=== PATIENT | female | born 1970 | race Caucasian/White ===

== ENCOUNTER 2016-10-02 14:07 | Emergency (ER) | payer SELFPAY ==
[2016-10-02 14:31] VITALS: BP 133/59
[2016-10-02] MEDS ORDERED: ALBUTEROL SULFATE 0.083% NEB 2.5 MG/3 ML AMPUL NEB ONE (14:52)
--- NOTE | 2016-10-02 14:54 | ER Document Report ---
ED Medical Screen (RME) - General Stated Complaint: SORE THROAT Time seen by provider: 14:53 Mode of Arrival: Ambulatory Information source: Patient Notes: 46-year-old smoker female complaining of sore throat, body aches, congestive cough since Sunday night. She's been exposed to strep throat. She wants to be treated with antibiotics. Because of her mom. I have greeted and performed a rapid initial assessment of this patient. A comprehensive ED assessment, evaluation of the patient, analysis of test results , and completion of the medical decision making process will be conducted by additional ED providers. TRAVEL OUTSIDE OF THE [place] IN LAST 30 DAYS: No - Related Data Allergies/Adverse Reactions: No Known Allergies Allergy (Verified 10/02/16 14:52) Past Medical History - Past Medical History Cardiac Medical History: Reports: Hx Hypercholesterolemia, Hx Hypertension Psychiatric Medical History: Reports: Hx Anxiety, Hx Depression Past Surgical History: Reports: Hx Tonsillectomy - Immunizations Hx Diphtheria, Pertussis, Tetanus Vaccination: No Physical Exam - Vital signs Vitals: Temp Pulse Resp BP Pulse Ox 98.5 F 99 16 133/59 H 98 10/02/16 14:30 10/02/16 14:30 10/02/16 14:30 10/02/16 14:30 10/02/16 14:30 Course - Vital Signs Vital signs: Temp Pulse Resp BP Pulse Ox 98.5 F 99 16 133/59 H 98 10/02/16 14:30 10/02/16 14:30 10/02/16 14:30 10/02/16 14:30 10/02/16 14:30
[2016-10-02] MEDS ORDERED: DEXAMETHASONE 4 MG TABLET PO ONE (18:22)
--- NOTE | 2016-10-02 18:27 | ER Document Report ---
[id number] Mode of Arrival: Ambulatory Notes: The patient is a 46-year-old female, past medical history chronic back pain, presents with 2 days of dry cough, subjective fevers and sore throat. She is concerned that she has strep throat because her son and daughter both were diagnosed with strep last week. She denies difficulty breathing, difficulty swallowing, nausea, vomiting, adenopathy, trismus, headache, nausea or vomiting. TRAVEL OUTSIDE OF THE [place] IN LAST 30 DAYS: No - Related Data Allergies/Adverse Reactions: No Known Allergies Allergy (Verified 10/02/16 14:52) Past Medical History - General Information source: Patient - Social History Smoking Status: Current Every Day Smoker Chew tobacco use (# tins/day): Yes Family History: Reviewed & Not Pertinent Patient has suicidal ideation: No Patient has homicidal ideation: No - Past Medical History Cardiac Medical History: Reports: Hx Hypercholesterolemia, Hx Hypertension Renal/ Medical History: Denies: Hx Peritoneal Dialysis Psychiatric Medical History: Reports: Hx Anxiety, Hx Depression Past Surgical History: Reports: Hx Tonsillectomy - Immunizations Hx Diphtheria, Pertussis, Tetanus Vaccination: No Review of Systems - Review of Systems Notes: REVIEW OF SYSTEMS: CONSTITUTIONAL: +fevers, -chills EENT: -eye pain, -difficulty swallowing, -nasal congestion, +sore throat CARDIOVASCULAR:-chest pain, -syncope. RESPIRATORY: +cough, -SOB GASTROINTESTINAL: -abdominal pain, - nausea, -vomiting, -diarrhea GENITOURINARY: -dysuria, -hematuria MUSCULOSKELETAL: -back pain, -neck pain SKIN: -rash or skin lesions. HEMATOLOGIC: -easy bruising or bleeding. LYMPHATIC: -swollen, enlarged glands. NEUROLOGICAL: -altered mental status or loss of consciousness, -headache, - neurologic symptoms PSYCHIATRIC: -anxiety, -depression. ALL OTHER SYSTEMS REVIEWED AND NEGATIVE. Physical Exam - Vital signs Vitals: Temp Pulse Resp BP Pulse Ox 98.5 F 99 16 133/59 H 98 10/02/16 14:30 10/02/16 14:30 10/02/16 14:30 10/02/16 14:30 10/02/16 14:30 - Notes Notes: PHYSICAL EXAMINATION: GENERAL: Well-appearing, well-nourished and in no acute distress. HEAD: Atraumatic, normocephalic. EYES: Pupils equal round and reactive to light, extraocular movements intact, sclera anicteric, conjunctiva are normal. ENT: nares patent, oropharynx clear without exudates. Moist mucous membranes. NECK: Normal range of motion, supple without lymphadenopathy LUNGS: Breath sounds clear to auscultation bilaterally and equal. No wheezes rales or rhonchi. HEART: Regular rate and rhythm without murmurs ABDOMEN: Soft, nontender, normoactive bowel sounds. No guarding, no rebound. No masses appreciated. EXTREMITIES: Normal range of motion, no pitting or edema. No cyanosis. NEUROLOGICAL: Cranial nerves grossly intact. Normal speech, normal gait. Normal sensory, motor, and reflex exams. PSYCH: Normal mood, normal affect. SKIN: Warm, Dry, normal turgor, no rashes or lesions noted. Course - Re-evaluation Re-evalutation: Patient has 0 Centor criteria. Rapid strep sent prior to my evaluation is negative. Chest x-ray also negative. Will DC home after steroids to help with viral pharyngitis. Given symptomatic treatment and return precautions and she understands. - Vital Signs Vital signs: Temp Pulse Resp BP Pulse Ox 98.5 F 99 16 133/59 H 98 10/02/16 14:30 10/02/16 14:30 10/02/16 14:30 10/02/16 14:30 10/02/16 14:30 Discharge - Discharge Clinical Impression: Viral pharyngitis URI (upper respiratory infection) Qualifiers: URI type: unspecified viral URI Qualified Code(s): J06.9 - Acute upper respiratory infection, unspecified Condition: Good Disposition: HOME, SELF-CARE Additional Instructions: INFLUENZA: The physician feels that you have influenza -- the "flu". Influenza is an infection caused by a virus. Symptoms include generalized aching, fever, headache, dry cough, and fatigue. Some patients with the flu also have nausea, vomiting, and diarrhea. The fever and aches usually last two to four days, with the cough persisting another one to two weeks. Treatment of the flu, for the most part, is simply treatment of symptoms. Rest, drink plenty of fluids, and use acetaminophen for fever and aches. Do not take aspirin. There is an anti-viral medication, called Tamiflu, which may help in "type A" flu, but it's not helpful in every case of flu, and only works if started within the first 24 - 48 hours of the start of symptoms. The physician will determine whether this medication can help you. To prevent spread of the virus, use good handwashing. Shared toys should be cleaned with disinfectant. Clean the toilets, sinks, and counter surfaces in bathrooms. Launder clothing in hot water. What are conditions that should receive medical attention? The development of difficulty breathing. Lip color changes to blue or purple. Persistent vomiting and unable to keep liquids down with signs of dehydration such as: dizziness when standing, unable to urinate, or if child/ is crying no tears are noticed. Is less responsive than normal or becomes confused. How do I decrease the spread of flu in my home? Taking care of the sick patient at home: Keep the sick person in a room separate from the common areas of the house. Keep the "sickroom" door closed. If the person with the flu needs to leave the home, they should cover their nose/mouth when coughing or sneezing and wear a disposable (surgical) mask if available. These masks may be available at your local pharmacy, medical supply and hardware store. If the sick person is in common areas of the house, have them wear a surgical mask. If possible, have the sick person use a separate bathroom that should be cleaned daily with a household disinfectant. If you are the caregiver: Avoid being face to face with the sick adult person as much as possible. Try to stay at least 6 feet away and wear a disposable surgical mask when possible. When holding small children who are sick, place their chin on your shoulder so that they will not cough in your face. Wash your hands after you touch the sick person or handle their tissues and laundry. Wear a mask if you leave home, as you may be infected from taking care of someone and not know it yet. Watch yourself and others in the home for flu symptoms and contact your doctor if symptoms occur. NOTE: Antiviral medication used to reduce the symptoms of the flu works only if taken within 48 hours, and best within 24 hours of symptom onset. Household Cleaning, laundry and waste disposal: Tissues and other disposable items used by the sick person should be thrown away in the trash. Wash your hands after touching these used items. No special waste disposal is required. Keep surfaces (especially bedside tables, bathroom surfaces, and toys for children) clean by wiping them down with a safe household disinfectant according to the directions on the product label. Per Center for Disease Control advice, most people will not receive testing to confirm flu. Also based on the person's health history and onset of symptoms, not all patients will receive prescriptions for antiviral medications. If you have questions related to this, please ask your healthcare provider. For more information, you can call the Centers for Disease Control and Prevention ([facility]) Hotline at 4-410-ZZKDefixo This line is available in Greenlandic and Croatian, 24 hours a day, 7 days a week. Or www.Mailgun or www.cdc.gov Flu-Like Illness Home Instructions: The influenza virus infection can cause a wide rage of symptoms, including: Fever, cough, sore throat, body aches, headaches, chills, fatigue, with some patients reporting diarrhea and vomiting Like seasonal influenza A, H1N1 ("swine flu")in humans can vary in severity from mild to severe Severe illness with pneumonia, respiratory failure and even is possible Certain groups might be more likely to develop a severe illness from H1N1 infection. Sometimes bacterial infections may occur at the same time as or after infection with influenza viruses and lead to pneumonias, ear infections, or sinus infections. How Flu Spreads The main way that influenza viruses spread is through respiratory droplets of coughs and sneezes. This can happen when someone with the infection coughs or sneezes and the particles fly through the air and land on other people and surfaces. If the person covers their mouth and nose with their hand but does not wash their hands immediately, then these germs are passed onto the next object that they touch. People with Influenza A or suspected H1N1 (swine flu) who are cared for at home should: Check with their doctor about any special care that they might need if they are or have a health condition such as diabetes, heart disease, asthma or emphysema. Also, limit caregiver to one (if possible). women or those with chronic health conditions should not take care of the flu patient unless necessary. Check with their doctor about whether or not medications are needed that may lessen the symptoms of the flu. Stay at home until 24 hours fever free without the use of fever reducing medication. Get plenty of rest and avoid other healthy people in your home. Drink plenty of clear liquids to keep from getting dehydrated. Take medications like Tylenol (Acetaminophen), Advil/Motrin/Nuprin ( Ibuprofen) or Aleve (Naproxen) for fevers and aches. All children under the age of 18 years of age should not take aspirin or products containing aspirin (e.g. Pepto Bismol), as this can cause a rare serious illness called Tara Syndrome. Over the counter medications for flu and colds may help, but it is very important to follow the package directions. Remember that the medicine may help the symptoms, but it will not help prevent others from getting sick if they are around you. Cover coughs and sneezes using your bent arm. Clean hands with soap and water or an alcohol-based hand rub often, especially after using tissues to cough or sneeze. Encourage hand washing frequently for all people living in the home! The sick person should not have visitors other than caregivers. Encourage concerned loved ones to call instead of visit. Avoid close contact with others-do not go to work or school while sick. USE OF ACETAMINOPHEN (Tylenol): Acetaminophen may be taken for pain relief or fever control. It's much safer than aspirin, offering a wider range of "safe" dosages. It is safe during . Some brand names are Tylenol, Panadol, Datril, Anacin 3, Tempra, and Liquiprin. Acetaminophen can be repeated every four hours. The following are maximum recommended dosages: WEIGHT Dose Drops Elixir Chewable( 80mg) (LBS.) drprs=droppers tsp=teaspoon 6 40 mg 0.4 ml (1/2) 6-11 80 mg 0.8 ml (full) tsp 1 tab 12-16 120 mg 1 1/2 drprs 3/4 tsp 1 1/2 tabs 17-23 160 mg 2 drprs 1 tsp 2 tabs 24-30 240 mg 3 drprs 1 1/2 tsp 3 tabs 30-35 320 mg 2 tsp 4 tabs 36-41 360 mg 2 1/4 tsp 4 1/2 tabs 42-47 400 mg 2 1/2 tsp 5 tabs 48-53 480 mg 3 tsp 6 tabs 54-59 520 mg 3 1/4 tsp 6 1/2 tabs 60-64 560 mg 3 1/2 tsp 7 tabs 65-70 600 mg 3 3/4 tsp 7 1/2 tabs 71-76 640 mg 4 tsp 8 tabs 77-82 720 mg 4 1/2 tsp 9 tabs 83-88 800 mg 5 tsp 10 tabs >89 pounds or adults 650 mg to 900 mg Acetaminophen can be repeated every four hours. Maximum dose not to exceed 4000 mg a day. These maximum recommended dosages are slightly higher than the dosages written on the product container, but these dosages are very safe and below the toxic dosage for acetaminophen. ORAL NARCOTIC MEDICATION: You have been given a prescription for pain control. This medication is a narcotic. It's best taken with food, as nausea can result if taken on an empty stomach. Don't operate machinery or drive within six hours of taking this medication. Do not combine this medicine with alcohol, or with any medication which can cause sedation (such as cold tablets or sleeping pills) unless you get permission from the physician. Narcotics tend to cause constipation. If possible, drink plenty of fluids and eat a diet high in fiber and fruits. Please be aware that prescription narcotics also have the potential for abuse. People become addicted to these medications because of the general sense of wellbeing that they induce. This feeling along with a significant reduction in tension, anxiety, and aggression provides a stimulating seductive quality to these drugs. Once your pain is under control, we encourage you to discard your unused narcotics. FOLLOW-UP CARE: If you have been referred to a physician for follow-up care, call the physician s office for an appointment as you were instructed or within the next two days. If you experience worsening or a significant change in your symptoms, notify the physician immediately or return to the Emergency Department at any time for re-evaluation. Prescriptions: Benzonatate [Tessalon Perle 100 mg Capsule] 100 mg PO Q8HP PRN #20 cap PRN Reason: Forms: Return to Work
== END 2016-10-02 18:35 | disposition home or self-care (01) ==
LOC: ER 14:07
DX: J02.8 Acute pharyngitis due to other specified organisms (principal); B97.89 Other viral agents as the cause of diseases classified elsewhere; R05 Cough; Z20.818 Contact with and (suspected) exposure to other bacterial communicable diseases; F17.200 Nicotine dependence, unspecified, uncomplicated; I10 Essential (primary) hypertension
CPT/HCPCS: 71020; 87070; 87880; 94640; 99283

== ENCOUNTER 2018-04-24 17:05 | Emergency (ER) | payer SELFPAY ==
[2018-04-24 17:17] VITALS: BP 110/68
[2018-04-24] MEDS ORDERED: LIDOCAINE 5% (700 MG) TRANSDERMAL ADH..PATCH TP ONE (18:04)
--- NOTE | 2018-04-24 18:04 | ER Document Report ---
ED Medical Screen (RME) - General Chief Complaint: Chest Pain Stated Complaint: CHEST PAIN Time Seen by Provider: 04/24/18 18:00 TRAVEL OUTSIDE OF THE [place] IN LAST 30 DAYS: No - HPI Notes: 04/24/18 18:01 Patient is a 48-year-old female with a history of mental health disorders and chronic pain who presents to the ED complaining of left-sided chest pain and left arm pain that started somewhat suddenly when she was doing dishes about 1- 2 hours ago. Denies any significant cardiopulmonary medical history otherwise. Pain is worse with arm movement and pushing in that area per pt. Denies any headache, fever, URI, sore throat, palpitations, syncope, cough, shortness of breath, wheeze, dyspnea, abdominal pain, nausea/vomiting/diarrhea, urinary retention, dysuria, hematuria, back pain, or rash. Denies any prolonged immobilization, distance travel, recent surgery/trauma, personal cancer history, hormone use, or previous DVT/PE. + smoker. I have treated and performed a rapid initial assessment of this patient. A comprehensive ED assessment and evaluation of the patient, analysis of test results and completion of medical decision making process will be conducted by additional ED providers. PHYSICAL EXAMINATION: GENERAL: Well-appearing, well-nourished and in no acute distress. A&Ox4. Answers questions appropriately. Chest: + moderate tenderness to the left side. LUNGS: Breath sounds clear to auscultation bilaterally and equal. No wheezes rales or rhonchi. HEART: Regular rate and rhythm without murmurs, rubs, gallops. Extremities: No cyanosis, clubbing, or edema b/l. Keyur neg. No asymmetry. PSYCH: Normal mood, normal affect. - Related Data Allergies/Adverse Reactions: No Known Allergies Allergy (Verified 04/24/18 18:01) Past Medical History - Past Medical History Cardiac Medical History: Reports: Hx Hypercholesterolemia, Hx Hypertension Renal/ Medical History: Denies: Hx Peritoneal Dialysis Psychiatric Medical History: Reports: Hx Anxiety, Hx Depression Past Surgical History: Reports: Hx Tonsillectomy - Immunizations Hx Diphtheria, Pertussis, Tetanus Vaccination: No Physical Exam - Vital signs Vitals: Temp Pulse Resp BP Pulse Ox 98.0 F 96 18 110/68 100 04/24/18 17:15 04/24/18 17:15 04/24/18 17:15 04/24/18 17:15 04/24/18 17:15 Course - Vital Signs Vital signs: Temp Pulse Resp BP Pulse Ox 98.0 F 96 18 110/68 100 04/24/18 17:15 04/24/18 17:15 04/24/18 17:15 04/24/18 17:15 04/24/18 17:15 Doctor's Discharge - Discharge Referrals: ALYSE JOHNSON PA [Primary Care Provider] - Follow up as needed
--- NOTE | 2018-04-24 18:36 | RADIOLOGY REPORT (SQ) ---
EXAM DESCRIPTION: CHEST SINGLE VIEW COMPLETED DATE/TIME: 04/24/2018 6:20 pm REASON FOR STUDY: Lt side CP COMPARISON: 10/02/2016 EXAM PARAMETERS: NUMBER OF VIEWS: One view. TECHNIQUE: Single frontal radiographic view of the chest acquired. RADIATION DOSE: NA LIMITATIONS: None. FINDINGS: LUNGS AND PLEURA: No opacities, masses or pneumothorax. No pleural effusion. MEDIASTINUM AND HILAR STRUCTURES: No masses. Contour normal. HEART AND VASCULAR STRUCTURES: Heart normal in size. Normal vasculature. BONES: No acute findings. HARDWARE: None in the chest. OTHER: No other significant finding. IMPRESSION: NO ACUTE RADIOGRAPHIC FINDING IN THE CHEST. TECHNICAL DOCUMENTATION: JOB ID: [id number] [employer]- All Rights Reserved Reading location - IP/workstation name: [email or web address]
--- NOTE | 2018-04-24 19:45 | EKG REPORT ---
SEVERITY:- BORDERLINE ECG - SINUS RHYTHM PROBABLE LEFT ATRIAL ABNORMALITY : Confirmed by: Anders Mg MD 24-Apr-2018 19:44:43
== END 2018-04-24 19:44 | disposition home or self-care (01) ==
LOC: ER 17:05
DX: R07.9 Chest pain, unspecified (principal); M79.602 Pain in left arm; F17.200 Nicotine dependence, unspecified, uncomplicated; G89.29 Other chronic pain
CPT/HCPCS: 71045; 93005; 93010; 99285

== ENCOUNTER 2018-06-23 09:54 | Emergency (ER) | payer SELFPAY ==
--- NOTE | 2018-06-23 10:36 | ER Document Report ---
ED Extremity Problem, Lower - General Chief Complaint: Ankle Pain Stated Complaint: LEFT ANKLE INJURY Time Seen by Provider: 06/23/18 10:34 Notes: Patient is complaining of severe pain over the malleolus of the left ankle. Patient says that she tripped and turned to the ankle inward when she fell on Sunday. She is been able to walk on it and does not hurt that much to walk but when notes on the bed and not moving it hurts "so bad". Has never had an injury to that area before. Ankle did not swell a lot. No other injuries. Patient has ibuprofen as well as oxycodone for chronic pain and is not requesting any more pain medications. TRAVEL OUTSIDE OF THE [place] IN LAST 30 DAYS: No - Related Data Allergies/Adverse Reactions: No Known Allergies Allergy (Verified 04/24/18 18:01) Past Medical History - Social History Smoking Status: Unknown if Ever Smoked Family History: Reviewed & Not Pertinent - Past Medical History Cardiac Medical History: Reports: Hx Hypercholesterolemia, Hx Hypertension Renal/ Medical History: Denies: Hx Peritoneal Dialysis Psychiatric Medical History: Reports: Hx Anxiety, Hx Depression Past Surgical History: Reports: Hx Tonsillectomy - Immunizations Hx Diphtheria, Pertussis, Tetanus Vaccination: No Review of Systems - Review of Systems Notes: CONSTITUTIONAL : Denies fever. CARDIOVASCULAR: Denies chest pain. RESPIRATORY: Denies cough, chest congestion, or shortness of breath. GASTROINTESTINAL: Denies abdominal pain or nausea, vomiting, or diarrhea. GENITOURINARY: Denies difficulty or painful urinating, urinary frequency, blood in urine. Physical Exam - Vital signs Vitals: Temp Pulse Resp BP Pulse Ox 98.1 F 74 16 133/77 H 99 06/23/18 10:00 06/23/18 10:00 06/23/18 10:00 06/23/18 10:00 06/23/18 10:00 Interpretation: Normal Notes: PHYSICAL EXAMINATION: GENERAL: Well-appearing, no acute distress. HEAD: Atraumatic, normocephalic. NECK: Normal range of motion, supple. LUNGS: Breath sounds clear and equal bilaterally. HEART: Regular rate and rhythm without murmurs heard. ABDOMEN: Soft, nontender. No guarding or rebound or masses felt. Extremities: Patient has some very minimal soft tissue swelling around the lateral malleolar of the left ankle. She points to an area about 2 inches above the fibula tip as the primary location of the pain. It hurts to press in that region. She has been able to walk on it and is not to severely painful to do so. Patient is almost hysterical in her happiness to learn that there is no broken bone. She is actually in tears worried that she had broken a bone in the ankle. Course - Re-evaluation Re-evalutation: 06/23/18 19:12 Patient has an ankle brace at home so I have advised her to use that for the next few weeks to prevent further injury to her ankle. She did not request more pain medications as she says that she has oxycodone and ibuprofen at home. Patient's response to my informing her that her x-ray showed the bone was not broken was almost hysterical with relief and she hugged me and was near tears. - Vital Signs Vital signs: Temp Pulse Resp BP Pulse Ox 98.4 F 62 16 126/76 H 98 06/23/18 11:17 06/23/18 11:17 06/23/18 11:17 06/23/18 11:17 06/23/18 11:17 - Diagnostic Test Radiology results interpreted by me: 06/23/18 19:11 X-ray is normal. Discharge - Discharge Clinical Impression: Sprain of left ankle Condition: Stable Disposition: HOME, SELF-CARE Additional Instructions: Sprained Ankle Your sprained ankle results from stretching or tearing of the ligaments which support the ankle. This usually results from twisting the foot inward and under. The ligaments will require time and protection in order to heal properly. Many ankle sprains are quite disabling, and should be taken seriously. The usual treatment for an ankle sprain is cold packs; protection with tape , splints, or wraps; elevation; and staying off the ankle for at least a day. As the ankle improves, you can walk IF it's not painful to bear weight. Sports are best postponed until healing is complete. More serious sprains usually require strengthening exercises after early healing. Your physician has assessed the seriousness of the ligament injury to your ankle. However, the treatment may change, depending on how your ankle progresses. If further exams were recommended, it is important that you follow through. Call the doctor if your foot becomes numb, painful, or severely swollen. Your x-rays show no evidence of fracture. Your examination suggests a sprain of the left ankle. This injury involves stretching and even some tearing of the ligaments over the outer aspect of the ankle. However, there is no evidence of fracture of the bone. Take your own pain medications of ibuprofen and oxycodone that you have at home. Wear the ankle support that you have at home for the next month to 6 weeks. Follow-up with an orthopedic doctor if you continue to have your painful symptoms or other problems with the ankle. I have provided Dr. Neal's contact information, if you need to see an orthopedist. Referrals: DAVIDSON NEAL MD [ACTIVE STAFF] - Follow up as needed
--- NOTE | 2018-06-23 10:39 | RADIOLOGY REPORT (SQ) ---
EXAM DESCRIPTION: ANKLE LEFT COMPLETE COMPLETED DATE/TIME: 06/23/2018 10:29 am REASON FOR STUDY: left ankle pain COMPARISON: 01/19/2012. NUMBER OF VIEWS: Three views. TECHNIQUE: AP, lateral, and oblique radiographic images acquired of the left ankle. LIMITATIONS: None. FINDINGS: MINERALIZATION: Normal. BONES: No acute fracture or dislocation. No worrisome bone lesions. JOINTS: No effusions. SOFT TISSUES: No soft tissue swelling. No foreign body. OTHER: No other significant finding. IMPRESSION: NEGATIVE STUDY OF THE LEFT ANKLE. NO RADIOGRAPHIC EVIDENCE OF ACUTE INJURY. TECHNICAL DOCUMENTATION: JOB ID: [id number] [employer]- All Rights Reserved Reading location - IP/workstation name: [email or web address]
[2018-06-23 11:23] VITALS: BP 126/76
== END 2018-06-23 11:17 | disposition home or self-care (01) ==
LOC: ER 09:54
DX: S93.402A Sprain of unspecified ligament of left ankle, initial encounter (principal); W01.0XXA Fall on same level from slipping, tripping and stumbling without subsequent striking against object, initial encounter; E78.00 Pure hypercholesterolemia, unspecified; I10 Essential (primary) hypertension
CPT/HCPCS: 99283

== ENCOUNTER 2018-07-13 02:34 | Inpatient (IN) | payer SELFPAY ==
[2018-07-13] MEDS ORDERED: IPRATROPIUM/ALBUTEROL 0.5-2.5 MG/3 ML AMPUL NEB ONE ×2 (02:40→02:46)
[2018-07-13] MEDS ORDERED: METHYLPREDNISOLONE INJ 125 MG/2 ML SDV IV ONE (02:43)
[2018-07-13] MEDS ORDERED: MAGNESIUM SULFATE/D5W 1 GM/100 ML RTUPB IV ONE (02:44)
[2018-07-13] MEDS: MAGNESIUM SULFATE/D5W 1 GM/100 ML RTUPB IV SCH ×2 (02:47→02:48)
--- NOTE | 2018-07-13 03:00 | ER Document Report ---
ED General - General Chief Complaint: Shortness Of Breath Stated Complaint: DIFFICULTY BREATHING Time Seen by Provider: 07/13/18 02:46 Mode of Arrival: Ambulatory Information source: Patient TRAVEL OUTSIDE OF THE [place] IN LAST 30 DAYS: No - HPI Onset: Yesterday Notes: 48-year-old female smoker with no reported past medical history arrives to the emergency room in respiratory distress speaking in 1-2 word sentences with chief complaint of "I cannot breathe". She says the symptoms started yesterday , have not improved, and got worse this evening prompting her to seek treatment in the emergency department. After patient on BiPAP and respiratory effort improved able to elicit history. Patient endorses headache and cough since yesterday, endorses vomiting one time this evening, endorses anxiety for which she takes Xanax 3 times per day. She denies fever, chills, or any other constitutional symptoms. She endorses chronic back pain and is seen by pain management, Dr. Man, and takes oxycodone 10 mg 5 times per day per pain contract. Has not gotten flu shot this year. - Related Data Allergies/Adverse Reactions: No Known Allergies Allergy (Verified 07/13/18 10:02) Past Medical History - General Information source: Patient - Social History Smoking Status: Current Every Day Smoker Smoking Education Provided: Yes Lives with: Family Family History: Reviewed & Not Pertinent - Past Medical History Cardiac Medical History: Reports: Hx Hypercholesterolemia, Hx Hypertension Renal/ Medical History: Denies: Hx Peritoneal Dialysis Psychiatric Medical History: Reports: Hx Anxiety, Hx Depression Past Surgical History: Reports: Hx Tonsillectomy - Immunizations Hx Diphtheria, Pertussis, Tetanus Vaccination: No Review of Systems - Review of Systems Constitutional: See HPI EENT: See HPI Cardiovascular: See HPI Respiratory: See HPI Gastrointestinal: See HPI Genitourinary: See HPI Female Genitourinary: No symptoms reported Musculoskeletal: Back pain Skin: No symptoms reported Hematologic/Lymphatic: No symptoms reported Neurological/Psychological: No symptoms reported Physical Exam - Vital signs Vitals: Resp Pulse Ox 30 H 90 L 07/13/18 02:43 07/13/18 02:43 Interpretation: Tachycardic, Hypoxic, Tachypneic. No: Febrile - General General appearance: Alert, Anxious In distress: Severe - Respiratory Respiratory status: Respiratory distress - severe, Labored, Retractions, Tachypnea Chest status: Nontender Breath sounds: Wheezing - inspiratory and respiratory Chest palpation: Normal - Cardiovascular Rhythm: Regular, Tachycardia Heart sounds: Normal auscultation Murmur: No - Abdominal Inspection: Normal Distension: No distension Bowel sounds: Normal Tenderness: Nontender - Neurological Neuro grossly intact: Yes Cognition: Normal Orientation: AAOx4 Huntington Coma Scale Eye Opening: Spontaneous Yonatan Coma Scale Verbal: Oriented Yonatan Coma Scale Motor: Obeys Commands Huntington Coma Scale Total: 15 Speech: Normal - Skin Skin Temperature: Warm Skin Moisture: Dry Skin Color: Normal Course - Re-evaluation Re-evalutation: 07/13/18 02:58 Upon arrival O2 sats were 73% on room air patient was immediately placed on a nasal cannula with no improvement and immediately transition to a facemask. On the facemask patient was still satting at 88% on 8 L, respiratory therapy was called and BiPAP ordered. DuoNeb x3 ordered, Solu-Medrol 125 mg ordered, VBG, chest x-ray, CBC, CMP ordered. Patient in sinus tachycardia at 108. Initial BiPAP settings 07/25. 07/13/18 03:03 Patient reported to nursing that she takes Xanax 3 times a day and is currently feeling anxious. Ativan 0.5 mg IV 1 time ordered. Patient currently on BiPAP and O2 sats are now 92% on 07/2507/13/18 03:09 Reevaluated patient. Mild inspiratory wheezing still noted right middle lobe, and expiratory wheezing still noted all nash. Patient is tolerating BiPAP current settings BiPAP 07/25 at 40%, O2 sats are 92%, patient still sinus tachycardic at 110 bpm 07/13/18 03:29 Patient complaining of severe back pain. Completed patient look up on [facility] aware from [place] and it appears patient has a pain contract with Dr. Man. 07/13/18 03:40 Patient still in respiratory distress with bilateral expiratory wheezing. Tolerating BiPAP well, no increased O2 requirements. Chest x-ray shows impressive bilateral pneumonia. She has a leukocytosis of 14,600. Blood cultures ordered. Azithromycin 500 mg IV x1 ordered as patient is on BiPAP, Rocephin 1 g IV ordered. Rapid flu ordered. 07/13/18 03:45 07/13/18 04:[address] Grayson. Patient is admitted to the [facility] - Vital Signs Vital signs: Temp Pulse Resp BP Pulse Ox 100.5 F H 120 H 42 H 85/41 L 100 07/13/18 21:47 07/14/18 02:36 07/14/18 02:36 07/14/18 02:04 07/14/18 04:55 - Laboratory Result Diagrams: 07/14/18 03:56 07/14/18 03:56 Laboratory results interpreted by me: 07/13/18 07/13/18 07/13/18 03:00 03:00 03:00 WBC 14.6 H Seg Neutrophils % 87.5 H Lymphocytes % 6.7 L Absolute Neutrophils 12.8 H VBG pH 7.43 H Chloride 108 H Glucose 166 H Critical Care Note - Critical Care Note Total time excluding time spent on procedures (mins): 40 - Acute acute respiratory distress and hypoxia, pneumonia Comments: Please allow 40 minutes of critical care time for the diagnosis and management of acute hypoxic respiratory distress and bilateral pneumonia. Patient placed on BiPAP and given DuoNeb x3, Solu-Medrol. Blood cultures drawn and antibiotics initiated. Patient will be admitted to the IMCU. Discharge - Discharge Clinical Impression: Hypoxia, Respiratory distress Pneumonia Qualifiers: Pneumonia type: due to unspecified organism Laterality: bilateral Lung location : unspecified part of lung Qualified Code(s): J18.9 - Pneumonia, unspecified organism Condition: Fair Disposition: ADMITTED INPATIENT Admitting Provider: Hospitalist Unit Admitted: [facility]
[2018-07-13] MEDS ORDERED: LORAZEPAM INJ 2 MG/1 ML VIAL IV ONE (03:01)
[2018-07-13 03:15] LABS: ABSOLUTE BASOPHILS # (AUTO) 0.1 10^3/uL (0.0-0.2); ABSOLUTE MONOCYTES (AUTO) 0.7 10^3/uL (0.1-1.4); ABSOLUTE NEUT (AUTO) 12.8 10^3/uL (1.7-8.2); BASOPHILS % (AUTO) 0.5 % (0-2); EOSINOPHILS % (AUTO) 0.2 % (0-6); HEMATOCRIT 39.5 % (36.0-47.0); HEMOGLOBIN 13.3 g/dL (12.0-15.5); LYMPHOCYTES % (AUTO) 6.7 % (13-45); MEAN CORPUSCULAR HGB CONC 33.8 g/dL (32.0-36.0); MEAN CORPUSCULAR VOLUME 89 fl (80-97); MONOCYTES % (AUTO) 5.1 % (3-13); PLATELET COUNT 188 10^3/uL (150-450); RED BLOOD COUNT 4.45 10^6/uL (3.72-5.28); RED CELL DISTRIBUTION WIDTH 13.6 % (11.5-14.0); SEGMENTED NEUTROPHILS % (AUTO) 87.5 % (42-78); TOTAL CELLS COUNTED % (AUTO) 100 %; WHITE BLOOD COUNT 14.6 10^3/uL (4.0-10.5)
[2018-07-13 03:18] LABS: VENOUS BLOOD BASE EXCESS -0.1 mmol/L; VENOUS BLOOD PCO2 37.2 mmHg (35-63); VENOUS BLOOD PH 7.43 (7.30-7.42)
[2018-07-13] MEDS ORDERED: OXYCODONE HCL SR 10 MG TABLET PO ONE (03:30)
[2018-07-13 03:32] LABS: ANION GAP 11 (5-19); BLOOD UREA NITROGEN 8 mg/dL (7-20); CARBON DIOXIDE 23 mmol/L (22-30); CHLORIDE 108 mmol/L (98-107)
[2018-07-13 03:33] LABS: GLUCOSE 166 mg/dL (75-110); POTASSIUM 3.9 mmol/L (3.6-5.0)
[2018-07-13] MEDS ORDERED: AZITHROMYCIN INJ 500 MG VIAL IV ONE (03:33)
[2018-07-13] MEDS ORDERED: CEFTRIAXONE 1 GM/D5W RTU 1 GM/50 ML RTUPB IV ONE (03:34)
--- NOTE | 2018-07-13 03:36 | RADIOLOGY REPORT (SQ) ---
CLINICAL HISTORY: difficulty breathing COMPARISON: None. TECHNIQUE: XR CHEST 1 VIEW 07/13/2018 2:43 AM EVENT PLANNING MANAGER FINDINGS: Cardiac silhouette is normal in size. There is moderate airspace disease throughout the mid and lower lungs bilaterally. There is no pleural effusion. There is no pneumothorax. There are no acute osseous findings. IMPRESSION: Extensive bilateral pneumonia.
[2018-07-13] MEDS ORDERED: GUAIFENESIN SYRP 200 MG/10 ML UDC PO PRN (04:04)
[2018-07-13] MEDS ORDERED: IPRATROPIUM/ALBUTEROL 0.5-2.5 MG/3 ML AMPUL NEB PRN (04:04)
--- NOTE | 2018-07-13 05:07 | PDOC H&P ---
History of Present Illness Admission Date/PCP: 07/13/18 04:04 Patient complains of: Shortness of breath and cough History of Present Illness: BIANCA MCKEON is a 48 year old female with a past medical history of tobacco , opiate and benzodiazepine dependent chronic pain and anxiety. She presents with 3 days of rhinorrhea, developing nonproductive cough, fever and chills over the last 3 days. In the emergency room she is found to be in severe respiratory distress unable to speak full sentences, oxygen saturations in the 80s, chest x-ray reveals bilateral lower lobe pneumonia. She started on BiPAP empiric antibiotics and referred to the hospitalist for admission. She admits influenza vaccination, denies ill contacts. Past Medical History Cardiac Medical History: Reports: Hyperlipidema, Hypertension Psychiatric Medical History: Reports: Depression, Tobacco Dependency Past Surgical History Past Surgical History: Reports: Tonsillectomy Social History Information Source: Patient, Emergency Med Personnel Smoking Status: Current Every Day Smoker Cigarettes Packs Per Day: 1 Number of Years Smokin Frequency of Alcohol Use: None Hx Recreational Drug Use: No Hx Prescription Drug Abuse: No - Advance Directive Resuscitation Status: Full Code Family History Family History: COPD Parental Family History Reviewed: Yes Children Family History Reviewed: Yes Sibling(s) Family History Reviewed.: Yes Medication/Allergy Home Medications: Alprazolam [Xanax] 1 mg PO QID 04/24/18 Citalopram Hydrobromide [Celexa 40 mg Tablet] 1 tab PO DAILY 04/24/18 Ibuprofen 800 mg PO TID 04/24/18 Lurasidone HCl [Latuda 40 mg Tablet] 40 mg PO QAM 04/24/18 Oxycodone HCl 10 mg PO ASDIR PRN 04/24/18 Zolpidem Tartrate [Ambien] 10 mg PO QHS 04/24/18 Allergies/Adverse Reactions: No Known Allergies Allergy (Verified 04/24/18 18:01) Review of Systems ROS unobtainable: Other - Shortness of breath Physical Exam Vital Signs: Temp Pulse Resp BP Pulse Ox 98.1 F 112 H 31 H 115/53 L 91 L 07/13/18 02:45 07/13/18 02:45 07/13/18 04:01 07/13/18 04:01 07/13/18 04:01 General appearance: PRESENT: cooperative, disheveled, severe distress Head exam: PRESENT: atraumatic, normocephalic Eye exam: PRESENT: conjunctival injection, EOMI, PERRLA. ABSENT: scleral icterus Ear exam: PRESENT: normal external ear exam Mouth exam: PRESENT: moist, tongue midline Neck exam: ABSENT: carotid bruit, JVD, lymphadenopathy, thyromegaly Respiratory exam: PRESENT: accessory muscle use, crackles, prolonged expiratory phas, rales, retraction, rhonchi, symmetrical, tachypnea Cardiovascular exam: PRESENT: +S1, +S2, tachycardia Pulses: PRESENT: normal dorsalis pedis pul Vascular exam: PRESENT: normal capillary refill GI/Abdominal exam: PRESENT: normal bowel sounds, soft. ABSENT: distended, guarding, mass, organolmegaly, rebound, tenderness Rectal exam: PRESENT: deferred Extremities exam: PRESENT: full ROM. ABSENT: calf tenderness, clubbing, pedal edema Neurological exam: PRESENT: alert, awake, oriented to person, oriented to place , oriented to time, oriented to situation, CN II-XII grossly intact. ABSENT: motor sensory deficit Psychiatric exam: PRESENT: appropriate affect, normal mood. ABSENT: homicidal ideation, suicidal ideation Skin exam: PRESENT: dry, intact, warm. ABSENT: cyanosis, rash Results Impressions: Chest X-Ray 07/13/18 02:43 IMPRESSION: Extensive bilateral pneumonia. Assessment & Plan - Diagnosis (1) Pneumonia Qualifiers: Pneumonia type: due to unspecified organism Laterality: bilateral Lung location: unspecified part of lung Qualified Code(s): J18.9 - Pneumonia, unspecified organism Is this a current diagnosis for this admission?: Yes Plan: Pneumonia care set, stress dose steroids, albuterol and Atrovent, follow-up CBC and blood culture (2) Respiratory distress Is this a current diagnosis for this admission?: Yes Plan: Acute respiratory failure secondary to bilateral pneumonia, suspect underlying COPD, on BiPAP requiring 40% FiO2 follow-up ABG (3) Chronic pain Is this a current diagnosis for this admission?: Yes Plan: Requesting patient's medication bottle, concern for respiratory depression, opiates as needed avoiding withdrawal (4) Anxiety Is this a current diagnosis for this admission?: Yes Plan: Complicating respiratory failure, benzodiazepine as needed avoiding withdrawal - Time Time Spent: 50 to 70 Minutes - Inpatient Certification Medical Necessity: Need Close Monitoring Due to Risk of Patient Decompensation
[2018-07-13 05:16] LABS: A TYPE INFLUENZA AG NEGATIVE (NEGATIVE); B INFLUENZA AG NEGATIVE (NEGATIVE)
[2018-07-13 05:30] LABS: ARTERIAL BLOOD BASE EXCESS -1.2 mmol/L; ARTERIAL BLOOD H2CO3 0.98 mmol/L (1.05-1.35); ARTERIAL BLOOD O2 SATURATION 94.4 % (94-98); ARTERIAL BLOOD PCO2 32.5 mmHg (35-45); ARTERIAL BLOOD PH 7.45 (7.35-7.45); ARTERIAL BLOOD PO2 67.4 mmHg (80-100)
[2018-07-13 05:31] LABS: ARTERIAL BLOOD FIO2 40%
[2018-07-13] MEDS: HEPARIN SOD (PORCINE) 5,000 UNIT/ML 1 ML SYRINGE SUBCUT SCH ×3 (05:58→21:24)
[2018-07-13] MEDS: IPRATROPIUM/ALBUTEROL 0.5-2.5 MG/3 ML AMPUL NEB SCH ×3 (07:36→20:41)
--- NOTE | 2018-07-13 08:01 | EKG REPORT ---
SEVERITY:- OTHERWISE NORMAL ECG - SINUS TACHYCARDIA : Confirmed by: Nela Carney MD 13-Jul-2018 08:00:17
[2018-07-13] MEDS: NORMAL SALINE 1000 ML 1,000 ML IV PRN ×3 (08:13→17:51)
[2018-07-13] MEDS ORDERED: CITALOPRAM HYDROBROMIDE 20 MG TABLET PO SCH (11:00)
[2018-07-13] MEDS: OXYCODONE HCL IR 5 MG TABLET PO PRN ×2 (11:17→17:45)
[2018-07-13] MEDS: ALPRAZOLAM 0.5 MG TABLET PO SCH ×3 (13:53→21:24)
[2018-07-13] MEDS ORDERED: VANCOMYCIN HCL 0 MG in DEXTROSE 5%-WATER 250 ML IV NR (15:15)
[2018-07-13 15:23] LABS: ARTERIAL BLOOD BASE EXCESS -2.6 mmol/L; ARTERIAL BLOOD FIO2 80%; ARTERIAL BLOOD H2CO3 1.02 mmol/L (1.05-1.35); ARTERIAL BLOOD HCO3 21.2 mmol/L (20-24); ARTERIAL BLOOD O2 SATURATION 96.5 % (94-98); ARTERIAL BLOOD PCO2 33.8 mmHg (35-45); ARTERIAL BLOOD PH 7.42 (7.35-7.45); ARTERIAL BLOOD TOTAL CO2 22.3 mmol/L (21-25)
[2018-07-13] MEDS: ACETAMINOPHEN 325 MG TABLET PO PRN (16:09)
--- NOTE | 2018-07-13 17:08 | RADIOLOGY REPORT (SQ) ---
EXAM DESCRIPTION: CT CHEST WITH COMPLETED DATE/TIME: 07/13/2018 4:45 pm REASON FOR STUDY: severe PNA, hypoxia COMPARISON: Chest x-ray 07/13/2018 TECHNIQUE: CT scan of the chest performed using helical scanning technique with dynamic intravenous contrast injection. Images reviewed with lung, soft tissue and bone windows. Reconstructed coronal and sagittal MPR and MIP images reviewed. All images stored on PACS. All CT scanners at this facility use dose modulation, iterative reconstruction, and/or weight based d osing when appropriate to reduce radiation dose to as low as reasonably achievable (ALARA). [facility]: Dose Right [facility]: CareDose [facility]: Dose Right [facility]: Teradose 4D [facility]: EZBOB CONTRAST TYPE AND DOSE: 80 ml Omnipaque 350- low osmolar. RENAL FUNCTION: Creatinine 0.55 RADIATION DOSE: CT Rad equipment meets quality standard of care and radiation dose reduction techniq ues were employed. CTDIvol: 10.4 mGy. DLP: 403 mGy-cm. . LIMITATIONS: None. FINDINGS: LUNGS AND PLEURA: There are extensive bilateral airspace opacities. No pleural effusion o r pneumothorax. HILAR AND MEDIASTINAL STRUCTURES: Mildly enlarged mediastinal lymph node is measuring 11 mm in short axis. Mildly enlarged right hilar lymph node is measuring 16 mm in short axis. Mildly enlarged left hilar lymph node is measuring 16 mm in short axis. HEART AND VASCULAR STRUCTURES: No thoracic aortic aneurysm or acute dissection. No pericardial effus ion. HARDWARE: None in the chest. UPPER ABDOMEN: There is nodular thickening of the left adrenal gland measuring 13 mm. THYROID AND OTHER SOFT TISSUES: The visualized thyroid gland is unremarkable. BONES: No significant finding. IMPRESSION: 1. Extensive bilateral airspace opacities, may be secondary to multifocal pneumonia ; p ulmonary hemorrhage and pulmonary edema are also in the differential. Followup imaging recommended t o ensure resolution exclude a different etiology. 2. Mild mediastinal and hilar adenopathy. 3. 13 mm nodular thickening of the left adrenal gland, indeterminate. TECHNICAL DOCUMENTATION: JOB ID: [id number] [place]- Quality ID # 436: Final reports with documentation of one or more dose reduction techniques (e.g., Au tomated exposure control, adjustment of the mA and/or kV according to patient size, use of iterative reconstruction technique) 2010 [employer]- All Rights Reserved Reading location - IP/workstation name: [email or web address]
[2018-07-13] MEDS: VANCOMYCIN HCL 1,500 MG in DEXTROSE 5%-WATER 250 ML IV SCH (17:47)
[2018-07-13] MEDS: PIPERACILLIN SODIUM/TAZOBACTAM 3.375 GM in NORMAL SALINE 100 ML IV SCH ×2 (17:47→23:12)
[2018-07-13] MEDS ORDERED: CEFTRIAXONE 1 GM/D5W RTU 1 GM/50 ML RTUPB IV SCH (18:00)
[2018-07-13] MEDS ORDERED: CEFTRIAXONE SODIUM 1,000 MG in DEXTROSE 5%-WATER 50 ML IV SCH (18:00)
[2018-07-13] MEDS ORDERED: AZITHROMYCIN 500 MG in DEXTROSE 5%-WATER 250 ML IV SCH (22:00)
[2018-07-13] MEDS ORDERED: ZOLPIDEM TARTRATE 5 MG TABLET PO SCH (22:00)
[2018-07-14] MEDS: ACETAMINOPHEN 325 MG TABLET PO PRN (00:01)
[2018-07-14] MEDS ORDERED: PROPOFOL 1,000 MG/100 ML INFUS..BTL IV ONE (00:20)
[2018-07-14] MEDS ORDERED: MIDAZOLAM 2 MG/2 ML INJ ONE (00:31)
[2018-07-14] MEDS ORDERED: PHARMACY COMMUNICATION ORDER MC NR (00:45)
[2018-07-14] MEDS: PROPOFOL 1,000 MG/100 ML INFUS..BTL IV PRN ×9 (00:47→23:35)
[2018-07-14] MEDS ORDERED: GLUCAGON,HUMAN RECOMB 1 MG INJ SUBCUT PRN (01:07)
[2018-07-14] MEDS ORDERED: DEXTROSE 50%-WATER 25 GM/50 ML DISP.SYRIN IV PRN ×2 (01:07)
[2018-07-14] MEDS ORDERED: DEXTROSE 40% GEL 15 GM TUBE PO PRN ×2 (01:07)
[2018-07-14] MEDS: VANCOMYCIN HCL 1,500 MG in DEXTROSE 5%-WATER 250 ML IV SCH ×3 (01:10→18:32)
[2018-07-14] MEDS ORDERED: MIDAZOLAM 2 MG/2 ML INJ IV ONE (01:30)
--- NOTE | 2018-07-14 01:35 | RADIOLOGY REPORT (SQ) ---
EXAM DESCRIPTION: XR CHEST 1 VIEW COMPLETED DATE/TME: 07/14/2018 00:41 CLINICAL HISTORY: Respiratory Distress. 48 years Female, Confirm ETT/OG placement COMPARISON: One day prior. NUMBER OF VIEWS/TECHNIQUE: 1/AP FINDINGS: Severe mixed airspace and interstitial opacities bilaterally, small bibasilar opacity-effusion. Adequate appearing endotracheal tube. Likely adequate appearing enteric tube partially obscured. Normal cardiac silhouette size. No pneumothorax. Stable bony thorax. IMPRESSION: Worsening includes severe bilateral airspace opacities.
[2018-07-14 01:56] LABS: ARTERIAL BLOOD BASE EXCESS -5.4 mmol/L; ARTERIAL BLOOD H2CO3 1.31 mmol/L (1.05-1.35); ARTERIAL BLOOD HCO3 20.8 mmol/L (20-24); ARTERIAL BLOOD O2 SATURATION 86.8 % (94-98); ARTERIAL BLOOD PCO2 43.5 mmHg (35-45); ARTERIAL BLOOD PO2 57.2 mmHg (80-100); ARTERIAL BLOOD TOTAL CO2 22.2 mmol/L (21-25)
[2018-07-14 01:58] LABS: ARTERIAL BLOOD FIO2 100%
[2018-07-14] MEDS: FENTANYL CITRATE INJ/PF 100 MCG/2 ML AMPUL IV PRN (02:25)
[2018-07-14] MEDS: IPRATROPIUM/ALBUTEROL 0.5-2.5 MG/3 ML AMPUL NEB SCH ×4 (02:36→20:45)
[2018-07-14] MEDS ORDERED: NOREPINEPHRINE BITARTRATE INJ/PF 4 MG/4 ML SDV IV ONE (03:12)
[2018-07-14] MEDS: DEXTROSE 5%-WATER 250 ML with NOREPINEPHRINE BITARTRATE 4 MG IV PRN ×6 (03:18→20:36)
[2018-07-14 04:22] LABS: ANION GAP 11 (5-19); BLOOD UREA NITROGEN 13 mg/dL (7-20); CALCIUM 7.8 mg/dL (8.4-10.2); CARBON DIOXIDE 18 mmol/L (22-30); CHLORIDE 109 mmol/L (98-107); GLUCOSE 134 mg/dL (75-110); POTASSIUM 3.6 mmol/L (3.6-5.0)
[2018-07-14 04:25] LABS: HEMATOCRIT 33.6 % (36.0-47.0); MEAN CORPUSCULAR HEMOGLOBIN 30.1 pg (27.0-33.4); MEAN CORPUSCULAR HGB CONC 33.2 g/dL (32.0-36.0); MEAN CORPUSCULAR VOLUME 91 fl (80-97); PLATELET COUNT 153 10^3/uL (150-450); RED BLOOD COUNT 3.71 10^6/uL (3.72-5.28); RED CELL DISTRIBUTION WIDTH 14.1 % (11.5-14.0); WHITE BLOOD COUNT 18.1 10^3/uL (4.0-10.5)
[2018-07-14 04:42] LABS: HEMOGLOBIN 11.2 g/dL (12.0-15.5)
[2018-07-14] MEDS: HEPARIN SOD (PORCINE) 5,000 UNIT/ML 1 ML SYRINGE SUBCUT SCH ×3 (05:00→21:12)
[2018-07-14] MEDS: PIPERACILLIN SODIUM/TAZOBACTAM 3.375 GM in NORMAL SALINE 100 ML IV SCH ×4 (05:00→23:02)
[2018-07-14 06:35] LABS: ABSOLUTE LYMPHOCYTES# (MANUAL) 0.5 10^3/uL (0.5-4.7); ABSOLUTE MONOCYTES # (MANUAL) 0.2 10^3/uL (0.1-1.4); ABSOLUTE NEUTROPHILS# (MANUAL) 17.4 10^3/uL (1.7-8.2); BASOPHILS % (MANUAL) 0 % (0-2); EOSINOPHILS % (MANUAL) 0 % (0-6); LYMPHOCYTES % (MANUAL) 3 % (13-45); MONOCYTES % (MANUAL) 1 % (3-13); PLATELET COMMENT ADEQUATE; SEGMENTED NEUTROPHILS % (MAN) 96 % (42-78); TOTAL CELLS COUNTED 100
[2018-07-14] MEDS ORDERED: NORMAL SALINE INJ/PF 0.9% 10 ML SDV IV PRN (07:35)
--- NOTE | 2018-07-14 07:38 | Operative Report ---
Operative Report DATE OF SURGERY: 07/14/18 PREOPERATIVE DIAGNOSIS: Acute respiratory failure POSTOPERATIVE DIAGNOSIS: Same OPERATION: 1. Focused ultrasound of the left neck. 2. Ultrasound directed insertion of triple-lumen central venous access catheter left internal jugular vein. 3. Interpretation portable chest x-ray SURGEON: SUKHDEV RIVERA ANESTHESIA: Local TISSUE REMOVED OR ALTERED: None COMPLICATIONS: None ESTIMATED BLOOD LOSS: Scant INTRAOPERATIVE FINDINGS: See below PROCEDURE: Patient was placed in Trendelenburg position, left neck prepped and draped in sterile fashion. Surgical timeout conducted. Left neck was scanned with a variable frequency linear transducer. Findings were significant for a patent left internal jugular vein suitable for cannulation. Skin was anesthetized with 1% plain lidocaine. Nickolas made in the skin with 11 blade, and under real-time ultrasound guidance, the left internal jugular vein was cannulated without difficulty, wire threaded in position, dilator threaded over the wire, triple-lumen central venous access catheter threaded over the wire to position. Wire removed, excellent aspiration and flush through all 3 lm with saline. Catheter secured to the skin with 2-0 silk suture Biopatch and sterile dressing. Portable upright chest x-ray revealed tip of the catheter to be in the superior vena cava no evidence of pneumothorax.
--- NOTE | 2018-07-14 07:51 | RADIOLOGY REPORT (SQ) ---
EXAM DESCRIPTION: XR CHEST 1 VIEW COMPLETED DATE/TME: 07/14/2018 00:00 CLINICAL HISTORY: Respiratory Distress. 48 years Female, TLC placement COMPARISON: Same day. NUMBER OF VIEWS/TECHNIQUE: 1/AP FINDINGS: Severe mixed airspace and interstitial opacity bilaterally. Adequate appearing endotracheal tube. Likely adequate appearing enteric tube partially obscured. Adequate appearing left jugular central line. Likely normal cardiac silhouette size partially obscured. No pneumothorax. Stable bony thorax. IMPRESSION: No significant change.
[2018-07-14] MEDS ORDERED: MIDAZOLAM HCL 50 MG/100 ML RTUINJ ONE (08:00)
[2018-07-14] MEDS: MIDAZOLAM HCL 50 MG/100 ML RTUINJ IV PRN ×2 (08:05→16:04)
[2018-07-14] MEDS ORDERED: SUCCINYLCHOLINE CHLORIDE INJ 200 MG/10 ML VIAL ONE (11:03)
[2018-07-14 11:09] LABS: ARTERIAL BLOOD BASE EXCESS -2.9 mmol/L; ARTERIAL BLOOD H2CO3 1.26 mmol/L (1.05-1.35); ARTERIAL BLOOD HCO3 22.6 mmol/L (20-24); ARTERIAL BLOOD O2 SATURATION 99.3 % (94-98); ARTERIAL BLOOD PCO2 41.9 mmHg (35-45); ARTERIAL BLOOD PH 7.35 (7.35-7.45); ARTERIAL BLOOD PO2 203.7 mmHg (80-100); ARTERIAL BLOOD TOTAL CO2 23.9 mmol/L (21-25)
[2018-07-14 11:10] LABS: ARTERIAL BLOOD FIO2 100%
[2018-07-14] MEDS: LURASIDONE HCL 40 MG TABLET PO SCH (11:51)
[2018-07-14] MEDS: ALPRAZOLAM 0.5 MG TABLET NG SCH ×3 (11:52→18:31)
[2018-07-14] MEDS: AZITHROMYCIN 250 MG TABLET NG SCH (11:53)
[2018-07-14] MEDS: CITALOPRAM HYDROBROMIDE 20 MG TABLET NG SCH (11:53)
--- NOTE | 2018-07-14 12:02 | Operative Report ---
Nonrecallable Operative Report DATE OF SURGERY: 07/14/18 PREOPERATIVE DIAGNOSIS: 1. Respiratory failure. 2. Septic shock POSTOPERATIVE DIAGNOSIS: Same OPERATION: Insertion of left radial arterial line using focused ultrasound as a guide SURGEON: SUKHDEV RIVERA ANESTHESIA: Local TISSUE REMOVED OR ALTERED: See below COMPLICATIONS: None ESTIMATED BLOOD LOSS: Minimal INTRAOPERATIVE FINDINGS: See below PROCEDURE: Summary of procedure: The patient had her left arm abducted, taped to a TV stand. Previous attempts were made to establish a line monitoring device by the hospitalist service. These were unsuccessful. Using a focused ultrasound as a guide, identified the radial artery slightly proximal to the previous percutaneous attempts. Skin was prepped and draped with alcohol. Skin was anesthetized with 1% plain lidocaine. Several attempts were made to cannulate the left radial artery, however unsuccessful due to low flow in the artery. Therefore this approach was aborted The left brachial artery was then scanned with a variable frequency linear transducer. The identical procedure was performed overlying the confirmed, patent normal-appearing brachial artery. The skin was prepped with alcohol, anesthetized with 1% plain lidocaine, and a ivelisse made in the skin. Using the built-in wire, the 21-gauge catheter was threaded into the left brachial artery just distal to the antecubital fossa. The catheter was attached to the appropriate monitoring devices with satisfactory waveform. Catheter was secured to the skin at 3 sites with 4-0 Prolene suture. Biopatch sterile dressing applied. Patient tolerated the procedure well. Arcadio reddyating .
[2018-07-14] MEDS ORDERED: FUROSEMIDE INJ/PF 40 MG/4 ML SDV IV ONE (12:30)
[2018-07-14 15:30] LABS: ARTERIAL BLOOD BASE EXCESS -2.9 mmol/L; ARTERIAL BLOOD H2CO3 1.25 mmol/L (1.05-1.35); ARTERIAL BLOOD HCO3 22.6 mmol/L (20-24); ARTERIAL BLOOD O2 SATURATION 97.7 % (94-98); ARTERIAL BLOOD PCO2 41.6 mmHg (35-45); ARTERIAL BLOOD PH 7.35 (7.35-7.45); ARTERIAL BLOOD PO2 107.2 mmHg (80-100); ARTERIAL BLOOD TOTAL CO2 23.8 mmol/L (21-25)
[2018-07-14 15:33] LABS: ARTERIAL BLOOD FIO2 70%
--- NOTE | 2018-07-14 16:22 | PDOC CONSULTATION ---
Consultation Consult Date: 07/14/18 Attending physician:: FRANCISCA HIGGINBOTHAM Consult reason:: ARDS/septic shock History of Present Illness Admission Date/PCP: 07/13/18 04:04 History of Present Illness: BIANCA MCKEON is a 48 year old female, presented complaining of increasing shortness of breath and cough for approximately a week history of hemoptysis she was initially BiPAP but remained tachypneic and was subsequently intubated she is currently on mechanical ventilation pressor agents she has history of smoking Past Medical History Cardiac Medical History: Reports: Hyperlipidema, Hypertension Psychiatric Medical History: Reports: Depression, Tobacco Dependency Past Surgical History Past Surgical History: Reports: Tonsillectomy Social History Information [facility] Lives with: Family Smoking Status: Current Every Day Smoker Cigarettes Packs Per Day: 1 Number of Years Smokin Frequency of Alcohol Use: None Hx Recreational Drug Use: No Drugs: None Hx Prescription Drug Abuse: No - Advance Directive Resuscitation Status: Full Code Family History Parental Family History Reviewed: No Children Family History Reviewed: No Sibling(s) Family History Reviewed.: No Medication/Allergy Home Medications: Alprazolam [Xanax] 1 mg PO QID 04/24/18 Citalopram Hydrobromide [Celexa 40 mg Tablet] 10 mg PO DAILY 04/24/18 Ibuprofen 800 mg PO TIDP PRN 04/24/18 Lurasidone HCl [Latuda 40 mg Tablet] 40 mg PO DAILY 04/24/18 Oxycodone HCl 10 mg PO Q4HP PRN MDD MAX 5 TABS PER DAY 04/24/18 Zolpidem Tartrate [Ambien] 10 mg PO QHS 04/24/18 Lactulose [Constulose 10 gm/15 mL Oral Solution] 15 ml PO DAILYP PRN 07/13/18 Allergies/Adverse Reactions: No Known Allergies Allergy (Verified 07/13/18 10:02) Review of Systems ROS unobtainable: Due to endotracheal tube Physical Exam Vital Signs: Temp Pulse Resp BP Pulse Ox 100.0 F 93 40 H 107/62 95 07/14/18 07:57 07/14/18 09:06 07/14/18 09:06 07/14/18 07:57 07/14/18 09:06 Intake & Output 07/13/18 07/14/18 07/15/18 06:59 06:59 06:59 Intake Total 50 2931 79 Output Total 180 125 Balance 50 2751 -46 Weight 90.9 kg 92.6 kg General appearance: PRESENT: no acute distress, well-developed, well-nourished Head exam: PRESENT: atraumatic, normocephalic Eye exam: PRESENT: conjunctiva pale. ABSENT: nystagmus, periorbital swelling Mouth exam: PRESENT: dry mucosa, neck supple, tongue midline, other - Tracheal tube in place Neck exam: ABSENT: carotid bruit, JVD, lymphadenopathy, thyromegaly, tracheal deviation, tracheostomy Respiratory exam: PRESENT: decreased breath sounds, prolonged expiratory phas, rales, rhonchi, tachypnea, unlabored, wheezes. ABSENT: retraction, stridor Cardiovascular exam: PRESENT: RRR, +S1, +S2 Pulses: PRESENT: normal radial pulses GI/Abdominal exam: PRESENT: soft. ABSENT: tenderness Gentrourinary exam: PRESENT: indwelling catheter Extremities exam: ABSENT: calf tenderness, clubbing, joint swelling, pedal edema Musculoskeletal exam: ABSENT: ambulatory, deformity, dislocation Neurological exam: ABSENT: awake Skin exam: PRESENT: dry, warm Results Laboratory Results: 07/14/18 03:56 07/14/18 03:56 07/13/18 07/13/18 07/14/18 14:59 15:20 01:40 WBC RBC Hgb Hct MCV MCH MCHC RDW Plt Count Seg Neutrophils % Lymphocytes % Monocytes % Eosinophils % Basophils % Absolute Neutrophils Absolute Lymphocytes Absolute Monocytes Absolute Eosinophils Absolute Basophils Carbonic Acid 1.02 L 1.31 HCO3/H2CO3 Ratio 20:1 15:1 ABG pH 7.42 7.30 L ABG pCO2 33.8 L 43.5 ABG pO2 84.0 57.2 L ABG HCO3 21.2 20.8 ABG O2 Saturation 96.5 86.8 L ABG Base Excess -2.6 -5.4 FiO2 80% 100% Sodium Potassium Chloride Carbon Dioxide Anion Gap BUN Creatinine Est GFR ( Amer) Est GFR (Non-Af Amer) Glucose Lactic Acid 1.2 Calcium 07/14/18 07/14/18 03:56 03:56 WBC 18.1 H RBC 3.71 L Hgb 11.2 L D Hct 33.6 L MCV 91 MCH 30.1 MCHC 33.2 RDW 14.1 H Plt Count 153 Seg Neutrophils % Not Reportable Lymphocytes % Not Reportable Monocytes % Not Reportable Eosinophils % Not Reportable Basophils % Not Reportable Absolute Neutrophils Not Reportable Absolute Lymphocytes Not Reportable Absolute Monocytes Not Reportable Absolute Eosinophils Not Reportable Absolute Basophils Not Reportable Carbonic Acid HCO3/H2CO3 Ratio ABG pH ABG pCO2 ABG pO2 ABG HCO3 ABG O2 Saturation ABG Base Excess FiO2 Sodium 138.0 Potassium 3.6 Chloride 109 H Carbon Dioxide 18 L Anion Gap 11 BUN 13 Creatinine 0.81 Est GFR ( Amer) > 60 Est GFR (Non-Af Amer) > 60 Glucose 134 H Lactic Acid Calcium 7.8 L Impressions: Chest CT 07/13/18 15:07 IMPRESSION: 1. Extensive bilateral airspace opacities, may be secondary to multifocal pneumonia ; pulmonary hemorrhage and pulmonary edema are also in the differential. Followup imaging recommended to ensure resolution exclude a different etiology. 2. Mild mediastinal and hilar adenopathy. 3. 13 mm nodular thickening of the left adrenal gland, indeterminate. Chest X-Ray 07/14/18 00:41 IMPRESSION: Worsening includes severe bilateral airspace opacities. Assessment & Plan - Diagnosis (1) Septic shock Is this a current diagnosis for this admission?: Yes Plan: levophed (2) ARDS (adult respiratory distress syndrome) Is this a current diagnosis for this admission?: Yes Plan: awaiting cultures adjust Peep rr as needed - Time Total Critical Time (Minutes): 55
--- NOTE | 2018-07-14 18:35 | PDOC PROGRESS REPORT ---
Subjective Progress Note for:: 07/14/18 Subjective:: Ms. Herrera is a 48 yr old female with a PMH of hypeetension, hyperlipidemia, and on opiate and benzodiazepine at home for chronic pain and anxiety who presented with cough. She was found to have severe bilateral pneumonia upon admission and was requiring BIPAP. Yesterday, she had desaturation in the high 80s while on BIPAP on the floor and was upgraded to the ICU. She did improve and felt better after BIPAP settings were increased. She slept comfortable and was maintaining saturations in the high 90s. Around midnight, she started having desaturation again and became increasingly short of breath and had to be intubated. Patient had desaturations to the high 80s and low 90s even at 100% FiO2. This morning, PEEP and rate was increased and saturations started to improve. Case was discussed in length with technical manager chemical plant and further vent changes were made. Patient was also tachypneic on vent and this resolved after adding midazolam drip on top of propofol drip. Reason For Visit: COPD PNEUMONIA Physical Exam Vital Signs: Temp Pulse Resp BP Pulse Ox 100.8 F H 91 20 115/62 98 07/14/18 14:00 07/14/18 14:00 07/14/18 15:30 07/14/18 14:00 07/14/18 15:30 Intake & Output 07/13/18 07/14/18 07/15/18 06:59 06:59 06:59 Intake Total 50 2931 1922 Output Total 180 1515 Balance 50 2751 407 Weight 200 lb 6.403 oz 204 lb 2.369 oz General appearance: PRESENT: well-developed, well-nourished, other - tachypneic Head exam: PRESENT: atraumatic, normocephalic Eye exam: PRESENT: conjunctiva pink, EOMI, PERRLA. ABSENT: scleral icterus Ear exam: PRESENT: normal external ear exam Mouth exam: PRESENT: moist, tongue midline Neck exam: ABSENT: carotid bruit, JVD, lymphadenopathy, thyromegaly Respiratory exam: PRESENT: accessory muscle use, crackles - on both lung nash , rhonchi Cardiovascular exam: PRESENT: RRR. ABSENT: diastolic murmur, rubs, systolic murmur Pulses: PRESENT: normal dorsalis pedis pul GI/Abdominal exam: PRESENT: normal bowel sounds, soft. ABSENT: distended, guarding, mass, organolmegaly, rebound, tenderness Rectal exam: PRESENT: deferred Neurological exam: PRESENT: other - intubated and sedated Results Laboratory Results: 07/14/18 03:56 07/14/18 03:56 07/13/18 07/14/18 07/14/18 15:20 01:40 03:56 WBC 18.1 H RBC 3.71 L Hgb 11.2 L D Hct 33.6 L MCV 91 MCH 30.1 MCHC 33.2 RDW 14.1 H Plt Count 153 Seg Neutrophils % Not Reportable Lymphocytes % Not Reportable Monocytes % Not Reportable Eosinophils % Not Reportable Basophils % Not Reportable Absolute Neutrophils Not Reportable Absolute Lymphocytes Not Reportable Absolute Monocytes Not Reportable Absolute Eosinophils Not Reportable Absolute Basophils Not Reportable Carbonic Acid 1.31 HCO3/H2CO3 Ratio 15:1 ABG pH 7.30 L ABG pCO2 43.5 ABG pO2 57.2 L ABG HCO3 20.8 ABG O2 Saturation 86.8 L ABG Base Excess -5.4 FiO2 100% Sodium Potassium Chloride Carbon Dioxide Anion Gap BUN Creatinine Est GFR ( Amer) Est GFR (Non-Af Amer) Glucose Lactic Acid 1.2 Calcium 07/14/18 07/14/18 07/14/18 03:56 10:26 15:05 WBC RBC Hgb Hct MCV MCH MCHC RDW Plt Count Seg Neutrophils % Lymphocytes % Monocytes % Eosinophils % Basophils % Absolute Neutrophils Absolute Lymphocytes Absolute Monocytes Absolute Eosinophils Absolute Basophils Carbonic Acid 1.26 1.25 HCO3/H2CO3 Ratio 17:1 18:1 ABG pH 7.35 7.35 ABG pCO2 41.9 41.6 ABG pO2 203.7 H 107.2 H ABG HCO3 22.6 22.6 ABG O2 Saturation 99.3 H 97.7 ABG Base Excess -2.9 -2.9 FiO2 100% 70% Sodium 138.0 Potassium 3.6 Chloride 109 H Carbon Dioxide 18 L Anion Gap 11 BUN 13 Creatinine 0.81 Est GFR ( Amer) > 60 Est GFR (Non-Af Amer) > 60 Glucose 134 H Lactic Acid Calcium 7.8 L Impressions: Chest CT 07/13/18 15:07 IMPRESSION: 1. Extensive bilateral airspace opacities, may be secondary to multifocal pneumonia ; pulmonary hemorrhage and pulmonary edema are also in the differential. Followup imaging recommended to ensure resolution exclude a different etiology. 2. Mild mediastinal and hilar adenopathy. 3. 13 mm nodular thickening of the left adrenal gland, indeterminate. Chest X-Ray 07/14/18 00:41 IMPRESSION: Worsening includes severe bilateral airspace opacities. Assessment & Plan - Diagnosis (1) ARDS (adult respiratory distress syndrome) Is this a current diagnosis for this admission?: Yes Plan: Patient has developed ARDS likely from bilateral multifocal pneumonia. She had high Aa gradient and was desaturating initially at 100% FiO2. CT chest shows multifocal pnuemonia. Pulmonology has seen patient and has made further vent changes. Patient is now saturating at 98% at PRVC/70% FiO2/450 TV/16 RR/14 PEEP. (2) Septic shock Is this a current diagnosis for this admission?: Yes Plan: Secondary to multifocal pneumonia. Patient is currently requiring levophed. Continue broad spectrum IV antibiotics. (3) Multifocal pneumonia Is this a current diagnosis for this admission?: Yes Plan: Continue broad spectrum antibiotics. Sputum culture pending. - Time Time Spent with patient: 35 or more minutes
[2018-07-14] MEDS ORDERED: POTASSIUM CHLORIDE 20 MEQ/15 ML UDCUP PO ONE (18:45)
[2018-07-14 18:51] LABS: VANCOMYCIN,TROUGH 19.5 ug/mL (5.0-20.0)
[2018-07-14 19:37] LABS: URINE AMPHETAMINES SCREEN NEGATIVE; URINE BARBITURATES SCREEN NEGATIVE; URINE COCAINE SCREEN NEGATIVE; URINE MARIJUANA (THC) SCREEN NEGATIVE; URINE METHADONE SCREEN NEGATIVE; URINE PHENCYCLIDINE SCREEN NEGATIVE
[2018-07-14 19:42] LABS: URINE BENZODIAZEPINES SCREEN UNCONFIRMED POSITIVE
[2018-07-14] MEDS ORDERED: PANTOPRAZOLE SODIUM 40 MG VIAL IV ONE (20:00)
[2018-07-14] MEDS ORDERED: ZOLPIDEM TARTRATE 5 MG TABLET NG SCH (22:00)
[2018-07-15] MEDS: MIDAZOLAM HCL 50 MG/100 ML RTUINJ IV PRN ×3 (00:35→21:29)
[2018-07-15] MEDS: VANCOMYCIN HCL 1,500 MG in DEXTROSE 5%-WATER 250 ML IV SCH ×2 (01:01→10:29)
[2018-07-15] MEDS: FENTANYL CITRATE INJ/PF 100 MCG/2 ML AMPUL IV PRN (01:50)
[2018-07-15] MEDS: IPRATROPIUM/ALBUTEROL 0.5-2.5 MG/3 ML AMPUL NEB SCH ×4 (02:48→19:56)
[2018-07-15] MEDS: PROPOFOL 1,000 MG/100 ML INFUS..BTL IV PRN ×5 (03:03→20:22)
[2018-07-15] MEDS: HEPARIN SOD (PORCINE) 5,000 UNIT/ML 1 ML SYRINGE SUBCUT SCH ×3 (05:01→21:28)
[2018-07-15] MEDS: PIPERACILLIN SODIUM/TAZOBACTAM 3.375 GM in NORMAL SALINE 100 ML IV SCH ×3 (05:01→18:00)
[2018-07-15 05:50] LABS: ABSOLUTE EOSINOPHILS # (AUTO) 0.3 10^3/uL (0.0-0.6); ABSOLUTE LYMPHOCYTES (AUTO) 1.2 10^3/uL (0.5-4.7); ABSOLUTE MONOCYTES (AUTO) 0.5 10^3/uL (0.1-1.4); ABSOLUTE NEUT (AUTO) 8.1 10^3/uL (1.7-8.2); BASOPHILS % (AUTO) 0.4 % (0-2); EOSINOPHILS % (AUTO) 3.4 % (0-6); HEMATOCRIT 32.2 % (36.0-47.0); HEMOGLOBIN 11.1 g/dL (12.0-15.5); LYMPHOCYTES % (AUTO) 11.7 % (13-45); MEAN CORPUSCULAR HEMOGLOBIN 30.3 pg (27.0-33.4); MEAN CORPUSCULAR HGB CONC 34.4 g/dL (32.0-36.0); MEAN CORPUSCULAR VOLUME 88 fl (80-97); MONOCYTES % (AUTO) 4.7 % (3-13); PLATELET COUNT 156 10^3/uL (150-450); RED BLOOD COUNT 3.66 10^6/uL (3.72-5.28); SEGMENTED NEUTROPHILS % (AUTO) 79.8 % (42-78); TOTAL CELLS COUNTED % (AUTO) 100 %; WHITE BLOOD COUNT 10.1 10^3/uL (4.0-10.5)
[2018-07-15 05:52] LABS: ARTERIAL BLOOD BASE EXCESS 1.7 mmol/L; ARTERIAL BLOOD H2CO3 1.03 mmol/L (1.05-1.35); ARTERIAL BLOOD HCO3 24.8 mmol/L (20-24); ARTERIAL BLOOD O2 SATURATION 98.3 % (94-98); ARTERIAL BLOOD PCO2 34.2 mmHg (35-45); ARTERIAL BLOOD PH 7.48 (7.35-7.45); ARTERIAL BLOOD PO2 108.3 mmHg (80-100); ARTERIAL BLOOD TOTAL CO2 25.9 mmol/L (21-25)
[2018-07-15] MEDS: DEXTROSE 5%-WATER 250 ML with NOREPINEPHRINE BITARTRATE 4 MG IV PRN ×2 (05:52)
[2018-07-15 05:53] LABS: ARTERIAL BLOOD FIO2 40%
[2018-07-15 06:07] LABS: BLOOD UREA NITROGEN 11 mg/dL (7-20); CALCIUM 8.1 mg/dL (8.4-10.2); GLUCOSE 105 mg/dL (75-110)
[2018-07-15 06:08] LABS: ALANINE AMINOTRANSFERASE 18 U/L (9-52); ALBUMIN 2.5 g/dL (3.5-5.0); ALKALINE PHOSPHATASE 69 U/L (38-126); ANION GAP 6 (5-19); ASPARTATE AMINO TRANSFERASE 34 U/L (14-36); BILIRUBIN,DIRECT 0.8 mg/dL (0.0-0.4); BILIRUBIN,TOTAL 1.4 mg/dL (0.2-1.3); CARBON DIOXIDE 25 mmol/L (22-30); CHLORIDE 109 mmol/L (98-107); PHOSPHORUS 3.1 mg/dL (2.5-4.5); POTASSIUM 3.4 mmol/L (3.6-5.0); SODIUM 140.4 mmol/L (137-145); TOTAL PROTEIN 5.3 g/dL (6.3-8.2)
--- NOTE | 2018-07-15 06:24 | RADIOLOGY REPORT (SQ) ---
EXAM DESCRIPTION: XR CHEST 1 VIEW COMPLETED DATE/TME: 07/15/2018 06:00 CLINICAL HISTORY: Respiratory Distress. 48 years Female, ARDS/septic shock COMPARISON: One day prior. NUMBER OF VIEWS/TECHNIQUE: 1/AP FINDINGS: Mild mixed interstitial and airspace opacity. Normal cardiac silhouette size. Adequate appearing endotracheal tube. Likely adequate appearing enteric tube partially obscured. Adequate appearing left jugular central line. No pneumothorax. Stable bony thorax. IMPRESSION: Mild mixed interstitial and airspace opacity. Interval improvement.
--- NOTE | 2018-07-15 08:55 | PDOC PROGRESS REPORT ---
Subjective Progress Note for:: 07/15/18 Subjective:: intubated and sedated Reason For Visit: COPD PNEUMONIA Physical Exam Vital Signs: Temp Pulse Resp BP Pulse Ox 100.6 F H 94 20 107/53 L 84 L 07/14/18 18:00 07/15/18 04:00 07/15/18 06:04 07/15/18 06:04 07/15/18 06:04 Intake & Output 07/14/18 07/15/18 07/16/18 06:59 06:59 06:59 Intake Total 2931 3780 Output Total 180 5140 Balance 2751 -1360 Weight 92.6 kg 93 kg General appearance: PRESENT: no acute distress, well-developed, well-nourished. ABSENT: cooperative Head exam: PRESENT: atraumatic, normocephalic Eye exam: PRESENT: conjunctiva pale. ABSENT: nystagmus, periorbital swelling, scleral icterus Mouth exam: PRESENT: dry mucosa, neck supple, tongue midline, other - ET tube Neck exam: ABSENT: carotid bruit, JVD, lymphadenopathy, thyromegaly, tracheal deviation, tracheostomy Cardiovascular exam: PRESENT: RRR, +S1, +S2 Pulses: PRESENT: normal radial pulses GI/Abdominal exam: PRESENT: soft. ABSENT: tenderness Gentrourinary exam: PRESENT: indwelling catheter Extremities exam: ABSENT: calf tenderness, clubbing, joint swelling, pedal edema Musculoskeletal exam: ABSENT: deformity, dislocation Neurological exam: ABSENT: awake Skin exam: PRESENT: dry, warm Results Laboratory Results: 07/15/18 05:30 07/15/18 05:30 07/14/18 07/14/18 07/14/18 10:26 15:05 18:02 WBC RBC Hgb Hct MCV MCH MCHC RDW Plt Count Seg Neutrophils % Lymphocytes % Monocytes % Eosinophils % Basophils % Absolute Neutrophils Absolute Lymphocytes Absolute Monocytes Absolute Eosinophils Absolute Basophils Carbonic Acid 1.26 1.25 HCO3/H2CO3 Ratio 17:1 18:1 ABG pH 7.35 7.35 ABG pCO2 41.9 41.6 ABG pO2 203.7 H 107.2 H ABG HCO3 22.6 22.6 ABG O2 Saturation 99.3 H 97.7 ABG Base Excess -2.9 -2.9 FiO2 100% 70% Sodium Potassium Chloride Carbon Dioxide Anion Gap BUN Creatinine 0.81 Est GFR ( Amer) > 60 Est GFR (Non-Af Amer) > 60 Glucose Calcium Phosphorus Magnesium Total Bilirubin AST ALT Alkaline Phosphatase Total Protein Albumin 07/15/18 07/15/18 07/15/18 05:30 05:30 05:30 WBC 10.1 RBC 3.66 L Hgb 11.1 L Hct 32.2 L MCV 88 MCH 30.3 MCHC 34.4 RDW 14.0 Plt Count 156 Seg Neutrophils % 79.8 H Lymphocytes % 11.7 L Monocytes % 4.7 Eosinophils % 3.4 Basophils % 0.4 Absolute Neutrophils 8.1 Absolute Lymphocytes 1.2 Absolute Monocytes 0.5 Absolute Eosinophils 0.3 Absolute Basophils 0.0 Carbonic Acid 1.03 L HCO3/H2CO3 Ratio 24:1 ABG pH 7.48 H ABG pCO2 34.2 L ABG pO2 108.3 H ABG HCO3 24.8 H ABG O2 Saturation 98.3 H ABG Base Excess 1.7 FiO2 40% Sodium 140.4 Potassium 3.4 L Chloride 109 H Carbon Dioxide 25 Anion Gap 6 BUN 11 Creatinine 0.74 Est GFR ( Amer) > 60 Est GFR (Non-Af Amer) > 60 Glucose 105 Calcium 8.1 L Phosphorus 3.1 Magnesium 2.1 Total Bilirubin 1.4 H AST 34 ALT 18 Alkaline Phosphatase 69 Total Protein 5.3 L Albumin 2.5 L Impressions: Chest CT 07/13/18 15:07 IMPRESSION: 1. Extensive bilateral airspace opacities, may be secondary to multifocal pneumonia ; pulmonary hemorrhage and pulmonary edema are also in the differential. Followup imaging recommended to ensure resolution exclude a different etiology. 2. Mild mediastinal and hilar adenopathy. 3. 13 mm nodular thickening of the left adrenal gland, indeterminate. Chest X-Ray 07/15/18 06:00 IMPRESSION: Mild mixed interstitial and airspace opacity. Interval improvement. Assessment & Plan - Diagnosis (1) Septic shock Is this a current diagnosis for this admission?: Yes Plan: levophed (2) ARDS (adult respiratory distress syndrome) Is this a current diagnosis for this admission?: Yes Plan: awaiting cultures adjust Peep rr as needed - Time Total Critical Time (Minutes): 45
[2018-07-15] MEDS: POTASSIUM CHLORIDE 20 MEQ/15 ML UDCUP PO SCH (10:24)
[2018-07-15] MEDS: PANTOPRAZOLE SODIUM 40 MG VIAL IV SCH (10:24)
[2018-07-15] MEDS: AZITHROMYCIN 250 MG TABLET NG SCH (10:25)
[2018-07-15] MEDS: OXYCODONE HCL IR 5 MG TABLET NG PRN (10:25)
[2018-07-15] MEDS: CITALOPRAM HYDROBROMIDE 20 MG TABLET NG SCH (10:26)
[2018-07-15] MEDS: FUROSEMIDE INJ/PF 40 MG/4 ML SDV IV SCH (10:26)
[2018-07-15] MEDS: VANCOMYCIN HCL 1,250 MG in DEXTROSE 5%-WATER 250 ML IV SCH (18:01)
--- NOTE | 2018-07-15 18:23 | PDOC PROGRESS REPORT ---
Subjective Progress Note for:: 07/15/18 Subjective:: Ms. Herrera is a 48 yr old female with a PMH of hypeetension, hyperlipidemia, and on opiate and benzodiazepine at home for chronic pain and anxiety who presented with cough. She was found to have severe bilateral pneumonia upon admission and was requiring BIPAP. On 07/14, she had desaturation in the high 80s while on BIPAP on the floor and was upgraded to the ICU. She did improve and felt better after BIPAP settings were increased. She initially slept comfortably and was maintaining saturations in the high 90s. Around midnight of 07/14, she started having desaturation again and became increasingly short of breath and had to be intubated. Patient had desaturations to the high 80s and low 90s even at 100% FiO2. Vent setting changes were made and she later improved her saturations. No acute event overnight. She is able to tolerate lower FiO2 now and is currently at 50%. She remains sedated. Levophed is now at minimal dose. She had thin secretions coming from the ET. Reason For Visit: COPD PNEUMONIA Physical Exam Vital Signs: Temp Pulse Resp BP Pulse Ox 98.8 F 78 18 114/67 94 07/15/18 08:00 07/15/18 14:15 07/15/18 14:15 07/15/18 12:04 07/15/18 14:15 Intake & Output 07/14/18 07/15/18 07/16/18 06:59 06:59 06:59 Intake Total 2931 3780 370 Output Total 180 5140 1125 Balance 2751 -1360 -755 Weight 204 lb 2.369 oz 205 lb 0.478 oz 205 lb 0.478 oz General appearance: PRESENT: no acute distress, other - sedated and intubated Head exam: PRESENT: atraumatic, normocephalic Eye exam: PRESENT: conjunctiva pink, EOMI, PERRLA. ABSENT: scleral icterus Ear exam: PRESENT: normal external ear exam Mouth exam: PRESENT: moist, tongue midline Neck exam: ABSENT: carotid bruit, JVD, lymphadenopathy, thyromegaly Respiratory exam: PRESENT: crackles - crackles on the bases, improved from yesterday, rhonchi. ABSENT: rales, wheezes Cardiovascular exam: PRESENT: RRR. ABSENT: diastolic murmur, rubs, systolic murmur GI/Abdominal exam: PRESENT: normal bowel sounds, soft. ABSENT: distended, guarding, mass, organolmegaly, rebound, tenderness Rectal exam: PRESENT: deferred Neurological exam: PRESENT: other - sedated and intubated Results Laboratory Results: 07/15/18 05:30 07/15/18 05:30 07/14/18 07/14/18 07/15/18 15:05 18:02 05:30 WBC RBC Hgb Hct MCV MCH MCHC RDW Plt Count Seg Neutrophils % Lymphocytes % Monocytes % Eosinophils % Basophils % Absolute Neutrophils Absolute Lymphocytes Absolute Monocytes Absolute Eosinophils Absolute Basophils Carbonic Acid 1.25 1.03 L HCO3/H2CO3 Ratio 18:1 24:1 ABG pH 7.35 7.48 H ABG pCO2 41.6 34.2 L ABG pO2 107.2 H 108.3 H ABG HCO3 22.6 24.8 H ABG O2 Saturation 97.7 98.3 H ABG Base Excess -2.9 1.7 FiO2 70% 40% Sodium Potassium Chloride Carbon Dioxide Anion Gap BUN Creatinine 0.81 Est GFR ( Amer) > 60 Est GFR (Non-Af Amer) > 60 Glucose Calcium Phosphorus Magnesium Total Bilirubin AST ALT Alkaline Phosphatase Total Protein Albumin 07/15/18 07/15/18 05:30 05:30 WBC 10.1 RBC 3.66 L Hgb 11.1 L Hct 32.2 L MCV 88 MCH 30.3 MCHC 34.4 RDW 14.0 Plt Count 156 Seg Neutrophils % 79.8 H Lymphocytes % 11.7 L Monocytes % 4.7 Eosinophils % 3.4 Basophils % 0.4 Absolute Neutrophils 8.1 Absolute Lymphocytes 1.2 Absolute Monocytes 0.5 Absolute Eosinophils 0.3 Absolute Basophils 0.0 Carbonic Acid HCO3/H2CO3 Ratio ABG pH ABG pCO2 ABG pO2 ABG HCO3 ABG O2 Saturation ABG Base Excess FiO2 Sodium 140.4 Potassium 3.4 L Chloride 109 H Carbon Dioxide 25 Anion Gap 6 BUN 11 Creatinine 0.74 Est GFR ( Amer) > 60 Est GFR (Non-Af Amer) > 60 Glucose 105 Calcium 8.1 L Phosphorus 3.1 Magnesium 2.1 Total Bilirubin 1.4 H AST 34 ALT 18 Alkaline Phosphatase 69 Total Protein 5.3 L Albumin 2.5 L Impressions: Chest CT 07/13/18 15:07 IMPRESSION: 1. Extensive bilateral airspace opacities, may be secondary to multifocal pneumonia ; pulmonary hemorrhage and pulmonary edema are also in the differential. Followup imaging recommended to ensure resolution exclude a different etiology. 2. Mild mediastinal and hilar adenopathy. 3. 13 mm nodular thickening of the left adrenal gland, indeterminate. Chest X-Ray 07/15/18 06:00 IMPRESSION: Mild mixed interstitial and airspace opacity. Interval improvement. Assessment & Plan - Diagnosis (1) ARDS (adult respiratory distress syndrome) Is this a current diagnosis for this admission?: Yes Plan: Improving. Patient has developed ARDS likely from bilateral multifocal pneumonia. She had high Aa gradient and was desaturating initially even at 100% FiO2. CT chest shows multifocal pnuemonia. Pulmonology following. Going down on vent settings. Patient is now saturating at 98% at PRVC/50% FiO2/450 TV/20 RR/12 PEEP. Discontinue left brachial arterial line. New radial arterial line placed on right arm today. (2) Septic shock Is this a current diagnosis for this admission?: Yes Plan: Secondary to multifocal pneumonia. Weaning down on levophed. Continue broad spectrum IV antibiotics. (3) Multifocal pneumonia Is this a current diagnosis for this admission?: Yes Plan: Continue broad spectrum antibiotics. Sputum culture pending. - Time Time Spent with patient: 25-34 minutes
[2018-07-15] MEDS: ACETAMINOPHEN 325 MG TABLET NG PRN (18:24)
[2018-07-15] MEDS: NORMAL SALINE 1000 ML 1,000 ML IV PRN (19:00)
[2018-07-16] MEDS: PIPERACILLIN SODIUM/TAZOBACTAM 3.375 GM in NORMAL SALINE 100 ML IV SCH ×5 (00:20→23:14)
[2018-07-16] MEDS: PROPOFOL 1,000 MG/100 ML INFUS..BTL IV PRN ×7 (00:20→21:07)
[2018-07-16] MEDS: IPRATROPIUM/ALBUTEROL 0.5-2.5 MG/3 ML AMPUL NEB SCH ×2 (02:11→08:26)
[2018-07-16] MEDS: VANCOMYCIN HCL 1,250 MG in DEXTROSE 5%-WATER 250 ML IV SCH ×3 (02:40→17:34)
[2018-07-16 05:18] LABS: ABSOLUTE EOSINOPHILS # (AUTO) 0.5 10^3/uL (0.0-0.6); ABSOLUTE LYMPHOCYTES (AUTO) 1.4 10^3/uL (0.5-4.7); ABSOLUTE MONOCYTES (AUTO) 0.6 10^3/uL (0.1-1.4); ABSOLUTE NEUT (AUTO) 6.7 10^3/uL (1.7-8.2); BASOPHILS % (AUTO) 0.5 % (0-2); EOSINOPHILS % (AUTO) 5.2 % (0-6); HEMATOCRIT 30.7 % (36.0-47.0); HEMOGLOBIN 10.6 g/dL (12.0-15.5); LYMPHOCYTES % (AUTO) 15.3 % (13-45); MEAN CORPUSCULAR HEMOGLOBIN 30.4 pg (27.0-33.4); MEAN CORPUSCULAR HGB CONC 34.5 g/dL (32.0-36.0); MEAN CORPUSCULAR VOLUME 88 fl (80-97); PLATELET COUNT 166 10^3/uL (150-450); RED BLOOD COUNT 3.48 10^6/uL (3.72-5.28); RED CELL DISTRIBUTION WIDTH 13.8 % (11.5-14.0); TOTAL CELLS COUNTED % (AUTO) 100 %; WHITE BLOOD COUNT 9.2 10^3/uL (4.0-10.5)
[2018-07-16] MEDS: HEPARIN SOD (PORCINE) 5,000 UNIT/ML 1 ML SYRINGE SUBCUT SCH ×3 (05:28→21:06)
[2018-07-16 05:44] LABS: ANION GAP 7 (5-19); BLOOD UREA NITROGEN 10 mg/dL (7-20); CALCIUM 8.4 mg/dL (8.4-10.2); CARBON DIOXIDE 29 mmol/L (22-30); CHLORIDE 109 mmol/L (98-107); GLUCOSE 114 mg/dL (75-110); SODIUM 144.9 mmol/L (137-145)
[2018-07-16] MEDS: MIDAZOLAM HCL 50 MG/100 ML RTUINJ IV PRN ×2 (06:28→16:00)
[2018-07-16] MEDS ORDERED: POTASSIUM CHLORIDE 20 MEQ/15 ML UDCUP NG ONE (06:30)
[2018-07-16] MEDS ORDERED: POTASSI CL 20 MEQ/50 ML RIDER 40 MEQ/100 ML RTUPB IV ONE (06:43)
[2018-07-16] MEDS: POTASSIUM CHLORIDE 20 MEQ/50 ML RTU IV SCH ×2 (06:50→07:53)
[2018-07-16 09:52] LABS: ARTERIAL BLOOD BASE EXCESS -0.6 mmol/L; ARTERIAL BLOOD HCO3 23.5 mmol/L (20-24); ARTERIAL BLOOD O2 SATURATION 95.6 % (94-98); ARTERIAL BLOOD PCO2 36.5 mmHg (35-45); ARTERIAL BLOOD PH 7.43 (7.35-7.45); ARTERIAL BLOOD PO2 75.9 mmHg (80-100); ARTERIAL BLOOD TOTAL CO2 24.6 mmol/L (21-25)
[2018-07-16] MEDS: PANTOPRAZOLE SODIUM 40 MG VIAL IV SCH (09:52)
[2018-07-16] MEDS: FUROSEMIDE INJ/PF 40 MG/4 ML SDV IV SCH (09:52)
[2018-07-16 09:53] LABS: ARTERIAL BLOOD FIO2 50%
[2018-07-16] MEDS: CITALOPRAM HYDROBROMIDE 20 MG TABLET NG SCH (09:53)
[2018-07-16] MEDS: AZITHROMYCIN 250 MG TABLET NG SCH (09:53)
[2018-07-16] MEDS: POTASSIUM CHLORIDE 20 MEQ/15 ML UDCUP PO SCH (09:53)
--- NOTE | 2018-07-16 10:45 | RADIOLOGY REPORT (SQ) ---
EXAM DESCRIPTION: CHEST SINGLE VIEW COMPLETED DATE/TIME: 07/16/2018 10:23 am REASON FOR STUDY: pna, resp failure COMPARISON: None. NUMBER OF VIEWS: One view. TECHNIQUE: Single frontal radiographic image of the chest acquired. LIMITATIONS: None. FINDINGS: LUNGS AND PLEURA: Stable appearance. MEDIASTINUM AND HILAR STRUCTURES: Stable heart size and mediastinal structures. HEART AND VASCULAR STRUCTURES: Stable appearance. SUPPORT DEVICES: Appropriate location without change. BONES: No acute findings. OTHER: No other significant finding. IMPRESSION: STABLE APPEARANCE OF THE CHEST. SUPPORT DEVICES UNCHANGED. TECHNICAL DOCUMENTATION: JOB ID: [id number] [employer]- All Rights Reserved Reading location - IP/workstation name: [email or web address]
--- NOTE | 2018-07-16 11:14 | PDOC PROGRESS REPORT ---
Subjective Progress Note for:: 07/16/18 Subjective:: intubated and sedated Reason For Visit: COPD PNEUMONIA Physical Exam Vital Signs: Temp Pulse Resp BP Pulse Ox 98.2 F 82 20 104/55 L 93 07/16/18 08:00 07/16/18 10:00 07/16/18 10:00 07/16/18 10:00 07/16/18 10:00 Intake & Output 07/15/18 07/16/18 07/17/18 06:59 06:59 06:59 Intake Total 3780 1629 600 Output Total 5140 3850 275 Balance -1360 -2221 325 Weight 93 kg 90.2 kg General appearance: PRESENT: no acute distress, disheveled Head exam: PRESENT: atraumatic, normocephalic Eye exam: PRESENT: conjunctiva pale Mouth exam: PRESENT: dry mucosa, neck supple, tongue midline, other - ET tube Neck exam: ABSENT: carotid bruit, JVD, lymphadenopathy, thyromegaly, tracheostomy Respiratory exam: PRESENT: decreased breath sounds, prolonged expiratory phas, rales, rhonchi, symmetrical, unlabored Cardiovascular exam: PRESENT: RRR, +S1, +S2 Pulses: PRESENT: normal radial pulses GI/Abdominal exam: PRESENT: soft. ABSENT: tenderness Extremities exam: ABSENT: calf tenderness, clubbing, joint swelling Musculoskeletal exam: ABSENT: deformity, dislocation Neurological exam: ABSENT: awake Skin exam: PRESENT: dry, warm Results Laboratory Results: 07/16/18 05:10 07/16/18 05:10 07/16/18 07/16/18 07/16/18 05:10 05:10 05:10 WBC 9.2 RBC 3.48 L Hgb 10.6 L Hct 30.7 L MCV 88 MCH 30.4 MCHC 34.5 RDW 13.8 Plt Count 166 Seg Neutrophils % 73.0 Lymphocytes % 15.3 Monocytes % 6.0 Eosinophils % 5.2 Basophils % 0.5 Absolute Neutrophils 6.7 Absolute Lymphocytes 1.4 Absolute Monocytes 0.6 Absolute Eosinophils 0.5 Absolute Basophils 0.0 Carbonic Acid HCO3/H2CO3 Ratio ABG pH ABG pCO2 ABG pO2 ABG HCO3 ABG O2 Saturation ABG Base Excess FiO2 Sodium 144.9 Potassium 3.0 L* Chloride 109 H Carbon Dioxide 29 Anion Gap 7 BUN 10 Creatinine 0.68 Est GFR ( Amer) > 60 Est GFR (Non-Af Amer) > 60 Glucose 114 H Calcium 8.4 Magnesium 2.2 07/16/18 09:32 WBC RBC Hgb Hct MCV MCH MCHC RDW Plt Count Seg Neutrophils % Lymphocytes % Monocytes % Eosinophils % Basophils % Absolute Neutrophils Absolute Lymphocytes Absolute Monocytes Absolute Eosinophils Absolute Basophils Carbonic Acid 1.10 HCO3/H2CO3 Ratio 21:1 ABG pH 7.43 ABG pCO2 36.5 ABG pO2 75.9 L ABG HCO3 23.5 ABG O2 Saturation 95.6 ABG Base Excess -0.6 FiO2 50% Sodium Potassium Chloride Carbon Dioxide Anion Gap BUN Creatinine Est GFR ( Amer) Est GFR (Non-Af Amer) Glucose Calcium Magnesium 07/14/18 01:30 Tracheal Aspirate Gram Stain - Final 07/14/18 01:30 Tracheal Aspirate Sputum Culture - Final GREATLY REDUCED NORMAL SABAS Impressions: Chest CT 07/13/18 15:07 IMPRESSION: 1. Extensive bilateral airspace opacities, may be secondary to multifocal pneumonia ; pulmonary hemorrhage and pulmonary edema are also in the differential. Followup imaging recommended to ensure resolution exclude a different etiology. 2. Mild mediastinal and hilar adenopathy. 3. 13 mm nodular thickening of the left adrenal gland, indeterminate. Chest X-Ray 07/16/18 09:26 IMPRESSION: STABLE APPEARANCE OF THE CHEST. SUPPORT DEVICES UNCHANGED. Assessment & Plan - Diagnosis (1) Septic shock Is this a current diagnosis for this admission?: Yes Plan: min pressor (2) ARDS (adult respiratory distress syndrome) Is this a current diagnosis for this admission?: Yes Plan: improving - Time Total Critical Time (Minutes): 50
[2018-07-16] MEDS ORDERED: POTASSI CL 20 MEQ/1/2NS 1L 20 MEQ/1,000 ML RTUINJ IV PRN (12:44)
[2018-07-16] MEDS ORDERED: FUROSEMIDE INJ/PF 40 MG/4 ML SDV IV SCH (12:49)
[2018-07-16] MEDS: POTASSI CL 20 MEQ/D5-1/2NS 1L 1,000 ML IV PRN (13:38)
[2018-07-16] MEDS: DEXTROSE 5%-WATER 250 ML with NOREPINEPHRINE BITARTRATE 4 MG IV PRN ×2 (13:39)
--- NOTE | 2018-07-16 21:47 | PDOC PROGRESS REPORT ---
Subjective Progress Note for:: 07/16/18 Subjective:: BIANCA MCKEON is a 48 year old female who presented to the emergency room with a 3-day history of worsening upper respiratory symptoms of cough, fever, chills and rhinorrhea. Her cough is nonproductive but she was noted to be hypoxic in the emergency room with an O2 sat in the 80s. Her chest x-ray revealed a bilateral pneumonia and she was started on BiPAP with empiric antibiotic therapy. She was subsequently admitted and her condition gradually deteriorated such that she required intubation on the day following admission. Additionally she was hypotensive and required IV Levophed to support her blood pressure. 07/16/2018: Patient's clinical status is improved only slightly since her initial hospital course. She continues to be on mechanical ventilator respiratory support and continues to require low-dose Levophed to maintain adequate blood pressure. Dr. Dunham is writing excellent direction of the patient's pulmonary treatment and closely monitoring her pulmonary status. Her white blood count has dropped and she appears to be gradually improving and her pulmonary status at this time. Continued close observation will be maintained with further investigation and intervention as indicated Reason For Visit: COPD PNEUMONIA Physical Exam Vital Signs: Temp Pulse Resp BP Pulse Ox 99.0 F 85 21 H 106/55 L 95 07/16/18 12:00 07/16/18 16:00 07/16/18 16:00 07/16/18 16:00 07/16/18 16:00 Intake & Output 07/14/18 07/15/18 07/16/18 23:59 23:59 23:59 Intake Total 3338 4458 5459 Output Total 4826 9484 2823 Balance -528 -2113 -236 Weight 92.6 kg 93 kg 90.2 kg General appearance: PRESENT: no acute distress, other - Intubated and sedated on mechanical ventilation. Head exam: PRESENT: atraumatic, normocephalic Eye exam: PRESENT: conjunctiva pink. ABSENT: scleral icterus Ear exam: PRESENT: normal external ear exam. ABSENT: drainage Mouth exam: PRESENT: dry mucosa, neck supple, other - ET tube in excellent position Neck exam: ABSENT: JVD, tracheal deviation Respiratory exam: PRESENT: symmetrical, other - Mechanical ventilation Cardiovascular exam: PRESENT: RRR. ABSENT: clicks, gallop, rubs Vascular exam: PRESENT: normal capillary refill. ABSENT: pallor GI/Abdominal exam: PRESENT: normal bowel sounds, soft Rectal exam: PRESENT: deferred Extremities exam: ABSENT: joint swelling, pedal edema Musculoskeletal exam: ABSENT: deformity, dislocation Neurological exam: PRESENT: other - Medically sedated for mechanical ventilation Psychiatric exam: PRESENT: other - Medically sedated for mechanical ventilation Skin exam: PRESENT: dry, intact, warm. ABSENT: jaundice, rash, urticaria Results Laboratory Results: 07/16/18 05:10 07/16/18 05:10 07/16/18 07/16/18 07/16/18 05:10 05:10 05:10 WBC 9.2 RBC 3.48 L Hgb 10.6 L Hct 30.7 L MCV 88 MCH 30.4 MCHC 34.5 RDW 13.8 Plt Count 166 Seg Neutrophils % 73.0 Lymphocytes % 15.3 Monocytes % 6.0 Eosinophils % 5.2 Basophils % 0.5 Absolute Neutrophils 6.7 Absolute Lymphocytes 1.4 Absolute Monocytes 0.6 Absolute Eosinophils 0.5 Absolute Basophils 0.0 Carbonic Acid HCO3/H2CO3 Ratio ABG pH ABG pCO2 ABG pO2 ABG HCO3 ABG O2 Saturation ABG Base Excess FiO2 Sodium 144.9 Potassium 3.0 L* Chloride 109 H Carbon Dioxide 29 Anion Gap 7 BUN 10 Creatinine 0.68 Est GFR ( Amer) > 60 Est GFR (Non-Af Amer) > 60 Glucose 114 H Calcium 8.4 Magnesium 2.2 07/16/18 09:32 WBC RBC Hgb Hct MCV MCH MCHC RDW Plt Count Seg Neutrophils % Lymphocytes % Monocytes % Eosinophils % Basophils % Absolute Neutrophils Absolute Lymphocytes Absolute Monocytes Absolute Eosinophils Absolute Basophils Carbonic Acid 1.10 HCO3/H2CO3 Ratio 21:1 ABG pH 7.43 ABG pCO2 36.5 ABG pO2 75.9 L ABG HCO3 23.5 ABG O2 Saturation 95.6 ABG Base Excess -0.6 FiO2 50% Sodium Potassium Chloride Carbon Dioxide Anion Gap BUN Creatinine Est GFR ( Amer) Est GFR (Non-Af Amer) Glucose Calcium Magnesium 07/14/18 01:30 Tracheal Aspirate Gram Stain - Final 07/14/18 01:30 Tracheal Aspirate Sputum Culture - Final GREATLY REDUCED NORMAL SABAS Impressions: Chest CT 07/13/18 15:07 IMPRESSION: 1. Extensive bilateral airspace opacities, may be secondary to multifocal pneumonia ; pulmonary hemorrhage and pulmonary edema are also in the differential. Followup imaging recommended to ensure resolution exclude a different etiology. 2. Mild mediastinal and hilar adenopathy. 3. 13 mm nodular thickening of the left adrenal gland, indeterminate. Chest X-Ray 07/16/18 09:26 IMPRESSION: STABLE APPEARANCE OF THE CHEST. SUPPORT DEVICES UNCHANGED. Assessment & Plan - Diagnosis (1) ARDS (adult respiratory distress syndrome) Is this a current diagnosis for this admission?: Yes Plan: Patient will continue treatment with the guidance of Dr. Dunham utilizing IV steroids, pulmonary toilet with nebulizers and mechanical ventilatory support. Empiric antibiotic therapy is being used for the suspected underlying infectious etiology. (2) Chronic pain Is this a current diagnosis for this admission?: Yes Plan: Patient's chronic pain syndrome does contribute to some difficulty in the management of her sedation for ventilation. This problem will be observed more closely as the patient is able to be off ventilatory support. (3) Multifocal pneumonia Is this a current diagnosis for this admission?: Yes Plan: Patient's multifocal pneumonia is being treated with empiric antibiotic and intravenous steroid therapy at the direction of Dr. Dunham. (4) Septic shock Is this a current diagnosis for this admission?: Yes Plan: 07/16/2018: Patient's septic shock has required continued use of vasopressors. There is being gradually withdrawn and will hopefully be withdrawn entirely by later this evening or tomorrow. - Time Time Spent with patient: Less than 15 minutes Medications reviewed and adjusted accordingly: Yes
[2018-07-17] MEDS: PROPOFOL 1,000 MG/100 ML INFUS..BTL IV PRN ×5 (02:00→22:07)
[2018-07-17] MEDS: VANCOMYCIN HCL 1,250 MG in DEXTROSE 5%-WATER 250 ML IV SCH ×3 (03:03→19:33)
[2018-07-17] MEDS: MIDAZOLAM HCL 50 MG/100 ML RTUINJ IV PRN ×2 (03:33→17:27)
[2018-07-17 05:11] LABS: ABSOLUTE EOSINOPHILS # (AUTO) 0.5 10^3/uL (0.0-0.6); ABSOLUTE LYMPHOCYTES (AUTO) 1.4 10^3/uL (0.5-4.7); ABSOLUTE MONOCYTES (AUTO) 0.5 10^3/uL (0.1-1.4); ABSOLUTE NEUT (AUTO) 4.8 10^3/uL (1.7-8.2); BASOPHILS % (AUTO) 0.3 % (0-2); EOSINOPHILS % (AUTO) 6.4 % (0-6); HEMATOCRIT 29.8 % (36.0-47.0); HEMOGLOBIN 10.2 g/dL (12.0-15.5); LYMPHOCYTES % (AUTO) 18.9 % (13-45); MEAN CORPUSCULAR HEMOGLOBIN 30.3 pg (27.0-33.4); MEAN CORPUSCULAR HGB CONC 34.1 g/dL (32.0-36.0); MEAN CORPUSCULAR VOLUME 89 fl (80-97); MONOCYTES % (AUTO) 7.5 % (3-13); PLATELET COUNT 165 10^3/uL (150-450); RED BLOOD COUNT 3.36 10^6/uL (3.72-5.28); RED CELL DISTRIBUTION WIDTH 13.9 % (11.5-14.0); SEGMENTED NEUTROPHILS % (AUTO) 66.9 % (42-78); TOTAL CELLS COUNTED % (AUTO) 100 %; WHITE BLOOD COUNT 7.2 10^3/uL (4.0-10.5)
[2018-07-17 05:18] LABS: ARTERIAL BLOOD BASE EXCESS 2.2 mmol/L; ARTERIAL BLOOD H2CO3 1.26 mmol/L (1.05-1.35); ARTERIAL BLOOD HCO3 26.9 mmol/L (20-24); ARTERIAL BLOOD O2 SATURATION 92.9 % (94-98); ARTERIAL BLOOD PCO2 41.9 mmHg (35-45); ARTERIAL BLOOD PH 7.43 (7.35-7.45); ARTERIAL BLOOD PO2 64.1 mmHg (80-100); ARTERIAL BLOOD TOTAL CO2 28.2 mmol/L (21-25)
[2018-07-17 05:19] LABS: ARTERIAL BLOOD FIO2 50%
[2018-07-17 05:29] LABS: ALANINE AMINOTRANSFERASE 20 U/L (9-52); ALBUMIN 2.5 g/dL (3.5-5.0); ALKALINE PHOSPHATASE 74 U/L (38-126); ANION GAP 8 (5-19); ASPARTATE AMINO TRANSFERASE 22 U/L (14-36); BILIRUBIN,DIRECT 0.6 mg/dL (0.0-0.4); BILIRUBIN,TOTAL 0.9 mg/dL (0.2-1.3); BLOOD UREA NITROGEN 12 mg/dL (7-20); CALCIUM 8.6 mg/dL (8.4-10.2); CARBON DIOXIDE 27 mmol/L (22-30); CHLORIDE 109 mmol/L (98-107); GLUCOSE 105 mg/dL (75-110); POTASSIUM 3.4 mmol/L (3.6-5.0); SODIUM 143.5 mmol/L (137-145); TOTAL PROTEIN 5.5 g/dL (6.3-8.2)
--- NOTE | 2018-07-17 06:25 | RADIOLOGY REPORT (SQ) ---
EXAM DESCRIPTION: XR CHEST 1 VIEW COMPLETED DATE/TME: 07/17/2018 06:00 CLINICAL HISTORY: 48 years, Female, pna resp failure COMPARISON: 07/16/2018 chest x-ray NUMBER OF VIEWS: 1 TECHNIQUE: AP semierect chest LIMITATIONS: None. FINDINGS: Heart size is normal. Grossly stable indwelling lines and catheters. Osteopenia. No pneumothorax. Mixed interstitial and airspace opacities bilaterally. IMPRESSION: Little interval change copyright 2010 [employer]- All Rights Reserved
[2018-07-17] MEDS: HEPARIN SOD (PORCINE) 5,000 UNIT/ML 1 ML SYRINGE SUBCUT SCH ×3 (06:52→21:13)
[2018-07-17] MEDS: POTASSI CL 20 MEQ/D5-1/2NS 1L 1,000 ML IV PRN (06:52)
[2018-07-17] MEDS: PIPERACILLIN SODIUM/TAZOBACTAM 3.375 GM in NORMAL SALINE 100 ML IV SCH ×4 (06:52→23:03)
[2018-07-17] MEDS ORDERED: LEVALBUTEROL HCL NEB 1.25 MG/3 ML AMPUL NEB PRN (09:54)
[2018-07-17] MEDS: AZITHROMYCIN 250 MG TABLET NG SCH (10:23)
[2018-07-17] MEDS: CITALOPRAM HYDROBROMIDE 20 MG TABLET NG SCH (10:24)
[2018-07-17] MEDS: PANTOPRAZOLE SODIUM 40 MG VIAL IV SCH (10:25)
[2018-07-17] MEDS: IPRATROPIUM/ALBUTEROL 0.5-2.5 MG/3 ML AMPUL NEB SCH ×3 (11:01→20:06)
[2018-07-17 12:30] LABS: POTASSIUM 3.3 mmol/L (3.6-5.0)
[2018-07-17 12:54] LABS: VANCOMYCIN,TROUGH 49.1 ug/mL (5.0-20.0)
--- NOTE | 2018-07-17 13:39 | PDOC PROGRESS REPORT ---
Subjective Progress Note for:: 07/17/18 Subjective:: intubated and sedated Reason For Visit: COPD PNEUMONIA Physical Exam Vital Signs: Temp Pulse Resp BP Pulse Ox 98.6 F 86 24 H 113/54 L 96 07/17/18 11:53 07/17/18 11:53 07/17/18 11:53 07/17/18 11:53 07/17/18 11:53 Intake & Output 07/16/18 07/17/18 07/18/18 06:59 06:59 06:59 Intake Total 1629 4388 289 Output Total 3850 2860 465 Balance -2221 1528 -176 Weight 90.2 kg 90.5 kg General appearance: PRESENT: no acute distress, disheveled, well-developed, well -nourished Head exam: PRESENT: atraumatic, normocephalic Eye exam: PRESENT: conjunctiva pale. ABSENT: nystagmus, periorbital swelling, scleral icterus Mouth exam: PRESENT: dry mucosa, neck supple, tongue midline, other - ET tube in place Neck exam: ABSENT: carotid bruit, JVD, lymphadenopathy, thyromegaly, tracheal deviation, tracheostomy Respiratory exam: PRESENT: decreased breath sounds, prolonged expiratory phas, rales, rhonchi, unlabored. ABSENT: retraction, stridor, tachypnea Cardiovascular exam: PRESENT: RRR, +S1, +S2 Pulses: PRESENT: normal radial pulses GI/Abdominal exam: PRESENT: soft. ABSENT: tenderness Gentrourinary exam: PRESENT: indwelling catheter Extremities exam: PRESENT: pedal edema. ABSENT: calf tenderness, clubbing, joint swelling Musculoskeletal exam: ABSENT: deformity, dislocation Neurological exam: ABSENT: awake Skin exam: PRESENT: dry, warm Results Laboratory Results: 07/17/18 04:55 07/17/18 11:54 07/17/18 07/17/18 07/17/18 04:55 04:55 04:55 WBC 7.2 RBC 3.36 L Hgb 10.2 L Hct 29.8 L MCV 89 MCH 30.3 MCHC 34.1 RDW 13.9 Plt Count 165 Seg Neutrophils % 66.9 Lymphocytes % 18.9 Monocytes % 7.5 Eosinophils % 6.4 H Basophils % 0.3 Absolute Neutrophils 4.8 Absolute Lymphocytes 1.4 Absolute Monocytes 0.5 Absolute Eosinophils 0.5 Absolute Basophils 0.0 Carbonic Acid 1.26 HCO3/H2CO3 Ratio 21:1 ABG pH 7.43 ABG pCO2 41.9 ABG pO2 64.1 L ABG HCO3 26.9 H ABG O2 Saturation 92.9 L ABG Base Excess 2.2 FiO2 50% Sodium 143.5 Potassium 3.4 L Chloride 109 H Carbon Dioxide 27 Anion Gap 8 BUN 12 Creatinine 0.61 Est GFR ( Amer) > 60 Est GFR (Non-Af Amer) > 60 Glucose 105 Calcium 8.6 Magnesium 2.3 Total Bilirubin 0.9 AST 22 ALT 20 Alkaline Phosphatase 74 Total Protein 5.5 L Albumin 2.5 L 07/17/18 11:54 WBC RBC Hgb Hct MCV MCH MCHC RDW Plt Count Seg Neutrophils % Lymphocytes % Monocytes % Eosinophils % Basophils % Absolute Neutrophils Absolute Lymphocytes Absolute Monocytes Absolute Eosinophils Absolute Basophils Carbonic Acid HCO3/H2CO3 Ratio ABG pH ABG pCO2 ABG pO2 ABG HCO3 ABG O2 Saturation ABG Base Excess FiO2 Sodium Potassium 3.3 L Chloride Carbon Dioxide Anion Gap BUN Creatinine 0.65 Est GFR ( Amer) > 60 Est GFR (Non-Af Amer) > 60 Glucose Calcium Magnesium Total Bilirubin AST ALT Alkaline Phosphatase Total Protein Albumin 07/14/18 01:30 Tracheal Aspirate Gram Stain - Final 07/14/18 01:30 Tracheal Aspirate Sputum Culture - Final GREATLY REDUCED NORMAL SABAS Impressions: Chest CT 07/13/18 15:07 IMPRESSION: 1. Extensive bilateral airspace opacities, may be secondary to multifocal pneumonia ; pulmonary hemorrhage and pulmonary edema are also in the differential. Followup imaging recommended to ensure resolution exclude a different etiology. 2. Mild mediastinal and hilar adenopathy. 3. 13 mm nodular thickening of the left adrenal gland, indeterminate. Chest X-Ray 07/17/18 06:00 IMPRESSION: Little interval change copyright 2011 [employer]- All Rights Reserved Assessment & Plan - Diagnosis (1) Septic shock Is this a current diagnosis for this admission?: Yes Plan: Improved minimal pressors (2) ARDS (adult respiratory distress syndrome) Is this a current diagnosis for this admission?: Yes Plan: improving:Radiographically patient still requires FiO2 of 50% and PEEP of 10 - Time Total Critical Time (Minutes): 45
[2018-07-17] MEDS: POTASSIUM CHLORIDE 20 MEQ/50 ML RTU IV SCH ×2 (15:13→16:36)
[2018-07-17 18:12] LABS: VANCOMYCIN,TROUGH 27.3 ug/mL (5.0-20.0)
--- NOTE | 2018-07-17 18:16 | PDOC PROGRESS REPORT ---
Subjective Progress Note for:: 07/17/18 Subjective:: BIANCA MCKEON is a 48 year old female who presented to the emergency room with a 3-day history of worsening upper respiratory symptoms of cough, fever, chills and rhinorrhea. Her cough is nonproductive but she was noted to be hypoxic in the emergency room with an O2 sat in the 80s. Her chest x-ray revealed a bilateral pneumonia and she was started on BiPAP with empiric antibiotic therapy. She was subsequently admitted and her condition gradually deteriorated such that she required intubation on the day following admission. Additionally she was hypotensive and required IV Levophed to support her blood pressure. 07/16/2018: Patient's clinical status is improved only slightly since her initial hospital course. She continues to be on mechanical ventilator respiratory support and continues to require low-dose Levophed to maintain adequate blood pressure. Dr. Dunham is providing excellent direction of the patient's pulmonary treatment and closely monitoring her pulmonary status. Her white blood count has dropped and she appears to be gradually improving and her pulmonary status at this time. Continued close observation will be maintained with further investigation and intervention as indicated 07/17/2018: Patient continues to require mechanical ventilation however she has been weaned off of Levophed and there is no longer requiring pharmaceutical blood pressure support. She continues to be under Dr. Dunham's management for her ARDS. Overall it seems the patient is moving air somewhat better today however she continues to have a prolonged expiratory course and is having wheezing at the end of expiration despite being on a mechanical ventilator with positive end- expiratory pressure. Coarse rhonchi and rales are noted on auscultation throughout all nash. Patient may benefit from use of Mucomyst and her nebulizer regiment. Reason For Visit: COPD PNEUMONIA Physical Exam Vital Signs: Temp Pulse Resp BP Pulse Ox 100.4 F 96 22 H 124/66 96 07/17/18 15:37 07/17/18 17:37 07/17/18 17:37 07/17/18 17:37 07/17/18 17:37 Intake & Output 07/15/18 07/16/18 07/17/18 23:59 23:59 23:59 Intake Total 2247 7445 1857 Output Total 4360 3360 945 Balance -2113 875 912 Weight 93 kg 90.2 kg 90.5 kg General appearance: PRESENT: no acute distress, other - On mechanical ventilation with sedation however she can be aroused to eyes open and will follow a simple command. Head exam: PRESENT: atraumatic, normocephalic Eye exam: PRESENT: conjunctiva pink, EOMI Ear exam: PRESENT: normal external ear exam. ABSENT: bleeding Mouth exam: PRESENT: neck supple, other - Endotracheal tube in good position Neck exam: ABSENT: JVD, thyromegaly, tracheal deviation Respiratory exam: PRESENT: decreased breath sounds - Mildly decreased breath sounds throughout all nash, prolonged expiratory phas - Moderate to severely prolonged expiratory phase in all nash, rales - Coarse rales throughout all nash, rhonchi - Noisy rhonchi noted in all nash, symmetrical, wheezes - End expiratory wheezes in all nash, other - Mechanical ventilation noted. Cardiovascular exam: PRESENT: RRR. ABSENT: clicks, gallop, rubs Vascular exam: PRESENT: normal capillary refill. ABSENT: pallor GI/Abdominal exam: PRESENT: normal bowel sounds, tenderness Rectal exam: PRESENT: deferred Extremities exam: ABSENT: joint swelling, pedal edema Musculoskeletal exam: ABSENT: deformity, dislocation Neurological exam: PRESENT: other - Mildly sedated for mechanical ventilation. Psychiatric exam: PRESENT: other - Mildly sedated for mechanical ventilation. Skin exam: PRESENT: dry, intact, warm Results Laboratory Results: 07/17/18 04:55 07/17/18 11:54 07/17/18 07/17/18 07/17/18 04:55 04:55 04:55 WBC 7.2 RBC 3.36 L Hgb 10.2 L Hct 29.8 L MCV 89 MCH 30.3 MCHC 34.1 RDW 13.9 Plt Count 165 Seg Neutrophils % 66.9 Lymphocytes % 18.9 Monocytes % 7.5 Eosinophils % 6.4 H Basophils % 0.3 Absolute Neutrophils 4.8 Absolute Lymphocytes 1.4 Absolute Monocytes 0.5 Absolute Eosinophils 0.5 Absolute Basophils 0.0 Carbonic Acid 1.26 HCO3/H2CO3 Ratio 21:1 ABG pH 7.43 ABG pCO2 41.9 ABG pO2 64.1 L ABG HCO3 26.9 H ABG O2 Saturation 92.9 L ABG Base Excess 2.2 FiO2 50% Sodium 143.5 Potassium 3.4 L Chloride 109 H Carbon Dioxide 27 Anion Gap 8 BUN 12 Creatinine 0.61 Est GFR ( Amer) > 60 Est GFR (Non-Af Amer) > 60 Glucose 105 Calcium 8.6 Magnesium 2.3 Total Bilirubin 0.9 AST 22 ALT 20 Alkaline Phosphatase 74 Total Protein 5.5 L Albumin 2.5 L 07/17/18 11:54 WBC RBC Hgb Hct MCV MCH MCHC RDW Plt Count Seg Neutrophils % Lymphocytes % Monocytes % Eosinophils % Basophils % Absolute Neutrophils Absolute Lymphocytes Absolute Monocytes Absolute Eosinophils Absolute Basophils Carbonic Acid HCO3/H2CO3 Ratio ABG pH ABG pCO2 ABG pO2 ABG HCO3 ABG O2 Saturation ABG Base Excess FiO2 Sodium Potassium 3.3 L Chloride Carbon Dioxide Anion Gap BUN Creatinine 0.65 Est GFR ( Amer) > 60 Est GFR (Non-Af Amer) > 60 Glucose Calcium Magnesium Total Bilirubin AST ALT Alkaline Phosphatase Total Protein Albumin Impressions: Chest CT 07/13/18 15:07 IMPRESSION: 1. Extensive bilateral airspace opacities, may be secondary to multifocal pneumonia ; pulmonary hemorrhage and pulmonary edema are also in the differential. Followup imaging recommended to ensure resolution exclude a different etiology. 2. Mild mediastinal and hilar adenopathy. 3. 13 mm nodular thickening of the left adrenal gland, indeterminate. Chest X-Ray 07/17/18 06:00 IMPRESSION: Little interval change copyright 2011 [employer]- All Rights Reserved Assessment & Plan - Diagnosis (1) ARDS (adult respiratory distress syndrome) Is this a current diagnosis for this admission?: Yes Plan: Patient will continue treatment with the guidance of Dr. Dunham utilizing IV steroids, pulmonary toilet with nebulizers and mechanical ventilatory support. Empiric antibiotic therapy is being used for the suspected underlying infectious etiology. 07/17/2018: I will add Mucomyst to the patient's nebulizer treatments as this may help to mobilize some of the secretions that are heard on auscultation. If these can be made less viscous and more mobile there may be more easily coughed or suctioned out of the patient's airway. (2) Chronic pain Qualifiers: Chronic pain type: chronic pain syndrome Qualified Code(s): G89.4 - Chronic pain syndrome Is this a current diagnosis for this admission?: Yes Plan: Patient's chronic pain syndrome does contribute to some difficulty in the management of her sedation for ventilation. This problem will be observed more closely as the patient is able to be off ventilatory support. (3) Multifocal pneumonia Is this a current diagnosis for this admission?: Yes Plan: Patient's multifocal pneumonia is being treated with empiric antibiotic and intravenous steroid therapy at the direction of Dr. Dunham. (4) Septic shock Is this a current diagnosis for this admission?: Yes Plan: 07/16/2018: Patient's septic shock has required continued use of vasopressors. There is being gradually withdrawn and will hopefully be withdrawn entirely by later this evening or tomorrow. 07/17/2018: Patient's blood pressure no longer requires support of vasopressors. She remains in a normal sinus rhythm with a blood pressure in the 110's over 70's. - Time Time Spent with patient: Less than 15 minutes Medications reviewed and adjusted accordingly: Yes Anticipated discharge: Home
[2018-07-17] MEDS: BUDESONIDE NEB 0.5 MG/2 ML AMPUL NEB SCH (20:06)
[2018-07-17] MEDS: ACETYLCYSTEINE 20% SOLN 800 MG/4 ML VIAL.NEB NEB SCH (20:34)
[2018-07-18] MEDS: PROPOFOL 1,000 MG/100 ML INFUS..BTL IV PRN ×5 (01:41→20:53)
[2018-07-18] MEDS: IPRATROPIUM/ALBUTEROL 0.5-2.5 MG/3 ML AMPUL NEB SCH ×4 (02:15→19:47)
[2018-07-18] MEDS: MIDAZOLAM HCL 50 MG/100 ML RTUINJ IV PRN ×2 (04:11→16:52)
[2018-07-18] MEDS: POTASSI CL 20 MEQ/D5-1/2NS 1L 1,000 ML IV PRN (05:01)
[2018-07-18] MEDS: HEPARIN SOD (PORCINE) 5,000 UNIT/ML 1 ML SYRINGE SUBCUT SCH ×3 (05:07→21:19)
[2018-07-18] MEDS: PIPERACILLIN SODIUM/TAZOBACTAM 3.375 GM in NORMAL SALINE 100 ML IV SCH (05:07)
[2018-07-18 05:59] LABS: ABSOLUTE BASOPHILS # (AUTO) 0.1 10^3/uL (0.0-0.2); ABSOLUTE EOSINOPHILS # (AUTO) 0.4 10^3/uL (0.0-0.6); ABSOLUTE LYMPHOCYTES (AUTO) 1.3 10^3/uL (0.5-4.7); ABSOLUTE MONOCYTES (AUTO) 0.8 10^3/uL (0.1-1.4); ABSOLUTE NEUT (AUTO) 5.6 10^3/uL (1.7-8.2); ARTERIAL BLOOD BASE EXCESS 1.1 mmol/L; ARTERIAL BLOOD H2CO3 1.15 mmol/L (1.05-1.35); ARTERIAL BLOOD HCO3 25.2 mmol/L (20-24); ARTERIAL BLOOD O2 SATURATION 96.6 % (94-98); ARTERIAL BLOOD PCO2 38.3 mmHg (35-45); ARTERIAL BLOOD PH 7.44 (7.35-7.45); ARTERIAL BLOOD PO2 84.1 mmHg (80-100); ARTERIAL BLOOD TOTAL CO2 26.4 mmol/L (21-25); BASOPHILS % (AUTO) 1.4 % (0-2); EOSINOPHILS % (AUTO) 4.4 % (0-6); HEMATOCRIT 30.5 % (36.0-47.0); HEMOGLOBIN 10.4 g/dL (12.0-15.5); LYMPHOCYTES % (AUTO) 16.4 % (13-45); MEAN CORPUSCULAR HEMOGLOBIN 30.1 pg (27.0-33.4); MEAN CORPUSCULAR VOLUME 89 fl (80-97); MONOCYTES % (AUTO) 9.2 % (3-13); PLATELET COUNT 192 10^3/uL (150-450); RED BLOOD COUNT 3.44 10^6/uL (3.72-5.28); RED CELL DISTRIBUTION WIDTH 14.1 % (11.5-14.0); SEGMENTED NEUTROPHILS % (AUTO) 68.6 % (42-78); TOTAL CELLS COUNTED % (AUTO) 100 %; WHITE BLOOD COUNT 8.2 10^3/uL (4.0-10.5)
[2018-07-18 06:05] LABS: ARTERIAL BLOOD FIO2 50%
[2018-07-18 06:23] LABS: ALANINE AMINOTRANSFERASE 23 U/L (9-52); ALBUMIN 2.6 g/dL (3.5-5.0); ALKALINE PHOSPHATASE 96 U/L (38-126); ANION GAP 9 (5-19); ASPARTATE AMINO TRANSFERASE 27 U/L (14-36); BILIRUBIN,DIRECT 0.5 mg/dL (0.0-0.4); BILIRUBIN,TOTAL 0.7 mg/dL (0.2-1.3); BLOOD UREA NITROGEN 12 mg/dL (7-20); CALCIUM 8.6 mg/dL (8.4-10.2); CARBON DIOXIDE 24 mmol/L (22-30); CHLORIDE 113 mmol/L (98-107); GLUCOSE 108 mg/dL (75-110); PHOSPHORUS 4.2 mg/dL (2.5-4.5); POTASSIUM 3.9 mmol/L (3.6-5.0); SODIUM 145.6 mmol/L (137-145); TOTAL PROTEIN 5.6 g/dL (6.3-8.2)
[2018-07-18] MEDS: ACETYLCYSTEINE 20% SOLN 800 MG/4 ML VIAL.NEB NEB SCH ×2 (08:07→19:47)
[2018-07-18] MEDS: BUDESONIDE NEB 0.5 MG/2 ML AMPUL NEB SCH ×2 (08:07→19:47)
--- NOTE | 2018-07-18 08:12 | RADIOLOGY REPORT (SQ) ---
EXAM DESCRIPTION: CHEST SINGLE VIEW COMPLETED DATE/TIME: 07/18/2018 7:03 am REASON FOR STUDY: resp failure COMPARISON: 07/17/2018. EXAM PARAMETERS: NUMBER OF VIEWS: One view. TECHNIQUE: Single frontal radiographic view of the chest acquired. RADIATION DOSE: NA LIMITATIONS: None. FINDINGS: LUNGS AND PLEURA: Mild interstitial prominence and patchy airspace disease, particularly i n the retrocardiac left lower lobe, unchanged. MEDIASTINUM AND HILAR STRUCTURES: No masses. Contour normal. HEART AND VASCULAR STRUCTURES: Heart normal in size. Normal vasculature. BONES: No acute findings. HARDWARE: Stable endotracheal tube, nasogastric tube, and central line. OTHER: No other significant finding. IMPRESSION: NO SIGNIFICANT INTERVAL CHANGE. TECHNICAL DOCUMENTATION: JOB ID: [id number] [employer]- All Rights Reserved Reading location - IP/workstation name: [email or web address]
[2018-07-18] MEDS: LEVOFLOXACIN 750 MG/D5W RTU 750 MG/150 ML RTUPB IV SCH (09:18)
[2018-07-18] MEDS: CITALOPRAM HYDROBROMIDE 20 MG TABLET NG SCH (09:18)
[2018-07-18] MEDS ORDERED: VANCOMYCIN HCL 1,250 MG in DEXTROSE 5%-WATER 250 ML IV SCH (10:00)
[2018-07-18] MEDS: PANTOPRAZOLE SODIUM 40 MG VIAL IV SCH (15:09)
--- NOTE | 2018-07-18 15:48 | PDOC PROGRESS REPORT ---
Subjective Progress Note for:: 07/18/18 Subjective:: BIANCA MCKEON is a 48 year old female who presented to the emergency room with a 3-day history of worsening upper respiratory symptoms of cough, fever, chills and rhinorrhea. Her cough is nonproductive but she was noted to be hypoxic in the emergency room with an O2 sat in the 80s. Her chest x-ray revealed a bilateral pneumonia and she was started on BiPAP with empiric antibiotic therapy. She was subsequently admitted and her condition gradually deteriorated such that she required intubation on the day following admission. Additionally she was hypotensive and required IV Levophed to support her blood pressure. 07/16/2018: Patient's clinical status is improved only slightly since her initial hospital course. She continues to be on mechanical ventilator respiratory support and continues to require low-dose Levophed to maintain adequate blood pressure. Dr. Dunham is providing excellent direction of the patient's pulmonary treatment and closely monitoring her pulmonary status. Her white blood count has dropped and she appears to be gradually improving and her pulmonary status at this time. Continued close observation will be maintained with further investigation and intervention as indicated 07/17/2018: Patient continues to require mechanical ventilation however she has been weaned off of Levophed and there is no longer requiring pharmaceutical blood pressure support. She continues to be under Dr. Dunham's management for her ARDS. Overall it seems the patient is moving air somewhat better today however she continues to have a prolonged expiratory course and is having wheezing at the end of expiration despite being on a mechanical ventilator with positive end- expiratory pressure. Coarse rhonchi and rales are noted on auscultation throughout all nash. Patient may benefit from use of Mucomyst and her nebulizer regiment. 07/18/2018: Patient continues to show some modest improvement but was unable to be weaned off the ventilator today. She continues to have coarse rhonchi and rales on her pulmonary exam. Mucomyst was ordered yesterday but evidently the order did not get processed well as she is not been receiving it at this point. Additionally she has substantial oral secretions and for this a scopolamine transdermal patch may provide significant reduction in her oral and postnasal secretions. Reason For Visit: COPD PNEUMONIA Physical Exam Vital Signs: Temp Pulse Resp BP Pulse Ox 99.0 F 85 21 H 116/62 96 07/18/18 07:30 07/18/18 14:24 07/18/18 15:00 07/18/18 14:48 07/18/18 15:00 Intake & Output 07/16/18 07/17/18 07/18/18 23:59 23:59 23:59 Intake Total 4235 2707 1060 Output Total 3360 1270 1460 Balance 875 1437 -400 Weight 90.2 kg 90.5 kg 95.5 kg General appearance: PRESENT: no acute distress, other - Mildly sedated on a mechanical ventilator Head exam: PRESENT: atraumatic, normocephalic Eye exam: PRESENT: conjunctiva pink. ABSENT: scleral icterus Ear exam: PRESENT: normal external ear exam. ABSENT: bleeding Mouth exam: PRESENT: dry mucosa, neck supple, other - Endotracheal tube in good position, a large amount of viscous posterior oral and postnasal secretions are noted on limited exam. Neck exam: ABSENT: JVD, tracheal deviation Respiratory exam: PRESENT: decreased breath sounds, prolonged expiratory phas, rales, rhonchi, symmetrical, wheezes Cardiovascular exam: PRESENT: RRR. ABSENT: bradycardia, clicks, gallop, rubs, tachycardia Vascular exam: PRESENT: normal capillary refill. ABSENT: pallor GI/Abdominal exam: PRESENT: normal bowel sounds, soft Rectal exam: PRESENT: deferred Extremities exam: PRESENT: tenderness. ABSENT: joint swelling, pedal edema Musculoskeletal exam: ABSENT: deformity, dislocation Neurological exam: PRESENT: other - Mild to moderate sedation for mechanical ventilation. Psychiatric exam: PRESENT: other - Mild to moderate sedation for mechanical ventilation. Skin exam: PRESENT: dry, intact, warm Results Laboratory Results: 07/18/18 05:45 07/18/18 05:45 07/18/18 07/18/18 07/18/18 05:45 05:45 05:45 WBC 8.2 RBC 3.44 L Hgb 10.4 L Hct 30.5 L MCV 89 MCH 30.1 MCHC 34.0 RDW 14.1 H Plt Count 192 Seg Neutrophils % 68.6 Lymphocytes % 16.4 Monocytes % 9.2 Eosinophils % 4.4 Basophils % 1.4 Absolute Neutrophils 5.6 Absolute Lymphocytes 1.3 Absolute Monocytes 0.8 Absolute Eosinophils 0.4 Absolute Basophils 0.1 Carbonic Acid 1.15 HCO3/H2CO3 Ratio 21:1 ABG pH 7.44 ABG pCO2 38.3 ABG pO2 84.1 ABG HCO3 25.2 H ABG O2 Saturation 96.6 ABG Base Excess 1.1 FiO2 50% Sodium 145.6 H Potassium 3.9 Chloride 113 H Carbon Dioxide 24 Anion Gap 9 BUN 12 Creatinine 0.73 Est GFR ( Amer) > 60 Est GFR (Non-Af Amer) > 60 Glucose 108 Calcium 8.6 Phosphorus 4.2 Magnesium 2.5 H Total Bilirubin 0.7 AST 27 ALT 23 Alkaline Phosphatase 96 Total Protein 5.6 L Albumin 2.6 L 07/13/18 05:00 Blood Blood Culture - Final NO GROWTH IN 5 DAYS Impressions: Chest CT 07/13/18 15:07 IMPRESSION: 1. Extensive bilateral airspace opacities, may be secondary to multifocal pneumonia ; pulmonary hemorrhage and pulmonary edema are also in the differential. Followup imaging recommended to ensure resolution exclude a different etiology. 2. Mild mediastinal and hilar adenopathy. 3. 13 mm nodular thickening of the left adrenal gland, indeterminate. Chest X-Ray 07/18/18 06:00 IMPRESSION: NO SIGNIFICANT INTERVAL CHANGE. Assessment & Plan - Diagnosis (1) ARDS (adult respiratory distress syndrome) Is this a current diagnosis for this admission?: Yes Plan: Patient will continue treatment with the guidance of Dr. Dunham utilizing IV steroids, pulmonary toilet with nebulizers and mechanical ventilatory support. Empiric antibiotic therapy is being used for the suspected underlying infectious etiology. 07/17/2018: I will add Mucomyst to the patient's nebulizer treatments as this may help to mobilize some of the secretions that are heard on auscultation. If these can be made less viscous and more mobile there may be more easily coughed or suctioned out of the patient's airway. 07/18/2018: I will make sure that the patient's Mucomyst order has been correctly transcribed and will start her on Transderm scopolamine patches every 72 hours to help control her oral secretions. (2) Chronic pain Qualifiers: Chronic pain type: chronic pain syndrome Qualified Code(s): G89.4 - Chronic pain syndrome Is this a current diagnosis for this admission?: Yes Plan: Patient's chronic pain syndrome does contribute to some difficulty in the management of her sedation for ventilation. This problem will be observed more closely as the patient is able to be off ventilatory support. (3) Multifocal pneumonia Is this a current diagnosis for this admission?: Yes Plan: Patient's multifocal pneumonia is being treated with empiric antibiotic and intravenous steroid therapy at the direction of Dr. Dunham. (4) Septic shock Is this a current diagnosis for this admission?: Yes Plan: 07/16/2018: Patient's septic shock has required continued use of vasopressors. There is being gradually withdrawn and will hopefully be withdrawn entirely by later this evening or tomorrow. 07/17/2018: Patient's blood pressure no longer requires support of vasopressors. She remains in a normal sinus rhythm with a blood pressure in the 110's over 70's. 07/18/2018: The patient's vital signs have remained stable off of all chemical support agents for more than 36 hours. - Time Time Spent with patient: Less than 15 minutes Medications reviewed and adjusted accordingly: Yes Anticipated discharge: Home
[2018-07-18] MEDS: SCOPOLAMINE HYDROBROMIDE 1.5 MG PATCH.TD72 TD SCH (16:51)
[2018-07-19] MEDS: FENTANYL CITRATE INJ/PF 100 MCG/2 ML AMPUL IV PRN (00:13)
[2018-07-19] MEDS: PROPOFOL 1,000 MG/100 ML INFUS..BTL IV PRN ×7 (00:59→22:46)
[2018-07-19] MEDS: IPRATROPIUM/ALBUTEROL 0.5-2.5 MG/3 ML AMPUL NEB SCH ×4 (02:12→19:48)
[2018-07-19 05:11] LABS: ARTERIAL BLOOD BASE EXCESS 1.9 mmol/L; ARTERIAL BLOOD H2CO3 1.28 mmol/L (1.05-1.35); ARTERIAL BLOOD HCO3 26.6 mmol/L (20-24); ARTERIAL BLOOD O2 SATURATION 97.8 % (94-98); ARTERIAL BLOOD PCO2 42.4 mmHg (35-45); ARTERIAL BLOOD PH 7.42 (7.35-7.45); ARTERIAL BLOOD PO2 102.8 mmHg (80-100); ARTERIAL BLOOD TOTAL CO2 27.9 mmol/L (21-25)
[2018-07-19 05:17] LABS: ABSOLUTE BASOPHILS # (AUTO) 0.1 10^3/uL (0.0-0.2); ABSOLUTE EOSINOPHILS # (AUTO) 0.4 10^3/uL (0.0-0.6); ABSOLUTE LYMPHOCYTES (AUTO) 1.3 10^3/uL (0.5-4.7); ABSOLUTE MONOCYTES (AUTO) 0.7 10^3/uL (0.1-1.4); ABSOLUTE NEUT (AUTO) 5.8 10^3/uL (1.7-8.2); BASOPHILS % (AUTO) 0.7 % (0-2); HEMATOCRIT 29.6 % (36.0-47.0); LYMPHOCYTES % (AUTO) 15.9 % (13-45); MEAN CORPUSCULAR HEMOGLOBIN 30.3 pg (27.0-33.4); MEAN CORPUSCULAR HGB CONC 33.8 g/dL (32.0-36.0); MEAN CORPUSCULAR VOLUME 90 fl (80-97); PLATELET COUNT 195 10^3/uL (150-450); RED BLOOD COUNT 3.31 10^6/uL (3.72-5.28); RED CELL DISTRIBUTION WIDTH 14.1 % (11.5-14.0); SEGMENTED NEUTROPHILS % (AUTO) 70.4 % (42-78); TOTAL CELLS COUNTED % (AUTO) 100 %; WHITE BLOOD COUNT 8.2 10^3/uL (4.0-10.5)
[2018-07-19 05:26] LABS: ARTERIAL BLOOD FIO2 60%
[2018-07-19 05:30] LABS: ALANINE AMINOTRANSFERASE 32 U/L (9-52); ALBUMIN 2.7 g/dL (3.5-5.0); ALKALINE PHOSPHATASE 95 U/L (38-126); ANION GAP 7 (5-19); ASPARTATE AMINO TRANSFERASE 34 U/L (14-36); BILIRUBIN,DIRECT 0.4 mg/dL (0.0-0.4); BILIRUBIN,TOTAL 0.4 mg/dL (0.2-1.3); BLOOD UREA NITROGEN 11 mg/dL (7-20); CALCIUM 8.9 mg/dL (8.4-10.2); CARBON DIOXIDE 27 mmol/L (22-30); CHLORIDE 111 mmol/L (98-107); GLUCOSE 106 mg/dL (75-110); POTASSIUM 3.9 mmol/L (3.6-5.0); SODIUM 145.4 mmol/L (137-145); TOTAL PROTEIN 5.5 g/dL (6.3-8.2)
[2018-07-19] MEDS: HEPARIN SOD (PORCINE) 5,000 UNIT/ML 1 ML SYRINGE SUBCUT SCH ×3 (05:40→22:45)
[2018-07-19] MEDS: MIDAZOLAM HCL 50 MG/100 ML RTUINJ IV PRN ×2 (05:40→17:52)
[2018-07-19] MEDS: ACETYLCYSTEINE 20% SOLN 800 MG/4 ML VIAL.NEB NEB SCH ×3 (07:43→19:48)
[2018-07-19] MEDS: BUDESONIDE NEB 0.5 MG/2 ML AMPUL NEB SCH ×2 (07:52→19:48)
--- NOTE | 2018-07-19 08:24 | RADIOLOGY REPORT (SQ) ---
EXAM DESCRIPTION: CHEST SINGLE VIEW COMPLETED DATE/TIME: 07/19/2018 6:44 am REASON FOR STUDY: pna COMPARISON: 07/18/2018 EXAM PARAMETERS: NUMBER OF VIEWS: One view. TECHNIQUE: Single frontal radiographic view of the chest acquired. RADIATION DOSE: NA LIMITATIONS: None. FINDINGS: LUNGS AND PLEURA: Bibasilar airspace consolidation is again identified which could represe nt atelectatic changes or basilar infiltrates. I cannot exclude a tiny associated left pleural effus ion. No pneumothorax is seen. MEDIASTINUM AND HILAR STRUCTURES: No masses. Contour normal. HEART AND VASCULAR STRUCTURES: The configuration of the heart mediastinal structures is unchanged BONES: No acute findings. HARDWARE: Endotracheal tube and central line are unchanged in position. NG tube is seen in course to the abdomen. OTHER: No other significant finding. IMPRESSION: Bibasilar densities as noted above TECHNICAL DOCUMENTATION: JOB ID: [id number] [employer]- All Rights Reserved Reading location - IP/workstation name: [email or web address]
[2018-07-19] MEDS: LEVOFLOXACIN 750 MG/D5W RTU 750 MG/150 ML RTUPB IV SCH (10:05)
[2018-07-19] MEDS: CITALOPRAM HYDROBROMIDE 20 MG TABLET NG SCH (10:05)
[2018-07-19] MEDS: PANTOPRAZOLE SODIUM 40 MG VIAL IV SCH (10:06)
[2018-07-19] MEDS: GUAIFENESIN SYRP 200 MG/10 ML UDC NG PRN ×2 (10:07→22:45)
--- NOTE | 2018-07-19 14:52 | PDOC PROGRESS REPORT ---
Subjective Progress Note for:: 07/19/18 Subjective:: BIANCA MCKEON is a 48 year old female who presented to the emergency room with a 3-day history of worsening upper respiratory symptoms of cough, fever, chills and rhinorrhea. Her cough is nonproductive but she was noted to be hypoxic in the emergency room with an O2 sat in the 80s. Her chest x-ray revealed a bilateral pneumonia and she was started on BiPAP with empiric antibiotic therapy. She was subsequently admitted and her condition gradually deteriorated such that she required intubation on the day following admission. Additionally she was hypotensive and required IV Levophed to support her blood pressure. 07/16/2018: Patient's clinical status is improved only slightly since her initial hospital course. She continues to be on mechanical ventilator respiratory support and continues to require low-dose Levophed to maintain adequate blood pressure. Dr. Dunham is providing excellent direction of the patient's pulmonary treatment and closely monitoring her pulmonary status. Her white blood count has dropped and she appears to be gradually improving and her pulmonary status at this time. Continued close observation will be maintained with further investigation and intervention as indicated 07/17/2018: Patient continues to require mechanical ventilation however she has been weaned off of Levophed and there is no longer requiring pharmaceutical blood pressure support. She continues to be under Dr. Dunham's management for her ARDS. Overall it seems the patient is moving air somewhat better today however she continues to have a prolonged expiratory course and is having wheezing at the end of expiration despite being on a mechanical ventilator with positive end- expiratory pressure. Coarse rhonchi and rales are noted on auscultation throughout all nash. Patient may benefit from use of Mucomyst and her nebulizer regiment. 07/18/2018: Patient continues to show some modest improvement but was unable to be weaned off the ventilator today. She continues to have coarse rhonchi and rales on her pulmonary exam. Mucomyst was ordered yesterday but evidently the order did not get processed well as she is not been receiving it at this point. Additionally she has substantial oral secretions and for this a scopolamine transdermal patch may provide significant reduction in her oral and postnasal secretions. 07/19/2018: Patient is doing reasonably well on her respiratory trial today. She is tolerating being on the CPAP mode of the ventilator quite well and if she continues to do so she may be extubated in the very near future. Pulmonary exam shows continued rhonchi and rales scattered throughout all nash and she also continues to have wheezes and a prolonged expiratory phase. Increasing the frequency of Mucomyst will be used to try to help clear her pulmonary secretions. Reason For Visit: COPD PNEUMONIA Physical Exam Vital Signs: Temp Pulse Resp BP Pulse Ox 99.1 F 81 21 H 110/57 L 94 07/18/18 23:44 07/19/18 08:00 07/19/18 10:19 07/19/18 10:19 07/19/18 11:14 Intake & Output 07/17/18 07/18/18 07/19/18 23:59 23:59 23:59 Intake Total 2707 1415 2254 Output Total 1270 2635 1375 Balance 1437 -1220 879 Weight 90.5 kg 95.5 kg 90.8 kg General appearance: PRESENT: no acute distress, other - Sedated for maintenance of endotracheal tube while doing a non-ventilator respiratory trial using the CPAP mode of her ventilator. Head exam: PRESENT: atraumatic, normocephalic Eye exam: PRESENT: conjunctiva pink. ABSENT: scleral icterus Ear exam: PRESENT: normal external ear exam. ABSENT: drainage Mouth exam: PRESENT: dry mucosa, neck supple, other - Endotracheal tube in good position Neck exam: ABSENT: JVD, tracheal deviation Respiratory exam: PRESENT: decreased breath sounds - Breath sounds are moderately decreased throughout all nash consistent with moderate to severe COPD., prolonged expiratory phas - Moderately prolonged expiratory phase noted in all nash., rales - Coarse rales scattered throughout all nash., rhonchi - Coarse sounds through the entirety of the pulmonary exam bilaterally., symmetrical, wheezes - Expiratory wheezes noted in all nash, other - CPAP mode of mechanical ventilator Cardiovascular exam: PRESENT: RRR. ABSENT: clicks, gallop, rubs Vascular exam: PRESENT: normal capillary refill. ABSENT: pallor GI/Abdominal exam: PRESENT: normal bowel sounds, soft Rectal exam: PRESENT: deferred Extremities exam: ABSENT: joint swelling, pedal edema Musculoskeletal exam: ABSENT: deformity, dislocation Neurological exam: PRESENT: other - Sedated for mechanical ventilation Psychiatric exam: PRESENT: other - Sedated for mechanical ventilation Skin exam: PRESENT: dry, intact, warm. ABSENT: jaundice, rash, urticaria Results Laboratory Results: 07/19/18 04:55 07/19/18 04:55 07/19/18 07/19/18 07/19/18 04:55 04:55 04:55 WBC 8.2 RBC 3.31 L Hgb 10.0 L Hct 29.6 L MCV 90 MCH 30.3 MCHC 33.8 RDW 14.1 H Plt Count 195 Seg Neutrophils % 70.4 Lymphocytes % 15.9 Monocytes % 8.0 Eosinophils % 5.0 Basophils % 0.7 Absolute Neutrophils 5.8 Absolute Lymphocytes 1.3 Absolute Monocytes 0.7 Absolute Eosinophils 0.4 Absolute Basophils 0.1 Carbonic Acid 1.28 HCO3/H2CO3 Ratio 20:1 ABG pH 7.42 ABG pCO2 42.4 ABG pO2 102.8 H ABG HCO3 26.6 H ABG O2 Saturation 97.8 ABG Base Excess 1.9 FiO2 60% Sodium 145.4 H Potassium 3.9 Chloride 111 H Carbon Dioxide 27 Anion Gap 7 BUN 11 Creatinine 0.68 Est GFR ( Amer) > 60 Est GFR (Non-Af Amer) > 60 Glucose 106 Calcium 8.9 Magnesium 2.4 H Total Bilirubin 0.4 AST 34 ALT 32 Alkaline Phosphatase 95 Total Protein 5.5 L Albumin 2.7 L Impressions: Chest CT 07/13/18 15:07 IMPRESSION: 1. Extensive bilateral airspace opacities, may be secondary to multifocal pneumonia ; pulmonary hemorrhage and pulmonary edema are also in the differential. Followup imaging recommended to ensure resolution exclude a different etiology. 2. Mild mediastinal and hilar adenopathy. 3. 13 mm nodular thickening of the left adrenal gland, indeterminate. Chest X-Ray 07/19/18 06:00 IMPRESSION: Bibasilar densities as noted above Assessment & Plan - Diagnosis (1) ARDS (adult respiratory distress syndrome) Is this a current diagnosis for this admission?: Yes Plan: Patient will continue treatment with the guidance of Dr. Dunham utilizing IV steroids, pulmonary toilet with nebulizers and mechanical ventilatory support. Empiric antibiotic therapy is being used for the suspected underlying infectious etiology. 07/17/2018: I will add Mucomyst to the patient's nebulizer treatments as this may help to mobilize some of the secretions that are heard on auscultation. If these can be made less viscous and more mobile there may be more easily coughed or suctioned out of the patient's airway. 07/18/2018: I will make sure that the patient's Mucomyst order has been correctly transcribed and will start her on Transderm scopolamine patches every 72 hours to help control her oral secretions. 07/19/2018: Patient's Mucomyst will be increased to 4 times daily and she will be continued on her ventilator discontinuation trial per Dr. Dunham's instructions. Gradual steroid taper will be initiated. (2) Multifocal pneumonia Is this a current diagnosis for this admission?: Yes Plan: Patient's multifocal pneumonia is being treated with empiric antibiotic and intravenous steroid therapy at the direction of Dr. Dunham. 07/19/2018: The patient's intravenous antibiotics were changed from the multiple antibiotic broad-spectrum regiment of Zosyn and vancomycin to Levaquin 750 mg IV daily. This regiment will be continued through a minimum 10-day therapy course though she may be converted to oral therapy at an appropriate time. Gradual reduction of the patient's intravenous steroid therapy will be begin after she has been successfully extubated. (3) Chronic pain Qualifiers: Chronic pain type: chronic pain syndrome Qualified Code(s): G89.4 - Chronic pain syndrome Is this a current diagnosis for this admission?: Yes Plan: Patient's chronic pain syndrome does contribute to some difficulty in the management of her sedation for ventilation. This problem will be observed more closely as the patient is able to be off ventilatory support. (4) Septic shock Is this a current diagnosis for this admission?: Yes Plan: 07/16/2018: Patient's septic shock has required continued use of vasopressors. There is being gradually withdrawn and will hopefully be withdrawn entirely by later this evening or tomorrow. 07/17/2018: Patient's blood pressure no longer requires support of vasopressors. She remains in a normal sinus rhythm with a blood pressure in the 110's over 70's. 07/18/2018: The patient's vital signs have remained stable off of all chemical support agents for more than 36 hours. 07/19/2018: Septic shock has been resolved. - Time Time Spent with patient: Less than 15 minutes Medications reviewed and adjusted accordingly: Yes Anticipated discharge: Home
[2018-07-19] MEDS: POTASSI CL 20 MEQ/D5-1/2NS 1L 1,000 ML IV PRN ×2 (18:32)
[2018-07-20] MEDS: PROPOFOL 1,000 MG/100 ML INFUS..BTL IV PRN ×6 (01:53→22:48)
[2018-07-20] MEDS: IPRATROPIUM/ALBUTEROL 0.5-2.5 MG/3 ML AMPUL NEB SCH ×4 (02:14→20:31)
[2018-07-20] MEDS: FENTANYL CITRATE INJ/PF 100 MCG/2 ML AMPUL IV PRN (04:32)
[2018-07-20] MEDS: GUAIFENESIN SYRP 200 MG/10 ML UDC NG PRN ×4 (04:33→22:47)
[2018-07-20 04:48] LABS: ABSOLUTE BASOPHILS # (AUTO) 0.1 10^3/uL (0.0-0.2); ABSOLUTE EOSINOPHILS # (AUTO) 0.4 10^3/uL (0.0-0.6); ABSOLUTE LYMPHOCYTES (AUTO) 1.2 10^3/uL (0.5-4.7); ABSOLUTE MONOCYTES (AUTO) 0.7 10^3/uL (0.1-1.4); ABSOLUTE NEUT (AUTO) 6.5 10^3/uL (1.7-8.2); BASOPHILS % (AUTO) 0.9 % (0-2); EOSINOPHILS % (AUTO) 4.7 % (0-6); HEMATOCRIT 31.1 % (36.0-47.0); HEMOGLOBIN 10.6 g/dL (12.0-15.5); LYMPHOCYTES % (AUTO) 13.8 % (13-45); MEAN CORPUSCULAR HEMOGLOBIN 30.1 pg (27.0-33.4); MEAN CORPUSCULAR HGB CONC 34.2 g/dL (32.0-36.0); MEAN CORPUSCULAR VOLUME 88 fl (80-97); MONOCYTES % (AUTO) 7.5 % (3-13); PLATELET COUNT 222 10^3/uL (150-450); RED BLOOD COUNT 3.54 10^6/uL (3.72-5.28); RED CELL DISTRIBUTION WIDTH 14.1 % (11.5-14.0); SEGMENTED NEUTROPHILS % (AUTO) 73.1 % (42-78); TOTAL CELLS COUNTED % (AUTO) 100 %; WHITE BLOOD COUNT 8.9 10^3/uL (4.0-10.5)
[2018-07-20 05:00] LABS: ARTERIAL BLOOD H2CO3 1.07 mmol/L (1.05-1.35); ARTERIAL BLOOD HCO3 25.4 mmol/L (20-24); ARTERIAL BLOOD O2 SATURATION 96.6 % (94-98); ARTERIAL BLOOD PCO2 35.6 mmHg (35-45); ARTERIAL BLOOD PH 7.47 (7.35-7.45); ARTERIAL BLOOD PO2 81.1 mmHg (80-100); ARTERIAL BLOOD TOTAL CO2 26.5 mmol/L (21-25)
[2018-07-20 05:02] LABS: ARTERIAL BLOOD FIO2 40%
[2018-07-20 05:07] LABS: ANION GAP 10 (5-19); BLOOD UREA NITROGEN 11 mg/dL (7-20); CALCIUM 9.1 mg/dL (8.4-10.2); CARBON DIOXIDE 26 mmol/L (22-30); CHLORIDE 108 mmol/L (98-107); GLUCOSE 103 mg/dL (75-110); POTASSIUM 3.7 mmol/L (3.6-5.0); SODIUM 144.4 mmol/L (137-145)
[2018-07-20] MEDS: HEPARIN SOD (PORCINE) 5,000 UNIT/ML 1 ML SYRINGE SUBCUT SCH ×3 (06:11→22:47)
--- NOTE | 2018-07-20 06:24 | RADIOLOGY REPORT (SQ) ---
EXAM DESCRIPTION: XR CHEST 1 VIEW, XR ABDOMEN 1 VIEW (KUB) COMPLETED DATE/TME: 07/20/2018 06:00 (accession [id number]), 07/20/2018 00:00 (accession [id number]) CLINICAL HISTORY: 48 years, Female, resp failure NG tube placement. COMPARISON: None. FINDINGS: Single view of the chest. Endotracheal tube with tip 3 cm above the nelli. Left IJ central venous catheter with tip in the right atrium. Cardiomediastinal silhouette is not enlarged. Low lung volumes. Patchy bibasilar opacities. Possible small right pleural effusion. No pneumothorax. No acute osseous abnormalities. Single view of the abdomen demonstrates NG tube with side-port in stomach. No dilated loops of bowel. No free intraperitoneal air. No definite organomegaly. IMPRESSION: 1. NG tube with tip and side-port in the stomach. Endotracheal tube in appropriate position. copyright 2010 [employer]- All Rights Reserved
--- NOTE | 2018-07-20 06:24 | RADIOLOGY REPORT (SQ) ---
EXAM DESCRIPTION: XR CHEST 1 VIEW, XR ABDOMEN 1 VIEW (KUB) COMPLETED DATE/TME: 07/20/2018 06:00 (accession [id number]), 07/20/2018 00:00 (accession [id number]) CLINICAL HISTORY: 48 years, Female, resp failure NG tube placement. COMPARISON: None. FINDINGS: Single view of the chest. Endotracheal tube with tip 3 cm above the nelli. Left IJ central venous catheter with tip in the right atrium. Cardiomediastinal silhouette is not enlarged. Low lung volumes. Patchy bibasilar opacities. Possible small right pleural effusion. No pneumothorax. No acute osseous abnormalities. Single view of the abdomen demonstrates NG tube with side-port in stomach. No dilated loops of bowel. No free intraperitoneal air. No definite organomegaly. IMPRESSION: 1. NG tube with tip and side-port in the stomach. Endotracheal tube in appropriate position. copyright 2010 [employer]- All Rights Reserved
[2018-07-20] MEDS: ACETYLCYSTEINE 20% SOLN 800 MG/4 ML VIAL.NEB NEB SCH ×2 (08:35→20:31)
[2018-07-20] MEDS: BUDESONIDE NEB 0.5 MG/2 ML AMPUL NEB SCH ×2 (08:35→20:31)
[2018-07-20] MEDS: OXYCODONE HCL IR 5 MG TABLET NG PRN (09:00)
[2018-07-20] MEDS: CITALOPRAM HYDROBROMIDE 20 MG TABLET NG SCH (09:01)
[2018-07-20] MEDS: PANTOPRAZOLE SODIUM 40 MG VIAL IV SCH (09:01)
[2018-07-20] MEDS: LEVOFLOXACIN 750 MG/D5W RTU 750 MG/150 ML RTUPB IV SCH (09:01)
--- NOTE | 2018-07-20 14:19 | PDOC PROGRESS REPORT ---
Subjective Progress Note for:: 07/20/18 Subjective:: BIANCA MCKEON is a 48 year old female who presented to the emergency room with a 3-day history of worsening upper respiratory symptoms of cough, fever, chills and rhinorrhea. Her cough is nonproductive but she was noted to be hypoxic in the emergency room with an O2 sat in the 80s. Her chest x-ray revealed a bilateral pneumonia and she was started on BiPAP with empiric antibiotic therapy. She was subsequently admitted and her condition gradually deteriorated such that she required intubation on the day following admission. Additionally she was hypotensive and required IV Levophed to support her blood pressure. 07/16/2018: Patient's clinical status is improved only slightly since her initial hospital course. She continues to be on mechanical ventilator respiratory support and continues to require low-dose Levophed to maintain adequate blood pressure. Dr. Dunham is providing excellent direction of the patient's pulmonary treatment and closely monitoring her pulmonary status. Her white blood count has dropped and she appears to be gradually improving and her pulmonary status at this time. Continued close observation will be maintained with further investigation and intervention as indicated 07/17/2018: Patient continues to require mechanical ventilation however she has been weaned off of Levophed and there is no longer requiring pharmaceutical blood pressure support. She continues to be under Dr. Dunham's management for her ARDS. Overall it seems the patient is moving air somewhat better today however she continues to have a prolonged expiratory course and is having wheezing at the end of expiration despite being on a mechanical ventilator with positive end- expiratory pressure. Coarse rhonchi and rales are noted on auscultation throughout all nash. Patient may benefit from use of Mucomyst and her nebulizer regiment. 07/18/2018: Patient continues to show some modest improvement but was unable to be weaned off the ventilator today. She continues to have coarse rhonchi and rales on her pulmonary exam. Mucomyst was ordered yesterday but evidently the order did not get processed well as she is not been receiving it at this point. Additionally she has substantial oral secretions and for this a scopolamine transdermal patch may provide significant reduction in her oral and postnasal secretions. 07/19/2018: Patient is doing reasonably well on her respiratory trial today. She is tolerating being on the CPAP mode of the ventilator quite well and if she continues to do so she may be extubated in the very near future. Pulmonary exam shows continued rhonchi and rales scattered throughout all nash and she also continues to have wheezes and a prolonged expiratory phase. Increasing the frequency of Mucomyst will be used to try to help clear her pulmonary secretions. 07/20/2018: Patient continues to do well on the CPAP mode of her ventilator. She continues to be extubated as Dr. Dunham does not feel she is quite ready to have the tube out yet. Pulmonary exam shows persistence in scattered rhonchi although they are much less noisy today and the coarse rales have essentially cleared. She continues to have mild wheezing and a minimally prolonged expiratory phase but this is also significantly improved since yesterday's exam. Mucomyst frequency will be reduced back to twice daily per Dr. Dunham's preference. Patient's ABGs are significantly improved again today. Reason For Visit: COPD PNEUMONIA Physical Exam Vital Signs: Temp Pulse Resp BP Pulse Ox 99.0 F 85 19 99/47 L 95 07/20/18 12:00 07/20/18 12:00 07/20/18 12:00 07/20/18 12:00 07/20/18 12:00 Intake & Output 07/18/18 07/19/18 07/20/18 23:59 23:59 23:59 Intake Total 1415 3737 1981 Output Total 2635 3225 2210 Balance -1220 512 -229 Weight 95.5 kg 90.8 kg 91.2 kg General appearance: PRESENT: cooperative, other - Appears to be in moderate distress with a severe grimace and crying at the time of my exam. Patient is unable to identify an area of her body that is causing her pain as I have touched and named several areas such as chest, back, tummy, arms and legs and she has indicated no by shaking her head from side to side. I am uncertain as to where her pain is but feel that it is probably important to at least try to address that until such time as she is extubated and can speak to indicate her discomfort. Head exam: PRESENT: atraumatic, normocephalic Eye exam: PRESENT: conjunctiva pink, EOMI Ear exam: PRESENT: normal external ear exam. ABSENT: bleeding Mouth exam: PRESENT: neck supple, other - Endotracheal tube in good position Neck exam: ABSENT: JVD, thyromegaly, tracheal deviation Respiratory exam: PRESENT: prolonged expiratory phas, rhonchi, symmetrical, wheezes. ABSENT: rales Cardiovascular exam: PRESENT: RRR. ABSENT: clicks, gallop, rubs Vascular exam: PRESENT: normal capillary refill. ABSENT: pallor GI/Abdominal exam: PRESENT: normal bowel sounds, soft Rectal exam: PRESENT: deferred Extremities exam: ABSENT: joint swelling, pedal edema Musculoskeletal exam: ABSENT: deformity, dislocation Neurological exam: PRESENT: alert, other - Remains intubated and is unable to communicate for further evaluation Psychiatric exam: PRESENT: agitated, other - Remains intubated and unable to communicate for further evaluation Skin exam: PRESENT: dry, intact, warm. ABSENT: jaundice, rash, urticaria Results Laboratory Results: 07/20/18 04:35 07/20/18 04:35 07/20/18 07/20/18 07/20/18 04:35 04:35 04:35 WBC 8.9 RBC 3.54 L Hgb 10.6 L Hct 31.1 L MCV 88 MCH 30.1 MCHC 34.2 RDW 14.1 H Plt Count 222 Seg Neutrophils % 73.1 Lymphocytes % 13.8 Monocytes % 7.5 Eosinophils % 4.7 Basophils % 0.9 Absolute Neutrophils 6.5 Absolute Lymphocytes 1.2 Absolute Monocytes 0.7 Absolute Eosinophils 0.4 Absolute Basophils 0.1 Carbonic Acid 1.07 HCO3/H2CO3 Ratio 23:1 ABG pH 7.47 H ABG pCO2 35.6 ABG pO2 81.1 ABG HCO3 25.4 H ABG O2 Saturation 96.6 ABG Base Excess 2.0 FiO2 40% Sodium 144.4 Potassium 3.7 Chloride 108 H Carbon Dioxide 26 Anion Gap 10 BUN 11 Creatinine 0.66 Est GFR ( Amer) > 60 Est GFR (Non-Af Amer) > 60 Glucose 103 Calcium 9.1 Magnesium 2.1 Impressions: Chest CT 07/13/18 15:07 IMPRESSION: 1. Extensive bilateral airspace opacities, may be secondary to multifocal pneumonia ; pulmonary hemorrhage and pulmonary edema are also in the differential. Followup imaging recommended to ensure resolution exclude a different etiology. 2. Mild mediastinal and hilar adenopathy. 3. 13 mm nodular thickening of the left adrenal gland, indeterminate. KUB X-Ray 07/20/18 00:00 IMPRESSION: 1. NG tube with tip and side-port in the stomach. Endotracheal tube in appropriate position. copyright 2010 [employer]- All Rights Reserved Chest X-Ray 07/20/18 06:00 IMPRESSION: 1. NG tube with tip and side-port in the stomach. Endotracheal tube in appropriate position. copyright 2010 [employer]- All Rights Reserved Assessment & Plan - Diagnosis (1) ARDS (adult respiratory distress syndrome) Is this a current diagnosis for this admission?: Yes Plan: Patient will continue treatment with the guidance of Dr. Dunham utilizing IV steroids, pulmonary toilet with nebulizers and mechanical ventilatory support. Empiric antibiotic therapy is being used for the suspected underlying infectious etiology. 07/17/2018: I will add Mucomyst to the patient's nebulizer treatments as this may help to mobilize some of the secretions that are heard on auscultation. If these can be made less viscous and more mobile there may be more easily coughed or suctioned out of the patient's airway. 07/18/2018: I will make sure that the patient's Mucomyst order has been correctly transcribed and will start her on Transderm scopolamine patches every 72 hours to help control her oral secretions. 07/19/2018: Patient's Mucomyst will be increased to 4 times daily and she will be continued on her ventilator discontinuation trial per Dr. Dunham's instructions. Gradual steroid taper will be initiated. 07/20/2018: Decubitus is decreased to twice daily per Dr. Dunham's preference. Gradual steroid taper will be continued. (2) Multifocal pneumonia Is this a current diagnosis for this admission?: Yes Plan: Patient's multifocal pneumonia is being treated with empiric antibiotic and intravenous steroid therapy at the direction of Dr. Dunham. 07/19/2018: The patient's intravenous antibiotics were changed from the multiple antibiotic broad-spectrum regiment of Zosyn and vancomycin to Levaquin 750 mg IV daily. This regiment will be continued through a minimum 10-day therapy course though she may be converted to oral therapy at an appropriate time. Gradual reduction of the patient's intravenous steroid therapy will be begin after she has been successfully extubated. 07/20/2018: Patient be continued on daily IV Levaquin until her antibiotic therapy can be converted to p.o. when she is able to tolerate oral medications. (3) Chronic pain Qualifiers: Chronic pain type: chronic pain syndrome Qualified Code(s): G89.4 - Chronic pain syndrome Is this a current diagnosis for this admission?: Yes Plan: Patient's chronic pain syndrome does contribute to some difficulty in the management of her sedation for ventilation. This problem will be observed more closely as the patient is able to be off ventilatory support. 07/20/2018: Patient appears to be in a significant amount of pain at the time my evaluation. She is grimacing and has tearing and seems to be trying to indicate discomfort however it was not possible to localize her discomfort. Patient was obviously frustrated in her inability to communicate what was hurting but she was successful at being able to indicate that no specific area of her body was that which was painful. I will adjust the patient's pain control regiment by discontinuing her current fentanyl and oxycodone orders and starting her on a intravenous morphine sulfate sliding scale regiment utilizing 2-4 mg of morphine IV q. one hour as needed for pain. (4) Septic shock Is this a current diagnosis for this admission?: Yes Plan: 07/16/2018: Patient's septic shock has required continued use of vasopressors. There is being gradually withdrawn and will hopefully be withdrawn entirely by later this evening or tomorrow. 07/17/2018: Patient's blood pressure no longer requires support of vasopressors. She remains in a normal sinus rhythm with a blood pressure in the 110's over 70's. 07/18/2018: The patient's vital signs have remained stable off of all chemical support agents for more than 36 hours. 07/19/2018: Septic shock has been resolved. - Time Time Spent with patient: Less than 15 minutes Medications reviewed and adjusted accordingly: Yes
[2018-07-20] MEDS ORDERED: MORPHINE SULFATE 10 MG/ML INJ IV PRN (14:24)
[2018-07-20] MEDS: POTASSI CL 20 MEQ/D5-1/2NS 1L 1,000 ML IV PRN (17:07)
[2018-07-20] MEDS: MIDAZOLAM HCL 50 MG/100 ML RTUINJ IV PRN (17:09)
[2018-07-20] MEDS ORDERED: MIDAZOLAM HCL 50 MG/100 ML RTUINJ IV PRN (19:03)
[2018-07-21] MEDS: IPRATROPIUM/ALBUTEROL 0.5-2.5 MG/3 ML AMPUL NEB SCH ×4 (01:32→21:10)
[2018-07-21] MEDS: PROPOFOL 1,000 MG/100 ML INFUS..BTL IV PRN ×2 (02:38→06:21)
[2018-07-21 05:27] LABS: ABSOLUTE BASOPHILS # (AUTO) 0.1 10^3/uL (0.0-0.2); ABSOLUTE EOSINOPHILS # (AUTO) 0.3 10^3/uL (0.0-0.6); ABSOLUTE MONOCYTES (AUTO) 0.6 10^3/uL (0.1-1.4); BASOPHILS % (AUTO) 0.7 % (0-2); EOSINOPHILS % (AUTO) 3.3 % (0-6); HEMATOCRIT 30.5 % (36.0-47.0); HEMOGLOBIN 10.3 g/dL (12.0-15.5); LYMPHOCYTES % (AUTO) 13.1 % (13-45); MEAN CORPUSCULAR HEMOGLOBIN 30.2 pg (27.0-33.4); MEAN CORPUSCULAR HGB CONC 33.9 g/dL (32.0-36.0); MEAN CORPUSCULAR VOLUME 89 fl (80-97); MONOCYTES % (AUTO) 7.9 % (3-13); PLATELET COUNT 230 10^3/uL (150-450); RED BLOOD COUNT 3.42 10^6/uL (3.72-5.28); RED CELL DISTRIBUTION WIDTH 14.3 % (11.5-14.0); TOTAL CELLS COUNTED % (AUTO) 100 %; WHITE BLOOD COUNT 7.9 10^3/uL (4.0-10.5)
[2018-07-21 05:42] LABS: ANION GAP 10 (5-19); BLOOD UREA NITROGEN 14 mg/dL (7-20); CARBON DIOXIDE 26 mmol/L (22-30); CHLORIDE 109 mmol/L (98-107); GLUCOSE 103 mg/dL (75-110); POTASSIUM 4.1 mmol/L (3.6-5.0); SODIUM 144.8 mmol/L (137-145)
[2018-07-21] MEDS: HEPARIN SOD (PORCINE) 5,000 UNIT/ML 1 ML SYRINGE SUBCUT SCH ×3 (06:12→21:08)
--- NOTE | 2018-07-21 06:59 | RADIOLOGY REPORT (SQ) ---
EXAM DESCRIPTION: XR CHEST 1 VIEW COMPLETED DATE/TME: 07/21/2018 06:00 CLINICAL HISTORY: 48 years, Female, resp fail COMPARISON: 07/20/2018 chest x-ray NUMBER OF VIEWS: 1. TECHNIQUE: Portable chest LIMITATIONS: None. FINDINGS: The heart size is normal. Endotracheal, enteric tube in place. Central venous catheter in place. No pneumothorax. Left basilar airspace opacity IMPRESSION: Lines and catheters in place. Left basilar airspace opacity copyright 2010 [employer] All Rights Reserved
[2018-07-21 07:31] LABS: ARTERIAL BLOOD BASE EXCESS 0.8 mmol/L; ARTERIAL BLOOD HCO3 24.7 mmol/L (20-24); ARTERIAL BLOOD O2 SATURATION 94.9 % (94-98); ARTERIAL BLOOD PCO2 36.5 mmHg (35-45); ARTERIAL BLOOD PH 7.45 (7.35-7.45); ARTERIAL BLOOD PO2 70.5 mmHg (80-100); ARTERIAL BLOOD TOTAL CO2 25.8 mmol/L (21-25)
[2018-07-21 07:33] LABS: ARTERIAL BLOOD FIO2 40%
[2018-07-21] MEDS: BUDESONIDE NEB 0.5 MG/2 ML AMPUL NEB SCH ×2 (08:28→21:10)
[2018-07-21] MEDS: ACETYLCYSTEINE 20% SOLN 800 MG/4 ML VIAL.NEB NEB SCH ×2 (08:29→21:10)
[2018-07-21] MEDS: GUAIFENESIN SYRP 200 MG/10 ML UDC NG PRN (09:22)
[2018-07-21] MEDS: SCOPOLAMINE HYDROBROMIDE 1.5 MG PATCH.TD72 TD SCH (09:22)
[2018-07-21] MEDS: CITALOPRAM HYDROBROMIDE 20 MG TABLET NG SCH (09:22)
[2018-07-21] MEDS: LEVOFLOXACIN 750 MG/D5W RTU 750 MG/150 ML RTUPB IV SCH (09:23)
[2018-07-21] MEDS: PANTOPRAZOLE SODIUM 40 MG VIAL IV SCH (09:23)
--- NOTE | 2018-07-21 10:28 | PDOC PROGRESS REPORT ---
Subjective Progress Note for:: 07/21/18 Subjective:: SUNITHA MCKEON is a 48 year old female who presented to the emergency room with a 3-day history of worsening upper respiratory symptoms of cough, fever, chills and rhinorrhea. Her cough is nonproductive but she was noted to be hypoxic in the emergency room with an O2 sat in the 80s. Her chest x-ray revealed a bilateral pneumonia and she was started on BiPAP with empiric antibiotic therapy. She was subsequently admitted and her condition gradually deteriorated such that she required intubation on the day following admission. Additionally she was hypotensive and required IV Levophed to support her blood pressure. 07/16/2018: Patient's clinical status is improved only slightly since her initial hospital course. She continues to be on mechanical ventilator respiratory support and continues to require low-dose Levophed to maintain adequate blood pressure. Dr. Dunham is providing excellent direction of the patient's pulmonary treatment and closely monitoring her pulmonary status. Her white blood count has dropped and she appears to be gradually improving and her pulmonary status at this time. Continued close observation will be maintained with further investigation and intervention as indicated 07/17/2018: Patient continues to require mechanical ventilation however she has been weaned off of Levophed and there is no longer requiring pharmaceutical blood pressure support. She continues to be under Dr. Dunham's management for her ARDS. Overall it seems the patient is moving air somewhat better today however she continues to have a prolonged expiratory course and is having wheezing at the end of expiration despite being on a mechanical ventilator with positive end- expiratory pressure. Coarse rhonchi and rales are noted on auscultation throughout all nash. Patient may benefit from use of Mucomyst and her nebulizer regiment. 07/18/2018: Patient continues to show some modest improvement but was unable to be weaned off the ventilator today. She continues to have coarse rhonchi and rales on her pulmonary exam. Mucomyst was ordered yesterday but evidently the order did not get processed well as she is not been receiving it at this point. Additionally she has substantial oral secretions and for this a scopolamine transdermal patch may provide significant reduction in her oral and postnasal secretions. 07/19/2018: Patient is doing reasonably well on her respiratory trial today. She is tolerating being on the CPAP mode of the ventilator quite well and if she continues to do so she may be extubated in the very near future. Pulmonary exam shows continued rhonchi and rales scattered throughout all nash and she also continues to have wheezes and a prolonged expiratory phase. Increasing the frequency of Mucomyst will be used to try to help clear her pulmonary secretions. 07/20/2018: Patient continues to do well on the CPAP mode of her ventilator. She continues to be extubated as Dr. Dunham does not feel she is quite ready to have the tube out yet. Pulmonary exam shows persistence in scattered rhonchi although they are much less noisy today and the coarse rales have essentially cleared. She continues to have mild wheezing and a minimally prolonged expiratory phase but this is also significantly improved since yesterday's exam. Mucomyst frequency will be reduced back to twice daily per Dr. Dunham's preference. Patient's ABGs are significantly improved again today. 07/21/2018: Sunitha continues to improve using the ventilator function at night and CPAP mode during the day. She is improving significantly with good clearing of her respiratory secretions and steadily improving pulmonary function. She is alert and able to shake her head yes and no to answer simple questions and she denies pain. She indicates yes that the pain medication she was given yesterday did help her. On exam today her wheezes have significantly decreased again and her expiratory phase is nearly normalized. Patient's treatment will continue per Dr. Dunham's direction. Reason For Visit: COPD PNEUMONIA Physical Exam Vital Signs: Temp Pulse Resp BP Pulse Ox 98.6 F 76 18 100/46 L 96 07/21/18 08:00 07/21/18 08:00 07/21/18 08:00 07/21/18 08:00 07/21/18 08:00 Intake & Output 07/19/18 07/20/18 07/21/18 23:59 23:59 23:59 Intake Total 6743 2775 734 Output Total 8175 3165 775 Balance 512 -390 -41 Weight 90.8 kg 91.2 kg 91.2 kg General appearance: PRESENT: no acute distress, cooperative, other - Intubated and mildly sedated but alert at the time of my evaluation and able to answer questions yes and no by shaking and nodding her head Head exam: PRESENT: atraumatic, normocephalic Eye exam: PRESENT: conjunctiva pink, EOMI Ear exam: PRESENT: normal external ear exam. ABSENT: drainage Mouth exam: PRESENT: dry mucosa, neck supple, other - Endotracheal tube in good position Neck exam: ABSENT: JVD, tracheal deviation Respiratory exam: PRESENT: decreased breath sounds - Moderately decreased breath sounds throughout all nash consistent with moderate to severe COPD, prolonged expiratory phas - Very minimally prolonged expiratory phase, symmetrical, unlabored, wheezes - Minimal end expiratory wheezes Cardiovascular exam: ABSENT: bradycardia, clicks, diastolic murmur, gallop, RRR , rubs, systolic murmur, tachycardia Vascular exam: PRESENT: normal capillary refill. ABSENT: pallor GI/Abdominal exam: PRESENT: normal bowel sounds, soft Rectal exam: PRESENT: deferred Extremities exam: ABSENT: joint swelling, pedal edema Musculoskeletal exam: ABSENT: deformity, dislocation Neurological exam: PRESENT: alert, oriented to person, oriented to place, oriented to time, other - Intubated and mildly sedated but alert and able to nod yes or shake her head no to answer simple questions. Psychiatric exam: PRESENT: appropriate affect, normal mood Skin exam: ABSENT: jaundice, rash Results Laboratory Results: 07/21/18 05:02 07/21/18 05:02 07/21/18 07/21/18 07/21/18 05:02 05:02 05:02 WBC 7.9 RBC 3.42 L Hgb 10.3 L Hct 30.5 L MCV 89 MCH 30.2 MCHC 33.9 RDW 14.3 H Plt Count 230 Seg Neutrophils % 75.0 Lymphocytes % 13.1 Monocytes % 7.9 Eosinophils % 3.3 Basophils % 0.7 Absolute Neutrophils 6.0 Absolute Lymphocytes 1.0 Absolute Monocytes 0.6 Absolute Eosinophils 0.3 Absolute Basophils 0.1 Carbonic Acid Cancelled HCO3/H2CO3 Ratio Cancelled ABG pH Cancelled ABG pCO2 Cancelled ABG pO2 Cancelled ABG HCO3 Cancelled ABG O2 Saturation Cancelled ABG Base Excess Cancelled FiO2 Cancelled Sodium 144.8 Potassium 4.1 Chloride 109 H Carbon Dioxide 26 Anion Gap 10 BUN 14 Creatinine 0.66 Est GFR ( Amer) > 60 Est GFR (Non-Af Amer) > 60 Glucose 103 Calcium 9.0 Phosphorus 5.0 H Magnesium 2.2 07/21/18 07:20 WBC RBC Hgb Hct MCV MCH MCHC RDW Plt Count Seg Neutrophils % Lymphocytes % Monocytes % Eosinophils % Basophils % Absolute Neutrophils Absolute Lymphocytes Absolute Monocytes Absolute Eosinophils Absolute Basophils Carbonic Acid 1.10 HCO3/H2CO3 Ratio 22:1 ABG pH 7.45 ABG pCO2 36.5 ABG pO2 70.5 L ABG HCO3 24.7 H ABG O2 Saturation 94.9 ABG Base Excess 0.8 FiO2 40% Sodium Potassium Chloride Carbon Dioxide Anion Gap BUN Creatinine Est GFR ( Amer) Est GFR (Non-Af Amer) Glucose Calcium Phosphorus Magnesium Impressions: Chest CT 07/13/18 15:07 IMPRESSION: 1. Extensive bilateral airspace opacities, may be secondary to multifocal pneumonia ; pulmonary hemorrhage and pulmonary edema are also in the differential. Followup imaging recommended to ensure resolution exclude a different etiology. 2. Mild mediastinal and hilar adenopathy. 3. 13 mm nodular thickening of the left adrenal gland, indeterminate. KUB X-Ray 07/20/18 00:00 IMPRESSION: 1. NG tube with tip and side-port in the stomach. Endotracheal tube in appropriate position. copyright 2010 [employer]- All Rights Reserved Chest X-Ray 07/21/18 06:00 IMPRESSION: Lines and catheters in place. Left basilar airspace opacity copyright 2010 [employer]- All Rights Reserved Assessment & Plan - Diagnosis (1) ARDS (adult respiratory distress syndrome) Is this a current diagnosis for this admission?: Yes Plan: Patient will continue treatment with the guidance of Dr. Dunham utilizing IV steroids, pulmonary toilet with nebulizers and mechanical ventilatory support. Empiric antibiotic therapy is being used for the suspected underlying infectious etiology. 07/17/2018: I will add Mucomyst to the patient's nebulizer treatments as this may help to mobilize some of the secretions that are heard on auscultation. If these can be made less viscous and more mobile there may be more easily coughed or suctioned out of the patient's airway. 07/18/2018: I will make sure that the patient's Mucomyst order has been correctly transcribed and will start her on Transderm scopolamine patches every 72 hours to help control her oral secretions. 07/19/2018: Patient's Mucomyst will be increased to 4 times daily and she will be continued on her ventilator discontinuation trial per Dr. Dunham's instructions. 07/20/2018: Mucomyst is decreased to twice daily per Dr. Dunham's preference. 07/21/2018: Patient is responding very well and will most likely be extubated tomorrow after Dr. Dunham has evaluated her morning ABGs. (2) Multifocal pneumonia Is this a current diagnosis for this admission?: Yes Plan: Patient's multifocal pneumonia is being treated with empiric antibiotic and intravenous steroid therapy at the direction of Dr. Dunham. 07/19/2018: The patient's intravenous antibiotics were changed from the multiple antibiotic broad-spectrum regiment of Zosyn and vancomycin to Levaquin 750 mg IV daily. This regiment will be continued through a minimum 10-day therapy course though she may be converted to oral therapy at an appropriate time. Gradual reduction of the patient's intravenous steroid therapy will be begin after she has been successfully extubated. 07/20/2018: Patient be continued on daily IV Levaquin until her antibiotic therapy can be converted to p.o. when she is able to tolerate oral medications. (3) Chronic pain Qualifiers: Chronic pain type: chronic pain syndrome Qualified Code(s): G89.4 - Chronic pain syndrome Is this a current diagnosis for this admission?: Yes Plan: Patient's chronic pain syndrome does contribute to some difficulty in the management of her sedation for ventilation. This problem will be observed more closely as the patient is able to be off ventilatory support. 07/20/2018: Patient appears to be in a significant amount of pain at the time my evaluation. She is grimacing and has tearing and seems to be trying to indicate discomfort however it was not possible to localize her discomfort. Patient was obviously frustrated in her inability to communicate what was hurting but she was successful at being able to indicate that no specific area of her body was that which was painful. I will adjust the patient's pain control regiment by discontinuing her current fentanyl and oxycodone orders and starting her on a intravenous morphine sulfate sliding scale regiment utilizing 2-4 mg of morphine IV q. one hour as needed for pain. 07/21/2018: Patient appears to be much more comfortable today and she is alert enough to respond yes to question as to whether or not her pain yesterday was helped by the medication given for it. She indicated that the pain was indeed relieved and when asked if she would like more of a pain medication if the pain comes back she again responds yes. Therefore the patient will be continued with sliding scale intravenous morphine 2-4 mg every 1 hours as needed. (4) Septic shock Is this a current diagnosis for this admission?: Yes Plan: 07/16/2018: Patient's septic shock has required continued use of vasopressors. There is being gradually withdrawn and will hopefully be withdrawn entirely by later this evening or tomorrow. 07/17/2018: Patient's blood pressure no longer requires support of vasopressors. She remains in a normal sinus rhythm with a blood pressure in the 110's over 70's. 07/18/2018: The patient's vital signs have remained stable off of all chemical support agents for more than 36 hours. 07/19/2018: Septic shock has been resolved. - Time Time Spent with patient: Less than 15 minutes Medications reviewed and adjusted accordingly: No Anticipated discharge: Home
[2018-07-21] MEDS ORDERED: DEXAMETHASONE SOD PHOSPHATE INJ 4 MG/1 ML VIAL ONE (11:39)
[2018-07-21] MEDS: LURASIDONE HCL 40 MG TABLET PO SCH (13:28)
[2018-07-21] MEDS: MORPHINE SULFATE 10 MG/ML INJ IV PRN ×2 (16:50→21:07)
[2018-07-21] MEDS ORDERED: ALPRAZOLAM 0.5 MG TABLET PO ONE (21:15)
[2018-07-22] MEDS: IPRATROPIUM/ALBUTEROL 0.5-2.5 MG/3 ML AMPUL NEB SCH ×3 (02:27→14:08)
[2018-07-22] MEDS: MORPHINE SULFATE 10 MG/ML INJ IV PRN ×6 (02:43→23:27)
[2018-07-22] MEDS: HEPARIN SOD (PORCINE) 5,000 UNIT/ML 1 ML SYRINGE SUBCUT SCH ×3 (05:38→23:27)
[2018-07-22 06:31] LABS: ANION GAP 10 (5-19); BLOOD UREA NITROGEN 15 mg/dL (7-20); CALCIUM 9.2 mg/dL (8.4-10.2); CARBON DIOXIDE 28 mmol/L (22-30); CHLORIDE 108 mmol/L (98-107); GLUCOSE 95 mg/dL (75-110); POTASSIUM 3.3 mmol/L (3.6-5.0); SODIUM 145.9 mmol/L (137-145)
[2018-07-22] MEDS: ACETYLCYSTEINE 20% SOLN 800 MG/4 ML VIAL.NEB NEB SCH ×2 (08:18→19:43)
[2018-07-22] MEDS: BUDESONIDE NEB 0.5 MG/2 ML AMPUL NEB SCH ×2 (08:19→19:43)
[2018-07-22] MEDS: LEVOFLOXACIN 750 MG/D5W RTU 750 MG/150 ML RTUPB IV SCH (10:23)
[2018-07-22] MEDS: PANTOPRAZOLE SODIUM 40 MG VIAL IV SCH (10:23)
[2018-07-22] MEDS: POTASSIUM CHLORIDE 10 MEQ CAPSULE.ER PO SCH ×2 (10:24→12:55)
[2018-07-22] MEDS: CITALOPRAM HYDROBROMIDE 20 MG TABLET NG SCH (10:24)
[2018-07-22] MEDS: LURASIDONE HCL 40 MG TABLET PO SCH (10:24)
[2018-07-22] MEDS ORDERED: FLUCONAZOLE 100 MG TABLET PO ONE (11:00)
--- NOTE | 2018-07-22 11:41 | PDOC PROGRESS REPORT ---
Subjective Progress Note for:: 07/18/18 Subjective:: intubated and sedated Reason For Visit: COPD PNEUMONIA Physical Exam Vital Signs: Temp Pulse Resp BP Pulse Ox 99.0 F 83 19 109/55 L 95 07/18/18 07:30 07/18/18 04:00 07/18/18 06:18 07/18/18 06:18 07/18/18 06:18 Intake & Output 07/17/18 07/18/18 07/19/18 06:59 06:59 06:59 Intake Total 4388 2585 138 Output Total 2860 1355 100 Balance 1528 1230 38 Weight 90.5 kg 95.5 kg General appearance: PRESENT: no acute distress, disheveled, well-developed, well -nourished Head exam: PRESENT: atraumatic, normocephalic Eye exam: PRESENT: conjunctiva pale. ABSENT: nystagmus, periorbital swelling Mouth exam: PRESENT: dry mucosa, neck supple, tongue midline, other - ET tube Neck exam: ABSENT: carotid bruit, JVD, lymphadenopathy, thyromegaly, tracheal deviation, tracheostomy Respiratory exam: PRESENT: decreased breath sounds, prolonged expiratory phas, rhonchi, unlabored, wheezes. ABSENT: retraction, stridor, symmetrical Cardiovascular exam: PRESENT: RRR, +S1, +S2 Pulses: PRESENT: normal radial pulses GI/Abdominal exam: PRESENT: soft. ABSENT: tenderness Extremities exam: ABSENT: calf tenderness, clubbing, joint swelling, pedal edema , tenderness Musculoskeletal exam: ABSENT: deformity, dislocation Neurological exam: ABSENT: awake Skin exam: PRESENT: dry, warm Results Laboratory Results: 07/18/18 05:45 07/18/18 05:45 07/17/18 07/18/18 07/18/18 11:54 05:45 05:45 WBC 8.2 RBC 3.44 L Hgb 10.4 L Hct 30.5 L MCV 89 MCH 30.1 MCHC 34.0 RDW 14.1 H Plt Count 192 Seg Neutrophils % 68.6 Lymphocytes % 16.4 Monocytes % 9.2 Eosinophils % 4.4 Basophils % 1.4 Absolute Neutrophils 5.6 Absolute Lymphocytes 1.3 Absolute Monocytes 0.8 Absolute Eosinophils 0.4 Absolute Basophils 0.1 Carbonic Acid 1.15 HCO3/H2CO3 Ratio 21:1 ABG pH 7.44 ABG pCO2 38.3 ABG pO2 84.1 ABG HCO3 25.2 H ABG O2 Saturation 96.6 ABG Base Excess 1.1 FiO2 50% Sodium Potassium 3.3 L Chloride Carbon Dioxide Anion Gap BUN Creatinine 0.65 Est GFR ( Amer) > 60 Est GFR (Non-Af Amer) > 60 Glucose Calcium Phosphorus Magnesium Total Bilirubin AST ALT Alkaline Phosphatase Total Protein Albumin 07/18/18 05:45 WBC RBC Hgb Hct MCV MCH MCHC RDW Plt Count Seg Neutrophils % Lymphocytes % Monocytes % Eosinophils % Basophils % Absolute Neutrophils Absolute Lymphocytes Absolute Monocytes Absolute Eosinophils Absolute Basophils Carbonic Acid HCO3/H2CO3 Ratio ABG pH ABG pCO2 ABG pO2 ABG HCO3 ABG O2 Saturation ABG Base Excess FiO2 Sodium 145.6 H Potassium 3.9 Chloride 113 H Carbon Dioxide 24 Anion Gap 9 BUN 12 Creatinine 0.73 Est GFR ( Amer) > 60 Est GFR (Non-Af Amer) > 60 Glucose 108 Calcium 8.6 Phosphorus 4.2 Magnesium 2.5 H Total Bilirubin 0.7 AST 27 ALT 23 Alkaline Phosphatase 96 Total Protein 5.6 L Albumin 2.6 L 07/13/18 05:00 Blood Blood Culture - Final NO GROWTH IN 5 DAYS Impressions: Chest CT 07/13/18 15:07 IMPRESSION: 1. Extensive bilateral airspace opacities, may be secondary to multifocal pneumonia ; pulmonary hemorrhage and pulmonary edema are also in the differential. Followup imaging recommended to ensure resolution exclude a different etiology. 2. Mild mediastinal and hilar adenopathy. 3. 13 mm nodular thickening of the left adrenal gland, indeterminate. Chest X-Ray 07/18/18 06:00 IMPRESSION: NO SIGNIFICANT INTERVAL CHANGE. Assessment & Plan - Diagnosis (1) Septic shock Is this a current diagnosis for this admission?: Yes Plan: Improved minimal pressors (2) ARDS (adult respiratory distress syndrome) Is this a current diagnosis for this admission?: Yes Plan: improving:Radiographically patient still requires FiO2 of 50% and PEEP of 10 - Time Total Critical Time (Minutes): 45
--- NOTE | 2018-07-22 11:43 | PDOC PROGRESS REPORT ---
Subjective Progress Note for:: 07/19/18 Subjective:: intubated and sedated Reason For Visit: COPD PNEUMONIA Physical Exam Vital Signs: Temp Pulse Resp BP Pulse Ox 99.1 F 81 21 H 129/66 H 93 07/18/18 23:44 07/19/18 08:00 07/19/18 08:19 07/19/18 08:19 07/19/18 08:19 Intake & Output 07/18/18 07/19/18 07/20/18 06:59 06:59 06:59 Intake Total 2585 2698 151 Output Total 1355 2850 225 Balance 1230 -152 -74 Weight 95.5 kg 90.8 kg General appearance: PRESENT: no acute distress, well-developed, well-nourished. ABSENT: cooperative, disheveled Head exam: PRESENT: atraumatic, normocephalic Eye exam: PRESENT: conjunctiva pale, EOMI. ABSENT: nystagmus, periorbital swelling, scleral icterus Mouth exam: PRESENT: dry mucosa, neck supple, tongue midline, other - ET tube Neck exam: ABSENT: carotid bruit, JVD, lymphadenopathy, thyromegaly, tracheal deviation, tracheostomy Respiratory exam: PRESENT: decreased breath sounds, prolonged expiratory phas, rales, rhonchi, unlabored, wheezes. ABSENT: stridor Cardiovascular exam: PRESENT: RRR, +S1, +S2 Pulses: PRESENT: normal radial pulses GI/Abdominal exam: PRESENT: soft. ABSENT: tenderness Gentrourinary exam: PRESENT: indwelling catheter Extremities exam: ABSENT: calf tenderness, clubbing, joint swelling, pedal edema Musculoskeletal exam: ABSENT: deformity, dislocation Neurological exam: ABSENT: awake Skin exam: PRESENT: dry, warm Results Laboratory Results: 07/19/18 04:55 07/19/18 04:55 07/19/18 07/19/18 07/19/18 04:55 04:55 04:55 WBC 8.2 RBC 3.31 L Hgb 10.0 L Hct 29.6 L MCV 90 MCH 30.3 MCHC 33.8 RDW 14.1 H Plt Count 195 Seg Neutrophils % 70.4 Lymphocytes % 15.9 Monocytes % 8.0 Eosinophils % 5.0 Basophils % 0.7 Absolute Neutrophils 5.8 Absolute Lymphocytes 1.3 Absolute Monocytes 0.7 Absolute Eosinophils 0.4 Absolute Basophils 0.1 Carbonic Acid 1.28 HCO3/H2CO3 Ratio 20:1 ABG pH 7.42 ABG pCO2 42.4 ABG pO2 102.8 H ABG HCO3 26.6 H ABG O2 Saturation 97.8 ABG Base Excess 1.9 FiO2 60% Sodium 145.4 H Potassium 3.9 Chloride 111 H Carbon Dioxide 27 Anion Gap 7 BUN 11 Creatinine 0.68 Est GFR ( Amer) > 60 Est GFR (Non-Af Amer) > 60 Glucose 106 Calcium 8.9 Magnesium 2.4 H Total Bilirubin 0.4 AST 34 ALT 32 Alkaline Phosphatase 95 Total Protein 5.5 L Albumin 2.7 L 07/13/18 05:00 Blood Blood Culture - Final NO GROWTH IN 5 DAYS Impressions: Chest CT 07/13/18 15:07 IMPRESSION: 1. Extensive bilateral airspace opacities, may be secondary to multifocal pneumonia ; pulmonary hemorrhage and pulmonary edema are also in the differential. Followup imaging recommended to ensure resolution exclude a different etiology. 2. Mild mediastinal and hilar adenopathy. 3. 13 mm nodular thickening of the left adrenal gland, indeterminate. Chest X-Ray 07/19/18 06:00 IMPRESSION: Bibasilar densities as noted above Assessment & Plan - Diagnosis (1) Septic shock Is this a current diagnosis for this admission?: Yes Plan: Improved minimal pressors (2) ARDS (adult respiratory distress syndrome) Is this a current diagnosis for this admission?: Yes Plan: improving:Radiographically patient still requires FiO2 of 50% and PEEP of 10 - Time Total Critical Time (Minutes): 45
--- NOTE | 2018-07-22 11:45 | PDOC PROGRESS REPORT ---
Subjective Progress Note for:: 07/20/18 Subjective:: intubated and sedated Reason For Visit: COPD PNEUMONIA Physical Exam Vital Signs: Temp Pulse Resp BP Pulse Ox 98.6 F 95 18 103/57 L 95 07/20/18 08:00 07/20/18 08:00 07/20/18 08:00 07/20/18 08:00 07/20/18 08:00 Intake & Output 07/19/18 07/20/18 07/21/18 06:59 06:59 06:59 Intake Total 2698 2213 459 Output Total 2850 3350 225 Balance -152 -1137 234 Weight 90.8 kg 91.2 kg General appearance: PRESENT: no acute distress, disheveled Head exam: PRESENT: atraumatic, normocephalic Eye exam: PRESENT: conjunctiva pale. ABSENT: nystagmus, periorbital swelling Mouth exam: PRESENT: dry mucosa, neck supple, tongue midline, other - ET tube Neck exam: ABSENT: carotid bruit, JVD, lymphadenopathy, thyromegaly, tracheal deviation, tracheostomy Respiratory exam: PRESENT: decreased breath sounds, prolonged expiratory phas, rales, rhonchi, unlabored, wheezes. ABSENT: retraction, stridor Cardiovascular exam: PRESENT: RRR, +S1, +S2 Pulses: PRESENT: normal radial pulses GI/Abdominal exam: PRESENT: soft. ABSENT: tenderness - [id number] Gentrourinary exam: PRESENT: indwelling catheter Extremities exam: ABSENT: calf tenderness, clubbing, joint swelling, pedal edema Musculoskeletal exam: ABSENT: deformity, dislocation Neurological exam: ABSENT: awake Skin exam: PRESENT: dry, warm Results Laboratory Results: 07/20/18 04:35 07/20/18 04:35 07/20/18 07/20/18 07/20/18 04:35 04:35 04:35 WBC 8.9 RBC 3.54 L Hgb 10.6 L Hct 31.1 L MCV 88 MCH 30.1 MCHC 34.2 RDW 14.1 H Plt Count 222 Seg Neutrophils % 73.1 Lymphocytes % 13.8 Monocytes % 7.5 Eosinophils % 4.7 Basophils % 0.9 Absolute Neutrophils 6.5 Absolute Lymphocytes 1.2 Absolute Monocytes 0.7 Absolute Eosinophils 0.4 Absolute Basophils 0.1 Carbonic Acid 1.07 HCO3/H2CO3 Ratio 23:1 ABG pH 7.47 H ABG pCO2 35.6 ABG pO2 81.1 ABG HCO3 25.4 H ABG O2 Saturation 96.6 ABG Base Excess 2.0 FiO2 40% Sodium 144.4 Potassium 3.7 Chloride 108 H Carbon Dioxide 26 Anion Gap 10 BUN 11 Creatinine 0.66 Est GFR ( Amer) > 60 Est GFR (Non-Af Amer) > 60 Glucose 103 Calcium 9.1 Magnesium 2.1 Impressions: Chest CT 07/13/18 15:07 IMPRESSION: 1. Extensive bilateral airspace opacities, may be secondary to multifocal pneumonia ; pulmonary hemorrhage and pulmonary edema are also in the differential. Followup imaging recommended to ensure resolution exclude a different etiology. 2. Mild mediastinal and hilar adenopathy. 3. 13 mm nodular thickening of the left adrenal gland, indeterminate. KUB X-Ray 07/20/18 00:00 IMPRESSION: 1. NG tube with tip and side-port in the stomach. Endotracheal tube in appropriate position. copyright 2011 [employer]- All Rights Reserved Chest X-Ray 07/20/18 06:00 IMPRESSION: 1. NG tube with tip and side-port in the stomach. Endotracheal tube in appropriate position. copyright 2011 [employer]- All Rights Reserved Assessment & Plan - Diagnosis (1) Septic shock Is this a current diagnosis for this admission?: Yes Plan: Improved minimal pressors (2) ARDS (adult respiratory distress syndrome) Is this a current diagnosis for this admission?: Yes Plan: improving:Radiographically patient still requires FiO2 of 50% and PEEP of 10 - Time Total Critical Time (Minutes): 40
--- NOTE | 2018-07-22 11:47 | PDOC PROGRESS REPORT ---
Subjective Progress Note for:: 07/21/18 Subjective:: intubated and sedated:awake Reason For Visit: COPD PNEUMONIA Physical Exam Vital Signs: Temp Pulse Resp BP Pulse Ox 98.6 F 85 19 108/68 87 L 07/22/18 08:00 07/22/18 08:20 07/22/18 09:46 07/22/18 08:34 07/22/18 09:46 Intake & Output 07/21/18 07/22/18 07/23/18 06:59 06:59 06:59 Intake Total 3359 1986 240 Output Total 2812 2790 Balance 544 -804 240 Weight 91.2 kg 91.8 kg General appearance: PRESENT: no acute distress, cooperative, disheveled, well- developed, well-nourished Head exam: PRESENT: atraumatic, normocephalic Eye exam: PRESENT: conjunctiva pale, EOMI. ABSENT: nystagmus, periorbital swelling, scleral icterus Mouth exam: PRESENT: dry mucosa, neck supple, tongue midline, other - ET Neck exam: ABSENT: carotid bruit, JVD, lymphadenopathy, thyromegaly, tracheal deviation, tracheostomy Respiratory exam: PRESENT: decreased breath sounds, prolonged expiratory phas, rhonchi, unlabored, wheezes. ABSENT: retraction, stridor, tachypnea Cardiovascular exam: PRESENT: RRR, +S1, +S2 Pulses: PRESENT: normal radial pulses GI/Abdominal exam: PRESENT: soft. ABSENT: tenderness - [id number] Gentrourinary exam: PRESENT: indwelling catheter Extremities exam: ABSENT: calf tenderness, clubbing, joint swelling, pedal edema Musculoskeletal exam: ABSENT: deformity, dislocation - [id number] Neurological exam: PRESENT: alert, awake Psychiatric exam: PRESENT: appropriate affect Skin exam: PRESENT: dry, warm Results Laboratory Results: 07/21/18 05:02 07/22/18 05:40 07/22/18 05:40 Sodium 145.9 H Potassium 3.3 L Chloride 108 H Carbon Dioxide 28 Anion Gap 10 BUN 15 Creatinine 0.74 Est GFR ( Amer) > 60 Est GFR (Non-Af Amer) > 60 Glucose 95 Calcium 9.2 Magnesium 2.1 Impressions: Chest CT 07/13/18 15:07 IMPRESSION: 1. Extensive bilateral airspace opacities, may be secondary to multifocal pneumonia ; pulmonary hemorrhage and pulmonary edema are also in the differential. Followup imaging recommended to ensure resolution exclude a different etiology. 2. Mild mediastinal and hilar adenopathy. 3. 13 mm nodular thickening of the left adrenal gland, indeterminate. KUB X-Ray 07/20/18 00:00 IMPRESSION: 1. NG tube with tip and side-port in the stomach. Endotracheal tube in appropriate position. copyright 2011 [employer]- All Rights Reserved Chest X-Ray 07/21/18 06:00 IMPRESSION: Lines and catheters in place. Left basilar airspace opacity copyright 2011 [employer]- All Rights Reserved Assessment & Plan - Diagnosis (1) Septic shock Is this a current diagnosis for this admission?: Yes Plan: Improved minimal pressors (2) ARDS (adult respiratory distress syndrome) Is this a current diagnosis for this admission?: Yes Plan: extubate to bi pap - Time Total Critical Time (Minutes): 55
--- NOTE | 2018-07-22 11:49 | PDOC PROGRESS REPORT ---
Subjective Progress Note for:: 07/22/18 Subjective:: 24hrs s/p extubation wake Reason For Visit: COPD PNEUMONIA Physical Exam Vital Signs: Temp Pulse Resp BP Pulse Ox 98.6 F 85 14 109/57 L 98 07/22/18 08:00 07/22/18 08:20 07/22/18 08:20 07/22/18 08:00 07/22/18 08:20 Intake & Output 07/21/18 07/22/18 07/23/18 06:59 06:59 06:59 Intake Total 3359 1986 240 Output Total 2815 2790 Balance 544 -804 240 Weight 91.2 kg 91.8 kg General appearance: PRESENT: no acute distress, cooperative, disheveled Head exam: PRESENT: atraumatic, normocephalic Eye exam: PRESENT: conjunctiva pale, EOMI. ABSENT: nystagmus, periorbital swelling Mouth exam: PRESENT: dry mucosa, neck supple, tongue midline Respiratory exam: PRESENT: decreased breath sounds, prolonged expiratory phas, rhonchi, unlabored Cardiovascular exam: PRESENT: RRR, +S1, +S2 Pulses: PRESENT: normal radial pulses - [id number] GI/Abdominal exam: PRESENT: soft. ABSENT: tenderness - [id number] Gentrourinary exam: PRESENT: indwelling catheter - [id number] Extremities exam: ABSENT: calf tenderness, clubbing, joint swelling, pedal edema Musculoskeletal exam: ABSENT: deformity, dislocation Neurological exam: PRESENT: alert, awake Psychiatric exam: PRESENT: appropriate affect Skin exam: PRESENT: dry, warm - [id number] Results Laboratory Results: 07/21/18 05:02 07/22/18 05:40 07/22/18 05:40 Sodium 145.9 H Potassium 3.3 L Chloride 108 H Carbon Dioxide 28 Anion Gap 10 BUN 15 Creatinine 0.74 Est GFR ( Amer) > 60 Est GFR (Non-Af Amer) > 60 Glucose 95 Calcium 9.2 Magnesium 2.1 Impressions: Chest CT 07/13/18 15:07 IMPRESSION: 1. Extensive bilateral airspace opacities, may be secondary to multifocal pneumonia ; pulmonary hemorrhage and pulmonary edema are also in the differential. Followup imaging recommended to ensure resolution exclude a different etiology. 2. Mild mediastinal and hilar adenopathy. 3. 13 mm nodular thickening of the left adrenal gland, indeterminate. KUB X-Ray 07/20/18 00:00 IMPRESSION: 1. NG tube with tip and side-port in the stomach. Endotracheal tube in appropriate position. copyright 2010 [employer]- All Rights Reserved Chest X-Ray 07/21/18 06:00 IMPRESSION: Lines and catheters in place. Left basilar airspace opacity copyright 2010 [employer]- All Rights Reserved Assessment & Plan - Diagnosis (1) Septic shock Is this a current diagnosis for this admission?: No (2) ARDS (adult respiratory distress syndrome) Is this a current diagnosis for this admission?: Yes Plan: extubate to bi pap - Time Total Critical Time (Minutes): 40
[2018-07-22] MEDS ORDERED: ALBUTEROL SULFATE 0.083% NEB 2.5 MG/3 ML AMPUL NEB PRN (17:20)
--- NOTE | 2018-07-22 17:33 | PDOC PROGRESS REPORT ---
Subjective Progress Note for:: 07/22/18 Subjective:: SUNITHA MCKEON is a 48 year old female who presented to the emergency room with a 3-day history of worsening upper respiratory symptoms of cough, fever, chills and rhinorrhea. Her cough is nonproductive but she was noted to be hypoxic in the emergency room with an O2 sat in the 80s. Her chest x-ray revealed a bilateral pneumonia and she was started on BiPAP with empiric antibiotic therapy. She was subsequently admitted and her condition gradually deteriorated such that she required intubation on the day following admission. Additionally she was hypotensive and required IV Levophed to support her blood pressure. 07/16/2018: Patient's clinical status is improved only slightly since her initial hospital course. She continues to be on mechanical ventilator respiratory support and continues to require low-dose Levophed to maintain adequate blood pressure. Dr. Dunham is providing excellent direction of the patient's pulmonary treatment and closely monitoring her pulmonary status. Her white blood count has dropped and she appears to be gradually improving and her pulmonary status at this time. Continued close observation will be maintained with further investigation and intervention as indicated 07/17/2018: Patient continues to require mechanical ventilation however she has been weaned off of Levophed and there is no longer requiring pharmaceutical blood pressure support. She continues to be under Dr. Dunham's management for her ARDS. Overall it seems the patient is moving air somewhat better today however she continues to have a prolonged expiratory course and is having wheezing at the end of expiration despite being on a mechanical ventilator with positive end- expiratory pressure. Coarse rhonchi and rales are noted on auscultation throughout all nash. Patient may benefit from use of Mucomyst and her nebulizer regiment. 07/18/2018: Patient continues to show some modest improvement but was unable to be weaned off the ventilator today. She continues to have coarse rhonchi and rales on her pulmonary exam. Mucomyst was ordered yesterday but evidently the order did not get processed well as she is not been receiving it at this point. Additionally she has substantial oral secretions and for this a scopolamine transdermal patch may provide significant reduction in her oral and postnasal secretions. 07/19/2018: Patient is doing reasonably well on her respiratory trial today. She is tolerating being on the CPAP mode of the ventilator quite well and if she continues to do so she may be extubated in the very near future. Pulmonary exam shows continued rhonchi and rales scattered throughout all nash and she also continues to have wheezes and a prolonged expiratory phase. Increasing the frequency of Mucomyst will be used to try to help clear her pulmonary secretions. 07/20/2018: Patient continues to do well on the CPAP mode of her ventilator. She continues to be extubated as Dr. Dunham does not feel she is quite ready to have the tube out yet. Pulmonary exam shows persistence in scattered rhonchi although they are much less noisy today and the coarse rales have essentially cleared. She continues to have mild wheezing and a minimally prolonged expiratory phase but this is also significantly improved since yesterday's exam. Mucomyst frequency will be reduced back to twice daily per Dr. Dunham's preference. Patient's ABGs are significantly improved again today. 07/21/2018: Sunitha continues to improve using the ventilator function at night and CPAP mode during the day. She is improving significantly with good clearing of her respiratory secretions and steadily improving pulmonary function. She is alert and able to shake her head yes and no to answer simple questions and she denies pain. She indicates yes that the pain medication she was given yesterday did help her. On exam today her wheezes have significantly decreased again and her expiratory phase is nearly normalized. Patient's treatment will continue per Dr. Dunham's direction. 07/22/2018: Patient is doing very very well today she is up and about in the room and walking around in the ICU. She is tolerating activity very well and is not complaining of dyspnea even with exertion. She is awake and alert and very happy about having been extubated yesterday. She has been eating well and taking oral fluids in good amounts. She is having no difficulty with her eliminations. Because of her excellent response she is being converted to a medical floor patient. If she continues to do well she may be discharged as early as 07/23/2018. Reason For Visit: COPD PNEUMONIA Physical Exam Vital Signs: Temp Pulse Resp BP Pulse Ox 98.3 F 80 18 111/67 95 07/22/18 12:00 07/22/18 14:08 07/22/18 15:00 07/22/18 14:34 07/22/18 15:26 Intake & Output 07/20/18 07/21/18 07/22/18 23:59 23:59 23:59 Intake Total 2779 8070 480 Output Total 6353 7625 1730 Balance -390 5 -1250 Weight 91.2 kg 91.2 kg 91.8 kg General appearance: PRESENT: no acute distress, cooperative Head exam: PRESENT: atraumatic, normocephalic Eye exam: PRESENT: conjunctiva pink, EOMI Ear exam: PRESENT: normal external ear exam. ABSENT: drainage Mouth exam: PRESENT: neck supple, other - Oral mucosa moist and intact Neck exam: ABSENT: JVD, tracheal deviation Respiratory exam: PRESENT: clear to auscultation [place], decreased breath sounds - Mildly decreased breath sounds throughout all nash, symmetrical, unlabored. ABSENT: prolonged expiratory phas, wheezes Cardiovascular exam: PRESENT: RRR. ABSENT: clicks, gallop, rubs Vascular exam: PRESENT: normal capillary refill. ABSENT: pallor GI/Abdominal exam: PRESENT: normal bowel sounds, soft Rectal exam: PRESENT: deferred Extremities exam: ABSENT: joint swelling, pedal edema Musculoskeletal exam: PRESENT: full ROM, normal inspection Neurological exam: PRESENT: alert, oriented to person, oriented to place, oriented to time, oriented to situation, CN II-XII grossly intact. ABSENT: motor sensory deficit Psychiatric exam: PRESENT: appropriate affect, normal mood Skin exam: PRESENT: dry, intact, warm Results Laboratory Results: 07/21/18 05:02 07/22/18 15:30 07/22/18 07/22/18 05:40 15:30 Sodium 145.9 H Potassium 3.3 L 3.7 Chloride 108 H Carbon Dioxide 28 Anion Gap 10 BUN 15 Creatinine 0.74 Est GFR ( Amer) > 60 Est GFR (Non-Af Amer) > 60 Glucose 95 Calcium 9.2 Magnesium 2.1 Impressions: Chest CT 07/13/18 15:07 IMPRESSION: 1. Extensive bilateral airspace opacities, may be secondary to multifocal pneumonia ; pulmonary hemorrhage and pulmonary edema are also in the differential. Followup imaging recommended to ensure resolution exclude a different etiology. 2. Mild mediastinal and hilar adenopathy. 3. 13 mm nodular thickening of the left adrenal gland, indeterminate. KUB X-Ray 07/20/18 00:00 IMPRESSION: 1. NG tube with tip and side-port in the stomach. Endotracheal tube in appropriate position. copyright 2011 [email or web address]- All Rights Reserved Chest X-Ray 07/21/18 06:00 IMPRESSION: Lines and catheters in place. Left basilar airspace opacity copyright 2010 [email or web address]- All Rights Reserved Assessment & Plan - Diagnosis (1) ARDS (adult respiratory distress syndrome) Is this a current diagnosis for this admission?: Yes Plan: Patient will continue treatment with the guidance of Dr. Dunham utilizing IV steroids, pulmonary toilet with nebulizers and mechanical ventilatory support. Empiric antibiotic therapy is being used for the suspected underlying infectious etiology. 07/17/2018: I will add Mucomyst to the patient's nebulizer treatments as this may help to mobilize some of the secretions that are heard on auscultation. If these can be made less viscous and more mobile there may be more easily coughed or suctioned out of the patient's airway. 07/18/2018: I will make sure that the patient's Mucomyst order has been correctly transcribed and will start her on Transderm scopolamine patches every 72 hours to help control her oral secretions. 07/19/2018: Patient's Mucomyst will be increased to 4 times daily and she will be continued on her ventilator discontinuation trial per Dr. Dunham's instructions. 07/20/2018: Mucomyst is decreased to twice daily per Dr. Dunham's preference. 07/21/2018: Patient is responding very well and will most likely be extubated tomorrow after Dr. Dunham has evaluated her morning ABGs. 07/22/2018: Patient was extubated yesterday afternoon. She has been doing very well since with no difficulty maintaining oxygenation even with mild exertion. She has been eating and drinking well and subsequently has been downgraded to a medical floor patient status. She may be discharged as early as 07/23/2018. (2) Multifocal pneumonia Is this a current diagnosis for this admission?: Yes Plan: Patient's multifocal pneumonia is being treated with empiric antibiotic and intravenous steroid therapy at the direction of Dr. Dunham. 07/19/2018: The patient's intravenous antibiotics were changed from the multiple antibiotic broad-spectrum regiment of Zosyn and vancomycin to Levaquin 750 mg IV daily. This regiment will be continued through a minimum 10-day therapy course though she may be converted to oral therapy at an appropriate time. Gradual reduction of the patient's intravenous steroid therapy will be begin after she has been successfully extubated. 07/20/2018: Patient be continued on daily IV Levaquin until her antibiotic therapy can be converted to p.o. when she is able to tolerate oral medications. 07/22/2018: Patient is essentially completed a complete course of Levaquin for a lower respiratory infection. As such she will not be treated with any further antibiotic therapy at this time and should be weaned from her steroids fairly rapidly, her next dose is 20 mg tomorrow morning and this could be continued for perhaps 1 or 2 days longer and then steroids should be discontinued. (3) Chronic pain Qualifiers: Chronic pain type: chronic pain syndrome Qualified Code(s): G89.4 - Chronic pain syndrome Is this a current diagnosis for this admission?: Yes Plan: Patient's chronic pain syndrome does contribute to some difficulty in the management of her sedation for ventilation. This problem will be observed more closely as the patient is able to be off ventilatory support. 07/20/2018: Patient appears to be in a significant amount of pain at the time my evaluation. She is grimacing and has tearing and seems to be trying to indicate discomfort however it was not possible to localize her discomfort. Patient was obviously frustrated in her inability to communicate what was hurting but she was successful at being able to indicate that no specific area of her body was that which was painful. I will adjust the patient's pain control regiment by discontinuing her current fentanyl and oxycodone orders and starting her on a intravenous morphine sulfate sliding scale regiment utilizing 2-4 mg of morphine IV q. one hour as needed for pain. 07/21/2018: Patient appears to be much more comfortable today and she is alert enough to respond yes to question as to whether or not her pain yesterday was helped by the medication given for it. She indicated that the pain was indeed relieved and when asked if she would like more of a pain medication if the pain comes back she again responds yes. Therefore the patient will be continued with sliding scale intravenous morphine 2-4 mg every 1 hours as needed. 07/22/2018: Patient is awake and alert at this point and has been extubated. She continues to have some chronic pain and other than place her back on her narcotic chronic pain medications I have elected to continue using a sliding scale IV morphine analgesic regimen. The patient can be reevaluated for resumption of her chronic opioid therapy at the time of her discharge. (4) Septic shock Is this a current diagnosis for this admission?: Yes Plan: 07/16/2018: Patient's septic shock has required continued use of vasopressors. There is being gradually withdrawn and will hopefully be withdrawn entirely by later this evening or tomorrow. 07/17/2018: Patient's blood pressure no longer requires support of vasopressors. She remains in a normal sinus rhythm with a blood pressure in the 110's over 70's. 07/18/2018: The patient's vital signs have remained stable off of all chemical support agents for more than 36 hours. 07/19/2018: Septic shock has been resolved. - Time Time Spent with patient: 15-24 minutes Medications reviewed and adjusted accordingly: Yes Anticipated discharge: Home Within: within 24 hours
[2018-07-22] MEDS: ONDANSETRON HCL INJ/PF 4 MG/2 ML SDV IV PRN (20:37)
[2018-07-22] MEDS: ACETAMINOPHEN 325 MG TABLET NG PRN (23:26)
[2018-07-22] MEDS: FAMOTIDINE 20 MG TABLET PO SCH (23:27)
[2018-07-23] MEDS: LEVALBUTEROL HCL NEB 1.25 MG/3 ML AMPUL NEB SCH ×2 (00:02→08:30)
[2018-07-23] MEDS: IPRATROPIUM BROMIDE 0.02% NEB 0.5 MG/2.5 ML AMPUL NEB SCH ×2 (00:02→08:29)
[2018-07-23] MEDS: HEPARIN SOD (PORCINE) 5,000 UNIT/ML 1 ML SYRINGE SUBCUT SCH ×2 (05:20→15:07)
[2018-07-23] MEDS: MORPHINE SULFATE 10 MG/ML INJ IV PRN ×4 (05:20→15:20)
[2018-07-23 07:00] LABS: ABSOLUTE BASOPHILS # (AUTO) 0.1 10^3/uL (0.0-0.2); ABSOLUTE EOSINOPHILS # (AUTO) 0.3 10^3/uL (0.0-0.6); ABSOLUTE LYMPHOCYTES (AUTO) 1.5 10^3/uL (0.5-4.7); ABSOLUTE MONOCYTES (AUTO) 0.8 10^3/uL (0.1-1.4); ABSOLUTE NEUT (AUTO) 6.9 10^3/uL (1.7-8.2); BASOPHILS % (AUTO) 0.8 % (0-2); EOSINOPHILS % (AUTO) 3.4 % (0-6); HEMATOCRIT 29.5 % (36.0-47.0); HEMOGLOBIN 10.1 g/dL (12.0-15.5); MEAN CORPUSCULAR HEMOGLOBIN 30.3 pg (27.0-33.4); MEAN CORPUSCULAR HGB CONC 34.3 g/dL (32.0-36.0); MEAN CORPUSCULAR VOLUME 88 fl (80-97); MONOCYTES % (AUTO) 8.1 % (3-13); PLATELET COUNT 241 10^3/uL (150-450); RED BLOOD COUNT 3.34 10^6/uL (3.72-5.28); RED CELL DISTRIBUTION WIDTH 13.9 % (11.5-14.0); SEGMENTED NEUTROPHILS % (AUTO) 71.7 % (42-78); TOTAL CELLS COUNTED % (AUTO) 100 %; WHITE BLOOD COUNT 9.6 10^3/uL (4.0-10.5)
[2018-07-23 07:16] LABS: ALANINE AMINOTRANSFERASE 27 U/L (9-52); ALBUMIN 3.1 g/dL (3.5-5.0); ALKALINE PHOSPHATASE 91 U/L (38-126); ANION GAP 10 (5-19); ASPARTATE AMINO TRANSFERASE 23 U/L (14-36); BILIRUBIN,DIRECT 0.2 mg/dL (0.0-0.4); BILIRUBIN,TOTAL 0.5 mg/dL (0.2-1.3); BLOOD UREA NITROGEN 14 mg/dL (7-20); CALCIUM 9.2 mg/dL (8.4-10.2); CARBON DIOXIDE 29 mmol/L (22-30); CHLORIDE 104 mmol/L (98-107); GLUCOSE 96 mg/dL (75-110); POTASSIUM 3.9 mmol/L (3.6-5.0); SODIUM 142.7 mmol/L (137-145); TOTAL PROTEIN 6.3 g/dL (6.3-8.2)
[2018-07-23 07:46] VITALS: BP 124/75
[2018-07-23] MEDS: ACETYLCYSTEINE 20% SOLN 800 MG/4 ML VIAL.NEB NEB SCH (08:30)
[2018-07-23] MEDS: BUDESONIDE NEB 0.5 MG/2 ML AMPUL NEB SCH (08:30)
[2018-07-23] MEDS: ONDANSETRON HCL INJ/PF 4 MG/2 ML SDV IV PRN (09:05)
[2018-07-23] MEDS: ACETAMINOPHEN 325 MG TABLET NG PRN (09:09)
[2018-07-23] MEDS ORDERED: PREDNISONE 20 MG TABLET PO SCH ×2 (10:00)
[2018-07-23] MEDS: CITALOPRAM HYDROBROMIDE 20 MG TABLET NG SCH (10:23)
[2018-07-23] MEDS: FAMOTIDINE 20 MG TABLET PO SCH (10:23)
[2018-07-23] MEDS: LURASIDONE HCL 40 MG TABLET PO SCH (10:23)
--- NOTE | 2018-07-23 14:52 | PDOC PROGRESS REPORT ---
Subjective Progress Note for:: 07/23/18 Subjective:: Stable doing well Reason For Visit: COPD PNEUMONIA Physical Exam Vital Signs: Temp Pulse Resp BP Pulse Ox 98.4 F 91 18 124/75 95 07/23/18 07:44 07/23/18 07:44 07/23/18 07:44 07/23/18 07:44 07/23/18 07:44 Intake & Output 07/22/18 07/23/18 07/24/18 06:59 06:59 06:59 Intake Total 1986 1440 Output Total 2790 900 Balance -804 540 Weight 91.8 kg 91.5 kg General appearance: PRESENT: no acute distress, cooperative, disheveled, well- developed, well-nourished Head exam: PRESENT: atraumatic, normocephalic Eye exam: PRESENT: conjunctiva pale, EOMI. ABSENT: nystagmus, periorbital swelling Mouth exam: PRESENT: dry mucosa, neck supple, tongue midline Neck exam: ABSENT: carotid bruit, JVD, lymphadenopathy, thyromegaly, tracheal deviation, tracheostomy Respiratory exam: PRESENT: decreased breath sounds, prolonged expiratory phas, rales, rhonchi, unlabored. ABSENT: retraction, stridor Cardiovascular exam: PRESENT: RRR, +S1, +S2 Pulses: PRESENT: normal radial pulses GI/Abdominal exam: PRESENT: soft. ABSENT: tenderness Extremities exam: PRESENT: pedal edema. ABSENT: calf tenderness, clubbing, joint swelling Neurological exam: PRESENT: alert, awake Psychiatric exam: PRESENT: appropriate affect Skin exam: PRESENT: dry, warm Results Laboratory Results: 07/23/18 06:45 07/23/18 06:45 07/22/18 07/23/18 07/23/18 15:30 06:45 06:45 WBC 9.6 RBC 3.34 L Hgb 10.1 L Hct 29.5 L MCV 88 MCH 30.3 MCHC 34.3 RDW 13.9 Plt Count 241 Seg Neutrophils % 71.7 Lymphocytes % 16.0 Monocytes % 8.1 Eosinophils % 3.4 Basophils % 0.8 Absolute Neutrophils 6.9 Absolute Lymphocytes 1.5 Absolute Monocytes 0.8 Absolute Eosinophils 0.3 Absolute Basophils 0.1 Sodium 142.7 Potassium 3.7 3.9 Chloride 104 Carbon Dioxide 29 Anion Gap 10 BUN 14 Creatinine 0.74 Est GFR ( Amer) > 60 Est GFR (Non-Af Amer) > 60 Glucose 96 Calcium 9.2 Total Bilirubin 0.5 AST 23 ALT 27 Alkaline Phosphatase 91 Total Protein 6.3 Albumin 3.1 L Impressions: Chest CT 07/13/18 15:07 IMPRESSION: 1. Extensive bilateral airspace opacities, may be secondary to multifocal pneumonia ; pulmonary hemorrhage and pulmonary edema are also in the differential. Followup imaging recommended to ensure resolution exclude a different etiology. 2. Mild mediastinal and hilar adenopathy. 3. 13 mm nodular thickening of the left adrenal gland, indeterminate. KUB X-Ray 07/20/18 00:00 IMPRESSION: 1. NG tube with tip and side-port in the stomach. Endotracheal tube in appropriate position. copyright 2010 [employer]- All Rights Reserved Chest X-Ray 07/21/18 06:00 IMPRESSION: Lines and catheters in place. Left basilar airspace opacity copyright 2010 [employer]- All Rights Reserved Assessment & Plan - Diagnosis (1) Septic shock Is this a current diagnosis for this admission?: No (2) ARDS (adult respiratory distress syndrome) Is this a current diagnosis for this admission?: Yes Plan: stable after 48 hours extubation - Time Total Critical Time (Minutes): 40
--- NOTE | 2018-07-23 20:55 | PDOC DISCHARGE SUMMARY ---
General - Admit/Disc Date/PCP Admission Date/Primary Care Provider: 07/13/18 04:04 Discharge Date: 07/24/18 - Discharge Diagnosis (1) Acute hypoxemic respiratory failure Is this a current diagnosis for this admission?: Yes (2) ARDS (adult respiratory distress syndrome) Is this a current diagnosis for this admission?: Yes (3) Septic shock Is this a current diagnosis for this admission?: No (4) Multifocal pneumonia Is this a current diagnosis for this admission?: Yes - Additional Information Resuscitation Status: Full Code Discharge Diet: Regular Discharge Activity: Activity As Tolerated Home Medications: Alprazolam [Xanax] 1 mg PO QID 04/24/18 Citalopram Hydrobromide [Celexa 40 mg Tablet] 10 mg PO DAILY 04/24/18 Lurasidone HCl [Latuda 40 mg Tablet] 40 mg PO DAILY 04/24/18 Oxycodone HCl 10 mg PO Q4HP PRN MDD MAX 5 TABS PER DAY 04/24/18 Zolpidem Tartrate [Ambien] 10 mg PO QHS 04/24/18 Lactulose [Constulose 10 gm/15 mL Oral Solution] 15 ml PO DAILYP PRN 07/13/18 History of Present Illness History of Present Illness: Admitting hospitalist's H&P: BIANCA MCKEON is a 48 year old female with a past medical history of tobacco , opiate and benzodiazepine dependent chronic pain and anxiety. She presents with 3 days of rhinorrhea, developing nonproductive cough, fever and chills over the last 3 days. In the emergency room she is found to be in severe respiratory distress unable to speak full sentences, oxygen saturations in the 80s, chest x-ray reveals bilateral lower lobe pneumonia. She started on BiPAP empiric antibiotics and referred to the hospitalist for admission. She admits influenza vaccination, denies ill contacts. Hospital Course Hospital Course: Ms. Mckeon is a 48 yr old female with a PMH of hypeetension, hyperlipidemia, and on opiate and benzodiazepine at home for chronic pain and anxiety who presented with cough. She was found to have severe bilateral pneumonia upon admission and was requiring BIPAP. She was started on broad-spectrum IV antibiotics. On 07/14, she had desaturation in the high 80s while on BIPAP on the floor and was upgraded to the ICU. She did improve and felt better after BIPAP settings were increased. She initially slept comfortably and was maintaining saturations in the high 90s. Around midnight of 07/14, she started having desaturation again and became increasingly short of breath and had to be intubated. Patient had desaturations to the high 80s and low 90s even at 100% FiO2. She had high Aa gradient and was deemed to have developed ARDS from multifocal pneumonia. Appropriate vent setting changes for ARDS were made and she later improved her saturations. Pulmonology was also co-managing patient. Patient also required low-dose Levophed and was managed as a septic shock. Broad-spectrum IV antibiotics were continued. Her ICU stay was prolonged because she required ventilation for several days. The vent settings were eventually weaned off. Patient's chest x-ray did show gradual improvement of bilateral infiltrates. Patient was eventually and successfully extubated on 07/21/18. She completed 7 days of broad-spectrum IV antibiotics. Will obtain sputum cultures came back negative. She continued to improve clinically and was eventually was back to her baseline and was saturating fine on room air. She started ambulating well without any difficulty or SOB. She will be discharged home and did not require extended antibiotics or any other new medication. Physical Exam Vital Signs: Temp Pulse Resp BP Pulse Ox 98.4 F 75 20 124/75 96 07/23/18 15:02 07/23/18 15:02 07/23/18 15:02 07/23/18 15:02 07/23/18 15:02 Intake & Output 07/22/18 07/23/18 07/24/18 06:59 06:59 06:59 Intake Total 1986 1440 Output Total 2790 900 300 Balance -804 540 -300 Weight 202 lb 6.15 oz 201 lb 11.567 oz General appearance: PRESENT: no acute distress, well-developed, well-nourished Head exam: PRESENT: atraumatic, normocephalic Eye exam: PRESENT: conjunctiva pink, EOMI, PERRLA. ABSENT: scleral icterus Ear exam: PRESENT: normal external ear exam Mouth exam: PRESENT: moist, tongue midline Neck exam: ABSENT: carotid bruit, JVD, lymphadenopathy, thyromegaly Respiratory exam: PRESENT: clear to auscultation [place]. ABSENT: rales, rhonchi, wheezes Cardiovascular exam: PRESENT: RRR. ABSENT: diastolic murmur, rubs, systolic murmur Pulses: PRESENT: normal dorsalis pedis pul GI/Abdominal exam: PRESENT: normal bowel sounds, soft. ABSENT: distended, guarding, mass, organolmegaly, rebound, tenderness Rectal exam: PRESENT: deferred Neurological exam: PRESENT: alert, awake, oriented to person, oriented to place , oriented to time, oriented to situation, CN II-XII grossly intact. ABSENT: motor sensory deficit Results Laboratory Results: 07/23/18 06:45 07/23/18 06:45 07/23/18 07/23/18 06:45 06:45 WBC 9.6 RBC 3.34 L Hgb 10.1 L Hct 29.5 L MCV 88 MCH 30.3 MCHC 34.3 RDW 13.9 Plt Count 241 Seg Neutrophils % 71.7 Lymphocytes % 16.0 Monocytes % 8.1 Eosinophils % 3.4 Basophils % 0.8 Absolute Neutrophils 6.9 Absolute Lymphocytes 1.5 Absolute Monocytes 0.8 Absolute Eosinophils 0.3 Absolute Basophils 0.1 Sodium 142.7 Potassium 3.9 Chloride 104 Carbon Dioxide 29 Anion Gap 10 BUN 14 Creatinine 0.74 Est GFR ( Amer) > 60 Est GFR (Non-Af Amer) > 60 Glucose 96 Calcium 9.2 Total Bilirubin 0.5 AST 23 ALT 27 Alkaline Phosphatase 91 Total Protein 6.3 Albumin 3.1 L 07/14/18 15:05 Tracheal Aspirate Viral Culture - Final Impressions: Chest CT 07/13/18 15:07 IMPRESSION: 1. Extensive bilateral airspace opacities, may be secondary to multifocal pneumonia ; pulmonary hemorrhage and pulmonary edema are also in the differential. Followup imaging recommended to ensure resolution exclude a different etiology. 2. Mild mediastinal and hilar adenopathy. 3. 13 mm nodular thickening of the left adrenal gland, indeterminate. KUB X-Ray 07/20/18 00:00 IMPRESSION: 1. NG tube with tip and side-port in the stomach. Endotracheal tube in appropriate position. copyright 2011 [employer]- All Rights Reserved Chest X-Ray 07/21/18 06:00 IMPRESSION: Lines and catheters in place. Left basilar airspace opacity copyright 2010 [employer]- All Rights Reserved Qualifiers - * PATIENT BEING DISCHARGED WITH ANY OF THE FOLLOWING DIAGNOSIS: No
== END 2018-07-23 15:46 | disposition home or self-care (01) | DRG 870 ==
LOC: ER 02:34 → EH 04:04 → 3W 05:43 → ICU 14:33
PROVIDERS: ADMIT Internal Medicine; ATTEND Internal Medicine
PROC: 3E0F73Z Introduction of Anti-inflammatory into Respiratory Tract, Via Natural or Artificial Opening (ICD-10-PCS; 2018-07-13)
PROC: 5A09457 Assistance with Respiratory Ventilation, 24-96 Consecutive Hours, Continuous Positive Airway Pressure (ICD-10-PCS; 2018-07-13)
PROC: 5A1955Z Respiratory Ventilation, Greater than 96 Consecutive Hours (ICD-10-PCS; principal; 2018-07-14)
PROC: 0BH17EZ Insertion of Endotracheal Airway into Trachea, Via Natural or Artificial Opening (ICD-10-PCS; 2018-07-14)
PROC: 03HY32Z Insertion of Monitoring Device into Upper Artery, Percutaneous Approach (ICD-10-PCS; 2018-07-14)
PROC: 4A133B1 Monitoring of Arterial Pressure, Peripheral, Percutaneous Approach (ICD-10-PCS; 2018-07-14)
PROC: 4A133J1 Monitoring of Arterial Pulse, Peripheral, Percutaneous Approach (ICD-10-PCS; 2018-07-14)
PROC: 02HV33Z Insertion of Infusion Device into Superior Vena Cava, Percutaneous Approach (ICD-10-PCS; 2018-07-14)
PROC: B548ZZA Ultrasonography of Superior Vena Cava, Guidance (ICD-10-PCS; 2018-07-14)
PROC: 5A09457 Assistance with Respiratory Ventilation, 24-96 Consecutive Hours, Continuous Positive Airway Pressure (ICD-10-PCS; 2018-07-21)
PROC: 3E02340 Introduction of Influenza Vaccine into Muscle, Percutaneous Approach (ICD-10-PCS; 2018-07-23)
DX: A41.9 Sepsis, unspecified organism (principal); J18.9 Pneumonia, unspecified organism; R65.21 Severe sepsis with septic shock; J80 Acute respiratory distress syndrome; J44.0 Chronic obstructive pulmonary disease with (acute) lower respiratory infection; F11.20 Opioid dependence, uncomplicated; F13.20 Sedative, hypnotic or anxiolytic dependence, uncomplicated; I10 Essential (primary) hypertension; E78.00 Pure hypercholesterolemia, unspecified; F32.9 Major depressive disorder, single episode, unspecified; F17.210 Nicotine dependence, cigarettes, uncomplicated; F41.9 Anxiety disorder, unspecified; G89.4 Chronic pain syndrome; Z78.1 Physical restraint status; Z23 Encounter for immunization; Z79.899 Other long term (current) drug therapy; Z83.6 Family history of other diseases of the respiratory system
CPT/HCPCS: 31500; 36415; 36600; 71045; 71260; 74018; 80048; 80053; 80202; 80307; 82565; 82803; 83605; 83735; 84100; 84132; 85025; 86603; 86701; 87040; 87070; 87205; 87252; 87804; 90471; 90686; 93005; 93010; 94002; 94003; 94660; 94799; C1751; G0008; J0330; J0456; J0696; J1100; J1642; J1644; J1940; J1956; J2060; J2250; J2270; J2405; J2543; J2704; J2930; J3010; J3370; J3475; J3480; J3490; J7030; J7060; J7512; J7620; S0164

== ENCOUNTER → 2018-08-08 | Outpatient (CLI) | payer OTHER ==
--- NOTE | 2018-08-08 14:06 | RADIOLOGY REPORT (SQ) ---
EXAM DESCRIPTION: CHEST PA/LATERAL COMPLETED DATE/TIME: 08/08/2018 1:21 pm REASON FOR STUDY: PNEUMONIA, UNSPECIFIED ORGANISM COMPARISON: 07/21/2018 and 07/13/2018. EXAM PARAMETERS: NUMBER OF VIEWS: two views TECHNIQUE: Digital Frontal and Lateral radiographic views of the chest acquired. RADIATION DOSE: NA LIMITATIONS: none FINDINGS: LUNGS AND PLEURA: No opacities, masses or pneumothorax. No pleural effusion. MEDIASTINUM AND HILAR STRUCTURES: No masses or contour abnormalities. HEART AND VASCULAR STRUCTURES: Heart normal size. No evidence for failure. BONES: No acute findings. HARDWARE: None in the chest. OTHER: No other significant finding. IMPRESSION: NO SIGNIFICANT RADIOGRAPHIC FINDING IN THE CHEST. TECHNICAL DOCUMENTATION: JOB ID: [id number] [employer]- All Rights Reserved Reading location - IP/workstation name: [email or web address]
== END ==
LOC: CCC 13:06
DX: J18.9 Pneumonia, unspecified organism (principal)
CPT/HCPCS: 71046

== ENCOUNTER 2018-08-29 09:18 | Emergency (ER) | payer SELFPAY ==
[2018-08-29] MEDS ORDERED: IPRATROPIUM/ALBUTEROL 0.5-2.5 MG/3 ML AMPUL NEB ONE (10:27)
--- NOTE | 2018-08-29 10:29 | ER Document Report ---
ED Respiratory Problem - General Chief Complaint: Shortness Of Breath Stated Complaint: SHORTNESS OF BREATH Time Seen by Provider: 08/29/18 10:24 Mode of Arrival: Ambulatory Information source: Patient Notes: History of Present Illness Chief Complaint: [cough] Cough quality= [dry], [without] sputum [No] hemoptysis [ 48 years old female with a history of pneumonia diagnosed 2 months ago, former smoker that he is quit smoking 2 months ago, presents today with cough productive sputum and shortness of breath. Sputum is green in color at times. Denies any fever but chills. Denies any nausea vomiting abdominal pain or other constitutional symptoms.] History obtained from [patient] Symptoms began: [past few days] Onset: [gradual] Timing: [constant, lasts hours, persists] Intensity: [moderate] Location: [respiratory tract] Radiation: [none] Migration: [none] Aggravating factors: [none] Relieving factors: [none] Review of Systems : All other systems negative as reviewed. CONSTITUTIONAL No Fever. EYES No eye pain. ENT No sore throat CARDIOVASCULAR No chest pain. RESPIRATORY No SOB, No wheezing, No orthopnea, No pedal edema. GI No abdominal pain, no vomiting, no diarrhea. GENITOURINARY No dysuria. SKIN No rash. NEUROLOGIC No headache. MUSCULOSKELETAL No back pain, No calf pain, No calf swelling Physical Exam CONSTITUTIONAL Vital signs reviewed, Patient has normal respiratory rate, Well appearing, Patient appears comfortable, normal stature. HEAD Atraumatic, Normocephalic. EYES Eyes are normal to inspection. ENT Ears normal to inspection, Nose examination normal. NECK No jugular venous distention. RESPIRATORY CHEST Breath sounds [normal], No respiratory distress. CARDIOVASCULAR RRR, No murmurs, Normal S1 S2, No rub, No gallop. ABDOMEN Abdomen is nontender, No masses, Bowel sounds normal, No distension, No peritoneal signs. BACK Normal inspection. UPPER EXTREMITY Inspection normal. LOWER EXTREMITY Inspection normal. NEURO No facial droop, normal speech. SKIN Skin is warm, Skin is dry, Skin is normal color. PSYCHIATRIC Normal affect. TRAVEL OUTSIDE OF THE [place] IN LAST 30 DAYS: No - HPI Notes: Dictated - Related Data Allergies/Adverse Reactions: No Known Allergies Allergy (Verified 08/29/18 09:20) Past Medical History - Social History Smoking Status: Former Smoker Frequency of alcohol use: None Drug Abuse: None Lives with: Family Family History: Reviewed & Not Pertinent Patient has suicidal ideation: No Patient has homicidal ideation: No - Past Medical History Cardiac Medical History: Reports: Hx Hypercholesterolemia, Hx Hypertension Pulmonary Medical History: Reports: Hx Pneumonia Renal/ Medical History: Denies: Hx Peritoneal Dialysis Psychiatric Medical History: Reports: Hx Anxiety, Hx Depression Past Surgical History: Reports: Hx Tonsillectomy - Immunizations Hx Diphtheria, Pertussis, Tetanus Vaccination: No Review of Systems - Review of Systems Notes: Dictated Physical Exam - Vital signs Vitals: Temp Pulse Resp BP Pulse Ox 98.8 F 91 20 131/73 H 100 08/29/18 09:45 08/29/18 09:45 08/29/18 09:45 08/29/18 09:45 08/29/18 09:45 - Notes Notes: Dictated Course - Vital Signs Vital signs: Temp Pulse Resp BP Pulse Ox 98.8 F 91 20 131/73 H 100 08/29/18 09:45 08/29/18 09:45 08/29/18 09:45 08/29/18 09:45 08/29/18 09:45 - Laboratory Result Diagrams: 08/29/18 11:00 08/29/18 11:00 - Diagnostic Test Radiology reviewed: Reports reviewed - Chest x-ray reported by radiologist as unremarkable Discharge - Discharge Clinical Impression: Bronchitis Condition: Fair Disposition: HOME, SELF-CARE Instructions: Bronchitis ([facility]), Bronchitis With Bronchospasm (Wheezing) ([facility]) Prescriptions: Albuterol Sulfate [Proair HFA Inhalation Aerosol 8.5 gm MDI] 2 puff IH Q4H PRN #1 mdi PRN Reason: Fluticasone Propionate [Flovent HFA 220 mcg MDI] 1 puff IH BID #1 mdi Prednisone [Deltasone 20 mg Tablet] 3 tab PO DAILY 5 Days tablet Referrals: [facility] [Primary Care Provider] - Follow up as needed
--- NOTE | 2018-08-29 10:53 | RADIOLOGY REPORT (SQ) ---
EXAM DESCRIPTION: CHEST 2 VIEWS COMPLETED DATE/TIME: 08/29/2018 10:40 am REASON FOR STUDY: Cough/pneumonia COMPARISON: None. EXAM PARAMETERS: NUMBER OF VIEWS: two views TECHNIQUE: Digital Frontal and Lateral radiographic views of the chest acquired. RADIATION DOSE: NA LIMITATIONS: none FINDINGS: LUNGS AND PLEURA: No opacities, masses or pneumothorax. No pleural effusion. MEDIASTINUM AND HILAR STRUCTURES: No masses or contour abnormalities. HEART AND VASCULAR STRUCTURES: Heart normal size. No evidence for failure. BONES: No acute findings. HARDWARE: None in the chest. OTHER: No other significant finding. IMPRESSION: NO ACUTE RADIOGRAPHIC FINDING IN THE CHEST. TECHNICAL DOCUMENTATION: JOB ID: [id number] [employer]- All Rights Reserved Reading location - IP/workstation name: [email or web address]
[2018-08-29 11:31] LABS: ABSOLUTE EOSINOPHILS # (AUTO) 0.1 10^3/uL (0.0-0.6); ABSOLUTE LYMPHOCYTES (AUTO) 1.9 10^3/uL (0.5-4.7); ABSOLUTE MONOCYTES (AUTO) 0.5 10^3/uL (0.1-1.4); ABSOLUTE NEUT (AUTO) 4.1 10^3/uL (1.7-8.2); BASOPHILS % (AUTO) 0.7 % (0-2); EOSINOPHILS % (AUTO) 1.9 % (0-6); HEMATOCRIT 39.5 % (36.0-47.0); HEMOGLOBIN 13.5 g/dL (12.0-15.5); LYMPHOCYTES % (AUTO) 28.1 % (13-45); MEAN CORPUSCULAR HEMOGLOBIN 29.6 pg (27.0-33.4); MEAN CORPUSCULAR HGB CONC 34.2 g/dL (32.0-36.0); MEAN CORPUSCULAR VOLUME 87 fl (80-97); MONOCYTES % (AUTO) 7.6 % (3-13); PLATELET COUNT 212 10^3/uL (150-450); RED BLOOD COUNT 4.56 10^6/uL (3.72-5.28); SEGMENTED NEUTROPHILS % (AUTO) 61.7 % (42-78); TOTAL CELLS COUNTED % (AUTO) 100 %; WHITE BLOOD COUNT 6.6 10^3/uL (4.0-10.5)
[2018-08-29 11:52] LABS: ALANINE AMINOTRANSFERASE 16 U/L (9-52); ALBUMIN 4.6 g/dL (3.5-5.0); ALKALINE PHOSPHATASE 66 U/L (38-126); ANION GAP 6 (5-19); ASPARTATE AMINO TRANSFERASE 17 U/L (14-36); BILIRUBIN,DIRECT 0.3 mg/dL (0.0-0.4); BILIRUBIN,TOTAL 1.3 mg/dL (0.2-1.3); BLOOD UREA NITROGEN 9 mg/dL (7-20); CALCIUM 9.9 mg/dL (8.4-10.2); CARBON DIOXIDE 28 mmol/L (22-30); CHLORIDE 106 mmol/L (98-107); GLUCOSE 101 mg/dL (75-110); POTASSIUM 4.8 mmol/L (3.6-5.0); TOTAL PROTEIN 7.8 g/dL (6.3-8.2)
[2018-08-29 12:01] VITALS: BP 132/74
== END 2018-08-29 12:02 | disposition home or self-care (01) ==
LOC: ER 09:18
DX: J40 Bronchitis, not specified as acute or chronic (principal); E78.00 Pure hypercholesterolemia, unspecified; I10 Essential (primary) hypertension
CPT/HCPCS: 94640; 99285; 36415; 85025; 80053; 71046; J7620

== ENCOUNTER 2018-09-24 14:16 | Emergency (ER) | payer SELFPAY ==
[2018-09-24] MEDS ORDERED: ASPIRIN 81 MG TABLET, CHEWABLE PO ONE (16:20)
--- NOTE | 2018-09-24 16:21 | ER Document Report ---
ED Medical Screen (RME) - General Chief Complaint: Chest Pain > 30 Stated Complaint: CHEST PAIN Time Seen by Provider: 09/24/18 16:07 Notes: 48-year-old female patient emergency department chief complaint of chest pain. Patient states it came on suddenly. Has never had this happen before. Has some some mild nausea but no vomiting. Mother of a heart attack. Patient smoked for 30 years but stopped in July after she was diagnosed with a pneumonia. Denies any shortness of breath at this time. I have greeted and performed a rapid initial assessment of this patient. A comprehensive ED assessment and evaluation of the patient, analysis of test results and completion of the medical decision making process will be conducted by additional ED providers. TRAVEL OUTSIDE OF THE [place] IN LAST 30 DAYS: No - Related Data Allergies/Adverse Reactions: No Known Allergies Allergy (Verified 09/24/18 14:16) Past Medical History - Social History Frequency of alcohol use: None Drug Abuse: None - Past Medical History Cardiac Medical History: Reports: Hx Hypercholesterolemia, Hx Hypertension Pulmonary Medical History: Reports: Hx Pneumonia - walking pneumonia Renal/ Medical History: Denies: Hx Peritoneal Dialysis Psychiatric Medical History: Reports: Hx Anxiety, Hx Depression Past Surgical History: Reports: Hx Tonsillectomy - Immunizations Hx Diphtheria, Pertussis, Tetanus Vaccination: No Physical Exam - Vital signs Vitals: Temp Pulse Resp BP Pulse Ox 98.7 F 108 H 18 151/78 H 98 09/24/18 14:32 09/24/18 14:32 09/24/18 14:32 09/24/18 14:32 09/24/18 14:32 Course - Vital Signs Vital signs: Temp Pulse Resp BP Pulse Ox 98.7 F 108 H 18 151/78 H 98 09/24/18 14:32 09/24/18 14:32 09/24/18 14:32 09/24/18 14:32 09/24/18 14:32
[2018-09-24] MEDS ORDERED: OXYCODONE-ACETAMINOPHEN 5-325 MG TABLET PO ONE (16:30)
--- NOTE | 2018-09-24 16:54 | RADIOLOGY REPORT (SQ) ---
EXAM DESCRIPTION: CHEST 2 VIEWS COMPLETED DATE/TIME: 09/24/2018 4:46 pm REASON FOR STUDY: cp COMPARISON: None. EXAM PARAMETERS: NUMBER OF VIEWS: two views TECHNIQUE: Digital Frontal and Lateral radiographic views of the chest acquired. RADIATION DOSE: NA LIMITATIONS: none FINDINGS: LUNGS AND PLEURA: No opacities, masses or pneumothorax. No pleural effusion. MEDIASTINUM AND HILAR STRUCTURES: No masses or contour abnormalities. HEART AND VASCULAR STRUCTURES: Heart normal size. No evidence for failure. BONES: No acute findings. HARDWARE: None in the chest. OTHER: No other significant finding. IMPRESSION: NO ACUTE RADIOGRAPHIC FINDING IN THE CHEST. TECHNICAL DOCUMENTATION: JOB ID: [id number] [employer]- All Rights Reserved Reading location - IP/workstation name: [email or web address]
[2018-09-24 17:09] LABS: ABSOLUTE BASOPHILS # (AUTO) 0.1 10^3/uL (0.0-0.2); ABSOLUTE EOSINOPHILS # (AUTO) 0.3 10^3/uL (0.0-0.6); ABSOLUTE LYMPHOCYTES (AUTO) 2.4 10^3/uL (0.5-4.7); ABSOLUTE MONOCYTES (AUTO) 0.6 10^3/uL (0.1-1.4); ABSOLUTE NEUT (AUTO) 6.6 10^3/uL (1.7-8.2); BASOPHILS % (AUTO) 1.1 % (0-2); EOSINOPHILS % (AUTO) 2.8 % (0-6); HEMOGLOBIN 13.6 g/dL (12.0-15.5); LYMPHOCYTES % (AUTO) 24.2 % (13-45); MEAN CORPUSCULAR HEMOGLOBIN 29.5 pg (27.0-33.4); MEAN CORPUSCULAR HGB CONC 34.1 g/dL (32.0-36.0); MEAN CORPUSCULAR VOLUME 87 fl (80-97); MONOCYTES % (AUTO) 6.1 % (3-13); PLATELET COUNT 267 10^3/uL (150-450); RED BLOOD COUNT 4.63 10^6/uL (3.72-5.28); RED CELL DISTRIBUTION WIDTH 13.7 % (11.5-14.0); SEGMENTED NEUTROPHILS % (AUTO) 65.8 % (42-78); TOTAL CELLS COUNTED % (AUTO) 100 %
[2018-09-24 17:35] LABS: ALANINE AMINOTRANSFERASE 15 U/L (9-52); ALBUMIN 4.6 g/dL (3.5-5.0); ALKALINE PHOSPHATASE 77 U/L (38-126); ANION GAP 11 (5-19); ASPARTATE AMINO TRANSFERASE 23 U/L (14-36); BILIRUBIN,DIRECT 0.3 mg/dL (0.0-0.4); BILIRUBIN,TOTAL 0.6 mg/dL (0.2-1.3); BLOOD UREA NITROGEN 12 mg/dL (7-20); CALCIUM 9.7 mg/dL (8.4-10.2); CARBON DIOXIDE 28 mmol/L (22-30); CHLORIDE 103 mmol/L (98-107); CREATINE KINASE 23 U/L (30-135); GLUCOSE 96 mg/dL (75-110); POTASSIUM 4.5 mmol/L (3.6-5.0); SODIUM 141.8 mmol/L (137-145); TOTAL PROTEIN 7.9 g/dL (6.3-8.2)
[2018-09-24 17:47] LABS: CREATINE KINASE MB < 0.22 ng/mL (<4.55); TROPONIN I < 0.012 ng/mL
[2018-09-24] MEDS ORDERED: ONDANSETRON HCL INJ/PF 4 MG/2 ML SDV IV ONE (19:26)
[2018-09-24] MEDS ORDERED: MORPHINE SULFATE 10 MG/ML INJ IV ONE (19:26)
--- NOTE | 2018-09-24 20:30 | ER Document Report ---
ED General - General Chief Complaint: Chest Pain > 30 Stated Complaint: CHEST PAIN Time Seen by Provider: 09/24/18 16:07 Primary Care Provider: [facility] [NO LOCAL MD] - Follow up in 3-5 days Mode of Arrival: Ambulatory Information source: Patient Notes: 48-year-old female with hypertension, hyperlipidemia, depression, anxiety presents with complaint of chest pain that started 5 hours prior to arrival while at rest. Patient describes the pain as stabbing, constant with radiation to her left arm. Patient admits to prior similar symptoms approximately 1 month ago but states she left without being seen because she needed her pain medication. Patient takes chronic pain medications for neck and back pain. She is currently in pain management. She denies previous history of MS, stress test. Patient recently stopped smoking after being diagnosed with pneumonia 2 months ago. Patient denies any associated diaphoresis, shortness of breath, nausea. TRAVEL OUTSIDE OF THE [place] IN LAST 30 DAYS: No - HPI Onset: This afternoon Onset/Duration: Sudden Quality of pain: Stabbing Severity: Moderate Associated symptoms: Chest pain. denies: Nonproductive cough, Productive cough, Fever, Nausea, Vomiting, Shortness of breath Exacerbated by: Movement Relieved by: Denies Similar symptoms previously: Yes Recently seen / treated by doctor: Yes - Related Data Allergies/Adverse Reactions: No Known Allergies Allergy (Verified 09/24/18 14:16) Past Medical History - General Information source: Patient - Social History Smoking Status: Former Smoker Frequency of alcohol use: None Drug Abuse: None Lives with: Family Family History: Reviewed & Not Pertinent Patient has suicidal ideation: No Patient has homicidal ideation: No - Past Medical History Cardiac Medical History: Reports: Hx Hypercholesterolemia, Hx Hypertension Pulmonary Medical History: Reports: Hx Pneumonia - walking pneumonia Renal/ Medical History: Denies: Hx Peritoneal Dialysis Psychiatric Medical History: Reports: Hx Anxiety, Hx Depression Past Surgical History: Reports: Hx Tonsillectomy - Immunizations Hx Diphtheria, Pertussis, Tetanus Vaccination: No Review of Systems - Review of Systems Notes: REVIEW OF SYSTEMS: CONSTITUTIONAL : Denies fever, chills, or sweats. Denies recent illness. Denies weight loss, recent hospitalizations. EENT: Denies visual changes, eye pain. Denies sore throat, oral lesions, difficulty swallowing. CARDIOVASCULAR: Denies palpitations. Denies lower extremity edema. RESPIRATORY: Denies cough. Denies shortness of breath, wheezing. GASTROINTESTINAL: Denies abdominal pain or distention. Denies nausea, vomiting, or diarrhea. Denies blood in vomitus, stools, or per rectum. Denies black, tarry stools. Denies constipation. GENITOURINARY: Denies difficulty urinating, painful urination, frequency, blood in urine, or vaginal discharge. MUSCULOSKELETAL: Denies back or neck pain or stiffness. Denies joint pain or swelling. SKIN: Denies rash, lesions or sores. HEMATOLOGIC : Denies easy bruising or bleeding. LYMPHATIC: Denies swollen glands. NEUROLOGICAL: Denies confusion or altered mental status. Denies loss of consciousness. Denies dizziness or lightheadedness. Denies headache. Denies weakness or paralysis. Denies problems difficulty with ambulation, slurred speech. Denies sensory loss, numbness, or tingling. Denies seizures. PSYCHIATRIC: Denies anxiety or stress. Denies depression, suicidal ideation, or homicidal ideation. Denies visual or auditory hallucinations. Physical Exam - Vital signs Vitals: Temp Pulse Resp BP Pulse Ox 98.7 F 108 H 18 151/78 H 98 09/24/18 14:32 09/24/18 14:32 09/24/18 14:32 09/24/18 14:32 09/24/18 14:32 - Notes Notes: PHYSICAL EXAMINATION: GENERAL: Well-appearing, well-nourished and in no acute distress. HEAD: Atraumatic, normocephalic. EYES: Pupils equal round and reactive to light, extraocular movements intact, conjunctiva are normal. ENT: Nares patent, oropharynx clear without exudates. Moist mucous membranes. NECK: Normal range of motion, supple without lymphadenopathy LUNGS: Breath sounds clear to auscultation bilaterally and equal. No wheezes rales or rhonchi. HEART: Regular rate and rhythm without murmurs ABDOMEN: Soft, nontender, nondistended abdomen. No guarding, no rebound. No masses appreciated. Female : deferred Musculoskeletal: Normal range of motion, no pitting or edema. No cyanosis. NEUROLOGICAL: Cranial nerves grossly intact. Normal speech, normal gait. Normal sensory, motor exams PSYCH: Normal mood, normal affect. SKIN: Warm, Dry, normal turgor, no rashes or lesions noted. Course - Re-evaluation Re-evalutation: 09/25/18 00:59 Laboratory 09/24/18 09/24/18 09/24/18 16:44 16:44 16:44 WBC 10.0 RBC 4.63 Hgb 13.6 Hct 40.0 MCV 87 MCH 29.5 MCHC 34.1 RDW 13.7 Plt Count 267 Seg Neutrophils % 65.8 Lymphocytes % 24.2 Monocytes % 6.1 Eosinophils % 2.8 Basophils % 1.1 Absolute Neutrophils 6.6 Absolute Lymphocytes 2.4 Absolute Monocytes 0.6 Absolute Eosinophils 0.3 Absolute Basophils 0.1 D-Dimer Sodium 141.8 Potassium 4.5 Chloride 103 Carbon Dioxide 28 Anion Gap 11 BUN 12 Creatinine 0.82 Est GFR ( Amer) > 60 Est GFR (Non-Af Amer) > 60 Glucose 96 Calcium 9.7 Total Bilirubin 0.6 Direct Bilirubin 0.3 Neonat Total Bilirubin Not Reportable Neonat Direct Bilirubin Not Reportable Neonat Indirect Bili Not Reportable AST 23 ALT 15 Alkaline Phosphatase 77 Creatine Kinase 23 L CK-MB (CK-2) < 0.22 Troponin I < 0.012 Total Protein 7.9 Albumin 4.6 09/24/18 09/24/18 16:44 20:09 WBC RBC Hgb Hct MCV MCH MCHC RDW Plt Count Seg Neutrophils % Lymphocytes % Monocytes % Eosinophils % Basophils % Absolute Neutrophils Absolute Lymphocytes Absolute Monocytes Absolute Eosinophils Absolute Basophils D-Dimer 0.36 Sodium Potassium Chloride Carbon Dioxide Anion Gap BUN Creatinine Est GFR ( Amer) Est GFR (Non-Af Amer) Glucose Calcium Total Bilirubin Direct Bilirubin Neonat Total Bilirubin Neonat Direct Bilirubin Neonat Indirect Bili AST ALT Alkaline Phosphatase Creatine Kinase CK-MB (CK-2) Troponin I < 0.012 Total Protein Albumin Chest X-Ray 09/24/18 16:20 IMPRESSION: NO ACUTE RADIOGRAPHIC FINDING IN THE CHEST. Temp Pulse Resp BP Pulse Ox 97.8 F 92 22 H 110/73 97 09/24/18 21:33 09/24/18 21:22 09/24/18 21:22 09/24/18 21:22 09/24/18 21:22 48-year-old female presents with complaints of left-sided chest pain that started this afternoon and has been constant since that time. Upon arrival patient was placed on octave board assembler and EKG was obtained which showed the patient to be in normal sinus rhythm. Previous medical records and nursing notes reviewed. CBC, CMP, cardiac enzymes including delta troponin are within normal limits. Patient's [place] narcotics report was reviewed and very concerning as patient receives oxycodone, alprazolam and Ambien and large quantities monthly. Patient does report that she is enrolled in pain management for chronic neck and back pain. Immediately upon my entrance into the room patient states that she needs 8 mg of morphine. Patient's behavior is co ncerning for drug-seeking. She was advised that she will not receive any more narcotic medications after reviewing her narcotics report. HEART Score: History-0 ECG-0 Age-1 Risk Factors-1 Troponin Total: 3 If HEART score is = 3 AND both troponin measurements are normal, the 30 day risk of a major adverse cardiac event (all-cause mortality, myocardial infarction or need for coronary revascularization) is < 1% (Sensitivity 100%, NPV 100%). Chest pain in a patient without evidence of cardiac or other serious etiology on workup today. I discussed with patient that, based on their age, risk factors and emergency department testing today, the likelihood that their symptoms are related to a heart attack is very low (estimated risk of heart attack or over the next 30 days of less than 1%). The patient demonstrates decision making capacity and has verbalized an understanding of these risks to me. Based on this, the patient has chosen to follow-up as an outpatient. Usual chest pain return precautions reviewed. The patient states understanding and agreement with this plan. 09/25/18 01:02 Prior to discharge home patient states that she had purulent drainage from her gum. She had not mentioned this before or during her ED course. Patient does have lower dentures and 1 removed gum looks white, macerated but without associated dental abscess, necrotizing gingivitis. Patient did receive penicillin VK in the emergency department and was discharged home with the same prescription. - Vital Signs Vital signs: Temp Pulse Resp BP Pulse Ox 97.8 F 92 22 H 110/73 97 09/24/18 21:33 09/24/18 21:22 09/24/18 21:22 09/24/18 21:22 09/24/18 21:22 - Laboratory Result Diagrams: 09/24/18 16:44 09/24/18 16:44 Laboratory results interpreted by me: 09/24/18 16:44 Creatine Kinase 23 L - Diagnostic Test Radiology reviewed: Image reviewed, Reports reviewed - EKG Interpretation by Me EKG shows normal: Sinus rhythm Rate: Tachycardia Rhythm: NSR When compared to previous EKG there are: No significant change - Repeat EKG performed at 2012 shows patient to be in normal sinus rhythm at a rate of 84. No evidence of ST elevation. Discharge - Discharge Clinical Impression: Pain, dental Chest pain Qualifiers: Chest pain type: unspecified Qualified Code(s): R07.9 - Chest pain, unspecified Chronic pain Qualifiers: Chronic pain type: other chronic pain Qualified Code(s): G89.29 - Other chronic pain Condition: Good Disposition: HOME, SELF-CARE Instructions: Chest Wall Pain ([facility]), Chest Pain of Unclear Cause ([facility]), Penicillin V K ([facility]), Toothache ([facility]) Additional Instructions: You were seen today for chest pain. The exact cause of your pain is unclear. However, based on your cardiac enzyme testing, chest x-ray, and EKG it does not appear that it is from an immediately life-threatening cause at this time. Although your testing here is normal is critical that you follow-up with your primary care physician for continued evaluation of this chest pain and possible stress testing. I recommended you see your physician within the next 24-48 hours to be evaluated for consideration of a stress test. Please return to emergency department immediately if you have worsening of your chest pain, shortness of breath, vomiting, become unable to exert yourself due to pain or difficulty breathing, you pass out, or have any pain that radiates into your a foreign, jaw, or back. Please also return if you have any additional symptoms that are concerning to you. Prescriptions: Penicillin V Potassium [Penicillin Vk 500 mg Tablet] 500 mg PO BID #20 tablet Forms: Smoking Cessation Education Referrals: [facility] [NO LOCAL MD] - Follow up in 3-5 days
[2018-09-24] MEDS ORDERED: PENICILLIN V POTASSIUM 500 MG TABLET PO ONE (21:13)
[2018-09-24 21:22] VITALS: BP 110/73
--- NOTE | 2018-09-24 21:23 | EKG REPORT ---
SEVERITY:- BORDERLINE ECG - SINUS TACHYCARDIA PROBABLE LEFT ATRIAL ABNORMALITY : Confirmed by: Ashely Fields 24-Sep-2018 21:23:09
--- NOTE | 2018-09-24 21:23 | EKG REPORT ---
SEVERITY:- BORDERLINE ECG - SINUS RHYTHM BORDERLINE INFERIOR Q WAVES : Confirmed by: Ashely Fields 24-Sep-2018 21:22:57
== END 2018-09-24 21:35 | disposition home or self-care (01) ==
LOC: ER 14:16
DX: R07.9 Chest pain, unspecified (principal); K08.89 Other specified disorders of teeth and supporting structures; M54.2 Cervicalgia; M54.9 Dorsalgia, unspecified; G89.29 Other chronic pain; Z79.891 Long term (current) use of opiate analgesic; F41.9 Anxiety disorder, unspecified; Z79.899 Other long term (current) drug therapy; I10 Essential (primary) hypertension; Z97.2 Presence of dental prosthetic device (complete) (partial); Z87.01 Personal history of pneumonia (recurrent); Z87.891 Personal history of nicotine dependence
CPT/HCPCS: 93005; 99285; 96374; 96375; 36415; 82553; 82550; 85025; 80053; 84484; 85379; 71046; 93010; J2270; J2405

== ENCOUNTER 2018-11-27 14:08 | Emergency (ER) | payer SELFPAY ==
[2018-11-27] MEDS ORDERED: ASPIRIN 81 MG TABLET, CHEWABLE PO ONE (14:56)
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
[2018-11-27 15:23] LABS: ABSOLUTE BASOPHILS # (AUTO) 0.1 10^3/uL (0.0-0.2); ABSOLUTE EOSINOPHILS # (AUTO) 0.1 10^3/uL (0.0-0.6); ABSOLUTE LYMPHOCYTES (AUTO) 2.4 10^3/uL (0.5-4.7); ABSOLUTE MONOCYTES (AUTO) 0.6 10^3/uL (0.1-1.4); ABSOLUTE NEUT (AUTO) 5.2 10^3/uL (1.7-8.2); BASOPHILS % (AUTO) 0.7 % (0-2); EOSINOPHILS % (AUTO) 1.3 % (0-6); HEMATOCRIT 40.8 % (36.0-47.0); HEMOGLOBIN 14.1 g/dL (12.0-15.5); LYMPHOCYTES % (AUTO) 28.6 % (13-45); MEAN CORPUSCULAR HEMOGLOBIN 29.9 pg (27.0-33.4); MEAN CORPUSCULAR HGB CONC 34.5 g/dL (32.0-36.0); MEAN CORPUSCULAR VOLUME 87 fl (80-97); MONOCYTES % (AUTO) 6.7 % (3-13); PLATELET COUNT 226 10^3/uL (150-450); RED BLOOD COUNT 4.71 10^6/uL (3.72-5.28); RED CELL DISTRIBUTION WIDTH 13.5 % (11.5-14.0); SEGMENTED NEUTROPHILS % (AUTO) 62.7 % (42-78); TOTAL CELLS COUNTED % (AUTO) 100 %; WHITE BLOOD COUNT 8.3 10^3/uL (4.0-10.5)
--- NOTE | 2018-11-27 15:26 | RADIOLOGY REPORT (SQ) ---
EXAM DESCRIPTION: CHEST 2 VIEWS COMPLETED DATE/TIME: 11/27/2018 3:18 pm REASON FOR STUDY: cp COMPARISON: 09/24/2018. EXAM PARAMETERS: NUMBER OF VIEWS: two views TECHNIQUE: Digital Frontal and Lateral radiographic views of the chest acquired. RADIATION DOSE: NA LIMITATIONS: none FINDINGS: LUNGS AND PLEURA: No opacities, masses or pneumothorax. No pleural effusion. MEDIASTINUM AND HILAR STRUCTURES: No masses or contour abnormalities. HEART AND VASCULAR STRUCTURES: Heart normal size. No evidence for failure. BONES: No acute findings. HARDWARE: None in the chest. OTHER: No other significant finding. IMPRESSION: NO ACUTE RADIOGRAPHIC FINDING IN THE CHEST. TECHNICAL DOCUMENTATION: JOB ID: [id number] [employer]- All Rights Reserved Reading location - IP/workstation name: [email or web address]
[2018-11-27 15:42] LABS: ALANINE AMINOTRANSFERASE 27 U/L (9-52); ALBUMIN 4.3 g/dL (3.5-5.0); ALKALINE PHOSPHATASE 74 U/L (38-126); ANION GAP 10 (5-19); ASPARTATE AMINO TRANSFERASE 24 U/L (14-36); BILIRUBIN,DIRECT 0.2 mg/dL (0.0-0.4); BLOOD UREA NITROGEN 11 mg/dL (7-20); CALCIUM 10.1 mg/dL (8.4-10.2); CARBON DIOXIDE 23 mmol/L (22-30); CHLORIDE 107 mmol/L (98-107); CREATINE KINASE 25 U/L (30-135); GLUCOSE 102 mg/dL (75-110); SODIUM 140.2 mmol/L (137-145); TOTAL PROTEIN 7.9 g/dL (6.3-8.2)
[2018-11-27 15:59] LABS: CREATINE KINASE MB < 0.22 ng/mL (<4.55); TROPONIN I < 0.012 ng/mL
[2018-11-27 18:28] LABS: APPEARANCE,URINE TURBID; BILIRUBIN,URINE NEGATIVE (NEGATIVE); CALCIUM OXALATE CRYSTALS,URINE FEW /HPF; COLOR,URINE YELLOW; GLUCOSE, URINE NEGATIVE (NEGATIVE); KETONES,URINE TRACE mg/dL (NEGATIVE); LEUKOCYTE ESTERASE,URINE NEGATIVE (NEGATIVE); NITRITE,URINE NEGATIVE (NEGATIVE); PROTEIN,URINE NEGATIVE (NEGATIVE); URINE SPECIFIC GRAVITY 1.025
[2018-11-27] MEDS ORDERED: HYDROMORPHONE HCL INJ/PF 2 MG/ML AMPULE IV ONE (20:02)
[2018-11-27] MEDS ORDERED: ONDANSETRON HCL INJ/PF 4 MG/2 ML SDV IV ONE (20:02)
[2018-11-27] MEDS ORDERED: DIAZEPAM 5 MG TABLET PO ONE (21:33)
--- NOTE | 2018-11-27 21:34 | ER Document Report ---
ED General - General Chief Complaint: Chest Pain Stated Complaint: CHEST PAIN,LOW BACK PAIN Time Seen by Provider: 11/27/18 14:53 Mode of Arrival: Wheelchair Information source: Patient, [facility] Records Notes: 48-year-old female with hypertension, hyperlipidemia, depression, anxiety, chronic neck and back pain presents with complaint of left upper chest pain and left arm pain that started this morning. Patient describes the pain as throbbing, aching and worse with movement. Patient has had prior similar symptoms and was seen for a similar episode 2 months ago. Patient denies any associated nausea, diaphoresis, dizziness, shortness of breath. Patient did follow-up with her primary care physician after her last visit for the same symptoms and states that no additional testing was performed. Patient does state that she ran out of her pain medications recently. TRAVEL OUTSIDE OF THE [place] IN LAST 30 DAYS: No - HPI Onset: This morning Onset/Duration: Sudden, Constant Quality of pain: Achy, Throbbing Severity: Moderate Associated symptoms: Body/muscle aches, Chest pain, Other - Left arm pain. denies: Headache, Nausea, Vomiting, Shortness of breath Exacerbated by: Movement Relieved by: Denies Similar symptoms previously: Yes Recently seen / treated by doctor: Yes - Related Data Allergies/Adverse Reactions: No Known Allergies Allergy (Verified 11/27/18 14:55) Past Medical History - General Information source: Patient - Social History Smoking Status: Current Every Day Smoker Cigarette use (# per day): Yes - 10 Chew tobacco use (# tins/day): No Smoking Education Provided: Yes - Smoking cessation counseling was provided for 4 minutes at the bedside Frequency of alcohol use: None Drug Abuse: None Lives with: Spouse/Significant other Family History: Reviewed & Not Pertinent Patient has suicidal ideation: No Patient has homicidal ideation: No - Past Medical History Cardiac Medical History: Reports: Hx Hypercholesterolemia, Hx Hypertension Pulmonary Medical History: Reports: Hx Pneumonia - walking pneumonia Renal/ Medical History: Denies: Hx Peritoneal Dialysis Psychiatric Medical History: Reports: Hx Anxiety, Hx Depression Past Surgical History: Reports: Hx Tonsillectomy - Immunizations Hx Diphtheria, Pertussis, Tetanus Vaccination: No Review of Systems - Review of Systems Notes: REVIEW OF SYSTEMS: CONSTITUTIONAL : Denies fever, chills, or sweats. Denies recent illness. Denies weight loss, recent hospitalizations. EENT: Denies visual changes, eye pain. Denies sore throat, oral lesions, difficulty swallowing. CARDIOVASCULAR: Denies chest pain. Denies palpitations. Denies lower extremity edema. RESPIRATORY: Denies cough. Denies shortness of breath, wheezing. GASTROINTESTINAL: Denies abdominal pain or distention. Denies nausea, vomiting, or diarrhea. Denies blood in vomitus, stools, or per rectum. Denies black, tarry stools. Denies constipation. GENITOURINARY: Denies difficulty urinating, painful urination, frequency, blood in urine, or vaginal discharge. MUSCULOSKELETAL: + back , neck pain or stiffness. Denies joint swelling. SKIN: Denies rash, lesions or sores. HEMATOLOGIC : Denies easy bruising or bleeding. LYMPHATIC: Denies swollen glands. NEUROLOGICAL: Denies confusion or altered mental status. Denies loss of consciousness. Denies dizziness or lightheadedness. Denies headache. Denies weakness or paralysis. Denies problems difficulty with ambulation, slurred speech. Denies sensory loss, numbness, or tingling. Denies seizures. PSYCHIATRIC: Denies anxiety or stress. Denies depression, suicidal ideation, or homicidal ideation. Denies visual or auditory hallucinations. Physical Exam - Vital signs Vitals: Temp Pulse Resp BP Pulse Ox 97.9 F 115 H 20 119/53 L 98 11/27/18 14:22 11/27/18 14:22 11/27/18 14:22 11/27/18 14:22 11/27/18 14:22 - Notes Notes: PHYSICAL EXAMINATION: GENERAL: Well-appearing, well-nourished and in no acute distress. HEAD: Atraumatic, normocephalic. EYES: Pupils equal round and reactive to light, extraocular movements intact, conjunctiva are normal. ENT: Nares patent, oropharynx clear without exudates. Moist mucous membranes. NECK: Normal range of motion, supple without lymphadenopathy LUNGS: Breath sounds clear to auscultation bilaterally and equal. No wheezes rales or rhonchi. Reproducible chest wall tenderness with palpation to the left anterior chest, left upper extremity. No rash. HEART: Regular rate and rhythm without murmurs ABDOMEN: Soft, nontender, nondistended abdomen. No guarding, no rebound. No masses appreciated. Female : deferred Musculoskeletal: Normal range of motion, no pitting or edema. No cyanosis. NEUROLOGICAL: Cranial nerves grossly intact. Normal speech, normal gait. Normal sensory, motor exams PSYCH: Normal mood, normal affect. SKIN: Warm, Dry, normal turgor, no rashes or lesions noted. Course - Re-evaluation Re-evalutation: 11/28/18 13:52 Microbiology 11/27/18 15:11 Urine Culture - Preliminary Clean Catch Midstream NO GROWTH IN 1 DAY Laboratory 11/27/18 11/27/18 11/27/18 15:08 15:08 15:08 WBC 8.3 RBC 4.71 Hgb 14.1 Hct 40.8 MCV 87 MCH 29.9 MCHC 34.5 RDW 13.5 Plt Count 226 Seg Neutrophils % 62.7 Lymphocytes % 28.6 Monocytes % 6.7 Eosinophils % 1.3 Basophils % 0.7 Absolute Neutrophils 5.2 Absolute Lymphocytes 2.4 Absolute Monocytes 0.6 Absolute Eosinophils 0.1 Absolute Basophils 0.1 Sodium 140.2 Potassium 4.0 Chloride 107 Carbon Dioxide 23 Anion Gap 10 BUN 11 Creatinine 0.77 Est GFR ( Amer) > 60 Est GFR (Non-Af Amer) > 60 Glucose 102 Calcium 10.1 Total Bilirubin 1.0 Direct Bilirubin 0.2 Neonat Total Bilirubin Not Reportable Neonat Direct Bilirubin Not Reportable Neonat Indirect Bili Not Reportable AST 24 ALT 27 Alkaline Phosphatase 74 Creatine Kinase 25 L CK-MB (CK-2) < 0.22 Troponin I < 0.012 Total Protein 7.9 Albumin 4.3 Urine Color Urine Appearance Urine pH Ur Specific [place] Urine Protein Urine Glucose (UA) Urine Ketones Urine Blood Urine Nitrite Urine Bilirubin Urine Urobilinogen Ur Leukocyte Esterase Urine WBC (Auto) Urine RBC (Auto) Urine Bacteria (Auto) Squamous Epi Cells Auto Calcium Oxalate Cr Auto Urine Mucus (Auto) Urine Ascorbic Acid Urine Opiates Screen Urine Methadone Screen Ur Barbiturates Screen Ur Phencyclidine Scrn Ur Amphetamines Screen U Benzodiazepines Scrn Urine Cocaine Screen U Marijuana (THC) Screen 11/27/18 11/27/18 11/27/18 15:11 15:11 20:20 WBC RBC Hgb Hct MCV MCH MCHC RDW Plt Count Seg Neutrophils % Lymphocytes % Monocytes % Eosinophils % Basophils % Absolute Neutrophils Absolute Lymphocytes Absolute Monocytes Absolute Eosinophils Absolute Basophils Sodium Potassium Chloride Carbon Dioxide Anion Gap BUN Creatinine Est GFR ( Amer) Est GFR (Non-Af Amer) Glucose Calcium Total Bilirubin Direct Bilirubin Neonat Total Bilirubin Neonat Direct Bilirubin Neonat Indirect Bili AST ALT Alkaline Phosphatase Creatine Kinase CK-MB (CK-2) Troponin I < 0.012 Total Protein Albumin Urine Color YELLOW Urine Appearance TURBID Urine pH 5.0 Ur Specific [place] 1.025 Urine Protein NEGATIVE Urine Glucose (UA) NEGATIVE Urine Ketones TRACE H Urine Blood NEGATIVE Urine Nitrite NEGATIVE Urine Bilirubin NEGATIVE Urine Urobilinogen 2.0 H Ur Leukocyte Esterase NEGATIVE Urine WBC (Auto) 2 Urine RBC (Auto) 5 Urine Bacteria (Auto) 2+ Squamous Epi Cells Auto 13 Calcium Oxalate Cr Auto FEW Urine Mucus (Auto) MANY Urine Ascorbic Acid NEGATIVE Urine Opiates Screen NEGATIVE Urine Methadone Screen NEGATIVE Ur Barbiturates Screen NEGATIVE Ur Phencyclidine Scrn NEGATIVE Ur Amphetamines Screen NEGATIVE U Benzodiazepines Scrn UNCONFIRMED POSITIVE Urine Cocaine Screen NEGATIVE U Marijuana (THC) Screen NEGATIVE Chest X-Ray 11/27/18 14:54 IMPRESSION: NO ACUTE RADIOGRAPHIC FINDING IN THE CHEST. Temp Pulse Resp BP Pulse Ox 97.0 F 99 14 121/92 H 98 11/27/18 19:32 11/27/18 18:58 11/27/18 21:37 11/27/18 21:38 11/27/18 21:38 48-year-old female presents with left upper extremity pain and left sided chest pain that started this morning. Patient does have chronic neck and back pain and states that she is currently out of her oxycodone. Patient denies injury. Vital signs reviewed and within normal limits. Patient is afebrile, normote nsive and not hypoxic or tachycardic. EKG was obtained which showed the patient to be in normal sinus rhythm. Patient was placed on plastic maker and aspirin was given. Patient is very tearful upon my exam. Chest pain is reproducible with palpation. Previous medical records and nursing notes reviewed on this patient who was seen 2 months prior for similar symptoms. Patient has had follow-up with her primary care physician. CBC, CMP, cardiac enzymes including delta troponin were within normal limits. Chest x-ray unremarkable. HEART Score: History-0 ECG-0 Age-1 Risk Factors-2 Troponin Total: 3 If HEART score is = 3 AND both troponin measurements are normal, the 30 day ri sk of a major adverse cardiac event (all-cause mortality, myocardial infarction or need for coronary revascularization) is < 1% (Sensitivity 100%, NPV 100%). Chest pain in a patient without evidence of cardiac or other serious etiology on workup today. I discussed with patient that, based on their age, risk factors and emergency department testing today, the likelihood that their symptoms are related to a heart attack is very low (estimated risk of heart attack or over the next 30 days of less than 1%). The patient demonstrates decision making capacity and has verbalized an understanding of these risks to me. Based on this, the patient has chosen to follow-up as an outpatient. Usual chest pain return precautions reviewed. The patient states understanding and agreement with this plan. - Vital Signs Vital signs: Temp Pulse Resp BP Pulse Ox 97.0 F 99 14 121/92 H 98 11/27/18 19:32 11/27/18 18:58 11/27/18 21:37 11/27/18 21:38 11/27/18 21:38 - Laboratory Result Diagrams: 11/27/18 15:08 11/27/18 15:08 Laboratory results interpreted by me: 11/27/18 11/27/18 15:08 15:11 Creatine Kinase 25 L Urine Ketones TRACE H Urine Urobilinogen 2.0 H - Diagnostic Test Radiology reviewed: Image reviewed, Reports reviewed Discharge - Discharge Clinical Impression: Chest pain Qualifiers: Chest pain type: unspecified Qualified Code(s): R07.9 - Chest pain, unspecified Low back pain Qualifiers: Chronicity: acute Back pain laterality: unspecified Sciatica presence: unspecified whether sciatica present Qualified Code(s): M54.5 - Low back pain Condition: Stable Disposition: HOME, SELF-CARE Instructions: Chest Pain of Unclear Cause ([facility]), Low Back Pain ([facility]) Additional Instructions: You were seen today for chest pain. The exact cause of your pain is unclear. However, based on your cardiac enzyme testing, chest x-ray, and EKG it does not appear that it is from an immediately life-threatening cause at this time. Although your testing here is normal is critical that you follow-up with your primary care physician for continued evaluation of this chest pain and possible stress testing. I recommended you see your physician within the next 24-48 hours to be evaluated for consideration of a stress test. Please return to emergency department immediately if you have worsening of your chest pain, shortness of breath, vomiting, become unable to exert yourself due to pain or difficulty breathing, you pass out, or have any pain that radiates into your arms, jaw, or back. Please also return if you have any additional symptoms that are concerning to you. Prescriptions: RX: Oxycodone HCl [Oxycodone HCl 10 MG Tablet] 1 tab PO Q6H PRN #12 tablet PRN Reason: PAIN Forms: Elevated Blood Pressure
[2018-11-27 21:42] VITALS: BP 121/92
[2018-11-27 22:14] LABS: URINE AMPHETAMINES SCREEN NEGATIVE; URINE BARBITURATES SCREEN NEGATIVE; URINE BENZODIAZEPINES SCREEN UNCONFIRMED POSITIVE; URINE COCAINE SCREEN NEGATIVE; URINE MARIJUANA (THC) SCREEN NEGATIVE; URINE METHADONE SCREEN NEGATIVE; URINE PHENCYCLIDINE SCREEN NEGATIVE
--- NOTE | 2018-11-28 10:22 | EKG REPORT ---
SEVERITY:- BORDERLINE ECG - SINUS TACHYCARDIA BORDERLINE INFERIOR Q WAVES : Confirmed by: Ashely iFelds 28-Nov-2018 10:22:11
== END 2018-11-27 21:42 | disposition home or self-care (01) ==
LOC: ER 14:08
DX: R07.9 Chest pain, unspecified (principal); M79.602 Pain in left arm; M54.5 Low back pain; M54.2 Cervicalgia; G89.29 Other chronic pain; T40.2X6A Underdosing of other opioids, initial encounter; Z91.128 Patient's intentional underdosing of medication regimen for other reason; Z91.14 Patient's other noncompliance with medication regimen; I10 Essential (primary) hypertension; F17.210 Nicotine dependence, cigarettes, uncomplicated; Z71.6 Tobacco abuse counseling; Z87.01 Personal history of pneumonia (recurrent)
CPT/HCPCS: 93005; 99406; 99284; 96374; 96375; 36415; 87086; 82553; 82550; 85025; 80053; 81001; 84484; 80307; 71046; 93010; J1170; J2405

== ENCOUNTER 2018-12-03 16:43 | Emergency (ER) | payer SELFPAY ==
[2018-12-03] MEDS ORDERED: ASPIRIN 81 MG TABLET, CHEWABLE PO ONE (18:25)
--- NOTE | 2018-12-03 18:28 | ER Document Report ---
ED Medical Screen (RME) - General Chief Complaint: Chest Pain Stated Complaint: CHEST PAIN Time Seen by Provider: 12/03/18 18:21 Mode of Arrival: Ambulatory Information source: Patient TRAVEL OUTSIDE OF THE [place] IN LAST 30 DAYS: No - HPI Patient complains to provider of: thor Notes: 12/03/18 18:27 Patient is here with complaints of left arm pain and left chest pain. She was seen for similar symptoms a week ago had a negative workup at that time and was discharged home. Pain started up again and she came in for reevaluation. Exam No distress, nontoxic appearing. Lungs clear and equal throughout. Heart sounds normal. Plan CBC, CMP, troponin, CPKs, CK-MB, chest x-ray, EKG. an initial examination was made on the patient as part of the triage process, and it was determined a more comprehensive evaluation was necessary. Initial labs were ordered and patient was transferred to another provider in the ED who assumed care and finished evaluation and plan. - Related Data Allergies/Adverse Reactions: No Known Allergies Allergy (Verified 12/03/18 16:44) Past Medical History - Social History Chew tobacco use (# tins/day): No Frequency of alcohol use: None Drug Abuse: None - Past Medical History Cardiac Medical History: Reports: Hx Hypercholesterolemia, Hx Hypertension Pulmonary Medical History: Reports: Hx Pneumonia - walking pneumonia Renal/ Medical History: Denies: Hx Peritoneal Dialysis Psychiatric Medical History: Reports: Hx Anxiety, Hx Depression Past Surgical History: Reports: Hx Tonsillectomy - Immunizations Hx Diphtheria, Pertussis, Tetanus Vaccination: No Physical Exam - Vital signs Vitals: Temp Pulse Resp BP Pulse Ox 97.9 F 95 18 107/68 97 12/03/18 17:41 12/03/18 17:41 12/03/18 17:41 12/03/18 17:41 12/03/18 17:41 Course - Vital Signs Vital signs: Temp Pulse Resp BP Pulse Ox 97.9 F 95 18 107/68 97 12/03/18 17:41 12/03/18 17:41 12/03/18 17:41 12/03/18 17:41 12/03/18 17:41
--- NOTE | 2018-12-03 18:53 | RADIOLOGY REPORT (SQ) ---
EXAM DESCRIPTION: CHEST SINGLE VIEW COMPLETED DATE/TIME: 12/03/2018 6:35 pm REASON FOR STUDY: chest COMPARISON: 11/27/2018 EXAM PARAMETERS: NUMBER OF VIEWS: One view. TECHNIQUE: Single frontal radiographic view of the chest acquired. RADIATION DOSE: NA LIMITATIONS: None. FINDINGS: LUNGS AND PLEURA: No opacities, masses or pneumothorax. No pleural effusion. MEDIASTINUM AND HILAR STRUCTURES: No masses. Contour normal. HEART AND VASCULAR STRUCTURES: Heart normal in size. Normal vasculature. BONES: No acute findings. HARDWARE: None in the chest. OTHER: No other significant finding. IMPRESSION: NO ACUTE RADIOGRAPHIC FINDING IN THE CHEST. TECHNICAL DOCUMENTATION: JOB ID: [id number] [email or web address]- All Rights Reserved Reading location - IP/workstation name: [email or web address]
[2018-12-03 19:04] LABS: ABSOLUTE BASOPHILS # (AUTO) 0.1 10^3/uL (0.0-0.2); ABSOLUTE EOSINOPHILS # (AUTO) 0.1 10^3/uL (0.0-0.6); ABSOLUTE LYMPHOCYTES (AUTO) 2.7 10^3/uL (0.5-4.7); ABSOLUTE MONOCYTES (AUTO) 0.5 10^3/uL (0.1-1.4); ABSOLUTE NEUT (AUTO) 5.7 10^3/uL (1.7-8.2); BASOPHILS % (AUTO) 0.7 % (0-2); EOSINOPHILS % (AUTO) 1.5 % (0-6); HEMATOCRIT 41.3 % (36.0-47.0); HEMOGLOBIN 14.4 g/dL (12.0-15.5); LYMPHOCYTES % (AUTO) 29.1 % (13-45); MEAN CORPUSCULAR HEMOGLOBIN 30.4 pg (27.0-33.4); MEAN CORPUSCULAR HGB CONC 34.8 g/dL (32.0-36.0); MEAN CORPUSCULAR VOLUME 87 fl (80-97); MONOCYTES % (AUTO) 5.7 % (3-13); PLATELET COUNT 251 10^3/uL (150-450); RED BLOOD COUNT 4.73 10^6/uL (3.72-5.28); RED CELL DISTRIBUTION WIDTH 13.5 % (11.5-14.0); TOTAL CELLS COUNTED % (AUTO) 100 %; WHITE BLOOD COUNT 9.1 10^3/uL (4.0-10.5)
[2018-12-03] MEDS ORDERED: ONDANSETRON HCL INJ/PF 4 MG/2 ML SDV IV ONE (19:21)
[2018-12-03] MEDS ORDERED: OXYCODONE HCL IR 5 MG TABLET PO ONE (19:21)
[2018-12-03 19:26] LABS: ALANINE AMINOTRANSFERASE 19 U/L (9-52); ALBUMIN 4.4 g/dL (3.5-5.0); ALKALINE PHOSPHATASE 74 U/L (38-126); ANION GAP 9 (5-19); ASPARTATE AMINO TRANSFERASE 22 U/L (14-36); BILIRUBIN,DIRECT 0.3 mg/dL (0.0-0.4); BILIRUBIN,TOTAL 0.8 mg/dL (0.2-1.3); BLOOD UREA NITROGEN 10 mg/dL (7-20); CALCIUM 10.1 mg/dL (8.4-10.2); CARBON DIOXIDE 24 mmol/L (22-30); CHLORIDE 107 mmol/L (98-107); CREATINE KINASE 26 U/L (30-135); GLUCOSE 90 mg/dL (75-110); POTASSIUM 4.3 mmol/L (3.6-5.0); SODIUM 139.6 mmol/L (137-145); TOTAL PROTEIN 8.2 g/dL (6.3-8.2)
[2018-12-03 19:35] LABS: CREATINE KINASE MB < 0.22 ng/mL (<4.55); TROPONIN I < 0.012 ng/mL
--- NOTE | 2018-12-03 19:47 | EKG REPORT ---
SEVERITY:- NORMAL ECG - SINUS RHYTHM : Confirmed by: Nela Carney MD 03-Dec-2018 19:47:20
--- NOTE | 2018-12-03 20:45 | ER Document Report ---
ED Cardiac - General Chief Complaint: Chest Pain Stated Complaint: CHEST PAIN Time Seen by Provider: 12/03/18 18:21 Primary Care Provider: LUIS CALLAHAN MD [ACTIVE STAFF] - Follow up as needed Mode of Arrival: Ambulatory Information source: Patient TRAVEL OUTSIDE OF THE [place] IN LAST 30 DAYS: No - HPI Patient complains to provider of: Chest pain Notes: Patient is here with complaints of pain in the left shoulder going down her arm. And occasionally some pain in the left chest. No significant shortness of breath. Patient does have a history of some chronic neck pain. Patient was seen for similar symptoms about a week ago and had a negative workup at that time. Patient denies any new injuries. She denies any recent long trips or surgeries, leg pain or leg swelling, hormone, cancer, history of DVT or PE. Pain is constant, nothing seems to make it better or worse. She is on oxycodone for chronic neck and back pain. She denies any fever or cough. No syncope. No abdominal pain. No nausea, vomiting, diarrhea. No other specific complaints. - Related Data Allergies/Adverse Reactions: No Known Allergies Allergy (Verified 12/03/18 16:44) Past Medical History - General Information source: Patient - Social History Smoking Status: Current Every Day Smoker Chew tobacco use (# tins/day): No Frequency of alcohol use: None Drug Abuse: None Family History: Reviewed & Not Pertinent Patient has suicidal ideation: No Patient has homicidal ideation: No - Past Medical History Cardiac Medical History: Reports: Hx Hypercholesterolemia, Hx Hypertension Pulmonary Medical History: Reports: Hx Pneumonia - walking pneumonia Renal/ Medical History: Denies: Hx Peritoneal Dialysis Psychiatric Medical History: Reports: Hx Anxiety, Hx Depression Past Surgical History: Reports: Hx Tonsillectomy - Immunizations Hx Diphtheria, Pertussis, Tetanus Vaccination: No Review of Systems - Review of Systems -: Yes All other systems reviewed and negative Physical Exam - Vital signs Vitals: Temp Pulse Resp BP Pulse Ox 97.9 F 95 18 107/68 97 12/03/18 17:41 12/03/18 17:41 12/03/18 17:41 12/03/18 17:41 12/03/18 17:41 - Notes Notes: GENERAL: alert, cooperative, nontoxic, no distress. HEAD: normocephalic, atraumatic EYES: conjunctiva pink without discharge, no external redness or swelling. EARS: no external swelling, no external redness NOSE: atraumatic, no external swelling MOUTH/THROAT: mucous membranes moist and pink, posterior pharynx without erythema, swelling, exudate. No trismus or drooling. NECK: soft, supple, full range of motion, no meningismus. CHEST: no distress, lungs clear and equal throughout. No wheezing, rales, rhonchi. CARDIAC: regular rate and rhythm, no murmur, normal capillary refill, normal pulses. No peripheral edema noted. ABDOMEN: Soft, nontender. BACK: full range of motion, no CVA tenderness. EXTREMITIES: full range of motion of all extremities. No redness, no swelling. Tenderness to the left lateral neck, left shoulder. Normal strength. Normal pulse and sensation d distally NEURO: alert and oriented x 3, no focal deficits, full range of motion of all extremities. PYSCH: appropriate mood, affect. Patient is cooperative. SKIN: pink, warm, dry, no rash. Course - Re-evaluation Re-evalutation: 12/03/18 20:51 Patient is nontoxic-appearing with stable vitals. Patient here with complaints of left shoulder/neck and arm pain with some chest pain. No shortness of breath. EKG is normal. Troponin is negative. Chest x-ray is negative. Patient heart score is 3. Patient was seen for similar symptoms about a week ago and was discharged home. This point everything looks normal. The patient states that she would like to go home at this time. She has had negative troponin and negative workup thus far, therefore I do believe that she is fine to go home as long she follows up with her primary care doctor tomorrow. I did instruct her that I cannot completely rule everything out with the test that I done here, she verbalized understanding states that she would still like to go home. She states she will follow-up with her primary care doctor tomorrow. She was instructed to return the emergency department if she develops any worsening pain, high fever, numbness, tingling, weakness, difficulty breathing, syncope, or any further concerns. Patient does have a history of some chronic neck is sues, it is very possible that the left arm neck pain is secondary to some cervical radiculopathy from her chronic pain. The patient's emergency department workup and current diagnosis were explained to the patient and or family. Follow-up instructions were provided. Medications if prescribed were discussed. Instructions for when to return to the emergency department including specific worrisome symptoms were discussed with the patient and/or family. - Vital Signs Vital signs: Temp Pulse Resp BP Pulse Ox 97.9 F 95 18 107/68 97 12/03/18 17:41 12/03/18 17:41 12/03/18 17:41 12/03/18 17:41 12/03/18 17:41 - Laboratory Result Diagrams: 12/03/18 18:40 12/03/18 18:40 Laboratory results interpreted by me: 12/03/18 18:40 Creatine Kinase 26 L - Diagnostic Test Radiology reviewed: Image reviewed, Reports reviewed - Negative chest x-ray - EKG Interpretation by [place] EKG shows normal: Sinus rhythm, [place], Intervals, QRS Complexes, ST-T Waves Rate: Normal When compared to previous EKG there are: Other - No ST elevation or depression, no T wave abnormalities, no STEMI. Discharge - Discharge Clinical Impression: Cervical radiculopathy Chest pain Qualifiers: Chest pain type: unspecified Qualified Code(s): R07.9 - Chest pain, unspecified Condition: Stable Disposition: HOME, SELF-CARE Instructions: Chest Pain of Unclear Cause ([facility]), Radiculopathy ([facility]) Additional Instructions: Take your normal pain medications as prescribed. Follow-up with your family doctor tomorrow for reevaluation. Follow-up sooner, return the emergency department for worsening pain, significant trouble breathing, persistent vomiting, weakness, or for any further concerns. Forms: Smoking Cessation Education Referrals: LUIS CALLAHAN MD [ACTIVE STAFF] - Follow up as needed
[2018-12-03 20:59] VITALS: BP 117/68
== END 2018-12-03 21:00 | disposition home or self-care (01) ==
LOC: ER 16:43
DX: M54.12 Radiculopathy, cervical region (principal); R07.9 Chest pain, unspecified; M25.512 Pain in left shoulder; F17.200 Nicotine dependence, unspecified, uncomplicated; I10 Essential (primary) hypertension; M54.2 Cervicalgia; M54.9 Dorsalgia, unspecified; G89.29 Other chronic pain; Z79.891 Long term (current) use of opiate analgesic
CPT/HCPCS: 93005; 99284; 96374; 36415; 82553; 82550; 85025; 80053; 84484; 71045; 93010; J2405

== ENCOUNTER 2019-04-18 14:34 | Emergency (ER) | payer SELFPAY ==
--- NOTE | 2019-04-18 16:15 | RADIOLOGY REPORT (SQ) ---
EXAM DESCRIPTION: FOOT LEFT COMPLETE COMPLETED DATE/TIME: 04/18/2019 4:06 pm REASON FOR STUDY: kicked bed frame, L 5th toe/MT pain COMPARISON: None. NUMBER OF VIEWS: Three views. TECHNIQUE: AP, lateral and oblique radiographic images acquired of the left foot. LIMITATIONS: None. FINDINGS: MINERALIZATION: Normal. BONES: There is a chip fracture of the base of the 5th proximal phalanx medially. JOINTS: No effusions. SOFT TISSUES: No soft tissue swelling. No foreign body. OTHER: No other significant finding. IMPRESSION: Fracture of the 5th proximal phalanx. TECHNICAL DOCUMENTATION: JOB ID: [id number] [employer]- All Rights Reserved Reading location - IP/workstation name: [email or web address]
--- NOTE | 2019-04-18 16:37 | ER Document Report ---
HPI - HPI Patient complains to provider of: hip pain Time Seen by Provider: 04/18/19 15:18 Onset: Yesterday Onset/Duration: Gradual Quality of pain: Achy Pain Level: 4 Context: Patient states that she kicked the bed frame 4 days ago injuring her left fifth toe. Patient states that because of the toe injury she has been altering her gait causing right lateral hip pain. Patient denies any injury to the hip. Patient states that she was at work and her employer sent her home due to her pain symptoms. Patient does take oxycodone 10 mg every 6 hours for chronic joesph n. Patient states her last dose of medication was 3 hours ago. Associated Symptoms: Other - r hip pain Exacerbated by: Standing, Movement, Walking Relieved by: Denies Similar symptoms previously: No Recently seen / treated by doctor: No - ROS ROS below otherwise negative: Yes Systems Reviewed and Negative: Yes All other systems reviewed and negative - CONSTITUTIONAL Constitutional: DENIES: Fever - REPRODUCTIVE Reproductive: DENIES: : - MUSCULOSKELETAL Musculoskeletal: REPORTS: Extremity pain - right hip, Swelling - left toe - DERM Skin Color: Ecchymosis Skin Problems: None Past Medical History - General Information source: Patient - Social History Smoking Status: Current Every Day Smoker Chew tobacco use (# tins/day): No Smoking Education Provided: Yes Drug Abuse: None Occupation: retail Family History: Reviewed & Not Pertinent Patient has suicidal ideation: No Patient has homicidal ideation: No - Past Medical History Cardiac Medical History: Reports: Hx Hypercholesterolemia, Hx Hypertension Pulmonary Medical History: Reports: Hx Pneumonia - walking pneumonia Renal/ Medical History: Denies: Hx Peritoneal Dialysis Psychiatric Medical History: Reports: Hx Anxiety, Hx Depression Past Surgical History: Reports: Hx Tonsillectomy - Immunizations Hx Diphtheria, Pertussis, Tetanus Vaccination: No Vertical Provider Document - CONSTITUTIONAL Agree With Documented VS: Yes Exam Limitations: No Limitations General Appearance: WD/WN, No Apparent Distress - INFECTION CONTROL TRAVEL OUTSIDE OF THE [place] IN LAST 30 DAYS: No - HEENT HEENT: Atraumatic, Normocephalic - NECK Neck: Normal Inspection - RESPIRATORY Respiratory: Breath Sounds Normal, No Respiratory Distress - CARDIOVASCULAR Cardiovascular: Regular Rate, Regular Rhythm Pulses: Normal: Dorsalis pedis - BACK Back: Normal Inspection - MUSCULOSKELETAL/EXTREMETIES Musculoskeletal/Extremeties: MAEW, Tender - Tenderness over lateral aspect of right hip joint, no deformity. Normal skin color and temperature. Left fifth toe tenderness with ecchymosis and 1+ edema, Edema, Eccymosis - Left fifth toe - NEURO Level of Consciousness: Awake, Alert, Appropriate Motor/Sensory: No Motor Deficit - DERM Integumentary: Warm, Dry Course - Vital Signs Vital signs: Temp Pulse Resp BP Pulse Ox 98.3 F 98 18 112/57 L 98 04/18/19 14:44 04/18/19 14:44 04/18/19 14:44 04/18/19 14:44 04/18/19 14:44 - Diagnostic Test Radiology reviewed: Image reviewed, Reports reviewed Procedures - Immobilization Left Toe 5th digit Pre-Proc Neuro Vasc Exam: Normal Immobilizer type: Post-op shoe Post-Proc Neuro Vasc Exam: Normal Alignment checked and good: Yes Discharge - Discharge Clinical Impression: Toe fracture, left Qualifiers: Encounter type: initial encounter Toe: lesser toe Fracture type: closed Phalanx: proximal Fracture alignment: nondisplaced Qualified Code(s): S92.515A - Nondisplaced fracture of proximal phalanx of left lesser toe(s), initial encounter for closed fracture Strain of hip Qualifiers: Encounter type: initial encounter Laterality: right Qualified Code(s): S76.011A - Strain of muscle, fascia and tendon of right hip, initial encounter Condition: Stable Disposition: HOME, SELF-CARE Instructions: Tommy Taping (toes) ([facility]), Muscle Strain ([facility]), Post-Op Shoe ([facility]), Fractured Toe ([facility]) Additional Instructions: Return immediately for any new or worsening symptoms Followup with your primary care provider, call tomorrow to make a followup appointment Weightbearing as tolerated take your pain medications that you have at home as prescribed Do not drive when you are taking narcotics Follow-up with orthopedics for further evaluation of toe fracture Forms: Smoking Cessation Education, Return to Work Referrals: [facility] [Primary Care Provider] - Follow up as needed [facility] [Provider Group] - Follow up in 3-5 days
[2019-04-18 16:45] VITALS: BP 114/53
== END 2019-04-18 16:45 | disposition home or self-care (01) ==
LOC: ER 14:34
DX: S76.011A Strain of muscle, fascia and tendon of right hip, initial encounter (principal); S92.515A Nondisplaced fracture of proximal phalanx of left lesser toe(s), initial encounter for closed fracture; W22.03XA Walked into furniture, initial encounter; Y92.003 Bedroom of unspecified non-institutional (private) residence as the place of occurrence of the external cause; F17.200 Nicotine dependence, unspecified, uncomplicated; E78.00 Pure hypercholesterolemia, unspecified; I10 Essential (primary) hypertension
CPT/HCPCS: 99283

== ENCOUNTER 2019-07-31 00:03 | Emergency (ER) | payer SELFPAY ==
[2019-07-31 02:26] LABS: ABSOLUTE BASOPHILS # (AUTO) 0.1 10^3/uL (0.0-0.2); ABSOLUTE EOSINOPHILS # (AUTO) 0.2 10^3/uL (0.0-0.6); ABSOLUTE LYMPHOCYTES (AUTO) 2.6 10^3/uL (0.5-4.7); ABSOLUTE MONOCYTES (AUTO) 0.7 10^3/uL (0.1-1.4); BASOPHILS % (AUTO) 0.8 % (0-2); EOSINOPHILS % (AUTO) 2.1 % (0-6); HEMOGLOBIN 13.7 g/dL (12.0-15.5); LYMPHOCYTES % (AUTO) 22.4 % (13-45); MEAN CORPUSCULAR HEMOGLOBIN 29.7 pg (27.0-33.4); MEAN CORPUSCULAR HGB CONC 34.2 g/dL (32.0-36.0); MEAN CORPUSCULAR VOLUME 87 fl (80-97); MONOCYTES % (AUTO) 5.6 % (3-13); PLATELET COUNT 222 10^3/uL (150-450); RED BLOOD COUNT 4.61 10^6/uL (3.72-5.28); RED CELL DISTRIBUTION WIDTH 13.2 % (11.5-14.0); SEGMENTED NEUTROPHILS % (AUTO) 69.1 % (42-78); TOTAL CELLS COUNTED % (AUTO) 100 %; WHITE BLOOD COUNT 11.5 10^3/uL (4.0-10.5)
[2019-07-31 02:38] LABS: APPEARANCE,URINE SLIGHTLY-CLOUDY; BILIRUBIN,URINE NEGATIVE (NEGATIVE); COLOR,URINE YELLOW; GLUCOSE, URINE NEGATIVE (NEGATIVE); KETONES,URINE TRACE mg/dL (NEGATIVE); LEUKOCYTE ESTERASE,URINE NEGATIVE (NEGATIVE); NITRITE,URINE NEGATIVE (NEGATIVE); PROTEIN,URINE NEGATIVE (NEGATIVE); URINE SPECIFIC GRAVITY 1.018
[2019-07-31 02:39] LABS: ALBUMIN 4.1 g/dL (3.5-5.0); ALKALINE PHOSPHATASE 70 U/L (38-126); ANION GAP 10 (5-19); ASPARTATE AMINO TRANSFERASE 20 U/L (14-36); BILIRUBIN,DIRECT 0.1 mg/dL (0.0-0.4); BILIRUBIN,TOTAL 0.6 mg/dL (0.2-1.3); BLOOD UREA NITROGEN 9 mg/dL (7-20); CALCIUM 9.4 mg/dL (8.4-10.2); CARBON DIOXIDE 25 mmol/L (22-30); CHLORIDE 105 mmol/L (98-107); CREATINE KINASE 23 U/L (30-135); GLUCOSE 105 mg/dL (75-110); POTASSIUM 3.8 mmol/L (3.6-5.0); TOTAL PROTEIN 7.7 g/dL (6.3-8.2)
[2019-07-31 03:19] LABS: CREATINE KINASE MB < 0.22 ng/mL (<4.55); TROPONIN I < 0.012 ng/mL
[2019-07-31] MEDS ORDERED: OXYCODONE HCL IR 5 MG TABLET PO ONE (05:34)
[2019-07-31] MEDS ORDERED: NORMAL SALINE 1000 ML 1,000 ML IV ONE (05:34)
--- NOTE | 2019-07-31 05:34 | ER Document Report ---
ED General - General Chief Complaint: Passed Out Prior to Arrival Stated Complaint: FAINTING,LIGHT HEADED Time Seen by Provider: 07/31/19 05:24 Primary Care Provider: [facility] [Primary Care Provider] - Follow up as needed Notes: 49-year-old female presents emergency department complaining of progressively worsening dizziness for the past month. Patient states that every time she stands up she feels dizzy and she has now passed out twice. Most recently she passed out this evening when she stood up to go to the bathroom. Her when she woke up was standing over top of her. She thinks she was only out for a few seconds. Patient denies any nausea or vomiting, states that this dizziness is just simply been getting progressively worse for the past month. Has not been seen for this by anybody else. Patient admits changing from Ambien to trazodone, has not had any change in her oxycodone which she takes for chronic pain and this is managed through [place] [facility]. States she stopped taking all of her psychiatric medications that were prescribed through [facility] as she did not have insurance and did not want to be seen for these problems anymore. Patient is also concerned because she has not gotten her chronic oxycodone 10 mg that she takes every 4 hours since arriving to the emergency department. Last dose was at 9:32 PM last evening. Patient additionally mentions intermittent left-sided chest pain that is sharp and stabbing and radiates to her left arm. States that it is completely unchanged from prior episodes, this is been investigated previously and is not a ny different with this dizziness. TRAVEL OUTSIDE OF THE [place] IN LAST 30 DAYS: No - Related Data Allergies/Adverse Reactions: No Known Allergies Allergy (Verified 12/03/18 16:44) Home Medications: oxycodone 10mg. Trazadone Past Medical History - General Information source: Patient - Social History Smoking Status: Current Every Day Smoker Chew tobacco use (# tins/day): No Frequency of alcohol use: None Drug Abuse: None Family History: Reviewed & Not Pertinent Patient has suicidal ideation: No Patient has homicidal ideation: No - Past Medical History Cardiac Medical History: Reports: Hx Hypercholesterolemia, Hx Hypertension Pulmonary Medical History: Reports: Hx Pneumonia - walking pneumonia Renal/ Medical History: Denies: Hx Peritoneal Dialysis Psychiatric Medical History: Reports: Hx Anxiety, Hx Depression Past Surgical History: Reports: Hx Tonsillectomy - Immunizations Hx Diphtheria, Pertussis, Tetanus Vaccination: No Review of Systems - Review of Systems Constitutional: See HPI, Weakness. denies: Chills, Diaphoresis, Malaise EENT: No symptoms reported Cardiovascular: See HPI, Syncope, Dizziness Respiratory: No symptoms reported -: Yes All other systems reviewed and negative Physical Exam - Vital signs Vitals: Temp Pulse Resp BP Pulse Ox 97.8 F 101 H 18 130/63 H 99 07/31/19 00:18 07/31/19 00:18 07/31/19 00:18 07/31/19 00:18 07/31/19 00:18 Interpretation: Tachycardic - Notes Notes: GENERAL: Alert, interacts well. No acute distress. HEAD: Normocephalic, atraumatic EYES: Pupils equal, round and reactive to light, extraocular movements intact. ENT: Oral mucosa moist, tongue midline. NECK: Full range of motion, supple, trachea midline. LUNGS: Clear to auscultation bilaterally, no wheezes, rales or rhonchi, no respiratory distress. HEART: Tachycardic rate and rhythm, no murmurs, gallops, rubs. ABDOMEN: Soft, nontender, nondistended, bowel sounds present in all 4 quadrants. EXTREMITIES: Moves all 4 extremities spontaneously, no edema, radial and dorsalis pedis pulses 2/4 bilaterally. No cyanosis. NEUROLOGICAL: Alert and oriented x3, normal speech, cranial nerves II through XII grossly intact, biceps and patellar DTRs 2+ bilaterally. PSYCH: Normal mood, normal affect. SKIN: Warm, Dry, normal turgor, no rashes or lesions noted. Course - Re-evaluation Re-evalutation: 07/31/19 05:40 CBC shows slight leukocytosis 11.5, CMP unremarkable, cardiac enzymes negative, urinalysis shows trace ketones but is otherwise unremarkable, EKG is no nischemic. Patient will be hydrated with a liter of normal saline and given her usual morning dose of oxycodone which she states is 15 mg in the morning. Discussed that she is on high doses of narcotics and trazodone both of which can lead to increasing dizziness. Both of which can decrease blood pressure. Discussed with patient that she needs to discuss her symptoms with her pain management physicians. She should be drinking at least eight 8 ounce glasses of water a day and eating a salty snack in the afternoon. Discussed with patient the need to slowly transition from sitting to standing and standing to walking. Also discussed with patient the need to follow-up with her primary care physician as an outpatient. Patient is referred to [facility]. - Vital Signs Vital signs: Temp Pulse Resp BP Pulse Ox 98.0 F 88 20 101/56 L 98 07/31/19 03:14 07/31/19 03:14 07/31/19 03:14 07/31/19 03:14 07/31/19 03:14 - Laboratory Result Diagrams: 07/31/19 02:10 07/31/19 02:10 Laboratory results interpreted by me: 07/31/19 07/31/19 07/31/19 02:10 02:10 02:20 WBC 11.5 H Creatine Kinase 23 L Urine Ketones TRACE H Urine Urobilinogen 2.0 H - EKG Interpretation by Me Additional EKG results interpreted by me: 07/31/19 05:34 EKG shows sinus tachycardia at a rate of 102, normal axis, normal intervals, no ST segment elevations or depressions, no T wave inversions per my interp retation. Discharge - Discharge Clinical Impression: Orthostatic hypotension, Orthostatic syncope Chronic pain Qualifiers: Chronic pain type: other chronic pain Qualified Code(s): G89.29 - Other chronic pain Condition: Stable Disposition: HOME, SELF-CARE Additional Instructions: Orthostatic Hypotension You have orthostatic hypotension. Your blood pressure goes down when you stand up. Symptoms can include dizziness, transient loss of vision, ringing in the ears, nausea, and fainting. At this time, there's no evidence of a serious problem requiring hospitalization. Orthostatic hypotension can be caused by dehydration, poor nutrition, over- exercise, or medication. For some people, orthostatic hypotension is an ongoing problem, and no cause can be found. We usually treat orthostatic hypotension with fluids. We look for a treatable cause. If no cause was found, you should get enough rest, exercise moderately, and get plenty of fluids. When you feel the first symptoms suggesting you might faint, sit or squat down as quickly as you can. If symptoms don't go away quickly, lie down. Drink at least eight 8 ounce glasses of water a day. Eat a salty snack in the afternoon. Please check your blood pressure in the morning and the evening and write it down. The trazodone and the oxycodone can both cause low blood pressure. Please discuss your symptoms with the doctors who are prescribing these medications. Call the doctor or return if you are worsening or if new symptoms develop. Referrals: [facility] [Primary Care Provider] - Follow up as needed
--- NOTE | 2019-07-31 06:43 | EKG REPORT ---
SEVERITY:- BORDERLINE ECG - SINUS TACHYCARDIA BORDERLINE INFERIOR Q WAVES : Confirmed by: Anders Mg MD 31-Jul-2019 06:43:05
[2019-07-31 07:21] VITALS: BP 118/60
== END 2019-07-31 07:21 | disposition home or self-care (01) ==
LOC: ER 00:03
DX: I95.1 Orthostatic hypotension (principal); G89.29 Other chronic pain; Z79.891 Long term (current) use of opiate analgesic; R53.1 Weakness; R42 Dizziness and giddiness; R07.9 Chest pain, unspecified; F17.200 Nicotine dependence, unspecified, uncomplicated; I10 Essential (primary) hypertension
CPT/HCPCS: 93005; 36415; 82553; 82550; 85025; 80053; 81001; 84484; 93010; J7030; 96360; 99284

== ENCOUNTER 2019-09-09 19:33 | Emergency (ER) | payer SELFPAY ==
--- NOTE | 2019-09-09 19:56 | ER Document Report ---
ED Medical Screen (RME) - General Chief Complaint: Chest Pain Stated Complaint: CHEST PAIN Time Seen by Provider: 09/09/19 19:50 Primary Care Provider: [facility] [Primary Care Provider] - Follow up as needed Mode of Arrival: Ambulatory Information source: Patient Notes: 49-year-old female with history of walking pneumonia COPD presents to the emergency department with complaints of chest pain since this weekend that radiates down her left arm. She describes the pain as a sharp stabbing pain that comes and goes. Also reports she has been having episodes of syncope. She reports she will be in the bathroom and then she will wake up and her will be standing over her. She denies fever vomiting diarrhea. Reports a little bit of cough. Reports she did receive the flu vaccine. Patient reports she just does not feel good. I have greeted and performed a rapid initial assessment of this patient. A comprehensive ED assessment and evaluation of the patient, analysis of test results and completion of the medical decision making process will be conducted by additional ED providers. TRAVEL OUTSIDE OF THE [place] IN LAST 30 DAYS: No - Related Data Allergies/Adverse Reactions: No Known Allergies Allergy (Verified 12/03/18 16:44) Past Medical History - Past Medical History Cardiac Medical History: Reports: Hx Hypercholesterolemia, Hx Hypertension Pulmonary Medical History: Reports: Hx Pneumonia - walking pneumonia Renal/ Medical History: Denies: Hx Peritoneal Dialysis Psychiatric Medical History: Reports: Hx Anxiety, Hx Depression Past Surgical History: Reports: Hx Tonsillectomy - Immunizations Hx Diphtheria, Pertussis, Tetanus Vaccination: No Doctor's Discharge - Discharge Referrals: [facility] [Primary Care Provider] - Follow up as needed
[2019-09-09] MEDS ORDERED: NORMAL SALINE 1000 ML 1,000 ML IV ONE (20:32)
[2019-09-09] MEDS ORDERED: ONDANSETRON HCL INJ/PF 4 MG/2 ML SDV IV ONE (20:32)
[2019-09-09] MEDS ORDERED: OXYCODONE HCL IR 5 MG TABLET PO ONE (20:32)
--- NOTE | 2019-09-09 20:36 | ER Document Report ---
ED General - General Chief Complaint: Chest Pain Stated Complaint: CHEST PAIN Time Seen by Provider: 09/09/19 19:50 Primary Care Provider: [facility] [Primary Care Provider] - Follow up as needed Mode of Arrival: Ambulatory Notes: Patient is a 49-year-old female that comes emergency department for chief complaint of feeling weak, feeling nauseated, having left upper abdominal pain into her left breast and then into her chest and armpit. She states that she started feeling poorly with intermittent nausea about 3 days ago. She states she feels intermittently lightheaded as well. She denies vomiting, fever, diarrhea, difficulty breathing. She has a mild cough but reportedly this is her baseline. She states she also feels dehydrated. Past medical history of COPD, continues to smoke, chronic back pain on oxycodone, anxiety/depression. She denies any other medical history. She denies alcohol or recreational drugs. TRAVEL OUTSIDE OF THE [place] IN LAST 30 DAYS: No - Related Data Allergies/Adverse Reactions: No Known Allergies Allergy (Verified 12/03/18 16:44) Home Medications: Trazone 150mg at night. Oxycodone 10 q4 hours. Ibuprofen 800mg PRN Past Medical History - General Information source: Patient - Social History Smoking Status: Current Every Day Smoker Frequency of alcohol use: None Drug Abuse: None Lives with: Family Family History: Reviewed & Not Pertinent Patient has suicidal ideation: No Patient has homicidal ideation: No - Past Medical History Cardiac Medical History: Reports: Hx Hypercholesterolemia, Hx Hypertension Pulmonary Medical History: Reports: Hx Pneumonia - walking pneumonia Renal/ Medical History: Denies: Hx Peritoneal Dialysis Psychiatric Medical History: Reports: Hx Anxiety, Hx Depression Past Surgical History: Reports: Hx Tonsillectomy - Immunizations Hx Diphtheria, Pertussis, Tetanus Vaccination: No Review of Systems - Review of Systems Constitutional: See HPI EENT: No symptoms reported Cardiovascular: See HPI Respiratory: No symptoms reported Gastrointestinal: See HPI Genitourinary: No symptoms reported Female Genitourinary: No symptoms reported Musculoskeletal: No symptoms reported Skin: No symptoms reported Hematologic/Lymphatic: No symptoms reported Neurological/Psychological: No symptoms reported Physical Exam - Vital signs Vitals: Temp Pulse Resp BP Pulse Ox 97.8 F 83 18 110/52 L 97 09/09/19 19:50 09/09/19 19:50 09/09/19 19:50 09/09/19 19:50 09/09/19 19:50 - Notes Notes: GENERAL: Alert, interacts well. HEAD: Normocephalic, atraumatic. EYES: Pupils equal, round, and reactive to light. Extraocular movements intact. ENT: Oral mucosa dry, tongue midline. Oropharynx unremarkable. Airway patent. NECK: Full range of motion. Supple. Trachea midline. LUNGS: Clear to auscultation bilaterally, no wheezes, rales, or rhonchi. No r espiratory distress. HEART: Regular rate and rhythm. No murmur ABDOMEN: There is some left upper quadrant tenderness on evaluation, remaining abdomen completely benign. No guarding, rigidity, rebound tenderness. Bowel sounds present throughout. GENITOURINARY: Deferred EXTREMITIES: Moves all 4 extremities spontaneously. No edema, normal radial and dorsalis pedis pulses bilaterally. No cyanosis. BACK: no cervical, thoracic, lumbar midline tenderness. No saddle anesthesia, normal distal neurovascular exam. Moves all extremities in full range of motion. NEUROLOGICAL: Alert and oriented x3. Normal speech. Cranial nerves II through XII grossly intact. PSYCH: Speaks rapidly, voice often breaking, slightly restless, generally nervous SKIN: Warm, dry, normal turgor. No rashes or lesions noted. Course - Re-evaluation Re-evalutation: Patient alert, cooperative, appears anxious but is nondistressed. She does have left upper quadrant and epigastric pain on exam, clear lungs, physical examination is otherwise unremarkable. CBC, chemistry, lipase unremarkable. Troponin negative. Chest x-ray unremarkable. Urinalysis showing elevated specific gravity but otherwise unremarkable. EKG without significant change from prior. Vital signs unremarkable. Clinical picture is most suggestive of gastritis, patient does not have any severe abdominal pain, after medications symptoms resolved and she is only complaining of her chronic back pain. Patient was given Carafate as well and she tolerated this without difficulty. Patient advised against smoking, advised to stop drinking somewhat coffee and caffeinated sodas, patient had to be recommended to not drink one even in the room. Based on her work-up, mainly abdominal symptoms with clinical picture consistent with gastritis and a very low suspicion of ACS. Delta troponin negative. I discussed close primary care follow-up, treatment, and return precautions with patient and at length. They state appreciation and agreement. Stable time of discharge. - Vital Signs Vital signs: Temp Pulse Resp BP Pulse Ox 97.9 F 83 13 113/74 100 09/09/19 23:47 09/09/19 19:50 09/09/19 23:47 09/09/19 23:47 09/09/19 23:47 - Laboratory Result Diagrams: 09/09/19 20:24 09/09/19 20:24 Laboratory results interpreted by me: 09/09/19 09/09/19 20:00 20:24 Creatine Kinase 26 L Urine Ketones TRACE H Urine Urobilinogen 2.0 H - EKG Interpretation by Me Additional EKG results interpreted by me: EKG shows sinus rhythm at a rate of 82, QTC of 416, normal axis, no T wave inversions or ST segment changes in consecutive leads. Borderline Q waves in lead III and aVF. No change from prior. Discharge - Discharge Clinical Impression: Left upper quadrant pain Chest pain Qualifiers: Chest pain type: unspecified Qualified Code(s): R07.9 - Chest pain, unspecified Chronic pain Qualifiers: Chronic pain type: other chronic pain Qualified Code(s): G89.29 - Other chronic pain Condition: Stable Disposition: HOME, SELF-CARE Additional Instructions: Your symptoms are most suggestive of gastritis, inflammation of the upper gastrointestinal tract. Your work-up is reassuring at this time. Take Phenergan for nausea, take Carafate and famotidine as prescribed to help treat this, you can take additional Rolaids, Tums, Maalox, etc. if needed. You can continue your current pain medication. Avoid NSAIDs, alcohol, smoking, caffeine, spicy food. Start with clear fluids, progress to bland diet. Follow-up with primary care for additional evaluation and treatment including possible H. pylori testing or even endoscopy. Return if you worsen including uncontrolled vomiting, vomiting blood, black stools, severe pain, fever of 100.4 or greater, or any other concerning or worsening symptoms. Prescriptions: Sucralfate [Carafate 1 gm Tablet] 1 gm PO QID #20 tablet Famotidine [Pepcid 20 mg Tablet] 20 mg PO BID #14 tablet Promethazine HCl [Phenergan 25 mg Tablet] 25 mg PO Q6H PRN #15 tablet PRN Reason: Referrals: [facility] [Primary Care Provider] - Follow up as needed
[2019-09-09 20:42] LABS: ABSOLUTE BASOPHILS # (AUTO) 0.1 10^3/uL (0.0-0.2); ABSOLUTE EOSINOPHILS # (AUTO) 0.2 10^3/uL (0.0-0.6); ABSOLUTE LYMPHOCYTES (AUTO) 2.8 10^3/uL (0.5-4.7); ABSOLUTE MONOCYTES (AUTO) 0.7 10^3/uL (0.1-1.4); ABSOLUTE NEUT (AUTO) 5.3 10^3/uL (1.7-8.2); BASOPHILS % (AUTO) 0.7 % (0-2); EOSINOPHILS % (AUTO) 2.4 % (0-6); HEMATOCRIT 40.9 % (36.0-47.0); HEMOGLOBIN 14.3 g/dL (12.0-15.5); LYMPHOCYTES % (AUTO) 31.2 % (13-45); MEAN CORPUSCULAR HEMOGLOBIN 30.6 pg (27.0-33.4); MEAN CORPUSCULAR HGB CONC 34.9 g/dL (32.0-36.0); MEAN CORPUSCULAR VOLUME 87 fl (80-97); MONOCYTES % (AUTO) 7.2 % (3-13); PLATELET COUNT 228 10^3/uL (150-450); RED BLOOD COUNT 4.67 10^6/uL (3.72-5.28); RED CELL DISTRIBUTION WIDTH 13.8 % (11.5-14.0); SEGMENTED NEUTROPHILS % (AUTO) 58.5 % (42-78); TOTAL CELLS COUNTED % (AUTO) 100 %; WHITE BLOOD COUNT 9.1 10^3/uL (4.0-10.5)
[2019-09-09 20:48] LABS: APPEARANCE,URINE SLIGHTLY-CLOUDY; BILIRUBIN,URINE NEGATIVE (NEGATIVE); COLOR,URINE YELLOW; GLUCOSE, URINE NEGATIVE (NEGATIVE); KETONES,URINE TRACE mg/dL (NEGATIVE); LEUKOCYTE ESTERASE,URINE NEGATIVE (NEGATIVE); NITRITE,URINE NEGATIVE (NEGATIVE); PROTEIN,URINE NEGATIVE (NEGATIVE); URINE SPECIFIC GRAVITY 1.026
[2019-09-09 20:54] LABS: ALBUMIN 4.1 g/dL (3.5-5.0); ALKALINE PHOSPHATASE 73 U/L (38-126); ANION GAP 9 (5-19); ASPARTATE AMINO TRANSFERASE 17 U/L (14-36); BILIRUBIN,TOTAL 0.4 mg/dL (0.2-1.3); BLOOD UREA NITROGEN 10 mg/dL (7-20); CALCIUM 9.5 mg/dL (8.4-10.2); CARBON DIOXIDE 28 mmol/L (22-30); CHLORIDE 101 mmol/L (98-107); CREATINE KINASE 26 U/L (30-135); GLUCOSE 88 mg/dL (75-110); POTASSIUM 4.5 mmol/L (3.6-5.0); TOTAL PROTEIN 7.6 g/dL (6.3-8.2)
--- NOTE | 2019-09-09 21:09 | RADIOLOGY REPORT (SQ) ---
XR CHEST 2 VIEWS CLINICAL STATEMENT: cp COMPARISON: None FINDINGS: Cardiomediastinal silhouette is within normal limits. There is no focal lung consolidation or pleural effusion. No evidence of pulmonary edema or pneumothorax. IMPRESSION: No acute cardiopulmonary disease.
[2019-09-09] MEDS ORDERED: FAMOTIDINE 20 MG TABLET PO ONE (21:29)
[2019-09-09] MEDS ORDERED: SUCRALFATE 1 GM TABLET PO ONE (21:29)
[2019-09-09] MEDS ORDERED: MORPHINE SULFATE 10 MG/ML INJ IV ONE ×2 (21:30→23:51)
[2019-09-10 00:06] VITALS: BP 113/74
--- NOTE | 2019-09-10 07:20 | EKG REPORT ---
SEVERITY:- BORDERLINE ECG - SINUS RHYTHM BORDERLINE INFERIOR Q WAVES : Confirmed by: Anders Mg MD 10-Sep-2019 07:19:23
== END 2019-09-10 00:06 | disposition home or self-care (01) ==
LOC: ER 19:33
DX: R07.9 Chest pain, unspecified (principal); R10.12 Left upper quadrant pain; G89.29 Other chronic pain; R53.1 Weakness; R11.0 Nausea; R10.13 Epigastric pain; R05 Cough; F41.9 Anxiety disorder, unspecified; M54.9 Dorsalgia, unspecified; Z79.899 Other long term (current) drug therapy; F17.200 Nicotine dependence, unspecified, uncomplicated; J44.9 Chronic obstructive pulmonary disease, unspecified; I10 Essential (primary) hypertension
CPT/HCPCS: 93005; 96376; 99285; 96361; 96374; 96375; 36415; 82550; 83690; 85025; 80053; 81001; 84484; 71046; 93010; J2270; J2405; J7030

== ENCOUNTER 2019-09-20 10:43 | Emergency (ER) | payer MEDICAID ==
[2019-09-20] MEDS ORDERED: ONDANSETRON 4 MG TAB.RAPDIS PO ONE ×2 (11:38→14:00)
[2019-09-20] MEDS ORDERED: HYDROXYZINE HCL 10 MG TABLET PO ONE ×2 (11:38→14:00)
--- NOTE | 2019-09-20 11:41 | ER Document Report ---
ED Medical Screen (RME) - General Chief Complaint: Shortness Of Breath Stated Complaint: DIFFICULTY BREATHING Time Seen by Provider: 09/20/19 11:33 Mode of Arrival: Ambulatory Information source: Patient Notes: This 49-year-old female presents emergency department with complaints of body aches and pains chills vomited once diarrhea once short of breath. Denies chest pain denies abdominal pain denies pain with void. Reports she took 1 of her 10 mg oxycodone last night. Reports she has been on oxycodone for the past 5 years she takes it 6 times a day. Recently ran out of her prescription. Patient reports she started feeling short of breath with chills denies fever vomited once had diarrhea once since last night. She complains of back pain. I have greeted and performed a rapid initial assessment of this patient. A comprehensive ED assessment and evaluation of the patient, analysis of test results and completion of the medical decision making process will be conducted by additional ED providers. TRAVEL OUTSIDE OF THE [place] IN LAST 30 DAYS: No - Related Data Allergies/Adverse Reactions: No Known Allergies Allergy (Verified 12/03/18 16:44) Past Medical History - Social History Frequency of alcohol use: None Drug Abuse: None - Past Medical History Cardiac Medical History: Reports: Hx Hypercholesterolemia, Hx Hypertension Pulmonary Medical History: Reports: Hx Pneumonia - walking pneumonia Renal/ Medical History: Denies: Hx Peritoneal Dialysis Psychiatric Medical History: Reports: Hx Anxiety, Hx Depression Past Surgical History: Reports: Hx Tonsillectomy - Immunizations Hx Diphtheria, Pertussis, Tetanus Vaccination: No Physical Exam - Vital signs Vitals: Temp Pulse Resp BP Pulse Ox 98.0 F 107 H 18 119/61 100 09/20/19 10:46 09/20/19 10:46 09/20/19 10:46 09/20/19 10:46 09/20/19 10:46 Course - Vital Signs Vital signs: Temp Pulse Resp BP Pulse Ox 98.0 F 107 H 18 119/61 100 09/20/19 10:46 09/20/19 10:46 09/20/19 10:46 09/20/19 10:46 09/20/19 10:46
--- NOTE | 2019-09-20 12:08 | RADIOLOGY REPORT (SQ) ---
EXAM DESCRIPTION: CHEST 2 VIEWS COMPLETED DATE/TIME: 09/20/2019 11:58 am REASON FOR STUDY: sob COMPARISON: 09/09/2019. EXAM PARAMETERS: NUMBER OF VIEWS: two views TECHNIQUE: Digital Frontal and Lateral radiographic views of the chest acquired. RADIATION DOSE: NA LIMITATIONS: none FINDINGS: LUNGS AND PLEURA: No opacities, masses or pneumothorax. No pleural effusion. MEDIASTINUM AND HILAR STRUCTURES: No masses or contour abnormalities. HEART AND VASCULAR STRUCTURES: Heart normal size. No evidence for failure. BONES: No acute findings. HARDWARE: None in the chest. OTHER: No other significant finding. IMPRESSION: NO ACUTE RADIOGRAPHIC FINDING IN THE CHEST. TECHNICAL DOCUMENTATION: JOB ID: [id number] [employer]- All Rights Reserved Reading location - IP/workstation name: [email or web address]
[2019-09-20 12:17] LABS: ABSOLUTE BASOPHILS # (AUTO) 0.1 10^3/uL (0.0-0.2); ABSOLUTE EOSINOPHILS # (AUTO) 0.1 10^3/uL (0.0-0.6); ABSOLUTE MONOCYTES (AUTO) 0.7 10^3/uL (0.1-1.4); ABSOLUTE NEUT (AUTO) 10.6 10^3/uL (1.7-8.2); BASOPHILS % (AUTO) 0.7 % (0-2); EOSINOPHILS % (AUTO) 0.6 % (0-6); HEMATOCRIT 43.4 % (36.0-47.0); HEMOGLOBIN 14.9 g/dL (12.0-15.5); LYMPHOCYTES % (AUTO) 14.9 % (13-45); MEAN CORPUSCULAR HEMOGLOBIN 29.9 pg (27.0-33.4); MEAN CORPUSCULAR HGB CONC 34.4 g/dL (32.0-36.0); MEAN CORPUSCULAR VOLUME 87 fl (80-97); MONOCYTES % (AUTO) 5.3 % (3-13); PLATELET COUNT 253 10^3/uL (150-450); RED BLOOD COUNT 4.98 10^6/uL (3.72-5.28); SEGMENTED NEUTROPHILS % (AUTO) 78.5 % (42-78); TOTAL CELLS COUNTED % (AUTO) 100 %; WHITE BLOOD COUNT 13.4 10^3/uL (4.0-10.5)
[2019-09-20 12:38] LABS: ALBUMIN 4.2 g/dL (3.5-5.0); ALKALINE PHOSPHATASE 85 U/L (38-126); ANION GAP 10 (5-19); ASPARTATE AMINO TRANSFERASE 19 U/L (14-36); BILIRUBIN,TOTAL 0.9 mg/dL (0.2-1.3); BLOOD UREA NITROGEN 5 mg/dL (7-20); CARBON DIOXIDE 22 mmol/L (22-30); CHLORIDE 107 mmol/L (98-107); GLUCOSE 87 mg/dL (75-110); POTASSIUM 4.5 mmol/L (3.6-5.0); TOTAL PROTEIN 7.7 g/dL (6.3-8.2)
--- NOTE | 2019-09-20 14:46 | ER Document Report ---
ED General - General Chief Complaint: Shortness Of Breath Stated Complaint: DIFFICULTY BREATHING Time Seen by Provider: 09/20/19 11:33 Primary Care Provider: ALYSSA PIÑA MD [Primary Care Provider] - Follow up as needed Mode of Arrival: Ambulatory Information source: Patient Notes: [age]-year-old female arrives by POV with chief complaint of fever chills diarrhea severe anxiety and back arthralgias. Patient reports she has been out of her oxycodone and Xanax for 4 days. She reports she has been unable to see her private physician or her heel painter because she has no money. Patient denies sore throat. She reports she had pneumonia last June but denies any sore throat hemoptysis nausea vomiting shortness of breath chest pain abdominal pain myalgia exposure to sick people or travel to foreign countries like [place] TRAVEL OUTSIDE OF THE [place] IN LAST 30 DAYS: No - HPI Onset: This morning Onset/Duration: Persistent Quality of pain: Sharp Associated symptoms: Body/muscle aches, Chills, Diarrhea, Fever Exacerbated by: Movement, Deep breathing Relieved by: Denies Similar symptoms previously: Yes Recently seen / treated by doctor: No - Patient reports she is scheduled to see her PMD and pain management doctor - Related Data Allergies/Adverse Reactions: No Known Allergies Allergy (Verified 12/03/18 16:44) Past Medical History - General Information source: Patient - Social History Smoking Status: Current Every Day Smoker Cigarette use (# per day): Yes Chew tobacco use (# tins/day): No Smoking Education Provided: Yes Frequency of alcohol use: None Drug Abuse: None Lives with: Alone Family History: Reviewed & Not Pertinent Patient has suicidal ideation: No Patient has homicidal ideation: No - Past Medical History Cardiac Medical History: Reports: Hx Hypercholesterolemia, Hx Hypertension Pulmonary Medical History: Reports: Hx Pneumonia - walking pneumonia Renal/ Medical History: Denies: Hx Peritoneal Dialysis Psychiatric Medical History: Reports: Hx Anxiety, Hx Depression Past Surgical History: Reports: Hx Tonsillectomy - Immunizations Hx Diphtheria, Pertussis, Tetanus Vaccination: No Review of Systems - Review of Systems Constitutional: See HPI, Malaise, Weakness EENT: No symptoms reported Cardiovascular: No symptoms reported Respiratory: No symptoms reported Gastrointestinal: Diarrhea Genitourinary: No symptoms reported Female Genitourinary: No symptoms reported Musculoskeletal: No symptoms reported Skin: No symptoms reported Hematologic/Lymphatic: No symptoms reported Neurological/Psychological: No symptoms reported Physical Exam - Vital signs Vitals: Temp Pulse Resp BP Pulse Ox 98.0 F 107 H 18 119/61 100 09/20/19 10:46 09/20/19 10:46 09/20/19 10:46 09/20/19 10:46 09/20/19 10:46 Interpretation: Normal - General General appearance: Appears well In distress: Mild - HEENT Head: Normocephalic Eyes: Normal Cornea: Normal Extraocular movements intact: Yes Eyelashes: Normal Pupils: PERRL Ears: Normal External canal: Normal Sinus: Normal Mouth/Lips: Other - Tongue and oral mucous membranes dry Mucous membranes: Dry Pharynx: Normal Neck: Normal - Respiratory Respiratory status: No respiratory distress Chest status: Nontender Breath sounds: Normal Chest palpation: Normal - Cardiovascular Rhythm: Tachycardia Heart sounds: Normal auscultation Murmur: No Friction rub: No Loni's crunch: No - Abdominal Inspection: Normal Distension: No distension Bowel sounds: Hyperactive Tenderness: Nontender Organomegaly: No organomegaly - Back Back: Normal - Extremities General upper extremity: Normal inspection General lower extremity: Normal inspection - Neurological Neuro grossly intact: Yes Cognition: Normal Orientation: AAOx4 Yonatan Coma Scale Eye Opening: Spontaneous Yonatan Coma Scale Verbal: Oriented Yonatan Coma Scale Motor: Obeys Commands Yonatan Coma Scale Total: 15 Speech: Normal Cranial nerves: Normal Cerebellar coordination: Normal - Psychological Associated symptoms: Anxious - Skin Skin Temperature: Warm Skin Moisture: Moist Course - Vital Signs Vital signs: Temp Pulse Resp BP Pulse Ox 98.0 F 107 H 19 132/80 H 99 09/20/19 10:46 09/20/19 10:46 09/20/19 18:01 09/20/19 18:01 09/20/19 18:01 - Laboratory Result Diagrams: 09/20/19 11:48 09/20/19 11:48 Laboratory results interpreted by me: 09/20/19 09/20/19 11:48 11:48 WBC 13.4 H Absolute Neuts (auto) 10.6 H Seg Neutrophils % 78.5 H BUN 5 L - Diagnostic Test Radiology reviewed: Reports reviewed Critical Care Note - Critical Care Note Total time excluding time spent on procedures (mins): 90 Comments: I advised patient of lab and chest x-ray findings and advised that she probably has Xanax withdrawal and narcotic withdrawal symptoms and I will write for 10 tablets each of Xanax and oxycodone Discharge - Discharge Clinical Impression: Anxiety, Withdrawal from opioids Chronic pain Qualifiers: Chronic pain type: chronic pain syndrome Qualified Code(s): G89.4 - Chronic pain syndrome Withdrawal from benzodiazepine Qualifiers: Complication of substance-induced condition: with unspecified complication Qualified Code(s): F13.239 - Sedative, hypnotic or anxiolytic dependence with withdrawal, unspecified Condition: Good Disposition: HOME, SELF-CARE Additional Instructions: follow up with personal doctor this week return to ER as needed take medicines as directed and encourage fluids and also avoid being without your pain medicine and your benzodiazepine as these can cause withdrawal symptoms. Prescriptions: Oxycodone HCl [Oxycontin Sr 10 mg Tablet] 10 mg PO BID PRN 5 Days #10 tab.sr.12h PRN Reason: For Pain Alprazolam [Xanax] 1 mg PO BID #10 tablet Referrals: ALYSSA PIÑA MD [Primary Care Provider] - Follow up as needed
[2019-09-20] MEDS ORDERED: NORMAL SALINE 1000 ML 1,000 ML IV PRN (14:52)
[2019-09-20] MEDS ORDERED: HYDROMORPHONE HCL INJ/PF 2 MG/ML AMPULE IV ONE (14:53)
[2019-09-20] MEDS ORDERED: LORAZEPAM INJ 2 MG/1 ML VIAL IV ONE (14:53)
[2019-09-20 15:04] LABS: APPEARANCE,URINE SLIGHTLY-CLOUDY; BILIRUBIN,URINE NEGATIVE (NEGATIVE); COLOR,URINE YELLOW; GLUCOSE, URINE NEGATIVE (NEGATIVE); KETONES,URINE NEGATIVE (NEGATIVE); LEUKOCYTE ESTERASE,URINE NEGATIVE (NEGATIVE); NITRITE,URINE NEGATIVE (NEGATIVE); PROTEIN,URINE NEGATIVE (NEGATIVE); URINE SPECIFIC GRAVITY 1.019; UROBILINOGEN,URINE NEGATIVE mg/dL (<2.0)
[2019-09-20 16:53] LABS: URINE AMPHETAMINES SCREEN NEGATIVE; URINE BARBITURATES SCREEN NEGATIVE; URINE BENZODIAZEPINES SCREEN NEGATIVE; URINE COCAINE SCREEN NEGATIVE; URINE MARIJUANA (THC) SCREEN NEGATIVE; URINE METHADONE SCREEN NEGATIVE; URINE PHENCYCLIDINE SCREEN NEGATIVE
[2019-09-20 19:44] VITALS: BP 125/72
--- NOTE | 2019-09-20 23:22 | EKG REPORT ---
SEVERITY:- BORDERLINE ECG - SINUS RHYTHM BORDERLINE INFERIOR Q WAVES : Confirmed by: Ashely Fields 20-Sep-2019 23:20:48
== END 2019-09-20 19:44 | disposition home or self-care (01) ==
LOC: ER 10:43
DX: F11.23 Opioid dependence with withdrawal (principal); F13.239 Sedative, hypnotic or anxiolytic dependence with withdrawal, unspecified; F41.9 Anxiety disorder, unspecified; R19.7 Diarrhea, unspecified; R50.9 Fever, unspecified; R53.81 Other malaise; R53.1 Weakness; G89.29 Other chronic pain; M54.9 Dorsalgia, unspecified; M79.10 Myalgia, unspecified site; F17.210 Nicotine dependence, cigarettes, uncomplicated; I10 Essential (primary) hypertension
CPT/HCPCS: 93005; 99285; 96361; 96374; 96375; 36415; 85025; 80053; 81001; 84484; 80307; 71046; 93010; S0119; J3490; J1170; J2060; J7030

== ENCOUNTER 2019-10-04 07:08 | Observation (INO) | payer MEDICAID ==
[2019-10-04] MEDS ORDERED: NORMAL SALINE 1000 ML 1,000 ML IV ONE (07:42)
[2019-10-04] MEDS ORDERED: MORPHINE SULFATE 10 MG/ML INJ IV ONE (07:43)
--- NOTE | 2019-10-04 07:45 | ER Document Report ---
ED GI/ - General Chief Complaint: Abdominal Pain Stated Complaint: ABDOMINAL PAIN Time Seen by Provider: 10/04/19 07:40 Primary Care Provider: ALYSSA PIÑA MD [NO LOCAL MD] - Follow up as needed Notes: 49-year-old woman presents to the emergency department with a history of right lower quadrant pain for the past 2 days. She denies fever, nausea vomiting, she does have decreased appetite and pain became more severe this morning. She has a past medical history of back pain and denies any allergies to medications. No prior history of similar episodes. TRAVEL OUTSIDE OF THE [place] IN LAST 30 DAYS: No - Related Data Allergies/Adverse Reactions: No Known Allergies Allergy (Verified 10/04/19 07:15) Past Medical History - Social History Smoking Status: Current Every Day Smoker Chew tobacco use (# tins/day): No Frequency of alcohol use: None Drug Abuse: None Family History: Reviewed & Not Pertinent Patient has suicidal ideation: No Patient has homicidal ideation: No - Past Medical History Cardiac Medical History: Reports: Hx Hypercholesterolemia, Hx Hypertension Pulmonary Medical History: Reports: Hx Pneumonia - walking pneumonia Renal/ Medical History: Denies: Hx Peritoneal Dialysis Psychiatric Medical History: Reports: Hx Anxiety, Hx Depression Past Surgical History: Reports: Hx Tonsillectomy - Immunizations Hx Diphtheria, Pertussis, Tetanus Vaccination: No Review of Systems - Review of Systems Notes: Constitutional: Negative for fever. HENT: Negative for sore throat. Eyes: Negative for visual changes. Cardiovascular: Negative for chest pain. Respiratory: Negative for shortness of breath. Gastrointestinal: + Abdominal pain, no vomiting no diarrhea. Genitourinary: Negative for dysuria. Musculoskeletal: Negative for back pain. Skin: Negative for rash. Neurological: Negative for headaches, weakness or numbness. 10 point ROS negative except as marked above and in HPI. Physical Exam - Vital signs Vitals: Temp Pulse Resp BP Pulse Ox 97.6 F 90 18 122/55 L 100 10/04/19 07:13 10/04/19 07:13 10/04/19 07:13 10/04/19 07:13 10/04/19 07:13 - Notes Notes: PHYSICAL EXAMINATION: Physical Exam: General: Well-nourished well-developed 49-year-old woman in moderate distress secondary to abdominal pain HEENT: NC/AT, pupils equal round and reactive to light, MM moist,nares clear, oropharynx clear Neck: supple, no adenopathy, no masses. Lungs: clear, no wheezing, no rales no rhonchi CVS: Regular rate and rhythm no murmur gallop or rub Abdomen: Soft, active, tenderness in the right lower quadrant with guarding, + rebound , no masses, no hepatosplenomegaly Ext: No edema clubbing or cyanosis. Neuro: Alert and responsive, moving all 4 extremities on command, cranial nerves intact. Skin: Intact no open lesions, no rash PSYCH: Normal mood, normal affect. Course - Re-evaluation Re-evalutation: 10/04/19 12:31 CT scan of the abdomen and pelvis was performed and review of the CT scan revealed area of thickening and fatty change/around the cecal region of the large bowel, appendix appears normal question of colitis patient is in marked pain.. Antibiotics ceftriaxone and Flagyl were begun along with a dose of Solu- Medrol. - Vital Signs Vital signs: Temp Pulse Resp BP Pulse Ox 97.6 F 90 18 122/55 L 100 10/04/19 07:13 10/04/19 07:13 10/04/19 07:13 10/04/19 07:13 10/04/19 07:13 - Laboratory Result Diagrams: 10/04/19 07:36 10/04/19 07:36 Laboratory results interpreted by me: 10/04/19 07:36 Glucose 112 H Total Protein 8.5 H Discharge - Discharge Clinical Impression: Right lower quadrant abdominal pain, Colitis Condition: Stable Disposition: ADMITTED OBSERVATION Admitting Provider: Ana (Hospitalist) Unit Admitted: Medical Floor Referrals: ALYSSA PIÑA MD [NO LOCAL MD] - Follow up as needed
[2019-10-04 07:56] LABS: ABSOLUTE EOSINOPHILS # (AUTO) 0.2 10^3/uL (0.0-0.6); ABSOLUTE LYMPHOCYTES (AUTO) 1.5 10^3/uL (0.5-4.7); ABSOLUTE MONOCYTES (AUTO) 0.4 10^3/uL (0.1-1.4); BASOPHILS % (AUTO) 0.6 % (0-2); EOSINOPHILS % (AUTO) 2.4 % (0-6); HEMOGLOBIN 15.1 g/dL (12.0-15.5); LYMPHOCYTES % (AUTO) 18.6 % (13-45); MEAN CORPUSCULAR HEMOGLOBIN 30.2 pg (27.0-33.4); MEAN CORPUSCULAR HGB CONC 34.3 g/dL (32.0-36.0); MEAN CORPUSCULAR VOLUME 88 fl (80-97); MONOCYTES % (AUTO) 4.6 % (3-13); PLATELET COUNT 202 10^3/uL (150-450); RED CELL DISTRIBUTION WIDTH 13.8 % (11.5-14.0); SEGMENTED NEUTROPHILS % (AUTO) 73.8 % (42-78); TOTAL CELLS COUNTED % (AUTO) 100 %; WHITE BLOOD COUNT 8.1 10^3/uL (4.0-10.5)
[2019-10-04 08:13] LABS: ALBUMIN 4.4 g/dL (3.5-5.0); ALKALINE PHOSPHATASE 91 U/L (38-126); ANION GAP 12 (5-19); ASPARTATE AMINO TRANSFERASE 19 U/L (14-36); BILIRUBIN,DIRECT 0.2 mg/dL (0.0-0.4); BILIRUBIN,TOTAL 0.8 mg/dL (0.2-1.3); BLOOD UREA NITROGEN 7 mg/dL (7-20); CALCIUM 9.6 mg/dL (8.4-10.2); CARBON DIOXIDE 23 mmol/L (22-30); CHLORIDE 107 mmol/L (98-107); GLUCOSE 112 mg/dL (75-110); POTASSIUM 4.2 mmol/L (3.6-5.0); TOTAL PROTEIN 8.5 g/dL (6.3-8.2)
[2019-10-04 08:21] LABS: APPEARANCE,URINE CLEAR; BILIRUBIN,URINE NEGATIVE (NEGATIVE); COLOR,URINE YELLOW; GLUCOSE, URINE NEGATIVE (NEGATIVE); KETONES,URINE NEGATIVE (NEGATIVE); LEUKOCYTE ESTERASE,URINE NEGATIVE (NEGATIVE); NITRITE,URINE NEGATIVE (NEGATIVE); PROTEIN,URINE NEGATIVE (NEGATIVE); URINE SPECIFIC GRAVITY 1.003; UROBILINOGEN,URINE NEGATIVE mg/dL (<2.0)
--- NOTE | 2019-10-04 09:39 | RADIOLOGY REPORT (SQ) ---
EXAM DESCRIPTION: CT ABD/PELVIS WITH IV ONLY COMPLETED DATE/TIME: 10/04/2019 9:16 am REASON FOR STUDY: Right lower quadrant abdominal pain COMPARISON: None. TECHNIQUE: CT scan of the abdomen and pelvis performed using helical scanning technique with dynamic intravenous contrast injection. No oral contrast. Images reviewed with lung, soft tissue, and bone windows. Reconstructed coronal and sagittal MPR images reviewed. Delayed images for evaluation of the urinary system also acquired. All images stored on PACS. All CT scanners at this facility use dose modulation, iterative reconstruction, and/or weight based d osing when appropriate to reduce radiation dose to as low as reasonably achievable (ALARA). [facility]: Dose Right [facility]: CareDose [facility]: Dose Right [facility]: Teradose 4D [facility]: Sensdata CONTRAST TYPE AND DOSE: contrast/concentration: Isovue 350.00 mg/ml; Total Contrast Delivered: 97.0 ml; Total Saline Delivered: 72.0 ml RENAL FUNCTION: GFR > 60. RADIATION DOSE: CT Rad equipment meets quality standard of care and radiation dose reduction techniq ues were employed. CTDIvol: 8.4 - 11.9 mGy. DLP: 1042 mGy-cm.. LIMITATIONS: None. FINDINGS: LOWER CHEST: Mild subsegmental atelectasis/ scar in the right lower lobe. LIVER: Normal size. No masses. No dilated ducts. SPLEEN: Normal size. No focal lesions. PANCREAS: No masses. No significant calcifications. No adjacent inflammation or peripancreatic fluid collections. Pancreatic duct not dilated. GALLBLADDER: Potential minimal nephrolithiasis. Slight distension without CT evidence of acute shree cystitis. ADRENAL GLANDS: No significant masses or asymmetry. RIGHT KIDNEY AND URETER: No solid masses. No significant calcification. No hydronephrosis or hydroure ter. LEFT KIDNEY AND URETER: No solid masses. No significant calcification. No hydronephrosis or hydrouret er. AORTA AND VESSELS: Atherosclerotic aorta without aneurysm or dissection. Major arterial structures g enerally look patent. Significant plaque is suggests that the origin of the right renal artery. The re is plaque in the iliac arteries. No venous clot. RETROPERITONEUM: No retroperitoneal adenopathy, hemorrhage or masses. BOWEL AND PERITONEAL CAVITY: No evidence of mechanical bowel obstruction. There is mild fluid disten tion in the cecum with conspicuous submucosal fat. Prominent fatty change in the ileocecal valve. D istal ileum looks relatively normal. No regional inflammatory changes. APPENDIX: Normal. PELVIS: No mass. No free fluid. Normal bladder. ABDOMINAL WALL: No masses. No hernias. BONES: Lumbar spondylosis. Bilateral L5 pars defects without malalignment. OTHER: No other significant finding. IMPRESSION: 1. Proximal large bowel findings as above. This could reflect colitis. Differential includes inflam matory bowel disease (Crohn's). Otherwise nonspecific. 2. Atherosclerosis. Proximal mesenteric arteries look widely patent. 3. Other findings as above. TECHNICAL DOCUMENTATION: JOB ID: [id number] Quality ID # [id number]: Final reports with documentation of one or more dose reduction techniques (e.g., Au tomated exposure control, adjustment of the mA and/or kV according to patient size, use of iterative reconstruction technique) 2010 [employer]- All Rights Reserved Reading location - IP/workstation name: [email or web address]
[2019-10-04] MEDS ORDERED: METHYLPREDNISOLONE INJ 125 MG/2 ML SDV IV ONE (10:08)
[2019-10-04] MEDS ORDERED: KETOROLAC TROMETHAMINE INJ/PF 30 MG/1 ML SDV IV ONE (10:08)
[2019-10-04] MEDS ORDERED: METRONIDAZOLE 500 MG/NS RTU 500 MG/100 ML RTUPB IV ONE (10:09)
[2019-10-04] MEDS ORDERED: CEFTRIAXONE INJ 1000 MG VIAL IV ONE (10:10)
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
--- NOTE | 2019-10-04 15:51 | RADIOLOGY REPORT (SQ) ---
EXAM DESCRIPTION: U/S NON OB PEL TV W/DOPPLER COMPLETED DATE/TIME: 10/04/2019 3:26 pm REASON FOR STUDY: severe rlq pain. hx of ovarian cyst COMPARISON: None. TECHNIQUE: Dynamic and static grayscale images acquired of the pelvis via transvaginal approach and recorded on PACS. Additional selected color Doppler and spectral images recorded. LIMITATIONS: None. FINDINGS: UTERUS: Possible 9 mm fibroid in the lower uterine segment. ENDOMETRIAL STRIPE: No focal or generalized thickening. No masses. CERVIX: No nabothian cysts. RIGHT OVARY AND DOPPLER: Ovary not visualized. LEFT OVARY AND DOPPLER: Normal size. 1.5 cm cyst. No worrisome masses. Normal arterial vascular bereket w without evidence for torsion. FREE FLUID: None noted. OTHER: No other significant finding. MEASUREMENTS: UTERUS: 3.8 x 5.1 x 6.5 cm. ENDOMETRIAL STRIPE: 8 mm. RIGHT OVARY: Not visualized. LEFT OVARY: 1.9 x 2.2 x 4.1 cm. IMPRESSION: UNABLE TO VISUALIZE THE RIGHT OVARY. SMALL CYST IN THE LEFT OVARY. POSSIBLE SMALL UTER INE FIBROID. TECHNICAL DOCUMENTATION: JOB ID: [id number] [employer]- All Rights Reserved Rev-01/04 Reading location - IP/workstation name: [email or web address]
--- NOTE | 2019-10-04 15:55 | RADIOLOGY REPORT (SQ) ---
EXAM DESCRIPTION: U/S RETROPERITON (RENAL/AORTA) COMPLETED DATE/TIME: 10/04/2019 3:26 pm REASON FOR STUDY: Limited US for nephrolithiasis on right side COMPARISON: CT scan 10/04/2019 at 0900 hours. TECHNIQUE: Dynamic and static grayscale images acquired of the kidneys and bladder and recorded on P ACS. Additional selected color Doppler and spectral images recorded. LIMITATIONS: None. FINDINGS: RIGHT KIDNEY: Normal size. Normal echogenicity. No solid or suspicious masses. No hydronep hrosis. No calcifications. LEFT KIDNEY: Normal size. Normal echogenicity. No solid or suspicious masses. No hydronephrosis. No calcifications. BLADDER: Empty and not visualized. OTHER FINDINGS: No other significant finding. IMPRESSION: NORMAL RENAL ULTRASOUND. THE PATIENT HAD A CT SCAN OF THE ABDOMEN AND PELVIS A FEW HOUR S AGO. NO CALCULI OR HYDRONEPHROSIS WERE PRESENT ON THE PREVIOUS CT SCAN. TECHNICAL DOCUMENTATION: JOB ID: [id number] 2010 [employer]- All Rights Reserved Reading location - IP/workstation name: [email or web address]
[2019-10-04] MEDS: OXYCODONE HCL IR 5 MG TABLET PO PRN (16:22)
[2019-10-04] MEDS: HYDROMORPHONE HCL INJ/PF 2 MG/ML AMPULE IV PRN ×2 (17:15→21:42)
[2019-10-04] MEDS: METRONIDAZOLE 500 MG/NS RTU 500 MG/100 ML RTUPB IV SCH ×2 (18:16→23:21)
[2019-10-04] MEDS: KETOROLAC TROMETHAMINE INJ/PF 30 MG/1 ML SDV IV PRN (19:34)
[2019-10-04] MEDS: ONDANSETRON HCL INJ/PF 4 MG/2 ML SDV IV PRN (21:42)
[2019-10-04] MEDS: ZOLPIDEM TARTRATE 5 MG TABLET PO PRN (21:43)
[2019-10-04] MEDS: ALPRAZOLAM 0.5 MG TABLET PO PRN (21:43)
[2019-10-04] MEDS: NORMAL SALINE 1000 ML 1,000 ML IV PRN (21:43)
[2019-10-04] MEDS: IPRATROPIUM/ALBUTEROL 0.5-2.5 MG/3 ML AMPUL NEB PRN (22:14)
[2019-10-05] MEDS: HYDROMORPHONE HCL INJ/PF 2 MG/ML AMPULE IV PRN ×5 (02:05→23:15)
[2019-10-05] MEDS: OXYCODONE HCL IR 5 MG TABLET PO PRN ×5 (03:52→23:55)
[2019-10-05] MEDS: KETOROLAC TROMETHAMINE INJ/PF 30 MG/1 ML SDV IV PRN ×3 (03:53→18:54)
[2019-10-05 06:06] LABS: HEMATOCRIT 35.3 % (36.0-47.0); MEAN CORPUSCULAR HEMOGLOBIN 29.8 pg (27.0-33.4); MEAN CORPUSCULAR VOLUME 87 fl (80-97); PLATELET COUNT 197 10^3/uL (150-450); RED BLOOD COUNT 4.03 10^6/uL (3.72-5.28); RED CELL DISTRIBUTION WIDTH 13.8 % (11.5-14.0); WHITE BLOOD COUNT 11.8 10^3/uL (4.0-10.5)
[2019-10-05] MEDS: METRONIDAZOLE 500 MG/NS RTU 500 MG/100 ML RTUPB IV SCH ×4 (06:15→23:15)
[2019-10-05] MEDS: NORMAL SALINE 1000 ML 1,000 ML IV PRN (09:06)
[2019-10-05] MEDS: ENOXAPARIN SODIUM INJ 40 MG/0.4 ML DISP.SYRIN SUBCUT SCH (09:07)
[2019-10-05] MEDS: LURASIDONE HCL 40 MG TABLET PO SCH (09:08)
[2019-10-05] MEDS: CEFTRIAXONE 1 GM/D5W RTU 1 GM/50 ML RTUPB IV SCH (10:15)
[2019-10-05] MEDS: FLUTICASONE/VILANTEROL 100-25 MCG/DOSE IH SCH (10:15)
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
[2019-10-05 11:34] LABS: EPITHELIALS (WET MOUNT) 4+ EPITHELIALS SEEN; RBCS (WET MOUNT) RARE RBCS SEEN; T.VAGINALIS (WET MOUNT) NO TRICHOMONAS SEEN; WBCS (WET MOUNT) 1+ WBCS SEEN; YEAST (WET MOUNT) YEAST SEEN
--- NOTE | 2019-10-05 11:34 | PDOC CONSULTATION ---
Consultation Consult Date: 10/05/19 Attending physician:: MILTON ADORNO Provider Consulted: JASEN NEVILLE Consult reason:: history of ovarian cysts, RLQ pain History of Present Illness Admission Date/PCP: 10/04/19 13:13 JAYCE KEATING DO Patient complains of: Right middle and lower quadrant pain. History of Present Illness: BIANCA MCKEON is a 49 year old female with reported LMP several months ago. Likely perimenopausal by history. She reports long history of right ovarian cysts and feels that this pain is like her prior cysts. She declines being sexually active. Her RLQ pain began approx 2 days ago. Past Medical History LMP: 3-4months ago Menses: perimenopausal Gynecological Infection: No Cardiac Medical History: Reports: Hyperlipidema, Hypertension Pulmonary Medical History: Reports: Pneumonia - walking pneumonia Psychiatric Medical History: Reports: Depression Social History Information Source: Patient Lives with: Family Smoking Status: Current Every Day Smoker Cigarettes Packs Per Day: 0.5 Electronic Cigarette use?: No Number of Years Smokin Frequency of Alcohol Use: None Hx Recreational Drug Use: No Drugs: None Hx Prescription Drug Abuse: No - Advance Directive Resuscitation Status: Full Code Family History Family History: None, Other - States her mom had a hysterectomy but uncertain as to why. She has some issue with her ovaries Parental Family History Reviewed: No Children Family History Reviewed: NA Sibling(s) Family History Reviewed.: NA Medication/Allergy Home Medications: Lurasidone HCl [Latuda 40 mg Tablet] 40 mg PO DAILY 04/24/18 Zolpidem Tartrate [Ambien] 20 mg PO QHS 04/24/18 Albuterol Sulfate [Ventolin 0.083% Neb 2.5 mg/3 ml Ampul] 1 vial NEB [id number] PRN 10/04/19 Alprazolam [Xanax 0.5 mg Tablet] 0.5 mg PO Q12HP PRN 10/04/19 Ibuprofen [Motrin 800 mg Tablet] 800 mg PO Q12HP PRN 10/04/19 Oxycodone HCl [Oxy-Ir 5 mg Tablet] 10 mg PO Q4HP PRN 10/04/19 Tiotropium [place] [Spiriva Handihaler 5 Cap/Kit (18 Mcg/Cap)] 1 inh IH DAILY 10/04/19 Budesonide/Formoterol Fumarate [Symbicort Hfa 160-4.5 Mcg Inhaler 6 gm] 2 puff IH Q12 10/05/19 Vilazodone HCl [Viibryd] 10 mg PO DAILY MDD SAMPLES FROM 10/05/19 Allergies/Adverse Reactions: No Known Allergies Allergy (Verified 10/04/19 07:15) Review of Systems Constitutional: ABSENT: chills, fever(s), headache(s), weight gain, weight loss Cardiovascular: ABSENT: chest pain, dyspnea on exertion, edema, orthropnea, palpitations Genitourinary: ABSENT: dysuria, hematuria Musculoskeletal: ABSENT: joint swelling Neurological: ABSENT: abnormal gait, abnormal speech, confusion, dizziness, focal weakness, syncope Psychiatric: ABSENT: anxiety, depression, homidical ideation, suicidal ideation Physical Exam - Physical Exam Vital Signs: Temp Pulse Resp BP Pulse Ox 98.4 F 64 16 100/51 L 98 10/05/19 10:54 10/05/19 10:54 10/05/19 10:54 10/05/19 10:54 10/05/19 10:54 Intake & Output 10/04/19 10/05/19 10/06/19 06:59 06:59 06:59 Intake Total 2936 Balance 2936 Weight 73.2 kg General appearance: PRESENT: no acute distress, well-developed, well-nourished Head exam: PRESENT: atraumatic, normocephalic Respiratory exam: PRESENT: symmetrical, unlabored, wheezes Cardiovascular exam: PRESENT: RRR. ABSENT: diastolic murmur, rubs, systolic murmur Pulses: PRESENT: normal dorsalis pedis pul, +2 pedal pulses bilateral GI/Abdominal exam: PRESENT: guarding - on right, normal bowel sounds, soft, tenderness - right middle and right lower quadrant ttp. ABSENT: ascites, rebound Rectal exam: PRESENT: deferred Extremities exam: PRESENT: full ROM. ABSENT: calf tenderness, clubbing, pedal edema Neurological exam: PRESENT: alert, awake, oriented to person, oriented to place, oriented to time, oriented to situation, CN II-XII grossly intact. ABSENT: motor sensory deficit - Gynecological Exam Labia: normal Introitus: discharge Perineum: normal, discharge Vagina: discharge Cervix: normal Cervix: tender, discharge, other - discharge with mild CMT when cervix moved Uterus: normal Adhexa: tender - no masses palpable, discharge Rectal: not examined Rectovaginal: not examined Result Laboratory Results: 10/05/19 05:19 10/04/19 07:36 10/05/19 05:19 WBC 11.8 H RBC 4.03 Hgb 12.0 D Hct 35.3 L MCV 87 MCH 29.8 MCHC 34.0 RDW 13.8 Plt Count 197 Impressions: Renal Ultrasound 10/04/19 00:00 IMPRESSION: NORMAL RENAL ULTRASOUND. THE PATIENT HAD A CT SCAN OF THE ABDOMEN AND PELVIS A FEW HOURS AGO. NO CALCULI OR HYDRONEPHROSIS WERE PRESENT ON THE PREVIOUS CT SCAN. Transvaginal US 10/04/19 00:00 IMPRESSION: UNABLE TO VISUALIZE THE RIGHT OVARY. SMALL CYST IN THE LEFT OVARY. POSSIBLE SMALL UTERINE FIBROID. Abdomen/Pelvis CT 10/04/19 07:44 IMPRESSION: 1. Proximal large bowel findings as above. This could reflect colitis. Differential includes inflammatory bowel disease (Crohn's). Otherwise nonspecific. 2. Atherosclerosis. Proximal mesenteric arteries look widely patent. 3. Other findings as above. Status: Imported from PACS Assessment & Plan - Diagnosis (1) Right lower quadrant abdominal pain Is this a current diagnosis for this admission?: Yes Plan: Patient right middle and right lower quadrant pain and guarding. Mild CMT and discharge. Will treat empirically for PID. Already on ceftriaxone and Flagyl - add doxy (order written). GC/CT and wet prep done by myself and given to RN. Urinalysis is negative with no evidence of hematuria. Renal ultrasound negative for nephrolithiasis. CT abdomen and pelvis with IV contrast shows mild bowel changes with possible questionable colitis, normal appendix and no other significant findings - alsono right ovarian cyst noted on CT scan. Pelvic US unremarkable with very small fibroid 9mm and small physiologic left ovarian cyst. However bowel gas obscurring the right ovary. If patient had a cyst at the time of US it will not usuall be obscurred by bowel gas. Torsion would not be present in the absence of inciting cyst or mass. Spoke with Radiologist regarding repeat US today to see if able to get clearer picture of right adnexa. Reviewed other etiologies of patient possible RLQ pain - hydrosalpinx, PID etc. Low suspicion at this time for torsion. Repeat US confirms normal appearing RIght ovary with no e/o torsion. Would recommend empirically treating for PID as no other identified source of pain at this time. Will follow for pending GC/CT cultures. (2) Yeast infection of the vagina Is this a current diagnosis for this admission?: Yes Plan: pt c/o itching of vulva. Wet prep done and yeast infection. Diflcuan x 1 now then will need to repeat when she has completed antibiotics. - Time Time Spent: 30 to 50 Minutes Critical Time spent with patient: Less than 15 minutes Smoking Cessation Education: 3 to 10 minutes Medications reviewed and adjusted accordingly: Yes Anticipated discharge: Home Within: within 24 hours - Inpatient Certification Based on my medical assessment, after consideration of the patient's comorbid ities, presenting symptoms, or acuity I expect that the services needed warrant INPATIENT care.: Yes I certify that my determination is in accordance with my understanding of Medicare's requirements for reasonable and necessary INPATIENT services [42 CFR 412.3e].: Yes Medical Necessity: Need for Pain Control, Need for IV Antibiotics
--- NOTE | 2019-10-05 12:12 | RADIOLOGY REPORT (SQ) ---
EXAM DESCRIPTION: U/S NON OB PEL W/DOPPLER COMPLETED DATE/TIME: 10/05/2019 12:00 pm REASON FOR STUDY: right lower quadrant pain, r/o cyst COMPARISON: 10/04/2019. CT abdomen pelvis 10/04/2019. TECHNIQUE: Dynamic and static grayscale images acquired of the pelvis via transvaginal approach and recorded on PACS. Additional selected color Doppler and spectral images recorded. LIMITATIONS: None. FINDINGS: UTERUS: Lower uterine segment fibroid suggested measuring just under 1 cm. ENDOMETRIAL STRIPE: No focal or generalized thickening. No masses. CERVIX: No nabothian cysts. RIGHT OVARY AND DOPPLER: Normal size. No worrisome masses. Normal arterial vascular flow without evid ence for torsion. LEFT OVARY AND DOPPLER: Normal size. Hypoechoic 1.8 cm ovoid lesion is probably mildly complicated c yst or dominant follicle. Normal arterial vascular flow without evidence for torsion. FREE FLUID: Trace cul-de-sac. OTHER: No other significant finding. IMPRESSION: 1. Right ovary has a sonographically normal appearance on ultrasound. 2. Left ovary with a small suspected cyst or dominant follicle without overtly suspicious features. TECHNICAL DOCUMENTATION: JOB ID: [id number] 2010 [employer]- All Rights Reserved Rev-01/04 Reading location - IP/workstation name: [email or web address]
[2019-10-05] MEDS ORDERED: FLUCONAZOLE 100 MG TABLET PO ONE (13:00)
[2019-10-05 13:05] LABS: CHLAM PCR NOT DETECTED (NOT DETECT)
[2019-10-05] MEDS: DOXYCYCLINE HYCLATE 100 MG TABLET PO SCH ×2 (13:28→21:06)
[2019-10-05] MEDS: ONDANSETRON HCL INJ/PF 4 MG/2 ML SDV IV PRN (17:00)
[2019-10-05] MEDS: ZOLPIDEM TARTRATE 5 MG TABLET PO PRN (22:26)
[2019-10-05] MEDS: ALPRAZOLAM 0.5 MG TABLET PO PRN (22:30)
[2019-10-05] MEDS: IPRATROPIUM/ALBUTEROL 0.5-2.5 MG/3 ML AMPUL NEB PRN (23:58)
[2019-10-06] MEDS: ONDANSETRON HCL INJ/PF 4 MG/2 ML SDV IV PRN (01:03)
[2019-10-06] MEDS: KETOROLAC TROMETHAMINE INJ/PF 30 MG/1 ML SDV IV PRN ×2 (01:03→08:25)
[2019-10-06] MEDS: HYDROMORPHONE HCL INJ/PF 2 MG/ML AMPULE IV PRN ×2 (03:16→07:26)
[2019-10-06] MEDS: OXYCODONE HCL IR 5 MG TABLET PO PRN ×2 (04:17→10:43)
[2019-10-06] MEDS: METRONIDAZOLE 500 MG/NS RTU 500 MG/100 ML RTUPB IV SCH (05:02)
[2019-10-06 10:00] LABS: ABSOLUTE EOSINOPHILS # (AUTO) 0.1 10^3/uL (0.0-0.6); ABSOLUTE LYMPHOCYTES (AUTO) 0.9 10^3/uL (0.5-4.7); ABSOLUTE MONOCYTES (AUTO) 0.3 10^3/uL (0.1-1.4); ABSOLUTE NEUT (AUTO) 3.1 10^3/uL (1.7-8.2); BASOPHILS % (AUTO) 0.9 % (0-2); HEMATOCRIT 34.4 % (36.0-47.0); HEMOGLOBIN 11.7 g/dL (12.0-15.5); MEAN CORPUSCULAR VOLUME 88 fl (80-97); MONOCYTES % (AUTO) 7.1 % (3-13); PLATELET COUNT 153 10^3/uL (150-450); RED BLOOD COUNT 3.91 10^6/uL (3.72-5.28); RED CELL DISTRIBUTION WIDTH 13.7 % (11.5-14.0); TOTAL CELLS COUNTED % (AUTO) 100 %; WHITE BLOOD COUNT 4.5 10^3/uL (4.0-10.5)
[2019-10-06] MEDS ORDERED: VILAZODONE 10 MG PO SCH (10:00)
[2019-10-06] MEDS ORDERED: ONDANSETRON HCL INJ/PF 4 MG/2 ML SDV IV PRN (10:00)
[2019-10-06] MEDS: ENOXAPARIN SODIUM INJ 40 MG/0.4 ML DISP.SYRIN SUBCUT SCH (10:16)
[2019-10-06 10:25] LABS: ANION GAP 7 (5-19); BLOOD UREA NITROGEN 10 mg/dL (7-20); CALCIUM 8.5 mg/dL (8.4-10.2); CARBON DIOXIDE 23 mmol/L (22-30); CHLORIDE 108 mmol/L (98-107); GLUCOSE 93 mg/dL (75-110); POTASSIUM 4.3 mmol/L (3.6-5.0)
[2019-10-06] MEDS: LURASIDONE HCL 40 MG TABLET PO SCH (10:33)
[2019-10-06] MEDS: DOXYCYCLINE HYCLATE 100 MG TABLET PO SCH (10:33)
[2019-10-06] MEDS: CEFTRIAXONE 1 GM/D5W RTU 1 GM/50 ML RTUPB IV SCH (10:34)
[2019-10-06] MEDS: FLUTICASONE/VILANTEROL 100-25 MCG/DOSE IH SCH (10:35)
--- NOTE | 2019-10-06 10:37 | PDOC DISCHARGE SUMMARY ---
Impression - Admit/DC Date/PCP Admission Date/Primary Care Provider: 10/04/19 13:13 JAYCE KEATING DO Discharge Date: 10/06/19 - Discharge Diagnosis (1) Acute colitis Is this a current diagnosis for this admission?: Yes (2) Right lower quadrant abdominal pain Is this a current diagnosis for this admission?: Yes (3) Leukocytosis Is this a current diagnosis for this admission?: Yes (4) Anxiety and depression Is this a current diagnosis for this admission?: Yes (5) COPD (chronic obstructive pulmonary disease) Is this a current diagnosis for this admission?: Yes (6) Chronic pain Is this a current diagnosis for this admission?: Yes (7) Yeast infection of the vagina Is this a current diagnosis for this admission?: Yes - Assessment Summary: Patient was admitted for evaluation of significant right lower quadrant abdominal pain. Patient was hemodynamically stable. Blood work revealed no evidence of leukocytosis on presentation. Patient did receive a dose of steroids in the ER. CT scan showed some findings suggestive of infectious colitis versus inflammatory colitis involving her ileocecal region but normal appendix. Urine hCG test was negative patient was started on IV antibiotics with ceftriaxone and Flagyl. Given the degree of her abdominal pain, further diagnostic studies was sought with pelvic and transvaginal ultrasound to rule out ovarian torsion. No ovarian torsion was noted on the studies. Only a small fibroid was noted. Patient did complain of some vaginal itching. Patient was evaluated by gynecology who did a wet prep revealing yeast infection and give a dose of Diflucan for treatment. Gonorrhea chlamydia testing was also performed which were negative. No examination of PID on production control specialist examination. Patient did have 1 bottle out of 4 blood culture bottles that was positive for gram-positive leland and gram-negative leland. All other cultures are negative so far. It is possible that this is a contaminant or secondary to translocation of bacteria from colitis. Either way, as patient is not septic and her blood work is unimpressive with normal vital signs, patient is receiving Levaquin and Flagyl for the next 7 days for treatment of her colitis. Patient is also being discharged with some pain medications as well as stool softeners. Patient is going to follow-up with her primary care provider for further care. - Additional Information Resuscitation Status: Full Code Discharge Diet: As Tolerated Discharge Activity: Activity As Tolerated Referrals: JAYCE KEATING DO [Primary Care Provider] - 10/31/19 9:30 am Prescriptions: Metronidazole [Flagyl 500 mg Tablet] 500 mg PO TID #21 tablet Levofloxacin [Levaquin 750 mg Tablet] 750 mg PO DAILY #7 tablet RX: Oxycodone HCl [Oxy-Ir 5 mg Tablet] 1 - 2 tab PO Q4HP PRN #14 tablet PRN Reason: Sennosides/Docusate Sodium [Senna Plus 8.6-50 mg Tablet] 2 each PO DAILY 15 Days tablet Home Medications: RX: Lurasidone HCl [Latuda 40 mg Tablet] 40 mg PO DAILY 04/24/18 RX: Zolpidem Tartrate [Ambien] 20 mg PO QHS 04/24/18 RX: Albuterol Sulfate [Ventolin 0.083% Neb 2.5 mg/3 mL Ampul] 1 vial NEB [id number] PRN 10/04/19 RX: Alprazolam [Xanax 0.5 mg Tablet] 0.5 mg PO Q12HP PRN 10/04/19 RX: Ibuprofen [Motrin 800 mg Tablet] 800 mg PO Q12HP PRN 10/04/19 RX: Oxycodone HCl [Oxy-Ir 5 mg Tablet] 10 mg PO Q4HP PRN 10/04/19 RX: Tiotropium [place] [Spiriva Handihaler 5 Cap/Kit (18 Mcg/Cap)] 1 inh IH DAILY 10/04/19 RX: Budesonide/Formoterol Fumarate [Symbicort HFA 160-4.5 mcg Inhaler 6 gm] 2 puff IH Q12 10/05/19 RX: Vilazodone HCl [Viibryd] 10 mg PO DAILY MDD SAMPLES FROM 10/05/19 Levofloxacin [Levaquin 750 mg Tablet] 750 mg PO DAILY #7 tablet 10/06/19 Metronidazole [Flagyl 500 mg Tablet] 500 mg PO TID #21 tablet 10/06/19 RX: Oxycodone HCl [Oxy-Ir 5 mg Tablet] 1 - 2 tab PO Q4HP PRN #14 tablet 10/06/19 Sennosides/Docusate Sodium [Senna Plus 8.6-50 mg Tablet] 2 each PO DAILY 15 Days tablet 10/06/19 History of Present Illiness History of Present Illness: BIANCA MCKEON is a 49 year old female with a history of COPD, depression, cervical spinal disease, lumbar disc herniation, ovarian cyst, who presents to the hospital with complaints of right lower quadrant pain for the past 2 days. Pain had sudden onset but progressive and now rates it a 5/5 on the pain scale. Denies any radiation. Denies aggravation or alleviation with food. Only alleviating factor is positional. Denies any dysuria. Denies polyuria but does have longstanding history of bladder incontinence. Denies hematuria. Patient denies any prior similar episodes to this. Last period was 3 months ago. Patient does not use any control pills and has not had sexual intercourse in several months. Denies any vaginal discharge. CT scan of the abdomen and pelvis shows some findings suggestive of colitis but normal appendix. Referred to hospitalist service for admission given difficulty with pain control. Start ed on antibiotics in the ER. Physical Exam Vital Signs: Temp Pulse Resp BP Pulse Ox 98.4 F 63 16 107/48 L 99 10/06/19 07:18 10/06/19 07:18 10/06/19 07:18 10/06/19 07:18 10/06/19 07:18 Intake & Output 10/05/19 10/06/19 10/07/19 06:59 06:59 06:59 Intake Total 2936 3216 Balance 2936 3216 Weight 73.2 kg 80.1 kg General appearance: PRESENT: no acute distress, cooperative Neurological exam: PRESENT: alert, awake, oriented to person, oriented to place, oriented to time Results Laboratory Results: WBC 4.5 10^3/uL (4.0-10.5) 10/06/19 09:16 RBC 3.91 10^6/uL (3.72-5.28) 10/06/19 09:16 Hgb 11.7 g/dL (12.0-15.5) L 10/06/19 09:16 Hct 34.4 % (36.0-47.0) L 10/06/19 09:16 MCV 88 fl (80-97) 10/06/19 09:16 MCH 30.0 pg (27.0-33.4) 10/06/19 09:16 MCHC 34.0 g/dL (32.0-36.0) 10/06/19 09:16 RDW 13.7 % (11.5-14.0) 10/06/19 09:16 Plt Count 153 10^3/uL (150-450) 10/06/19 09:16 Lymph % (Auto) 20.0 % (13-45) 10/06/19 09:16 [place] % (Auto) 7.1 % (3-13) 10/06/19 09:16 Eos % (Auto) 3.0 % (0-6) 10/06/19 09:16 Baso % (Auto) 0.9 % (0-2) 10/06/19 09:16 Absolute Neuts (auto) 3.1 10^3/uL (1.7-8.2) 10/06/19 09:16 Absolute Lymphs (auto) 0.9 10^3/uL (0.5-4.7) 10/06/19 09:16 Absolute Monos (auto) 0.3 10^3/uL (0.1-1.4) 10/06/19 09:16 Absolute Eos (auto) 0.1 10^3/uL (0.0-0.6) 10/06/19 09:16 Absolute Basos (auto) 0.0 10^3/uL (0.0-0.2) 10/06/19 09:16 Seg Neutrophils % 69.0 % (42-78) 10/06/19 09:16 Sodium 138.1 mmol/L (137-145) 10/06/19 09:16 Potassium 4.3 mmol/L (3.6-5.0) 10/06/19 09:16 Chloride 108 mmol/L (98-107) H 10/06/19 09:16 Carbon Dioxide 23 mmol/L (22-30) 10/06/19 09:16 Anion Gap 7 (5-19) 10/06/19 09:16 BUN 10 mg/dL (7-20) 10/06/19 09:16 Creatinine 0.72 mg/dL (0.52-1.25) 10/06/19 09:16 Est GFR ( Amer) > 60 (>60) 10/06/19 09:16 Est GFR (MDRD) Non-Af > 60 (>60) 10/06/19 09:16 Glucose 93 mg/dL (75-110) 10/06/19 09:16 Calcium 8.5 mg/dL (8.4-10.2) 10/06/19 09:16 Total Bilirubin 0.8 mg/dL (0.2-1.3) 10/04/19 07:36 Direct Bilirubin 0.2 mg/dL (0.0-0.4) 10/04/19 07:36 Neonat Total Bilirubin Not Reportable 10/04/19 07:36 Neonat Direct Bilirubin Not Reportable 10/04/19 07:36 Neonat Indirect Bili Not Reportable 10/04/19 07:36 AST 19 U/L (14-36) 10/04/19 07:36 ALT 13 U/L (<35) 10/04/19 07:36 Alkaline Phosphatase 91 U/L (38-126) 10/04/19 07:36 Total Protein 8.5 g/dL (6.3-8.2) H 10/04/19 07:36 Albumin 4.4 g/dL (3.5-5.0) 10/04/19 07:36 Lipase 33.6 U/L (23-300) 10/04/19 07:36 Urine Color YELLOW 10/04/19 08:00 Urine Appearance CLEAR 10/04/19 08:00 Urine pH 6.0 (5.0-9.0) 10/04/19 08:00 Ur Specific Bates 1.003 10/04/19 08:00 Urine Protein NEGATIVE mg/dL (NEGATIVE) 10/04/19 08:00 Urine Glucose (UA) NEGATIVE mg/dL (NEGATIVE) 10/04/19 08:00 Urine Ketones NEGATIVE mg/dL (NEGATIVE) 10/04/19 08:00 Urine Blood NEGATIVE (NEGATIVE) 10/04/19 08:00 Urine Nitrite NEGATIVE (NEGATIVE) 10/04/19 08:00 Urine Bilirubin NEGATIVE (NEGATIVE) 10/04/19 08:00 Urine Urobilinogen NEGATIVE mg/dL (<2.0) 10/04/19 08:00 Ur Leukocyte Esterase NEGATIVE (NEGATIVE) 10/04/19 08:00 Urine WBC (Auto) 0 /HPF 10/04/19 08:00 Urine RBC (Auto) 0 /HPF 10/04/19 08:00 Squamous Epi Cells Auto 3 /HPF 10/04/19 08:00 Urine Mucus (Auto) RARE /LPF 10/04/19 08:00 Urine Ascorbic Acid NEGATIVE (NEGATIVE) 10/04/19 08:00 Urine HCG, Qual NEGATIVE (NEGATIVE) 10/04/19 08:00 Epi Cells (Wet Prep) 4+ EPITHELIALS SEEN 10/05/19 11:25 Trichomonas (Wet Prep) NO TRICHOMONAS SEEN 10/05/19 11:25 Vaginal WBC 1+ WBCS SEEN 10/05/19 11:25 Vaginal RBC RARE RBCS SEEN 10/05/19 11:25 Vaginal Yeast YEAST SEEN 10/05/19 11:25 Chlamydia DNA (PCR) NOT DETECTED (NOT DETECT) 10/05/19 11:25 N.gonorrhoeae DNA (PCR) NOT DETECTED (NOT DETECT) 10/05/19 11:25 Impressions: Renal Ultrasound 10/04/19 00:00 IMPRESSION: NORMAL RENAL ULTRASOUND. THE PATIENT HAD A CT SCAN OF THE ABDOMEN AND PELVIS A FEW HOURS AGO. NO CALCULI OR HYDRONEPHROSIS WERE PRESENT ON THE PREVIOUS CT SCAN. Transvaginal US 10/04/19 00:00 IMPRESSION: UNABLE TO VISUALIZE THE RIGHT OVARY. SMALL CYST IN THE LEFT OVARY. POSSIBLE SMALL UTERINE FIBROID. Abdomen/Pelvis CT 10/04/19 07:44 IMPRESSION: 1. Proximal large bowel findings as above. This could reflect colitis. Differential includes inflammatory bowel disease (Crohn's). Otherwise nonspecific. 2. Atherosclerosis. Proximal mesenteric arteries look widely patent. 3. Other findings as above. Pelvis Ultrasound 10/05/19 11:00 IMPRESSION: 1. Right ovary has a sonographically normal appearance on ultrasound. 2. Left ovary with a small suspected cyst or dominant follicle without overtly suspicious features. Plan Time Spent: Less than 30 Minutes Stroke Is this a Stroke Patient?: No Acute Heart Failure - Is this a Heart Failure Patient?: No
[2019-10-06 11:31] VITALS: BP 121/62
[2019-10-09] MEDS ORDERED: VILAZODONE 20 MG PO SCH (10:00)
== END 2019-10-06 11:56 | disposition home or self-care (01) ==
LOC: ER 07:08 → EH 13:13 → 4W 16:44
PROVIDERS: ADMIT Internal Medicine; ATTEND Internal Medicine
DX: K52.9 Noninfective gastroenteritis and colitis, unspecified (principal); R10.31 Right lower quadrant pain; D72.829 Elevated white blood cell count, unspecified; F41.9 Anxiety disorder, unspecified; F32.9 Major depressive disorder, single episode, unspecified; J44.9 Chronic obstructive pulmonary disease, unspecified; G89.29 Other chronic pain; B37.3 Candidiasis of vulva and vagina; N83.202 Unspecified ovarian cyst, left side; N83.201 Unspecified ovarian cyst, right side; Z79.899 Other long term (current) drug therapy; F17.200 Nicotine dependence, unspecified, uncomplicated
CPT/HCPCS: 99285; 96361; 96374; 96375; 36415 ×3; 87040 ×2; 87210; 83690; 85025 ×2; 85027; 81025; 87077; 80048; 80053; 81001; 87491; 87591; 87150 ×26; 76770; 76856; 76830; 93976 ×2; 74177; 94640; G0378 ×4; J3490 ×18; J2930; J1885 ×3; J2270; J1650; J1170 ×3; J0696 ×3; J2405 ×3; J7030 ×2; J7620 ×2

== ENCOUNTER → 2019-10-14 | Outpatient (CLI) | payer MEDICAID ==
--- NOTE | 2019-10-14 17:50 | RADIOLOGY REPORT (SQ) ---
EXAM DESCRIPTION: CT CHEST WITH COMPLETED DATE/TIME: 10/14/2019 1:21 pm REASON FOR STUDY: R59.0 LOCALIZED ENLARGED LYMPH NODES R59.0 LOCALIZED ENLARGED LYMPH NODES COMPARISON: 07/13/2018 TECHNIQUE: CT scan of the chest performed using helical scanning technique with dynamic intravenous contrast injection. Images reviewed with lung, soft tissue and bone windows. Reconstructed coronal and sagittal MPR and MIP images reviewed. All images stored on PACS. All CT scanners at this facility use dose modulation, iterative reconstruction, and/or weight based d osing when appropriate to reduce radiation dose to as low as reasonably achievable (ALARA). [facility]: Dose Right [facility]: CareDose [facility]: Dose Right [facility]: Teradose 4D [facility]: [employer] CONTRAST TYPE AND DOSE: contrast/concentration: Isovue 350.00 mg/ml; Total Contrast Delivered: 80.0 ml; Total Saline Delivered: 55.0 ml RENAL FUNCTION: BUN 10 creatinine 0.72 RADIATION DOSE: CT Rad equipment meets quality standard of care and radiation dose reduction techniq ues were employed. CTDIvol: 7.3 mGy. DLP: 292 mGy-cm. . LIMITATIONS: None. FINDINGS: LUNGS AND PLEURA: Limited ground-glass infiltrates. Limited opacification the right middl e lobe anteriorly. HILAR AND MEDIASTINAL STRUCTURES: No identified masses or abnormal nodes. HEART AND VASCULAR STRUCTURES: No aneurysm or dissection. No central pulmonary emboli. No pericardi al effusion. HARDWARE: None in the chest. UPPER ABDOMEN: No significant findings. Limited exam. THYROID AND OTHER SOFT TISSUES: No masses. No adenopathy. BONES: No significant finding. OTHER: No other significant finding. IMPRESSION: Limited ground-glass infiltrates may suggest mild chronic interstitial changes. Limited airspace disease in the right middle lobe, atelectasis versus pneumonia. TECHNICAL DOCUMENTATION: JOB ID: [id number] Quality ID # [id number]: Final reports with documentation of one or more dose reduction techniques (e.g., Au tomated exposure control, adjustment of the mA and/or kV according to patient size, use of iterative reconstruction technique) 2010 [employer]- All Rights Reserved Reading location - IP/workstation name: [email or web address]
== END ==
LOC: RAD 12:40
PROVIDERS: ATTEND Internal Medicine Pulmonary Disease
DX: R59.0 Localized enlarged lymph nodes (principal)
CPT/HCPCS: 71260

== ENCOUNTER 2020-02-18 19:40 | Emergency (ER) | payer MEDICAID ==
--- NOTE | 2020-02-18 20:33 | ER Document Report ---
ED Medical Screen (RME) - General Chief Complaint: Syncope Stated Complaint: FALL/LEFT BODY PAIN, SHAKES Time Seen by Provider: 02/18/20 20:23 Primary Care Provider: RANJIT BARBER MD [Primary Care Provider] - Follow up as needed Mode of Arrival: Wheelchair Information source: Patient, Relative Notes: HPI;-49 year-old female presents to the emergency room complaining of dizziness for the past few months. Today she states she went to stand up became dizzy passed out fell landing on the floor hitting her head and her right upper arm. She has abrasions to her right upper arm. States her tetanus is up-to-date. Complains of a headache but denies any nausea or vomiting. PE: Alert and oriented x3. Moderate distress noted. PERRLA, EOMI fast exam tenderness on palpation to the right shoulder, right humerus, right elbow. No obvious deformities noted. Positive right radial pulse. Capillary refill less than 3 seconds. I have greeted and performed a rapid initial assessment of this patient. A comprehensive ED assessment and evaluation of the patient, analysis of test results and completion of the medical decision making process will be conducted by additional ED providers. I have specifically instructed the patient or family members with the patient to immediately return to any nursing staff should anything change in the patient's condition or with their chief complaint. TRAVEL OUTSIDE OF THE [place] IN LAST 30 DAYS: No - Related Data Allergies/Adverse Reactions: No Known Allergies Allergy (Verified 10/04/19 07:15) Home Medications: oxycodone, paxil, gabapentin, flexeril Past Medical History - Social History Chew tobacco use (# tins/day): No Frequency of alcohol use: None Drug Abuse: None - Past Medical History Cardiac Medical History: Reports: Hx Hypercholesterolemia, Hx Hypertension Pulmonary Medical History: Reports: Hx Pneumonia - walking pneumonia Renal/ Medical History: Denies: Hx Peritoneal Dialysis Psychiatric Medical History: Reports: Hx Anxiety, Hx Depression Past Surgical History: Reports: Hx Tonsillectomy - Immunizations Hx Diphtheria, Pertussis, Tetanus Vaccination: No Physical Exam - Vital signs Vitals: Temp 99.3 F 02/18/20 20:19 Course - Vital Signs Vital signs: Temp Pulse Resp BP Pulse Ox 99.3 F 116 H 20 112/77 98 02/18/20 20:23 02/18/20 20:23 02/18/20 20:23 02/18/20 20:23 02/18/20 20:23 Doctor's Discharge - Discharge Referrals: RANJIT BARBER MD [Primary Care Provider] - Follow up as needed
--- NOTE | 2020-02-18 21:11 | RADIOLOGY REPORT (SQ) ---
EXAM DESCRIPTION: CLINICAL HISTORY: 49 years Female dizzy. Acute trauma. Chest pain. COMPARISON: CT chest 10/14/2019. TECHNIQUE: PA and lateral views. FINDINGS: Cardiomediastinal silhouette is not enlarged. Mild hyperinflation. Previous CT chest demonstrated a right mid lobe and left lower lobe infiltrate in these are not clearly seen. No suspicious bony findings. IMPRESSION: Mild hyperinflation. No acute findings.
--- NOTE | 2020-02-18 21:14 | RADIOLOGY REPORT (SQ) ---
EXAM DESCRIPTION: XR SHOULDER 2 OR MORE VIEWS COMPLETED DATE/TME: 02/18/2020 20:27 CLINICAL HISTORY: 49 years, Female, trauma COMPARISON: None. NUMBER OF VIEWS: TECHNIQUE: LIMITATIONS: None. FINDINGS: 3 views of the right shoulder were obtained. No fracture or dislocation. The acromioclavicular joint appears intact. Mineralization of bone appears normal. IMPRESSION: No fracture or dislocation. copyright 2010 [employer]- All Rights Reserved
--- NOTE | 2020-02-18 21:16 | RADIOLOGY REPORT (SQ) ---
EXAM DESCRIPTION: XR ELBOW 3 VIEWS COMPLETED DATE/TME: 02/18/2020 20:27 CLINICAL HISTORY: 49 years, Female, trauma COMPARISON: None. NUMBER OF VIEWS: TECHNIQUE: LIMITATIONS: None. FINDINGS: 4 views of the right elbow were obtained. No fracture or dislocation. No evidence of elbow joint effusion. Mineralization of bone appears normal. IMPRESSION: No fracture or dislocation. copyright 2010 [employer]- All Rights Reserved
--- NOTE | 2020-02-18 21:22 | RADIOLOGY REPORT (SQ) ---
EXAM DESCRIPTION: CT of the head without IV contrast. CLINICAL HISTORY: 49 years Female . Head trauma. COMPARISON: None TECHNIQUE: Axial images without IV contrast. Sagittal coronal reconstruction. This exam was performed according to our departmental dose-optimization program, which includes automated exposure control, adjustment of the mA and/or kV according to patient size and/or use of iterative reconstruction technique.. FINDINGS: Normal size ventricles. No acute intra-axial or extra-axial abnormality. Paranasal sinuses, mastoid air cells and bony calvarium are unremarkable. IMPRESSION: Negative CT of the head.
--- NOTE | 2020-02-18 21:28 | RADIOLOGY REPORT (SQ) ---
EXAM DESCRIPTION: CT of the cervical spine without contrast. CLINICAL HISTORY: 49 years Female . Neck trauma. COMPARISON: None TECHNIQUE: Axial images without IV contrast. Sagittal coronal reconstruction. This exam was performed according to our departmental dose-optimization program, which includes automated exposure control, adjustment of the mA and/or kV according to patient size and/or use of iterative reconstruction technique.. FINDINGS: No evidence for fracture dislocation. Minimal degenerative changes at C3-4 C4-5 and C5-C6. No evidence for central foraminal stenosis. No suspicious acute prevertebral soft tissue swelling. There are relatively advanced for age atherosclerotic disease at the origin of both internal carotid arteries greater on the left. IMPRESSION: 1. Cervical spine without acute findings. 2. Relatively advanced for age atherosclerotic disease in the proximal internal carotid arteries especially on the left. Recommend carotid ultrasound.
[2020-02-18 21:50] LABS: ABSOLUTE BASOPHILS # (AUTO) 0.2 10^3/uL (0.0-0.2); ABSOLUTE EOSINOPHILS # (AUTO) 0.2 10^3/uL (0.0-0.6); ABSOLUTE LYMPHOCYTES (AUTO) 3.3 10^3/uL (0.5-4.7); ABSOLUTE MONOCYTES (AUTO) 0.9 10^3/uL (0.1-1.4); ABSOLUTE NEUT (AUTO) 8.4 10^3/uL (1.7-8.2); BASOPHILS % (AUTO) 1.2 % (0-2); EOSINOPHILS % (AUTO) 1.2 % (0-6); HEMATOCRIT 49.8 % (36.0-47.0); HEMOGLOBIN 16.8 g/dL (12.0-15.5); LYMPHOCYTES % (AUTO) 25.6 % (13-45); MEAN CORPUSCULAR HEMOGLOBIN 29.4 pg (27.0-33.4); MEAN CORPUSCULAR HGB CONC 33.8 g/dL (32.0-36.0); MEAN CORPUSCULAR VOLUME 87 fl (80-97); MONOCYTES % (AUTO) 7.3 % (3-13); PLATELET COUNT 320 10^3/uL (150-450); RED BLOOD COUNT 5.73 10^6/uL (3.72-5.28); RED CELL DISTRIBUTION WIDTH 13.5 % (11.5-14.0); SEGMENTED NEUTROPHILS % (AUTO) 64.7 % (42-78); TOTAL CELLS COUNTED % (AUTO) 100 %
--- NOTE | 2020-02-18 21:54 | EKG REPORT ---
SEVERITY:- ABNORMAL ECG - SINUS TACHYCARDIA RIGHT ATRIAL ABNORMALITY : Confirmed by: Nela Carney MD 18-Feb-2020 21:53:40
[2020-02-18 22:10] LABS: ALBUMIN 3.6 g/dL (3.5-5.0); ALKALINE PHOSPHATASE 69 U/L (38-126); ASPARTATE AMINO TRANSFERASE 24 U/L (14-36); BILIRUBIN,TOTAL 0.7 mg/dL (0.2-1.3); BLOOD UREA NITROGEN 9 mg/dL (7-20); CALCIUM 9.3 mg/dL (8.4-10.2); CARBON DIOXIDE 25 mmol/L (22-30); CHLORIDE 107 mmol/L (98-107); CREATINE KINASE 32 U/L (30-135); GLUCOSE 110 mg/dL (75-110); POTASSIUM 4.4 mmol/L (3.6-5.0); TOTAL PROTEIN 6.7 g/dL (6.3-8.2)
[2020-02-18 22:16] LABS: ANION GAP 5 (5-19)
[2020-02-18 22:22] LABS: CREATINE KINASE MB 0.25 ng/mL (<4.55)
[2020-02-18 22:23] LABS: TROPONIN I < 0.012 ng/mL
[2020-02-18 23:18] LABS: APPEARANCE,URINE SLIGHTLY-CLOUDY; BILIRUBIN,URINE NEGATIVE (NEGATIVE); COLOR,URINE YELLOW; GLUCOSE, URINE NEGATIVE (NEGATIVE); KETONES,URINE NEGATIVE (NEGATIVE); LEUKOCYTE ESTERASE,URINE NEGATIVE (NEGATIVE); NITRITE,URINE NEGATIVE (NEGATIVE); PROTEIN,URINE 30 mg/dL (NEGATIVE); URINE SPECIFIC GRAVITY 1.015; UROBILINOGEN,URINE NEGATIVE mg/dL (<2.0)
[2020-02-19] MEDS ORDERED: AZITHROMYCIN INJ 500 MG VIAL IV ONE (00:04)
[2020-02-19] MEDS ORDERED: NORMAL SALINE 1000 ML 1,000 ML IV ONE ×2 (00:04→00:53)
[2020-02-19] MEDS ORDERED: OXYCODONE HCL IR 5 MG TABLET PO ONE (00:06)
--- NOTE | 2020-02-19 00:42 | ER Document Report ---
ED General - General Chief Complaint: Syncope Stated Complaint: FALL/LEFT BODY PAIN, SHAKES Time Seen by Provider: 02/18/20 20:23 Primary Care Provider: RANJIT BARBER MD [ACTIVE STAFF] - Follow up as needed Mode of Arrival: Wheelchair Notes: 49-year-old female to the [facility] emergency department complaining of 2 syncopal episodes today. States that the first time she was doing laundry and woke up on the ground and then the second time she was walking to the kitchen and woke up on the ground. States each time she was unconscious for less than 30 seconds. One was witnessed and the other one was not. Patient states she is actually had recurrent syncope 6 or 7 times over the past 6 months and has not had this investigated. States she has been having intermittent sweats for the p ast 6 months but denies any chills or fevers. Admits intermittent nausea for the past 6 months. Denies chest pain or shortness of breath. Complains of some pain in her head and her neck as well as in her elbow. Admits to chronic back pain, is concerned because she has not had her usual oxycodone 10 mg since 5:30 PM and she states she usually takes it every 4 hours. Does not use any blood thinners. TRAVEL OUTSIDE OF THE [place] IN LAST 30 DAYS: No - Related Data Allergies/Adverse Reactions: No Known Allergies Allergy (Verified 10/04/19 07:15) Home Medications: oxycodone, paxil, gabapentin, flexeril Past Medical History - General Information source: Patient, Relative - Social History Smoking Status: Never Smoker Chew tobacco use (# tins/day): No Frequency of alcohol use: None Drug Abuse: None Family History: None - Past Medical History Cardiac Medical History: Reports: Hx Hypercholesterolemia, Hx Hypertension Pulmonary Medical History: Reports: Hx Pneumonia - walking pneumonia Renal/ Medical History: Denies: Hx Peritoneal Dialysis Psychiatric Medical History: Reports: Hx Anxiety, Hx Depression Past Surgical History: Reports: Hx Tonsillectomy - Immunizations Hx Diphtheria, Pertussis, Tetanus Vaccination: No Hx Pneumococcal Vaccination: 06/20/18 Review of Systems - Review of Systems Constitutional: See HPI, Diaphoresis. denies: Chills EENT: No symptoms reported Cardiovascular: See HPI, Syncope. denies: Chest pain, Heart racing Respiratory: No symptoms reported Gastrointestinal: See HPI, Nausea. denies: Diarrhea, Vomiting Musculoskeletal: See HPI, Back pain Neurological/Psychological: See HPI, Lost consciousness -: Yes All other systems reviewed and negative Physical Exam - Vital signs Vitals: Temp 99.3 F 02/18/20 20:19 Notes: Initially tachycardic but then normalizes with sitting, patient then becomes mildly hypotensive with a blood pressure of 95/66. There is no hypoxia. - Notes Notes: GENERAL: Alert, interacts well. No acute distress. HEAD: Normocephalic, atraumatic EYES: Pupils equal, round and reactive to light, extraocular movements intact. ENT: Oral mucosa moist, tongue midline. NECK: Full range of motion, supple, trachea midline. LUNGS: Clear to auscultation bilaterally, no wheezes, rales or rhonchi, no respiratory distress. HEART: Regular rate and rhythm, no murmurs, gallops, rubs. ABDOMEN: Soft, nontender, nondistended, bowel sounds present in all 4 quadrants. EXTREMITIES: Moves all 4 extremities spontaneously, no edema, radial and dorsalis pedis pulses 2/4 bilaterally. No cyanosis. NEUROLOGICAL: Alert and oriented x3, normal speech. PSYCH: Normal mood, normal affect. SKIN: Warm, Dry, normal turgor, no rashes or lesions noted. Course - Re-evaluation Re-evalutation: 02/19/20 00:43 CBC shows elevated white blood cell count at 13, elevated hemoglobin 16.8, this is likely hemoconcentration, CMP unremarkable, troponin negative, urinalysis shows 30 of protein, specific gravity is pretty normal at 1.015, imaging shows right middle lobe pneumonia. Given her borderline hypotension and intermittent syncopal episodes patient will be hydrated with a liter of normal saline, treated with Rocephin and azithromycin through the IV and then ambulated with pulse oximeter to see if she becomes hypoxic. 02/19/20 03:59 Hypotension has resolved, blood pressure is 114/59 and has been here for at least the past hour and a half. Patient is not hypoxic nor she tachycardic. Kyle mckeon was able to ambulate around the emergency department without any difficulty, remained 99 to 100% on room air the entire time. Patient will be discharged to home on oral antibiotics. - Vital Signs Vital signs: Temp Pulse Resp BP Pulse Ox 97.6 F 116 H 13 98/53 L 99 02/19/20 01:51 02/18/20 20:23 02/19/20 02:01 02/19/20 02:01 02/19/20 02:01 - Laboratory Result Diagrams: 02/18/20 21:35 02/18/20 21:35 Laboratory results interpreted by me: 02/18/20 02/18/20 21:35 22:58 WBC 13.0 H RBC 5.73 H Hgb 16.8 H Hct 49.8 H Absolute Neuts (auto) 8.4 H Urine Protein 30 H - EKG Interpretation by Me Additional EKG results interpreted by me: 02/19/20 00:44 EKG shows sinus tachycardia at a rate of 114, normal axis, normal intervals, no ST segment elevations or depressions, no T wave inversions per my interpretation. Discharge - Discharge Clinical Impression: Right middle lobe pneumonia Qualifiers: Pneumonia type: due to unspecified organism Qualified Code(s): J18.9 - Pneum onia, unspecified organism Condition: Stable Disposition: HOME, SELF-CARE Additional Instructions: Pneumonia Your examination indicates that you have pneumonia. This is an infection of the lung tissue, usually caused by bacteria or a virus. Symptoms include cough, fever, shaking chills, chest pain, shortness of breath, and coughing up bloody sputum. Treatment for bacterial pneumonia includes rest, antibiotics, increasing your clear liquid intake, a cool mist humidifier at your bedside, and fever medication. Often, a repeat chest X-ray is performed in a few weeks--even if you feel better--to ascertain whether the infection has completely resolved and no underlying lung problem is present. You should call the physician if you develop persistent vomiting, high fever that does not respond to fever medication, increasing shortness of breath, confusion, or lethargy. Also, failure to improve within two to three days is an indication for re-examination. Given your history of having passed out at least 6 times over the past 6 months I would like you to be seen by contract lead. I have given you the names of 2 different cardiologists, Dr. Fields and Dr. Callahan. You may call either 1 of them to arrange a follow-up appointment as an outpatient to consider Holter monitor and other studies to see why you may be passing out. Prescriptions: Azithromycin 250 mg PO DAILY #4 tablet Referrals: RANJIT BARBER MD [ACTIVE STAFF] - Follow up as needed LUIS CALLAHAN MD [ACTIVE STAFF] - Follow up as needed SHERYL FIELDS MD [ACTIVE STAFF] - Follow up as needed
[2020-02-19] MEDS ORDERED: CEFTRIAXONE 1 GM/D5W RTU 1 GM/50 ML RTUPB IV ONE (01:30)
[2020-02-19] MEDS ORDERED: ONDANSETRON HCL INJ/PF 4 MG/2 ML SDV IV ONE (03:30)
[2020-02-19 04:14] VITALS: BP 90/55
== END 2020-02-19 04:21 | disposition home or self-care (01) ==
LOC: ER 19:40
DX: R55 Syncope and collapse (principal); J18.9 Pneumonia, unspecified organism; R61 Generalized hyperhidrosis; R11.0 Nausea; R51 Headache; M54.2 Cervicalgia; M25.529 Pain in unspecified elbow; W19.XXXA Unspecified fall, initial encounter; I10 Essential (primary) hypertension; F32.9 Major depressive disorder, single episode, unspecified; F41.9 Anxiety disorder, unspecified; M54.9 Dorsalgia, unspecified; G89.29 Other chronic pain; Z79.891 Long term (current) use of opiate analgesic; Z79.899 Other long term (current) drug therapy; Z20.828 Contact with and (suspected) exposure to other viral communicable diseases; R00.0 Tachycardia, unspecified
CPT/HCPCS: 93005; 99284; 36415; 87040; 82553; 82550; 85025; 87635; 80053; 81001; 84484; 71046; 73080; 73030; 70450; 72125; 93010; J2405; J7030; J0456; J0696; J3490; C9803

== ENCOUNTER 2020-02-19 18:16 | Emergency (ER) | payer MEDICAID ==
[2020-02-19 18:35] VITALS: BP 112/52
== END 2020-02-19 19:00 | disposition left against medical advice (07) ==
LOC: ER 18:16
DX: Z53.21 Procedure and treatment not carried out due to patient leaving prior to being seen by health care provider (principal)

== ENCOUNTER 2020-04-16 04:43 | Emergency (ER) | payer MEDICAID ==
[2020-04-16] MEDS ORDERED: MORPHINE SULFATE 10 MG/ML INJ IV ONE (05:01)
[2020-04-16] MEDS ORDERED: ONDANSETRON HCL INJ/PF 4 MG/2 ML SDV IV ONE (05:01)
[2020-04-16] MEDS ORDERED: NORMAL SALINE 1000 ML 1,000 ML IV ONE (05:02)
--- NOTE | 2020-04-16 05:03 | ER Document Report ---
ED GI/ - General Chief Complaint: Flank Pain Stated Complaint: RIGHT SIDE/HIP PAIN Time Seen by Provider: 04/16/20 04:54 Primary Care Provider: YAMILETH LAZO FNP-C [Primary Care Provider] - Follow up as needed Notes: Patient is a 50-year-old female that comes emergency department for chief complaint of sharp right mid to lower abdominal pain that started earlier this evening. She states the pain became severe so she came to the emergency department. She denies specific flank pain, dysuria, vaginal bleeding or discharge, injury. She denies any abdominal surgeries. She denies a history of the same, she denies kidney stones. Past medical history of chronic back pain on oxycodone 15 mg 3 times daily and she states she does take a stool softener, she reports normal bowel movements. Remaining medical history includes hypertension, hyperlipidemia, anxiety/depression, tonsillectomy. TRAVEL OUTSIDE OF THE [place] IN LAST 30 DAYS: No - Related Data Allergies/Adverse Reactions: No Known Allergies Allergy (Verified 10/04/19 07:15) Past Medical History - General Information source: Patient - Social History Smoking Status: Current Every Day Smoker Frequency of alcohol use: None Drug Abuse: None Lives with: Alone Family History: None - Past Medical History Cardiac Medical History: Reports: Hx Hypercholesterolemia, Hx Hypertension Pulmonary Medical History: Reports: Hx Pneumonia - walking pneumonia Renal/ Medical History: Denies: Hx Peritoneal Dialysis Psychiatric Medical History: Reports: Hx Anxiety, Hx Depression Past Surgical History: Reports: Hx Tonsillectomy - Immunizations Hx Diphtheria, Pertussis, Tetanus Vaccination: Yes Hx Pneumococcal Vaccination: 06/20/18 Review of Systems - Review of Systems Constitutional: No symptoms reported EENT: No symptoms reported Cardiovascular: No symptoms reported Respiratory: No symptoms reported Gastrointestinal: See HPI Genitourinary: No symptoms reported Female Genitourinary: No symptoms reported Musculoskeletal: No symptoms reported Skin: No symptoms reported Hematologic/Lymphatic: No symptoms reported Neurological/Psychological: No symptoms reported Physical Exam - Vital signs Vitals: Temp Pulse Resp BP Pulse Ox 98.2 F 103 H 20 116/62 97 04/16/20 04:49 04/16/20 04:49 04/16/20 04:49 04/16/20 04:49 04/16/20 04:49 - Notes Notes: GENERAL: Patient vocalizing occasionally and occasionally grabbing at her abdomen HEAD: Normocephalic, atraumatic. EYES: Pupils equal, round, and reactive to light. Extraocular movements intact. ENT: Oral mucosa moist, tongue midline. Oropharynx unremarkable. Airway patent. NECK: Full range of motion. Supple. Trachea midline. No lymphadenopathy. LUNGS: Clear to auscultation bilaterally, no wheezes, rales, or rhonchi. No respiratory distress. Non-tender chest wall. HEART: Regular rate and rhythm. No murmur ABDOMEN: Generalized tenderness in the mid to lower abdomen more noticeably on the right, nonspecific. Patient yells with palpation of the abdomen although I do not note patient to have guarding, rebound tenderness, rigidity, or specific concerning abdominal pain. Bowel sounds present throughout. No noted distention. EXTREMITIES: Moves all 4 extremities spontaneously. No edema, normal radial and dorsalis pedis pulses bilaterally. No cyanosis. BACK: no cervical, thoracic, lumbar midline tenderness. No saddle anesthesia, normal distal neurovascular exam. Moves all extremities in full range of motion. NEUROLOGICAL: Alert and oriented x3. Normal speech. Cranial nerves II through XII grossly intact. Strength 5/5 in all extremities. PSYCH: Anxious SKIN: Warm, dry, normal turgor. No rashes or lesions noted. Course - Re-evaluation Re-evalutation: It is difficult to get a specific abdominal exam on the patient although I do not appreciate any particular guarding, rigidity, or rebound tenderness. Vital signs are unremarkable. No CVA tenderness noted. No fever. CBC, chemistry, urinalysis unremarkable. Previous records reviewed and showed patient did have colitis on the right side previously. CT of the abdomen pelvis with IV contrast was performed. CT was unremarkable except for incidental finding of slightly increased size of left adrenal adenoma. When I entered the room patient began crying and then grabbed at her abdomen again. However during my conversation with her she ap peared to relax and was attentive without any signs of distress. I discussed her work-up in detail. There appears to be some opioid-induced constipation on the right side of the abdomen although this is not severe and there is no sign of obstruction. I did recommend stool softeners and management for patient's bowel pain, provided with Benadryl and Toradol here as well. I discussed the adenoma. I discussed return precautions in detail. Patient states understanding and agreement. Stable and well-appearing at time of discharge with no signs of distress. Of note I did observe patient to come to her doorway and yell out that her IV was bothering her and then ambulate back to the bed and get on easily without any signs of distress. Patient did have an increased appearance of distress when I enter the room but this is also resolved after I discussed details with her. I have a low suspicion of acute abdomen. Patient discharged with return precautions. - Vital Signs Vital signs: Temp Pulse Resp BP Pulse Ox 98.0 F 84 22 H 112/90 H 91 L 04/16/20 06:42 04/16/20 05:51 04/16/20 06:01 04/16/20 06:01 04/16/20 06:01 - Laboratory Result Diagrams: 04/16/20 05:24 04/16/20 05:24 Discharge - Discharge Clinical Impression: Abdominal pain Qualifiers: Abdominal location: generalized Qualified Code(s): R10.84 - Generalized abdominal pain Condition: Stable Disposition: HOME, SELF-CARE Additional Instructions: Your evaluation today does not show any concerning findings including your labor atory tests and your CAT scan imaging. I suspect your pain may be coming from retained stool in the right side of your abdomen, I do recommend the Bentyl for cramping, magnesium citrate as discussed below, and continuation of your stool softener. Drink 1/4 to 1/2 of the magnesium citrate, then if after several hours you do not have bowel movement results drink another 1/4 to half. Take Bentyl for cramping, Phenergan for nausea if needed. Improve your diet - increased vegetables, fruits, fiber, and fluids are very helpful to clear your bowels. I also recommend that you follow-up with gastroenterology referral listed, call for your follow-up. Follow-up with your primary care in regards to the 1.2 cm suspected left adrenal adenoma as we discussed for monitoring. Return for any concerning symptoms including vomiting, fever, severe worsening pain or swelling, or any other concerning symptoms. Prescriptions: Dicyclomine HCl [Bentyl 20 mg Tablet] 20 mg PO QID PRN #20 tablet PRN Reason: Promethazine HCl [Phenergan 25 mg Tablet] 25 mg PO Q6H PRN #15 tablet PRN Reason: Referrals: CHRISTIAN HOWELL MD [ACTIVE STAFF] - Follow up as needed YAMILETH LAZO, FITNESS PROFESSIONAL-C [Primary Care Provider] - Follow up in 3-5 days
[2020-04-16 05:46] LABS: ABSOLUTE BASOPHILS # (AUTO) 0.1 10^3/uL (0.0-0.2); ABSOLUTE EOSINOPHILS # (AUTO) 0.2 10^3/uL (0.0-0.6); ABSOLUTE LYMPHOCYTES (AUTO) 2.6 10^3/uL (0.5-4.7); ABSOLUTE MONOCYTES (AUTO) 0.5 10^3/uL (0.1-1.4); ABSOLUTE NEUT (AUTO) 4.6 10^3/uL (1.7-8.2); BASOPHILS % (AUTO) 0.6 % (0-2); EOSINOPHILS % (AUTO) 2.8 % (0-6); HEMATOCRIT 42.2 % (36.0-47.0); HEMOGLOBIN 14.1 g/dL (12.0-15.5); LYMPHOCYTES % (AUTO) 31.9 % (13-45); MEAN CORPUSCULAR HEMOGLOBIN 27.9 pg (27.0-33.4); MEAN CORPUSCULAR HGB CONC 33.4 g/dL (32.0-36.0); MEAN CORPUSCULAR VOLUME 84 fl (80-97); MONOCYTES % (AUTO) 6.8 % (3-13); PLATELET COUNT 199 10^3/uL (150-450); RED BLOOD COUNT 5.05 10^6/uL (3.72-5.28); SEGMENTED NEUTROPHILS % (AUTO) 57.9 % (42-78); TOTAL CELLS COUNTED % (AUTO) 100 %
[2020-04-16 05:57] LABS: ALBUMIN 4.4 g/dL (3.5-5.0); ALKALINE PHOSPHATASE 72 U/L (38-126); ANION GAP 9 (5-19); ASPARTATE AMINO TRANSFERASE 25 U/L (14-36); BILIRUBIN,DIRECT 0.3 mg/dL (0.0-0.4); BILIRUBIN,TOTAL 0.8 mg/dL (0.2-1.3); BLOOD UREA NITROGEN 13 mg/dL (7-20); CALCIUM 9.9 mg/dL (8.4-10.2); CARBON DIOXIDE 27 mmol/L (22-30); CHLORIDE 104 mmol/L (98-107); GLUCOSE 101 mg/dL (75-110); POTASSIUM 3.9 mmol/L (3.6-5.0); TOTAL PROTEIN 8.1 g/dL (6.3-8.2)
[2020-04-16 06:08] VITALS: BP 112/90
[2020-04-16 06:55] LABS: APPEARANCE,URINE CLEAR; BILIRUBIN,URINE NEGATIVE (NEGATIVE); COLOR,URINE STRAW; GLUCOSE, URINE NEGATIVE (NEGATIVE); KETONES,URINE NEGATIVE (NEGATIVE); LEUKOCYTE ESTERASE,URINE NEGATIVE (NEGATIVE); NITRITE,URINE NEGATIVE (NEGATIVE); PROTEIN,URINE NEGATIVE (NEGATIVE); URINE SPECIFIC GRAVITY 1.005; UROBILINOGEN,URINE NEGATIVE mg/dL (<2.0)
[2020-04-16 06:59] LABS: ADD MANUAL MICROSCOPIC YES
--- NOTE | 2020-04-16 07:04 | RADIOLOGY REPORT (SQ) ---
EXAM DESCRIPTION: CT ABDOMEN PELVIS WITH IV CONTRAST COMPLETED DATE/TME: 04/16/2020 05:01 CLINICAL HISTORY: 50 years Female, RLQ pain. creat 0.79 Comparison: 10/04/19. July 13, 2018. Technique: IV contrast. Coronal and sagittal reformat. This exam was performed according to our departmental dose-optimization program, which includes automated exposure control, adjustment of the mA and/or kV according to patient size and/or use of iterative reconstruction technique. [facility]: Dose Right [facility]: CareDose [facility]: Dose Right [facility]: Teradose 4D [facility]: [employer] LIMITATIONS: None Findings: Atelectasis/scar. 1.2 cm probable left adrenal adenoma without suspicious interval change compared with prior exam from June 2018. Atherosclerotic vascular disease. Low attenuation diffuse bowel wall thickening suggestive of prior infectious/inflammatory insult. No ascites.No pneumoperitoneum. Normal appendix. No gross evidence of gallbladder inflammation, hepatobiliary obstruction, or portal vein defect. No bowel obstruction. No hydronephrosis or hydroureter. No renal/ureteral stone. No evidence of abdominal aortic aneurysm. No gross evidence of thecal sac/cord or nerve root compression. Inferior thorax, liver, gallbladder, pancreas, spleen, adrenals, renal system, gastrointestinal tract, pelvic organs, lymphatics, vasculature, and musculoskeleton appear otherwise unremarkable. IMPRESSION: No acute findings.
[2020-04-16] MEDS ORDERED: DIPHENHYDRAMINE HCL 50 MG/ML VIAL IV ONE (07:14)
[2020-04-16] MEDS ORDERED: KETOROLAC TROMETHAMINE INJ/PF 30 MG/1 ML SDV IV ONE (07:14)
[2020-04-16] MEDS ORDERED: MAGNESIUM CITRATE 296 ML BOTTLE PO ONE (07:15)
== END 2020-04-16 07:56 | disposition home or self-care (01) ==
LOC: ER 04:43
DX: R10.84 Generalized abdominal pain (principal); R10.30 Lower abdominal pain, unspecified; R30.0 Dysuria; N93.9 Abnormal uterine and vaginal bleeding, unspecified; M54.9 Dorsalgia, unspecified; G89.29 Other chronic pain; Z79.899 Other long term (current) drug therapy; I10 Essential (primary) hypertension; E78.5 Hyperlipidemia, unspecified; F41.9 Anxiety disorder, unspecified; F32.9 Major depressive disorder, single episode, unspecified; F17.200 Nicotine dependence, unspecified, uncomplicated
CPT/HCPCS: 99285; 96361; 96374; 96375; 36415; 83690; 85025; 80053; 81001; 74177; J3490; J1200; J1885; J2270; J2405; J7030

== ENCOUNTER 2020-05-12 07:18 | Day surgery (SDC) | payer MEDICAID ==
[2020-05-12] MEDS ORDERED: PROPOFOL INJ 200 MG/20 ML VIAL IV ONE (07:37)
[2020-05-12] MEDS ORDERED: FENTANYL CITRATE INJ/PF 100 MCG/2 ML AMPUL ONE (09:06)
--- NOTE | 2020-05-12 09:30 | Operative Report ---
Operative Report DATE OF SURGERY: 05/12/20 Operative Report: The risk, benefits and alternatives of the procedure including the risk of bleeding, perforation requiring surgery have been explained to the patient in detail and informed consent has been obtained. Patient is placed in a left, lateral decubital position. Timeout was called. Propofol medication is administered. Rectal examination is done which did not reveal any masses, tears or fissures. An Olympus videoscope was introduced into the patient's rectum and carefully advanced all the way to the cecum. Cecum was identified by the usual anatomical landmarks including the ileocecal valve as well as appendiceal office. Photodocumentation is obtained. Scope was then sequentially pulled back via the various segments of the colon including the ascending colon, hepatic flexure, transverse colon, splenic flexure, descending colon and finally into the rectosigmoid portions of the colon. Retroflexion maneuvers performed. PREOPERATIVE DIAGNOSIS: Colorectal cancer screening POSTOPERATIVE DIAGNOSIS: Right side colon inflammation status post biopsy. Sigmoid polyp status post snare polypectomy and retrieved. Internal hemorrhoids OPERATION: Colonoscopy with snare polypectomy. Colonoscopy with biopsy SURGEON: CHRISTIAN HOWELL ANESTHESIA: LMAC TISSUE REMOVED OR ALTERED: As noted above. COMPLICATIONS: None. ESTIMATED BLOOD LOSS: None. INTRAOPERATIVE FINDINGS: As noted above. PROCEDURE: Patient tolerated the procedure well. No immediate postprocedure complications are noted. Patient is discharged in good condition. Discharge date 05/12/2020. Discharge diet: Regular. Discharge activity: Regular. 2 to 3-week follow-up to discuss findings. Patient is instructed call the office or proceed to the emergency room should there be any further problems or questions. Wait on the pathology. Surveillance colonoscopy 5 years
[2020-05-12 10:01] VITALS: BP 140/67
== END 2020-05-12 11:00 | disposition home or self-care (01) ==
LOC: END 07:18
PROVIDERS: ATTEND Internal Medicine Gastroenterology
DX: Z12.11 Encounter for screening for malignant neoplasm of colon (principal); D12.5 Benign neoplasm of sigmoid colon; K52.9 Noninfective gastroenteritis and colitis, unspecified; K64.8 Other hemorrhoids; Z83.71 Family history of colonic polyps; J44.9 Chronic obstructive pulmonary disease, unspecified; F41.9 Anxiety disorder, unspecified; Z87.891 Personal history of nicotine dependence; Z68.31 Body mass index [BMI] 31.0-31.9, adult; M47.9 Spondylosis, unspecified; Z79.891 Long term (current) use of opiate analgesic; Z79.899 Other long term (current) drug therapy; Z03.818 Encounter for observation for suspected exposure to other biological agents ruled out
CPT/HCPCS: 45380; 45385; 88305 ×2; 00812; J3010; J2704; 812

== ENCOUNTER 2020-05-12 20:39 | Emergency (ER) | payer MEDICAID ==
[2020-05-12] MEDS ORDERED: ONDANSETRON HCL INJ/PF 4 MG/2 ML SDV IV ONE (21:23)
[2020-05-12] MEDS ORDERED: MORPHINE SULFATE 10 MG/ML INJ IV ONE (21:23)
--- NOTE | 2020-05-12 21:24 | ER Document Report ---
ED Medical Screen (RME) - General Chief Complaint: Post Surgical Pain Stated Complaint: POST OP PAIN-ABDOMINAL PAIN Time Seen by Provider: 05/12/20 21:18 Primary Care Provider: YAMILETH LAZO FNP-C [Primary Care Provider] - Follow up as needed TRAVEL OUTSIDE OF THE [place] IN LAST 30 DAYS: No - HPI Notes: 05/12/20 21:23 50-year-old female to the emergency department with complaints of progressively worsening lower abdominal pain that began after she had a colonoscopy today. Dr. Portillo performed the colonoscopy. She has been passing gas. She states that she has been having nausea and vomiting. She states that she cannot stand the pain any longer so she decided to come seek medical attention. Denies any blood in her stool. She is in chronic pain management and takes 15 mg oxycodone. She last took that at 11 AM this morning. I performed a brief medical screening exam on the patient determined that the patient needs further evaluation and management by main side provider. I have placed initial orders to help expedite care. - Related Data Allergies/Adverse Reactions: No Known Allergies Allergy (Verified 10/04/19 07:15) Past Medical History - Past Medical History Cardiac Medical History: Reports: Hx Hypercholesterolemia, Hx Hypertension Denies: Hx Coronary Artery Disease, Hx Heart Attack Pulmonary Medical History: Denies: Hx Asthma, Hx Bronchitis, Hx COPD, Hx Pneumonia - walking pneumonia Neurological Medical History: Denies: Hx Cerebrovascular Accident, Hx Seizures Renal/ Medical History: Denies: Hx Peritoneal Dialysis Musculoskeltal Medical History: Denies Hx Arthritis Psychiatric Medical History: Reports: Hx Anxiety, Hx Depression Past Surgical History: Reports: Hx Tonsillectomy - Immunizations Hx Diphtheria, Pertussis, Tetanus Vaccination: Yes Physical Exam - Vital signs Vitals: Temp Pulse Resp BP Pulse Ox 98.2 F 92 20 130/68 H 97 05/12/20 20:51 05/12/20 20:51 05/12/20 20:51 05/12/20 20:51 05/12/20 20:51 Course - Vital Signs Vital signs: Temp Pulse Resp BP Pulse Ox 98.2 F 92 20 130/68 H 97 05/12/20 20:51 05/12/20 20:51 05/12/20 20:51 05/12/20 20:51 05/12/20 20:51 Doctor's Discharge - Discharge Referrals: YAMILETH LAZO, FAMILY MEDICINE PHYSICIAN ASSISTANT-C [Primary Care Provider] - Follow up as needed
[2020-05-12 22:35] LABS: ABSOLUTE BASOPHILS # (AUTO) 0.1 10^3/uL (0.0-0.2); ABSOLUTE EOSINOPHILS # (AUTO) 0.2 10^3/uL (0.0-0.6); ABSOLUTE LYMPHOCYTES (AUTO) 2.4 10^3/uL (0.5-4.7); ABSOLUTE MONOCYTES (AUTO) 0.7 10^3/uL (0.1-1.4); ABSOLUTE NEUT (AUTO) 7.2 10^3/uL (1.7-8.2); BASOPHILS % (AUTO) 0.9 % (0-2); EOSINOPHILS % (AUTO) 1.9 % (0-6); HEMATOCRIT 41.5 % (36.0-47.0); HEMOGLOBIN 14.1 g/dL (12.0-15.5); LYMPHOCYTES % (AUTO) 22.8 % (13-45); MEAN CORPUSCULAR HEMOGLOBIN 28.3 pg (27.0-33.4); MEAN CORPUSCULAR HGB CONC 34.1 g/dL (32.0-36.0); MEAN CORPUSCULAR VOLUME 83 fl (80-97); PLATELET COUNT 217 10^3/uL (150-450); RED BLOOD COUNT 4.99 10^6/uL (3.72-5.28); RED CELL DISTRIBUTION WIDTH 14.8 % (11.5-14.0); SEGMENTED NEUTROPHILS % (AUTO) 67.4 % (42-78); TOTAL CELLS COUNTED % (AUTO) 100 %; WHITE BLOOD COUNT 10.6 10^3/uL (4.0-10.5)
[2020-05-12 22:48] LABS: ALBUMIN 4.5 g/dL (3.5-5.0); ALKALINE PHOSPHATASE 85 U/L (38-126); ANION GAP 9 (5-19); ASPARTATE AMINO TRANSFERASE 22 U/L (14-36); BILIRUBIN,DIRECT 0.2 mg/dL (0.0-0.4); BILIRUBIN,TOTAL 1.1 mg/dL (0.2-1.3); BLOOD UREA NITROGEN 9 mg/dL (7-20); CALCIUM 9.8 mg/dL (8.4-10.2); CARBON DIOXIDE 26 mmol/L (22-30); CHLORIDE 104 mmol/L (98-107); GLUCOSE 105 mg/dL (75-110); POTASSIUM 4.2 mmol/L (3.6-5.0); TOTAL PROTEIN 8.2 g/dL (6.3-8.2)
--- NOTE | 2020-05-12 22:57 | ER Document Report ---
ED GI/ - General Chief Complaint: Abdominal Pain Stated Complaint: POST OP PAIN-ABDOMINAL PAIN Time Seen by Provider: 05/12/20 21:18 Primary Care Provider: CHRISTIAN HOWELL MD [ACTIVE STAFF] - Follow up tomorrow Notes: Patient is a 50-year-old female that comes emergency department for chief complaint of sharp lower abdominal pain and 4 episodes of vomiting. Patient is status post a colonoscopy performed in the morning by Dr. Howell, she states that when she went home, around noon she started having sharp pain in her lower abdomen, she states after she tried to eat she vomited and she has had worsening pain and multiple episodes of vomiting since that time. She states she has not had a bowel movement since the procedure, she denies rectal bleeding, she denies hematemesis, she denies fever. She denies any abdominal surgeries, she states this was a routine colonoscopy. Past medical history of chronic back pain on oxycodone 50 mg 3 times daily, hypertension, hyperlipidemia, anxiety/depression, tonsillectomy. TRAVEL OUTSIDE OF THE [place] IN LAST 30 DAYS: No - Related Data Allergies/Adverse Reactions: No Known Allergies Allergy (Verified 10/04/19 07:15) Home Medications: oxycodone 15mg @1130, trazadone, paxil, midodrine, ibuprofen,. albuterol, symbicort Past Medical History - General Information source: Patient - Social History Smoking Status: Former Smoker Frequency of alcohol use: None Drug Abuse: None Lives with: Family Family History: None - Past Medical History Cardiac Medical History: Reports: Hx Hypercholesterolemia, Hx Hypertension Denies: Hx Coronary Artery Disease, Hx Heart Attack Pulmonary Medical History: Denies: Hx Asthma, Hx Bronchitis, Hx COPD, Hx Pneumonia - walking pneumonia Neurological Medical History: Denies: Hx Cerebrovascular Accident, Hx Seizures Renal/ Medical History: Denies: Hx Peritoneal Dialysis Musculoskeletal Medical History: Denies Hx Arthritis Psychiatric Medical History: Reports: Hx Anxiety, Hx Depression Past Surgical History: Reports: Hx Tonsillectomy - Immunizations Hx Diphtheria, Pertussis, Tetanus Vaccination: Yes Hx Pneumococcal Vaccination: 06/20/18 Review of Systems - Review of Systems Constitutional: No symptoms reported EENT: No symptoms reported Cardiovascular: No symptoms reported Respiratory: No symptoms reported Gastrointestinal: See HPI Genitourinary: No symptoms reported Female Genitourinary: No symptoms reported Musculoskeletal: No symptoms reported Skin: No symptoms reported Hematologic/Lymphatic: No symptoms reported Neurological/Psychological: No symptoms reported Physical Exam - Vital signs Vitals: Temp Pulse Resp BP Pulse Ox 98.2 F 92 20 130/68 H 97 05/12/20 20:51 05/12/20 20:51 05/12/20 20:51 05/12/20 20:51 05/12/20 20:51 - Notes Notes: GENERAL: Restless and slightly uncomfortable but does not appear to be in severe distress HEAD: Normocephalic, atraumatic. EYES: Pupils equal, round, and reactive to light. Extraocular movements intact. ENT: Oral mucosa moist, tongue midline. Oropharynx unremarkable. Airway patent. NECK: Full range of motion. Supple. Trachea midline. No lymphadenopathy. LUNGS: Clear to auscultation bilaterally, no wheezes, rales, or rhonchi. No respiratory distress. Non-tender chest wall. HEART: Regular rate and rhythm. No murmur ABDOMEN: Generalized tenderness, no distention, no rigidity, no guarding. Bowel sounds are present. GENITOURINARY: Deferred EXTREMITIES: Moves all 4 extremities spontaneously. No edema, normal radial and dorsalis pedis pulses bilaterally. No cyanosis. BACK: no cervical, thoracic, lumbar midline tenderness. No saddle anesthesia, normal distal neurovascular exam. Moves all extremities in full range of motion. NEUROLOGICAL: Alert and oriented x3. Normal speech. Cranial nerves II through XII grossly intact. Strength 5/5 in all extremities. PSYCH: Normal affect, normal mood. SKIN: Warm, dry, normal turgor. No rashes or lesions noted. Course - Re-evaluation Re-evalutation: On my evaluation patient is restless and states she is in pain, however she does not appear to be in severe distress. Her abdomen is actually quite benign with only some mild generalized tenderness, there is no guarding, rigidity, or distention. I did review work-up from triage including CBC, chemistry, lipase. These were unremarkable. I also reviewed the CAT scan, this shows no acute findings, no perforation, no surgical abnormality. On reevaluation patient states that she felt better after pain medication but this was started to come back. She request to be remedicated. We have given her IV fluids. She was remedicated. After she was remedicated she became slightly hypotensive, however after IV fluids completed this resolved, she was able to stand without dizziness, pain completely resolved, patient has no complaints after this. As result I do not suspect perforation, intra-abdominal hemorrhage, or other emergent surgical abnormality. Patient states she is ready to go home, she will follow-up with her parts interpreter in the morning, discussed return precautions. Patient states understanding and agreement. - Vital Signs Vital signs: Temp Pulse Resp BP Pulse Ox 98.3 F 65 20 108/63 98 05/13/20 03:22 05/13/20 00:35 05/13/20 03:22 05/13/20 03:22 05/13/20 03:22 - Laboratory Result Diagrams: 05/12/20 22:20 05/12/20 22:20 Laboratory results interpreted by me: 05/12/20 22:20 WBC 10.6 H RDW 14.8 H Discharge - Discharge Clinical Impression: Abdominal cramping Abdominal pain Qualifiers: Abdominal location: generalized Qualified Code(s): R10.84 - Generalized abdominal pain Condition: Stable Disposition: HOME, SELF-CARE Additional Instructions: Your evaluation, work-up, and imaging did not show any concerning findings. Continue your current medications, take the Zofran if needed for nausea, follow- up with Dr. Howell tomorrow for a recheck and additional management. Return if you worsen including severe worsening pain, return of vomiting, fever, or any other concerning or worsening symptoms. Prescriptions: Ondansetron [Zofran Odt 4 mg Tablet] 1 - 2 tab PO Q4H PRN #15 tab.rapdis PRN Reason: For Nausea/Vomiting Referrals: CHRISTIAN HOWELL MD [ACTIVE STAFF] - Follow up tomorrow
--- NOTE | 2020-05-13 00:26 | RADIOLOGY REPORT (SQ) ---
EXAM DESCRIPTION: CT scan of the abdomen and pelvis with IV contrast. CLINICAL HISTORY: 50 years Female; abd pain, s/p colonoscopy. creat 0.74 TECHNIQUE: CT of the abdomen and pelvis with intravenous contrast.. Oral contrastWas not used. Delayed imaging of the abdomen and pelvis was performed. All CT scans at this facility use dose modulation, iterative reconstruction, and/or weight based dosing when appropriate to reduce radiation dose to as low as reasonably achievable. This exam was performed according to our department optimization program which includes automated exposure control, adjustment of the mA and/or kv according to patient size and/or use of iterative reconstruction technique. COMPARISON: CT scan of the abdomen and pelvis the 2019 FINDINGS: Lower chest:The lung bases are clear. The visualized portion of heart and great vessels are normal. Abdomen: Liver and biliary tree:The liver and gallbladder appear normal. Portal vein and hepatic veins are patent. No biliary dilatation. Pancreas: Normal Spleen:Within normal limits Kidneys: Kidneys are normal in size, shape and position. No stones. No mass or hydronephrosis. Symmetric renal enhancement. On delayed images there is symmetric contrast excretion and the ureters are normal. Adrenal glands:Within normal limits Vascular structures: Vascular calcifications are present in the aorta and iliac vessels. No aneurysms. Retroperitoneum: No mass or lymphadenopathy Abdominal wall: normal GI: There are scattered diverticula in the colon. No evidence of diverticulitis. No focal bowel wall thickening. There is fluid seen in the small bowel loops which are not dilated. This is nonspecific and may represent subtle enteritis. Appendix: The appendix appears normal. General: No free air. No free fluid Pelvis: Lymph nodes: No mass or lymphadenopathy Bladder: Unremarkable. Pelvis: No pelvic mass or adenopathy. Bones: Degenerative changes present at L4-5 with vacuum disks. No acute process. IMPRESSION: Fluid in the small bowel which is not dilated which is nonspecific and may be related to recent colonoscopy prep versus enteritis. No bowel perforation. No acute process is seen.
[2020-05-13] MEDS ORDERED: METOCLOPRAMIDE HCL INJ/PF 10 MG/2 ML SDV IV ONE (00:52)
[2020-05-13] MEDS ORDERED: MORPHINE SULFATE 10 MG/ML INJ IV ONE (00:52)
[2020-05-13] MEDS ORDERED: DIPHENHYDRAMINE HCL 50 MG/ML VIAL IV ONE (00:52)
[2020-05-13] MEDS ORDERED: ONDANSETRON ODT 4 MG TAB (6 TAB/ER DISP) PO PRN (01:30)
[2020-05-13] MEDS ORDERED: NORMAL SALINE 1000 ML 1,000 ML IV ONE (02:46)
[2020-05-13 03:40] VITALS: BP 108/63
== END 2020-05-13 03:40 | disposition home or self-care (01) ==
LOC: ER 20:39
DX: R10.84 Generalized abdominal pain (principal); R10.817 Generalized abdominal tenderness; R11.10 Vomiting, unspecified; I10 Essential (primary) hypertension; F41.9 Anxiety disorder, unspecified; F32.9 Major depressive disorder, single episode, unspecified; M54.9 Dorsalgia, unspecified; G89.29 Other chronic pain; Z79.891 Long term (current) use of opiate analgesic; Z79.899 Other long term (current) drug therapy; Z79.1 Long term (current) use of non-steroidal anti-inflammatories (NSAID); Z79.51 Long term (current) use of inhaled steroids; Z98.890 Other specified postprocedural states; Z87.891 Personal history of nicotine dependence
CPT/HCPCS: 96376; 99285; 96361; 96374; 96375; 36415; 85025; 80053; 74177; J1200; J2765; J2270 ×2; J2405; J7030

== ENCOUNTER 2020-05-17 10:22 | Emergency (ER) | payer MEDICAID ==
[2020-05-17] MEDS ORDERED: METOCLOPRAMIDE HCL INJ/PF 10 MG/2 ML SDV IV ONE (12:41)
[2020-05-17] MEDS ORDERED: NORMAL SALINE 1000 ML 1,000 ML IV ONE (12:41)
[2020-05-17] MEDS ORDERED: HYDROMORPHONE HCL INJ/PF 2 MG/ML AMPULE IV ONE ×2 (12:41→14:48)
[2020-05-17 12:58] LABS: ABSOLUTE EOSINOPHILS # (AUTO) 0.2 10^3/uL (0.0-0.6); ABSOLUTE LYMPHOCYTES (AUTO) 1.6 10^3/uL (0.5-4.7); ABSOLUTE MONOCYTES (AUTO) 0.3 10^3/uL (0.1-1.4); BASOPHILS % (AUTO) 0.5 % (0-2); HEMATOCRIT 39.3 % (36.0-47.0); HEMOGLOBIN 13.2 g/dL (12.0-15.5); LYMPHOCYTES % (AUTO) 25.7 % (13-45); MEAN CORPUSCULAR HEMOGLOBIN 27.9 pg (27.0-33.4); MEAN CORPUSCULAR HGB CONC 33.7 g/dL (32.0-36.0); MEAN CORPUSCULAR VOLUME 83 fl (80-97); MONOCYTES % (AUTO) 5.5 % (3-13); PLATELET COUNT 202 10^3/uL (150-450); RED BLOOD COUNT 4.74 10^6/uL (3.72-5.28); RED CELL DISTRIBUTION WIDTH 14.7 % (11.5-14.0); SEGMENTED NEUTROPHILS % (AUTO) 65.3 % (42-78); TOTAL CELLS COUNTED % (AUTO) 100 %; WHITE BLOOD COUNT 6.1 10^3/uL (4.0-10.5)
[2020-05-17 13:22] LABS: ALBUMIN 3.9 g/dL (3.5-5.0); ALKALINE PHOSPHATASE 62 U/L (38-126); ANION GAP 7 (5-19); ASPARTATE AMINO TRANSFERASE 26 U/L (14-36); BILIRUBIN,DIRECT 0.3 mg/dL (0.0-0.4); BILIRUBIN,TOTAL 0.7 mg/dL (0.2-1.3); BLOOD UREA NITROGEN 9 mg/dL (7-20); CALCIUM 9.4 mg/dL (8.4-10.2); CARBON DIOXIDE 26 mmol/L (22-30); CHLORIDE 106 mmol/L (98-107); CREATINE KINASE 42 U/L (30-135); GLUCOSE 98 mg/dL (75-110); POTASSIUM 4.3 mmol/L (3.6-5.0); TOTAL PROTEIN 7.4 g/dL (6.3-8.2)
--- NOTE | 2020-05-17 13:40 | ER Document Report ---
Entered by JAE LOERA SCRIBE 05/17/20 1257 Acting as scribe for:CLARA GERMAN MD ED GI/ - General Chief Complaint: Nausea/Vomiting/Diarrhea Stated Complaint: ABDOMINAL PAIN,NAUSEA,VOMITING Time Seen by Provider: 05/17/20 12:06 Mode of Arrival: Ambulatory Information source: Patient Notes: This 50 year old female patient in pain management taking oxycodone 15mg fives times a day for chronic neck and back pain presents to the emergency department today with complaints of nausea, vomiting, and lower abdominal pain. Patient had an outpatient colonoscopy on 05/12 and presented to the emergency department a few hours after for lower abdominal pain. She had an unremarkable work-up but she reports the lower abdominal pain has continued along with nausea, vomiting, and diarrhea. TRAVEL OUTSIDE OF THE [place] IN LAST 30 DAYS: No - Related Data Allergies/Adverse Reactions: No Known Allergies Allergy (Verified 05/17/20 11:27) Home Medications: oxycodone, gabapentin, paroxetine, midodrine, folic acid, trzanidine, ibuprofen Past Medical History - General Information source: Patient - Social History Smoking Status: Former Smoker Cigarette use (# per day): No - quit 10/2018 Frequency of alcohol use: None Drug Abuse: None Lives with: Family Family History: None - Past Medical History Cardiac Medical History: Reports: Hx Hypercholesterolemia, Hx Hypertension Psychiatric Medical History: Reports: Hx Anxiety, Hx Depression Past Surgical History: Reports: Hx Tonsillectomy - Immunizations Hx Diphtheria, Pertussis, Tetanus Vaccination: Yes Hx Pneumococcal Vaccination: 06/20/18 Review of Systems - Review of Systems Constitutional: denies: Fever EENT: No symptoms reported Cardiovascular: No symptoms reported Respiratory: denies: Cough Gastrointestinal: See HPI, Diarrhea, Nausea, Vomiting Genitourinary: No symptoms reported Female Genitourinary: No symptoms reported Musculoskeletal: No symptoms reported Skin: No symptoms reported Hematologic/Lymphatic: No symptoms reported Neurological/Psychological: No symptoms reported -: Yes All other systems reviewed and negative Physical Exam - Vital signs Vitals: Temp Pulse Resp BP Pulse Ox 97.9 F 86 16 142/79 H 97 05/17/20 11:18 05/17/20 11:18 05/17/20 11:18 05/17/20 11:18 05/17/20 11:18 - Notes Notes: Physical Exam: General: Alert, appears uncomfortable. HEENT: Normocephalic. Atraumatic. PERRL. Extraocular movements intact. Oropharynx clear. Neck: Supple. Non-tender. Respiratory: No respiratory distress. Clear and equal breath sounds bilaterally. Cardiovascular: Regular rate and rhythm. Abdominal: Obese. Lower abdominal tenderness to palpation. No distension. Normal Bowel Sounds. Back: No gross abnormalities. Extremities: Moves all four extremities. Upper extremities: Normal inspection. Normal ROM. Lower extremities: Hips and knees are held in flexion. Neurological: Normal cognition. AAOx4. Normal speech. Psychological: Normal affect. Normal Mood. Skin: Warm. Dry. Normal color. Course - Re-evaluation Re-evalutation: 05/17/20 13:40 The patient was evaluated during the global COVID-19 pandemic and that diagnosis was suspected/considered upon their initial presentation. Their evaluation, treatment and testing was consistent with current guidelines for patients who present with complaints or symptoms that may be related to COVID-19. 05/17/20 14:49 At this time the patient nauseousness is pretty well controlled, there is been no vomiting. There is been no diarrhea. She continues to ask for pain medication. I suspect that the nausea vomiting has prevented her from taking her oxycodone 15 mg QID. That is the most likely reason for the abdominal pain that she is experiencing, as the abdominal pain is a chronic problem. The patient CBC, Chem-12, and UA are all unremarkable. The KUB does not show any abnormalities. - Vital Signs Vital signs: Temp Pulse Resp BP Pulse Ox 97.9 F 86 16 142/79 H 97 05/17/20 11:18 05/17/20 11:18 05/17/20 11:18 05/17/20 11:18 05/17/20 11:18 - Laboratory Result Diagrams: 05/17/20 11:45 05/17/20 11:45 Laboratory results interpreted by me: 05/17/20 05/17/20 11:45 11:45 RDW 14.7 H Magnesium 2.4 H - Diagnostic Test Radiology reviewed: Image reviewed, Reports reviewed - KUB is unremarkable. Discharge - Discharge Clinical Impression: Abdominal cramping Nausea and vomiting Qualifiers: Vomiting type: unspecified Vomiting Intractability: non-intractable Qualified Code(s): R11.2 - Nausea with vomiting, unspecified Condition: Stable Disposition: HOME, SELF-CARE Additional Instructions: Abdominal Pain There are many causes of abdominal pain. Pain can mean a serious problem requiring surgery (such as appendicitis). It can also be an innocent problem that goes away on its own (such as a viral infection). Often, time must pass to determine the cause of pain. The physician does not feel that hospitalization is necessary, at present. Things may change within the next 24 hours. Call the doctor or come back for re- examination if any problems occur, such as: (1) Pain that becomes more severe, steady, or becomes concentrated in one s pecific area. Also, pain that is more severe with movement or coughing. (2) Vomiting that persists or becomes more frequent. (3) Blood in the vomitus, urine, or bowel movements. Blood in the stool may have a tarry or black appearance. (4) Shaking chills or fever greater than 100 degrees F. (5) The abdomen becomes more distended or swollen. (6) Bowel movements cease. (7) Failure to improve as expected. Nausea or Vomiting, Nonspecific Vomiting (or nausea without vomiting) can be caused by many different problems. Of course, it can mean that something's wrong with the stomach, such as "stomach flu," ulcers, or inflammation. But it can also be a symptom of a problem that has nothing to do with the stomach or intestines. Vomiting is common with severe headaches, earaches, and tonsillitis. We see it with pneumonia or heart attacks. Drugs can cause nausea. Many abdominal problems cause vomiting; for example, gallstones, kidney stones, pancreatitis, and intestinal obstruction (blocked bowels). In most cases, curing the vomiting depends on fixing the problem that caused it. For temporary relief, we may use an anti-nausea medicine. For home use, we can prescribe suppositories, chewable pills, pills that dissolve in the mouth, or liquid anti-nausea drugs. If the vomiting seems to be caused by a problem in the stomach, acid-suppressing drugs may be prescribed as well. It's important to avoid dehydration. Sip clear liquids. Take increasing amounts of fluid over the first 24 hours. Then start small amounts of bland foods (such as dry toast, applesauce, mashed potato). Avoid aspirin, tobacco, and alcohol. Gradually resume your usual diet. If the vomiting worsens, if the problem that's making you vomit worsens, or if there's evidence of bleeding in the stomach (such as black, tarry stool, bloody or black vomit, or lightheadedness), you should return immediately. Call your doctor if you aren't improved in 24 to 36 hours. Take the Reglan as needed to control your nausea so that you can take your re gular pain medications. Follow-up with your primary care provider or your gaming dealer tomorrow if not improving. RETURN TO THE EMERGENCY ROOM IF ANY NEW OR WORSENING SYMPTOMS. Prescriptions: Metoclopramide HCl [Reglan 10 mg Tablet] 10 mg PO ASDIR PRN #15 tablet PRN Reason: I personally performed the services described in the documentation, reviewed and edited the documentation which was dictated to the scribe in my presence, and it accurately records my words and actions.
--- NOTE | 2020-05-17 13:55 | RADIOLOGY REPORT (SQ) ---
EXAM DESCRIPTION: KUB/ABDOMEN (SINGLE VIEW) IMAGES COMPLETED DATE/TIME: 05/17/2020 1:32 pm REASON FOR STUDY: Abdominal pain COMPARISON: 07/20/2018 NUMBER OF VIEWS: One view. TECHNIQUE: Supine radiographic image of the abdomen acquired. LIMITATIONS: None. FINDINGS: BOWEL GAS PATTERN: Normal bowel gas pattern. No dilated loops. CALCIFICATIONS: No suspicious calcifications. SOFT TISSUES: No gross mass or suggestion of organomegaly. HARDWARE: None in the abdomen. BONES: No acute fracture. No worrisome bone lesions. OTHER: No other significant finding. IMPRESSION: NO RADIOGRAPHIC EVIDENCE FOR ACUTE ABDOMINAL DISEASE. TECHNICAL DOCUMENTATION: JOB ID: [id number] 2010 [employer]- All Rights Reserved Reading location - IP/workstation name: [email or web address]
[2020-05-17 14:05] LABS: APPEARANCE,URINE SLIGHTLY-CLOUDY; BILIRUBIN,URINE NEGATIVE (NEGATIVE); COLOR,URINE YELLOW; GLUCOSE, URINE NEGATIVE (NEGATIVE); KETONES,URINE NEGATIVE (NEGATIVE); LEUKOCYTE ESTERASE,URINE NEGATIVE (NEGATIVE); NITRITE,URINE NEGATIVE (NEGATIVE); PROTEIN,URINE NEGATIVE (NEGATIVE); URINE SPECIFIC GRAVITY 1.009; UROBILINOGEN,URINE NEGATIVE mg/dL (<2.0)
[2020-05-17 15:35] VITALS: BP 134/69
== END 2020-05-17 15:35 | disposition home or self-care (01) ==
LOC: ER 10:22
DX: R11.2 Nausea with vomiting, unspecified (principal); R19.7 Diarrhea, unspecified; R10.30 Lower abdominal pain, unspecified; M54.2 Cervicalgia; M54.9 Dorsalgia, unspecified; G89.29 Other chronic pain; R10.819 Abdominal tenderness, unspecified site; F32.9 Major depressive disorder, single episode, unspecified; F41.9 Anxiety disorder, unspecified; I10 Essential (primary) hypertension; Z79.891 Long term (current) use of opiate analgesic; Z79.899 Other long term (current) drug therapy; Z79.1 Long term (current) use of non-steroidal anti-inflammatories (NSAID); Z87.891 Personal history of nicotine dependence; Z20.828 Contact with and (suspected) exposure to other viral communicable diseases
CPT/HCPCS: 99284; 96361; 96374; 36415; 82550; 83690; 83735; 85025; 80053; 81001; 74018; J2765; J1170; J7030

== ENCOUNTER 2020-05-28 21:32 | Emergency (ER) | payer MEDICAID ==
--- NOTE | 2020-05-28 22:13 | ER Document Report ---
ED Extremity Problem, Upper - General Chief Complaint: Arm Pain Stated Complaint: FALL/RIGHT HAND INJURY Time Seen by Provider: 05/28/20 22:02 Mode of Arrival: Wheelchair Information source: Patient Notes: 50 year-old female presents to ED for complaint of pain to the right humerus elbow forearm. States she fell about 3 weeks ago. At the time she was not having any pain. She states she started having pain in the arm about 4 days ago. She has been seen several times between then and now. She is on chronic pain management oxycodone 15 mg 4 times daily. She states last time she took it was 332. I have offered her Tylenol and Motrin but she states she is not allowed to take those due to her chronic pain management. We will x-ray the arm and then treat according to the x-rays. Constitutional: Negative for fever. HENT: Negative for sore throat. Eyes: Negative for visual changes. Cardiovascular: Negative for chest pain. Respiratory: Negative for shortness of breath. Gastrointestinal: Negative for abdominal pain, vomiting or diarrhea. Genitourinary: Negative for dysuria. Musculoskeletal: Patient fell on her right arm about 3 weeks ago she states she came in and was seen and had hip x-rays. She has been seen in the emergency room 2 or 3 times since then and has not complained of pain in the arm. She states the pain started about 4 days ago. Skin: Negative for rash. Neurological: Negative for headaches, weakness or numbness. 10 point ROS negative except as marked above and in HPI. PHYSICAL EXAMINATION: GENERAL: Well-appearing, well-nourished and in no acute distress. HEAD: Atraumatic, normocephalic. EYES: Pupils equal round extraocular movements intact, conjunctiva are normal. ENT: Nares patent NECK: Normal range of motion LUNGS: No respiratory distress Musculoskeletal: Patient states that she is unable to move the arm due to the pain. No bruising swelling or deformity is noted NEUROLOGICAL: Normal speech, normal gait. PSYCH: Normal mood, normal affect. SKIN: Warm, Dry, normal turgor, no rashes or lesions noted. TRAVEL OUTSIDE OF THE [place] IN LAST 30 DAYS: No - HPI Patient complains to provider of: Pain, Right, Arm, Elbow, Forearm Onset: Other - 3 weeks ago Recent injury: Possibly Quality of pain: Sharp, Throbbing Severity of pain: Severe Pain Level: 5 Context: Fall Exacerbated by: Movement, Exertion Relieved by: Rest, Positioning Similar symptoms previously: No Recently seen / treated by doctor: No - Related Data Allergies/Adverse Reactions: No Known Allergies Allergy (Verified 05/28/20 21:58) Past Medical History - General Information source: Patient - Social History Smoking Status: Former Smoker Frequency of alcohol use: None Drug Abuse: None Family History: None Patient has homicidal ideation: No - Past Medical History Cardiac Medical History: Reports: Hx Hypercholesterolemia, Hx Hypertension Denies: Hx Coronary Artery Disease, Hx Heart Attack Pulmonary Medical History: Reports: None EENT Medical History: Reports: None Neurological Medical History: Reports: None Endocrine Medical History: Reports: None Renal/ Medical History: Reports: None Malignancy Medical History: Reports: None GI Medical History: Reports: None Musculoskeletal Medical History: Reports Other - Chronic pain management Skin Medical History: Reports None Psychiatric Medical History: Reports: Hx Anxiety, Hx Depression Infectious Medical History: Reports: None Past Surgical History: Reports: Hx Tonsillectomy - Immunizations Hx Diphtheria, Pertussis, Tetanus Vaccination: Yes Hx Pneumococcal Vaccination: 06/20/18 Physical Exam - Vital signs Vitals: Temp Pulse Resp BP Pulse Ox 98.8 F 88 16 112/53 L 96 05/28/20 21:43 05/28/20 21:43 05/28/20 21:43 05/28/20 21:43 05/28/20 21:43 Course - Vital Signs Vital signs: Temp Pulse Resp BP Pulse Ox 98.6 F 85 18 109/62 98 05/28/20 23:24 05/28/20 23:24 05/28/20 23:24 05/28/20 23:24 05/28/20 23:24 - Diagnostic Test Radiology reviewed: Image reviewed, Reports reviewed Procedures - Immobilization Right Shoulder Time completed: 22:52 Pre-Proc Neuro Vasc Exam: Normal Immobilizer type: Sling Performed by: Other - wire tester Post-Proc Neuro Vasc Exam: Normal Alignment checked and good: Yes Right Arm Time completed: 22:52 Pre-Proc Neuro Vasc Exam: Normal Immobilizer type: Sling Performed by: Other - wire tester Post-Proc Neuro Vasc Exam: Normal Alignment checked and good: Yes Discharge - Discharge Clinical Impression: Pain of right shoulder joint on movement, Pain in right elbow, Pain in right arm Condition: Stable Disposition: HOME, SELF-CARE Additional Instructions: You were here today for pain in the shoulder arm elbow. You state you fell about 3 weeks ago. Your x-ray did not show any bony abnormalities no fractures no dislocations no swelling. Continue taking your normal chronic pain management medications. Have offered you Tylenol and ibuprofen and you state that you have chronic pain management doctor told you cannot take these. I have treated you with a sling for your discomfort. Wear this when needed but still move the shoulder and elbow so you do not get stiff and get frozen taina ulder and frozen joint Ice & Elevation Apply ice packs frequently against the painful area. Many different schedules are recommended, such as "20 minutes on, 20 minutes off" or "one hour ice, two hours rest." If you need to work, you may need to go longer between ice treatments. You should plan to have the area ice packed AT LEAST one-fourth of the time. The ice should be applied over the wrap, tape, or splint, or over a layer of cloth -- not directly against the skin. Some ice bags have a built-in cloth and can be put directly on the skin. Your injured part should be elevated as much as possible over the next 48 hours. Try to keep the injury above the level of the heart. Avoid use of the injured area. Elevation and rest will decrease the swelling. FOLLOW-UP CARE: If you have been referred to a physician for follow-up care, call the physicians office for an appointment as you were instructed or within the next two days. If you experience worsening or a significant change in your symptoms, notify the physician immediately or return to the Emergency Department at any time for re-evaluation.
--- NOTE | 2020-05-28 22:53 | RADIOLOGY REPORT (SQ) ---
CLINICAL INDICATION: Fell 3 weeks ago severe pain. . TECHNIQUE: 2 view(s) were obtained of the right humerus. COMPARISON: None. FINDINGS: No acute displaced fracture is identified of the humerus. Alignment appears anatomic. Joint spaces are within normal limits for age. Mild interstitial prominence right lung. If shoulder or elbow are clinically in suspicion, then dedicated radiography is advised. IMPRESSION: No evidence of acute displaced fracture of the humerus.
--- NOTE | 2020-05-28 22:54 | RADIOLOGY REPORT (SQ) ---
CLINICAL INDICATION: Fell 3 weeks ago severe pain. . TECHNIQUE: 3 view(s) were obtained of the right shoulder. COMPARISON: None. FINDINGS: No acute displaced fracture is identified of the shoulder. Alignment appears anatomic. Joint spaces are within normal limits for age. Interstitial prominence right lung. IMPRESSION: No evidence of acute bony injury to the shoulder.
--- NOTE | 2020-05-28 22:54 | RADIOLOGY REPORT (SQ) ---
CLINICAL INDICATION: Fell 3 weeks ago severe pain. . TECHNIQUE: 4 view(s) were obtained of the right elbow. COMPARISON: None. FINDINGS: No acute displaced fracture is identified of the elbow. Alignment appears anatomic. Joint spaces are within normal limits for age. No significant joint effusion. Surrounding soft tissues are unremarkable. IMPRESSION: No evidence of acute displaced fracture of the elbow.
--- NOTE | 2020-05-28 22:55 | RADIOLOGY REPORT (SQ) ---
CLINICAL INDICATION: Fell 3 weeks ago severe pain. . TECHNIQUE: NUMBER view(s) were obtained of the SIDE forearm. COMPARISON: None. FINDINGS: No acute displaced fracture is identified of the forearm. Alignment appears anatomic. Joint spaces are within normal limits for age. Surrounding soft tissues are unremarkable. If wrist or elbow are clinically in suspicion, then dedicated radiography is advised. IMPRESSION: No evidence of acute displaced fracture of the forearm.
[2020-05-28 23:09] VITALS: BP 109/62
== END 2020-05-28 23:24 | disposition home or self-care (01) ==
LOC: ER 21:32
DX: M25.521 Pain in right elbow (principal); M79.601 Pain in right arm; M25.511 Pain in right shoulder; W19.XXXA Unspecified fall, initial encounter; G89.29 Other chronic pain; E78.00 Pure hypercholesterolemia, unspecified; I10 Essential (primary) hypertension
CPT/HCPCS: 99284

== ENCOUNTER 2020-06-04 17:38 | Emergency (ER) | payer MEDICAID ==
[2020-06-04] MEDS ORDERED: ONDANSETRON 4 MG TAB.RAPDIS PO ONE (18:22)
--- NOTE | 2020-06-04 18:22 | ER Document Report ---
ED Medical Screen (RME) - General Chief Complaint: Nausea/Vomiting Stated Complaint: NAUSEA,VOMITING,HEADACHE Time Seen by Provider: 06/04/20 18:20 Mode of Arrival: Wheelchair Information source: Patient Notes: 50-year-old female presented to ED for complaint of nausea and vomiting headaches and body aches cold all the time. She states she is having hot and cold flashes. She states she did have a covered test while she was on the fourth floor given her endoscopy. She states she did have a flu shot at [facility] but she does not know what day it was. She is alert oriented respirations regular nonlabored speaking in full sentences. I have greeted and performed a rapid initial assessment of this patient. A comprehensive ED assessment and evaluation of the patient, analysis of test results and completion of medical decision making process will be conducted by an additional ED providers. TRAVEL OUTSIDE OF THE [place] IN LAST 30 DAYS: No - Related Data Allergies/Adverse Reactions: No Known Allergies Allergy (Verified 05/28/20 21:58) Past Medical History - Past Medical History Cardiac Medical History: Reports: Hx Hypercholesterolemia, Hx Hypertension Denies: Hx Coronary Artery Disease, Hx Heart Attack Psychiatric Medical History: Reports: Hx Anxiety, Hx Depression Past Surgical History: Reports: Hx Tonsillectomy - Immunizations Hx Diphtheria, Pertussis, Tetanus Vaccination: Yes Physical Exam - Vital signs Vitals: Temp Pulse Resp BP Pulse Ox 98.1 F 97 22 H 141/71 H 100 06/04/20 17:42 06/04/20 17:42 06/04/20 17:42 06/04/20 17:42 06/04/20 17:42 Course - Vital Signs Vital signs: Temp Pulse Resp BP Pulse Ox 98.1 F 97 22 H 141/71 H 100 06/04/20 17:42 06/04/20 17:42 06/04/20 17:42 06/04/20 17:42 06/04/20 17:42
[2020-06-04 19:26] LABS: ABSOLUTE BASOPHILS # (AUTO) 0.1 10^3/uL (0.0-0.2); ABSOLUTE EOSINOPHILS # (AUTO) 0.2 10^3/uL (0.0-0.6); ABSOLUTE LYMPHOCYTES (AUTO) 2.4 10^3/uL (0.5-4.7); ABSOLUTE MONOCYTES (AUTO) 0.7 10^3/uL (0.1-1.4); ABSOLUTE NEUT (AUTO) 6.3 10^3/uL (1.7-8.2); BASOPHILS % (AUTO) 0.7 % (0-2); EOSINOPHILS % (AUTO) 1.8 % (0-6); HEMOGLOBIN 13.6 g/dL (12.0-15.5); LYMPHOCYTES % (AUTO) 24.7 % (13-45); MEAN CORPUSCULAR HEMOGLOBIN 28.3 pg (27.0-33.4); MEAN CORPUSCULAR HGB CONC 33.9 g/dL (32.0-36.0); MEAN CORPUSCULAR VOLUME 84 fl (80-97); MONOCYTES % (AUTO) 7.5 % (3-13); PLATELET COUNT 219 10^3/uL (150-450); RED BLOOD COUNT 4.79 10^6/uL (3.72-5.28); SEGMENTED NEUTROPHILS % (AUTO) 65.3 % (42-78); TOTAL CELLS COUNTED % (AUTO) 100 %; WHITE BLOOD COUNT 9.6 10^3/uL (4.0-10.5)
[2020-06-04 19:35] LABS: ALBUMIN 4.1 g/dL (3.5-5.0); ALKALINE PHOSPHATASE 72 U/L (38-126); ANION GAP 7 (5-19); ASPARTATE AMINO TRANSFERASE 21 U/L (14-36); BILIRUBIN,DIRECT 0.3 mg/dL (0.0-0.4); BILIRUBIN,TOTAL 0.7 mg/dL (0.2-1.3); BLOOD UREA NITROGEN 12 mg/dL (7-20); CALCIUM 9.9 mg/dL (8.4-10.2); CARBON DIOXIDE 28 mmol/L (22-30); CHLORIDE 103 mmol/L (98-107); GLUCOSE 99 mg/dL (75-110); POTASSIUM 4.3 mmol/L (3.6-5.0); TOTAL PROTEIN 7.5 g/dL (6.3-8.2)
[2020-06-04 19:36] LABS: AMORPHOUS SEDIMENT,URINE TRACE /HPF; APPEARANCE,URINE CLOUDY; BILIRUBIN,URINE NEGATIVE (NEGATIVE); COLOR,URINE YELLOW; GLUCOSE, URINE NEGATIVE (NEGATIVE); KETONES,URINE NEGATIVE (NEGATIVE); LEUKOCYTE ESTERASE,URINE NEGATIVE (NEGATIVE); NITRITE,URINE NEGATIVE (NEGATIVE); PROTEIN,URINE 30 mg/dL (NEGATIVE); URINE SPECIFIC GRAVITY 1.023; UROBILINOGEN,URINE NEGATIVE mg/dL (<2.0)
[2020-06-04] MEDS ORDERED: RINGERS SOLUTION,LACTATED 1,000 ML IV ONE (20:30)
[2020-06-04] MEDS ORDERED: MORPHINE SULFATE 10 MG/ML INJ IV ONE (20:31)
[2020-06-04] MEDS ORDERED: DIPHENHYDRAMINE HCL 50 MG/ML VIAL IV ONE (20:31)
--- NOTE | 2020-06-04 20:31 | ER Document Report ---
ED General - General Chief Complaint: Nausea/Vomiting Stated Complaint: NAUSEA,VOMITING,HEADACHE Time Seen by Provider: 06/04/20 18:20 Mode of Arrival: Wheelchair Notes: 50-year-old female past medical history significant for migraines and chronic back pain presents to the emergency room complaining of a frontal headache with nausea and vomiting that started yesterday. Complains of photophobia. States that similar to her previous migraines. She denies any sudden thunderclap. Denies worst headache of her life. States headache does not keep her awake at night. Not on any migraine therapy. States she takes oxycodone for her chronic back pain which is not helping with her headache. States her last migraine was about 7 years ago. She denies any fevers. She denies any recent travel. She denies any COVID-19 exposure. TRAVEL OUTSIDE OF THE [place] IN LAST 30 DAYS: No - Related Data Allergies/Adverse Reactions: No Known Allergies Allergy (Verified 05/28/20 21:58) Home Medications: oxycodone. trazadone. midodrone/bp Past Medical History - General Information source: Patient - Social History Smoking Status: Former Smoker Chew tobacco use (# tins/day): No Frequency of alcohol use: None Drug Abuse: None Family History: None Patient has homicidal ideation: No - Past Medical History Cardiac Medical History: Reports: Hx Hypercholesterolemia, Hx Hypertension Denies: Hx Coronary Artery Disease, Hx Heart Attack Psychiatric Medical History: Reports: Hx Anxiety, Hx Depression Past Surgical History: Reports: Hx Tonsillectomy - Immunizations Hx Diphtheria, Pertussis, Tetanus Vaccination: Yes Hx Pneumococcal Vaccination: 06/20/18 Review of Systems - Review of Systems Constitutional: Malaise EENT: No symptoms reported Cardiovascular: No symptoms reported Respiratory: No symptoms reported Gastrointestinal: Nausea, Vomiting. denies: Abdominal pain, Diarrhea, Constipation Genitourinary: No symptoms reported Musculoskeletal: No symptoms reported Hematologic/Lymphatic: No symptoms reported Neurological/Psychological: Headaches -: Yes All other systems reviewed and negative Physical Exam - Vital signs Vitals: Temp Pulse Resp BP Pulse Ox 98.1 F 97 22 H 141/71 H 100 06/04/20 17:42 06/04/20 17:42 06/04/20 17:42 06/04/20 17:42 06/04/20 17:42 - General General appearance: Appears well, Alert In distress: Mild - HEENT Head: Normocephalic, Atraumatic Eyes: Normal Conjunctiva: Normal Cornea: Normal Extraocular movements intact: Yes Pupils: PERRL Ears: Normal External canal: Normal Tympanic membrane: Normal Sinus: Normal Nasal: Normal Mucous membranes: Normal Pharynx: Normal Neck: Normal Notes: Positive for bilateral photophobia. - Respiratory Respiratory status: No respiratory distress Chest status: Nontender Breath sounds: Normal Chest palpation: Normal - Cardiovascular Rhythm: Regular Heart sounds: Normal auscultation Murmur: No - Neurological Neuro grossly intact: Yes Cognition: Normal Orientation: AAOx4 Yonatan Coma Scale Eye Opening: Spontaneous [place] Coma Scale Verbal: Oriented [place] Coma Scale Motor: Obeys Commands Yonatan Coma Scale Total: 15 Speech: Normal Motor strength normal: LUE, RUE, LLE, RLE Sensory: Normal - Skin Skin Temperature: Warm Skin Moisture: Dry Skin Color: Normal Course - Re-evaluation Re-evalutation: 06/04/20 20:36 Patient with a history of chronic migraines. Was given Zofran in triage with some relief of the nausea but continues to complain of headache and worsening back pain secondary to her chronic back pain. States she is due for her pain medication for her back at this time. Will give IV fluids, Benadryl, IV morphine and reevaluate. 06/04/20 22:17 Patient is currently resting comfortably she is pain-free. States both her back and her headache have resolved. Continue with her current home medications. Follow-up with her primary care physician if not improving in 2 to 3 days. Patient was given strict return to the emergency room guidelines. Return for any new or worsening symptoms. All questions were answered. Patient verbalized understanding and agrees with plan of care. - Vital Signs Vital signs: Temp Pulse Resp BP Pulse Ox 98.1 F 97 22 H 141/71 H 100 06/04/20 17:42 06/04/20 17:42 06/04/20 17:42 06/04/20 17:42 06/04/20 17:42 - Laboratory Result Diagrams: 06/04/20 19:07 06/04/20 19:07 Laboratory results interpreted by me: 06/04/20 06/04/20 19:07 19:07 RDW 15.0 H Urine Protein 30 H Discharge - Discharge Clinical Impression: Migraine headache Qualifiers: Migraine type: unspecified Status migrainosus presence: without status migrainosus Intractability: not intractable Qualified Code(s): G43.909 - Migraine, unspecified, not intractable, without status migrainosus Condition: Stable Disposition: HOME, SELF-CARE Instructions: Migraine Headache ([facility]) Additional Instructions: Continue with your current home medications. Follow-up with your primary care physician if not improving in 2 to 3 days. Return to the emergency room for any new or worsening symptoms.
[2020-06-04] MEDS ORDERED: METOCLOPRAMIDE HCL INJ/PF 10 MG/2 ML SDV IV ONE (21:01)
[2020-06-04 23:33] VITALS: BP 129/73
== END 2020-06-04 22:30 | disposition home or self-care (01) ==
LOC: ER 17:38
DX: G43.909 Migraine, unspecified, not intractable, without status migrainosus (principal); M54.9 Dorsalgia, unspecified; G89.29 Other chronic pain; R11.2 Nausea with vomiting, unspecified; H53.149 Visual discomfort, unspecified; Z79.899 Other long term (current) drug therapy; Z87.891 Personal history of nicotine dependence; I10 Essential (primary) hypertension
CPT/HCPCS: 99284; 96361; 96374; 96375; 36415; 85025; 80053; 81001; J1200; S0119; J2765; J2270; J7120

== ENCOUNTER 2020-09-07 21:34 | Emergency (ER) | payer MEDICAID ==
[2020-09-07] MEDS ORDERED: ONDANSETRON 4 MG TAB.RAPDIS PO ONE (23:03)
[2020-09-07] MEDS ORDERED: KETOROLAC TROMETHAMINE INJ/PF 30 MG/1 ML SDV IM ONE (23:03)
--- NOTE | 2020-09-07 23:05 | ER Document Report ---
ED Medical Screen (RME) - General Chief Complaint: Abdominal Pain Stated Complaint: FLANK PAIN, ARM PAIN FROM FALL Time Seen by Provider: 09/07/20 23:02 Mode of Arrival: Ambulatory Information source: Patient TRAVEL OUTSIDE OF THE [place] IN LAST 30 DAYS: No - HPI Patient complains to provider of: Abdominal pain Notes: 09/07/20 23:04 Patient here with complaints of abdominal pain. The patient states that she had a sudden onset of some right lower quadrant abdominal pain. She states that the pain brought her down to her knees. She has nausea, but denies vomiting or diarrhea. She denies any prior abdominal surgeries. She no longer has her menstrual cycle. No fever. No dysuria or hematuria. Exam: Nontoxic, patient does appear to be uncomfortable. Mild tachycardia. Lungs clear and equal throughout. Right lower quadrant abdominal tenderness on limited triage abdominal exam. An initial examination was made on the patient as part of the triage process, and it was determined a more comprehensive evaluation was necessary. Initial orders were placed and patient was transferred to another provider in the ED who assumed care and finished evaluation and plan. - Related Data Allergies/Adverse Reactions: No Known Allergies Allergy (Verified 09/07/20 22:56) Home Medications: OXYCODONE 15MG , TAKE 4 TIMES/DAY. TRAZADONE. HTN MEDS Past Medical History - Social History Frequency of alcohol use: None Drug Abuse: None - Past Medical History Cardiac Medical History: Reports: Hx Hypercholesterolemia, Hx Hypertension Denies: Hx Coronary Artery Disease, Hx Heart Attack Psychiatric Medical History: Reports: Hx Anxiety, Hx Depression Past Surgical History: Reports: Hx Tonsillectomy - Immunizations Hx Diphtheria, Pertussis, Tetanus Vaccination: Yes Physical Exam - Vital signs Vitals: Temp Pulse Resp BP Pulse Ox 98.1 F 115 H 18 131/75 H 100 09/07/20 21:44 09/07/20 21:44 09/07/20 21:44 09/07/20 21:44 09/07/20 21:44 Course - Vital Signs Vital signs: Temp Pulse Resp BP Pulse Ox 98.1 F 115 H 18 131/75 H 100 09/07/20 21:44 09/07/20 21:44 09/07/20 21:44 09/07/20 21:44 09/07/20 21:44
[2020-09-07 23:35] LABS: ABSOLUTE BASOPHILS # (AUTO) 0.2 10^3/uL (0.0-0.2); ABSOLUTE EOSINOPHILS # (AUTO) 0.3 10^3/uL (0.0-0.6); ABSOLUTE LYMPHOCYTES (AUTO) 2.5 10^3/uL (0.5-4.7); ABSOLUTE MONOCYTES (AUTO) 0.7 10^3/uL (0.1-1.4); ABSOLUTE NEUT (AUTO) 6.5 10^3/uL (1.7-8.2); BASOPHILS % (AUTO) 1.7 % (0-2); EOSINOPHILS % (AUTO) 2.5 % (0-6); HEMATOCRIT 42.4 % (36.0-47.0); HEMOGLOBIN 14.3 g/dL (12.0-15.5); LYMPHOCYTES % (AUTO) 24.7 % (13-45); MEAN CORPUSCULAR HEMOGLOBIN 28.7 pg (27.0-33.4); MEAN CORPUSCULAR HGB CONC 33.7 g/dL (32.0-36.0); MEAN CORPUSCULAR VOLUME 85 fl (80-97); MONOCYTES % (AUTO) 6.8 % (3-13); PLATELET COUNT 232 10^3/uL (150-450); RED BLOOD COUNT 4.98 10^6/uL (3.72-5.28); RED CELL DISTRIBUTION WIDTH 14.1 % (11.5-14.0); SEGMENTED NEUTROPHILS % (AUTO) 64.3 % (42-78); TOTAL CELLS COUNTED % (AUTO) 100 %; WHITE BLOOD COUNT 10.1 10^3/uL (4.0-10.5)
[2020-09-07 23:46] LABS: APPEARANCE,URINE SLIGHTLY-CLOUDY; BILIRUBIN,URINE NEGATIVE (NEGATIVE); COLOR,URINE YELLOW; GLUCOSE, URINE NEGATIVE (NEGATIVE); KETONES,URINE NEGATIVE (NEGATIVE); LEUKOCYTE ESTERASE,URINE NEGATIVE (NEGATIVE); NITRITE,URINE NEGATIVE (NEGATIVE); PROTEIN,URINE 30 mg/dL (NEGATIVE); URINE SPECIFIC GRAVITY 1.027
[2020-09-08 00:01] LABS: ALBUMIN 4.3 g/dL (3.5-5.0); ALKALINE PHOSPHATASE 64 U/L (38-126); ANION GAP 5 (5-19); ASPARTATE AMINO TRANSFERASE 20 U/L (14-36); BILIRUBIN,DIRECT 0.2 mg/dL (0.0-0.4); BILIRUBIN,TOTAL 0.4 mg/dL (0.2-1.3); BLOOD UREA NITROGEN 14 mg/dL (7-20); CALCIUM 9.9 mg/dL (8.4-10.2); CARBON DIOXIDE 29 mmol/L (22-30); CHLORIDE 104 mmol/L (98-107); GLUCOSE 105 mg/dL (75-110); POTASSIUM 4.3 mmol/L (3.6-5.0); TOTAL PROTEIN 7.9 g/dL (6.3-8.2)
--- NOTE | 2020-09-08 01:05 | ER Document Report ---
Doctor's Note Notes: 09/08/20 01:04 I reviewed chart and added orders to expedite patient care, patient waiting for full evaluation by treating provider.
--- NOTE | 2020-09-08 05:54 | RADIOLOGY REPORT (SQ) ---
EXAM DESCRIPTION: CT ABDOMEN PELVIS WITH IV CONTRAST COMPLETED DATE/TME: 09/08/2020 05:37 CLINICAL HISTORY: 50 years, Female, RLQ pain Comparison: May 12, 2020 TECHNIQUE: Contiguous axial CT images of the abdomen and pelvis were obtained. Sagittal and coronal reformats were reviewed. This exam was performed according to our departmental dose-optimization program, which includes automated exposure control, adjustment of the mA and/or kV according to patient size and/or use of iterative reconstruction technique. FINDINGS: Lung bases: Clear Liver:Unremarkable. No focal liver lesion. Gallbladder: Decompressed. No gallstones. No gallbladder wall thickening or pericholecystic fluid. Spleen:Unremarkable Pancreas: Pancreas is unremarkable. Adrenal glands:Within normal limits. Kidneys/ureters:Within normal limits Stomach/small bowel/colon: Stomach is unremarkable. Small bowel is unremarkable. Colon is unremarkable. Appendix: No evidence of appendicitis. Peritoneum: No free fluid. Vascular structures: Scattered atherosclerotic calcifications Lymph nodes: No abnormal lymph nodes. Bladder:Unremarkable. Pelvic organs: No acute abnormality Bones: Osseous degenerative changes. Soft tissues: Unremarkable.. IMPRESSION: No acute intra-abdominal abnormality. TECHNICAL DOCUMENTATION: Quality ID # [id number]: Final reports with documentation of one or more dose reduction techniques (e.g., Automated exposure control, adjustment of the mA and/or kV according to patient size, use of iterative reconstruction technique) copyright 2011 [employer]- All Rights Reserved
[2020-09-08] MEDS ORDERED: OXYCODONE-ACETAMINOPHEN 5-325 MG TABLET PO ONE (06:02)
[2020-09-08] MEDS ORDERED: MORPHINE SULFATE 10 MG/ML INJ IV ONE (06:48)
--- NOTE | 2020-09-08 07:05 | ER Document Report ---
ED General - General Chief Complaint: Abdominal Pain Stated Complaint: FLANK PAIN, ARM PAIN FROM FALL Time Seen by Provider: 09/07/20 23:02 Mode of Arrival: Ambulatory Information source: Patient TRAVEL OUTSIDE OF THE [place] IN LAST 30 DAYS: No - HPI Notes: Patient states starting last night approximately 8 PM she began to have severe right lower quadrant abdominal pain. She states she got out of bed to go urinate when the pain occurred and "dropped me to my knees". This pain is sharp and severe. Is been constant. It is worse with touch and better if left alone. It radiates down into the suprapubic area. She states she has had the pain 1 time before but did not get a diagnosis. She denies any history of kidney stones. She has had some vomiting. No problems with stool. No fevers. She denies any known trauma. No vaginal symptoms. No dysuria. - Related Data Allergies/Adverse Reactions: No Known Allergies Allergy (Verified 09/07/20 22:56) Home Medications: OXYCODONE 15MG , TAKE 4 TIMES/DAY. TRAZADONE. HTN MEDS Past Medical History - General Information source: Patient - Social History Smoking Status: Former Smoker Frequency of alcohol use: None Drug Abuse: None Family History: None - Past Medical History Cardiac Medical History: Reports: Hx Hypercholesterolemia, Hx Hypertension Denies: Hx Coronary Artery Disease, Hx Heart Attack Psychiatric Medical History: Reports: Hx Anxiety, Hx Depression Past Surgical History: Reports: Hx Tonsillectomy - Immunizations Hx Diphtheria, Pertussis, Tetanus Vaccination: Yes Hx Pneumococcal Vaccination: 06/20/18 Review of Systems - Review of Systems Constitutional: denies: Chills, Fever Cardiovascular: denies: Chest pain, Palpitations Respiratory: denies: Cough, Short of breath -: Yes All other systems reviewed and negative Physical Exam - Vital signs Vitals: Temp Pulse Resp BP Pulse Ox 98.1 F 115 H 18 131/75 H 100 09/07/20 21:44 09/07/20 21:44 09/07/20 21:44 09/07/20 21:44 09/07/20 21:44 Interpretation: Tachycardic - General General appearance: Appears well, Alert - HEENT Head: Normocephalic, Atraumatic Eyes: Normal Pupils: PERRL - Respiratory Respiratory status: No respiratory distress Chest status: Nontender Breath sounds: Normal Chest palpation: Normal - Cardiovascular Rhythm: Regular Heart sounds: Normal auscultation Murmur: No - Abdominal Inspection: Normal Distension: No distension Bowel sounds: Normal Tenderness: Tender - Right lower quadrant Organomegaly: No organomegaly - Back Back: Normal, Nontender - Extremities General upper extremity: Normal inspection, Nontender, Normal color, Normal ROM, Normal temperature General lower extremity: Normal inspection, Nontender, Normal color, Normal ROM, Normal temperature, Normal weight bearing. No: Keyur's sign - Neurological Neuro grossly intact: Yes Cognition: Normal Orientation: AAOx4 Yonatan Coma Scale Eye Opening: Spontaneous [place] Coma Scale Verbal: Oriented [place]on[place] Coma Scale Motor: Obeys Commands [place] Coma Scale Total: 15 Speech: Normal Motor strength normal: LUE, RUE, LLE, RLE Sensory: Normal - Psychological Associated symptoms: Normal affect, Normal mood - Skin Skin Temperature: Warm Skin Moisture: Dry Skin Color: Normal Course - Re-evaluation Re-evalutation: 09/08/20 09:39 Patient comes in with a sudden onset of right lower quadrant abdominal pain. CT scan is unremarkable. Laboratories are also unremarkable. I have ordered an ultrasound which is be done at this time but is not yet been read by radiology. Patient however stating that she would like to be discharged. She has stable vital signs and I have instructed her that if anything is abnormal on the ultrasound we will call her in follow-up. Patient is agreeable to this plan. Patient states she does not want a wait on her ultrasound results because "what of you gave me for pain is not working. She states that the nurse "diluted the morphine too much". 09/08/20 09:42 - Vital Signs Vital signs: Temp Pulse Resp BP Pulse Ox 97.9 F 78 18 119/68 100 09/08/20 04:21 09/08/20 04:21 09/07/20 21:44 09/08/20 07:01 09/08/20 07:01 - Laboratory Results Result Diagrams: 09/07/20 23:21 09/07/20 23:21 Laboratory Results Interpreted: 09/07/20 09/07/20 09/07/20 23:21 23:21 23:21 RDW 14.1 H Est GFR (MDRD) Non-Af 58 L Urine Protein 30 H Urine Urobilinogen 2.0 H Critical Laboratory Results Reviewed: No Critical Results - Radiology Results Critical Radiology Results Reviewed: No Critical Results Discharge - Discharge Clinical Impression: Right lower quadrant abdominal pain Condition: Stable Disposition: HOME, SELF-CARE Instructions: Abdominal Pain ([facility]) Additional Instructions: Please follow-up with your primary care physician as soon as possible Forms: Return to Work
--- NOTE | 2020-09-08 09:44 | RADIOLOGY REPORT (SQ) ---
EXAM DESCRIPTION: U/S NON OB PEL TV W/DOPPLER IMAGES COMPLETED DATE/TIME: 09/08/2020 8:49 am REASON FOR STUDY: rlq pain COMPARISON: CT abdomen and pelvis 09/08/2020 TECHNIQUE: Dynamic and static grayscale images acquired of the pelvis via transvaginal approach and recorded on PACS. Additional selected color Doppler and spectral images recorded. LIMITATIONS: Intervening bowel gas precludes visualization of the left ovary. FINDINGS: UTERUS: Contour normal. No mass. ENDOMETRIAL STRIPE: No focal or generalized thickening. No masses. CERVIX: No nabothian cysts. RIGHT OVARY AND DOPPLER: Normal size. No worrisome masses. Normal arterial vascular flow without ramya dence for torsion. LEFT OVARY AND DOPPLER: Ovary not visualized. FREE FLUID: None noted. OTHER: No other significant finding. MEASUREMENTS: UTERUS: 5.7 x 3.8 x 3.1 cm ENDOMETRIAL STRIPE: 4 mm RIGHT OVARY: 1.8 x 1.6 x 1.5 cm LEFT OVARY: Not visualized sonographically; normal size and morphology on CT imaging. IMPRESSION: The left ovary is not visualized. Otherwise normal sonographic appearance of the uterus and right adnexa. TECHNICAL DOCUMENTATION: JOB ID: [id number] [employer]- All Rights Reserved Rev-01/04 Reading location - IP/workstation name: [email or web address]
[2020-09-08 09:50] VITALS: BP 119/53
== END 2020-09-08 09:50 | disposition home or self-care (01) ==
LOC: ER 21:34
DX: R10.31 Right lower quadrant pain (principal); E78.00 Pure hypercholesterolemia, unspecified; I10 Essential (primary) hypertension; Z79.891 Long term (current) use of opiate analgesic
CPT/HCPCS: 99285; 96374; 36415; 83690; 84703; 85025; 81025; 80053; 81001; 76830; 93976; 74177; J2270